=== PATIENT | female | born 1965 | race Caucasian/White ===

== ENCOUNTER → 2021-09-28 11:15 | Outpatient (BNVA) | payer OTHER, SELFPAY | PROVIDERS: PCP Internal Medicine; Visit Provider Internal Medicine Rheumatology | DX: M79.7 Fibromyalgia (principal); M19.072 Primary osteoarthritis, left ankle and foot; M19.071 Primary osteoarthritis, right ankle and foot | CPT/HCPCS: 99212 ==

== ENCOUNTER → 2022-03-01 10:32 | Outpatient (BNVA) | payer OTHER, SELFPAY | PROVIDERS: PCP Internal Medicine; Visit Provider Internal Medicine Rheumatology | DX: M19.079 Primary osteoarthritis, unspecified ankle and foot (principal); M79.7 Fibromyalgia | CPT/HCPCS: 99212 ==

== ENCOUNTER 2022-08-29 10:18 | Outpatient (AMB) | payer OTHER, SELFPAY ==
[2022-08-29 10:27] VITALS: BP 112/70; PULSE 78; TEMP 36.7; O2SAT 98; BMI 28.8
--- NOTE | 2022-08-29 10:27 | MHC.OFFVIS ---
Intake Vital Signs 08/29/22 10:27 Height 5 ft 2 in Weight 157 lb 10.088 oz BMI 28.8 BP 112/70 Blood Pressure Location Lt brachial Position Sitting Pulse 78 Pulse Source Pulse Oximeter Temp 98.1 F Temp Source Skin Pulse Oximetry (%) 98 Intake Visit Reasons: fm Intake Note: Pt seen today for FM follow up. C/o right knee pain Investigation Division Sergeant Required: No Accompanied by: Self / Same As Patient Allergies ENVIRONMENTAL Allergy (Intermediate, Uncoded 08/29/22 10:35) SNEEZING,RUNNY EYES AND NOSE Medication List - Last Reconciled 08/29/22 by Mauricio Juan MD albuterol sulfate 90 mcg/actuation (ProAir HFA) 2 puffs inhalation Q6H PRN azelastine 1 spray intranasal BID bupropion HCl (Wellbutrin XL) 300 mg PO QAM bupropion HCl 150 mg PO QAM dextroamphetamine-amphetamine 10 mg 1 tab PO DAILY dextroamphetamine-amphetamine 20 mg ER (Adderall XR) 1 cap PO QAM duloxetine 60 mg PO DAILY epinephrine (EpiPen) 0.3 mg IM Q4H PRN fexofenadine (Allergy Relief (fexofenadine)) 180 mg PO DAILY fluticasone propion-salmeterol 500-50 mcg/dose (Advair Diskus) 1 ea inhalation BID ketoconazole 2% 1 appl topical BID PRN ketotifen fumarate 0.025%(0.035%) (Wal-Zyr (ketotifen)) 1 drp ophthalmic (eye) BID naproxen 250 mg PO BID PRN pregabalin 225 mg PO BID triamcinolone acetonide (Nasacort Allergy) 2 sprays intranasal DAILY triamcinolone acetonide 0.1% 1 appl topical DAILY PRN HPI HPI Comments History of Present Illness Details The patient returns for evaluation of her fibromyalgia. She says joints feel about the same but she has noted some recurrent problems of pain in the left arm. This is mostly over the forearm in the biceps region. It seems to come on after she is holding her new grandson. She notes that it does not bother her while she is holding the child but just afterwards. There has been the development of some right medial thigh and knee pain over the past year. This tends to come and go. It seems to be just proximal to the joint. She does not notice any redness or swelling. More activities seem to make it more uncomfortable. She also still has pain in the neck, shoulders, forearms, hands, lower back and hips. She remains on bupropion, Adderall, duloxetine 60 mg daily, naproxen if needed, and pregabalin 225 mg b.i.d. she does not think the pregabalin in the daytime seems to make her sleepy at all. She used to do more walking walking her dog but the dog is no longer with her. [facility] Surgical History Hx of section Family History Mother Diabetes Hypertension Alzheimer disease Heart disease Father Heart disease Social History Household Members: Family Housing: Apartment Are you a primary care program director to a significant other at home: No Do you presently have visiting nurse or other home services: Yes (Road Consultant 1 hour a day) Alcohol intake: never Patient Tobacco Use Status: Never used Tobacco Substance Use Type: Marijuana service: No Current occupational status: disabled Cognitive needs: No Hearing needs: No Vision needs: Yes Review of Systems Const Details: Low energy. Negative for appetite change, weight change, fever, chills, malaise Eyes Details: Occasional headaches. Negative for vision change, dry eyes and dizziness Skin/Breast Details: Negative for itching, rash, hives, Raynaud's symptoms, sun sensitivity, and skin cancer Neuro Details: She gets fairly regularly hand tingling. This has been treated with carpal tunnel release in the past but she also gets the symptoms. She claims she has some white matter brain lesions followed by the neurologist. Negative for epilepsy, palsy, stroke, changes in speech and weakness Psych Details: anxiety, depression stable for now. Move more upbeat when she discusses her new grandchild. Hayedn/Lymph Details: Negative for excessive bruising or bleeding. Physical Exam Vital Signs: Last Vital Signs Temp 98.1 F 08/29/22 10:27 Pulse 78 08/29/22 10:27 BP 112/70 08/29/22 10:27 Pulse Ox 98 08/29/22 10:27 BMI result Body Mass Index 28.8 APPEARANCE: Patient in no acute distress EYES no redness, pupils equal and reactive to light, eyelids normal EXTREMITIES: No edema, no calf tenderness, normal peripheral pulses. NEURO: Oriented and alert x3. No focal weakness. Reflexes symmetric. SKIN: No inflammatory or neoplastic lesions. Normal color and turgor JOINT EXAM:?? Cervical Spine:? Mild pain with extremes of motion with some cervical muscle tenderness. Thoracic Spine:.? No scoliosis.? No tenderness on palpation. Lumbar Spine:.? Alignment normal.? Slight pain with flexion at 60 degrees.? No tenderness. Chest Wall:.? No tenderness, swelling, increased warmth or erythema. Hands: ?Normal pain-free range of motion with slight bony enlargement at the PIP and the DIP joints.? The PIP and the IP joints all have some slight tenderness but no soft tissue swelling, increased warmth or erythema. Wrists:? Normal pain-free range of motion with slight tenderness but no swelling, increased warmth or erythema. Elbows:. Normal pain-free range of motion without tenderness, swelling, increased warmth or erythema. Able to make a full fist and has a good auto suspension and steering mechanic strength. Shoulders:??Left:?mild pain at the extremes.? Mild anterior tenderness without swelling or abductor weakness.? Right:? Normal pain-free range of motion without tenderness, weakness, swelling, increased warmth or erythema. Hips:.? Left:? Full range of motion without pain.? Right:? Mild lumbar pain with extremes of internal or external rotation.? No groin pain with motion. Hip bursa:.? Mild trochanteric ? tenderness. Knees:? ?Left: Normal pain-free range of motion with the mild patellofemoral crepitus.? There is no tenderness, effusion, soft tissue swelling, increased warmth or erythema.? Right: Mild pain with extremes of normal flexion or extension. Most of this pain is felt just distal to the joint margin the on the medial aspect. That area is slightly tender. I do not detect any warmth, swelling, induration, or fluctuance in that region. There is no popliteal swelling or tenderness. Ankles:.?? Left:? There is no pain with range of motion.? There is slight medial and lateral tenderness but no swelling.? Right:? Normal pain-free range of motion without tenderness, swelling, increased warmth or erythema. Feet:.? Right:? Mild bony enlargement and hallux valgus deformity at the 1st MTP area.? There is mild tenderness across the 1st MTP joint but also in the instep.? There is no accompanying soft tissue swelling, redness or warmth.? Left: Mild bony enlargement hallux valgus deformity and moderate tenderness at the 1st MTP.? She there is [id number] tenderness in the instep but the area has no soft tissue swelling, increased warmth or erythema. Tender points:? Mild tenderness to digital palpation at the occiput, trapezius, second rib, lateral epicondyle, knees, greater trochanter and gluteal area bilaterally. Assessment & Plan Assessment & Plan (1) Knee pain, right: Code(s): M25.561 - Pain in right knee (2) Osteoarthritis of hands, bilateral: Code(s): M19.041 - Primary osteoarthritis, right hand; M19.042 - Primary osteoarthritis, left hand (3) Fibromyalgia: Comment: 2016: pos CCP(58), negative MIRTHA, RF, SS-A, SS-B Code(s): M79.7 - Fibromyalgia Plan She remains with widespread pains but no clear sign of active inflammatory arthritis. There is some findings of some osteoarthritis in the fingers but I do not think that accounts for much of her symptoms. There are many tender points so this again looks like fibromyalgia. I suggested some gentle stretching so she could hold the grandchild. Perhaps holding him in 1 position is not a good idea and she might want to support the elbow in that region with a soft cushion. The right leg pain is so tender over the soft tissues. We will check the x-ray of the knee to see if this any pathology evident. A follow-up in 6 months seems reasonable assuming we do not find anything on the x-ray of the knee. She will continue with the pregabalin as we have been prescribing above. Orders: Orders XR knee RT 3V 08/29/22 M25.561 - Pain in right knee Medications: Refilled pregabalin 225 mg PO BID 60 caps 2RF M79.7 - Fibromyalgia Coding Level of Care Code Est Pt Level 3 (91497) Diagnoses Knee pain, right M25.561 Osteoarthritis of hands, bilateral M19.041; M19.042 Fibromyalgia M79.7
== END 2022-08-29 11:04 | disposition home or self-care (01) ==
LOC: HO.RHE 10:18
PROVIDERS: PCP Internal Medicine; Visit Provider Internal Medicine Rheumatology
DX: M25.561 Pain in right knee (principal); M19.041 Primary osteoarthritis, right hand; M19.042 Primary osteoarthritis, left hand; M79.7 Fibromyalgia
CPT/HCPCS: 99213

== ENCOUNTER → 2022-08-29 10:18 | Outpatient (BNVA) | payer OTHER, SELFPAY | PROVIDERS: PCP Internal Medicine; Visit Provider Internal Medicine Rheumatology | DX: M79.7 Fibromyalgia (principal); M25.561 Pain in right knee; M19.042 Primary osteoarthritis, left hand; M19.041 Primary osteoarthritis, right hand | CPT/HCPCS: 99212 ==

== ENCOUNTER 2023-01-18 08:32 | Outpatient (AMB) | payer OTHER, SELFPAY ==
--- NOTE | 2023-01-18 08:39 | MHC.OFFVIS ---
Intake Vital Signs 01/18/23 08:44 Height 5 ft 2 in Weight 160 lb 4.417 oz BMI 29.3 BP 110/67 Blood Pressure Location Lt brachial Position Sitting Pulse 69 Pulse Source Pulse Oximeter Temp 97.4 F Temp Source Skin Pulse Oximetry (%) 97 Oxygen Delivery Method Room Air Intake Visit Reasons: FM Intake Note: Patient presents today to follow up on fibromyalgia. Last seen by Dr. Juan in August,. Employment Manager Required: No Accompanied by: Self / Same As Patient Allergies ENVIRONMENTAL Allergy (Intermediate, Uncoded 01/18/23 08:41) SNEEZING,RUNNY EYES AND NOSE Medication List - Last Reconciled 01/18/23 by Mauricio Juan MD albuterol sulfate 90 mcg/actuation (ProAir HFA) 2 puffs inhalation Q6H PRN azelastine 1 spray intranasal BID bupropion HCl (Wellbutrin XL) 300 mg PO QAM bupropion HCl 150 mg PO QAM dextroamphetamine-amphetamine 10 mg 1 tab PO DAILY dextroamphetamine-amphetamine 20 mg ER (Adderall XR) 1 cap PO QAM diclofenac sodium 1% topical duloxetine 60 mg PO DAILY epinephrine (EpiPen) 0.3 mg IM Q4H PRN fexofenadine (Allergy Relief (fexofenadine)) 180 mg PO DAILY fluticasone propion-salmeterol 500-50 mcg/dose (Advair Diskus) 1 ea inhalation BID ipratropium-albuterol 0.5 mg-3 mg(2.5 mg base)/3 mL 3 mL inhalation Q6H ketoconazole 2% 1 appl topical BID PRN ketotifen fumarate 0.025%(0.035%) (Wal-Zyr (ketotifen)) 1 drp ophthalmic (eye) BID lidocaine 5% 1 patch topical DAILY mometasone 50 mcg/actuation intranasal naproxen 250 mg PO BID PRN pregabalin 225 mg PO BID triamcinolone acetonide 0.1% 1 appl topical DAILY PRN HPI HPI Comments History of Present Illness Details The patient returns for evaluation of her fibromyalgia. She still has fairly widespread pains involving neck, shoulders, hands, lower back, hips and right knee. She sees a lining baster about her foot pain due to osteoarthritis. She was prescribed a compound in the past that was helpful but apparently it is not available. She is now on lidocaine patches and topical diclofenac gel. She remains on duloxetine 30 b.i.d., Lyrica 225 b.i.d., Adderall and bupropion. She notes some sleepiness in the mornings that she attributes to the Cymbalta. She thinks someone told her she had psoriatic arthritis. Occasionally she gets an itchy rash on the back of her neck. Her asthma and allergies have been stable recently. [facility] Surgical History Hx of section Family History Mother Diabetes Hypertension Alzheimer disease Heart disease Father Heart disease Social History (Updated 01/18/23 @ 08:58 by SUSY Niño) Household Members: Family Housing: Apartment Are you a primary rn progressive care to a significant other at home: No Do you presently have visiting nurse or other home services: Yes (Executive Coordinator 1 hour a day) Alcohol intake: never Patient Tobacco Use Status: Former Tobacco user Quit Date: 2021 Tobacco use type: Cigarette Substance Use Type: Marijuana service: No Current occupational status: disabled Cognitive needs: No Hearing needs: No Vision needs: Yes Review of Systems Const Details: Negative for appetite change, weight change, fever, chills, malaise and fatigue Eyes Details: Negative for vision change, dry eyes,headaches and dizziness Card Details: Negative chest pain, edema and syncope Resp Details: Negative for SOB, cough and wheezing GI Details: Negative indigestion/heartburn, nausea, abdominal pain, bowel changes, diarrhea, constipation and bloody stool. Skin/Breast Details: Occasional itchy rash in the back in the neck. Presently negative for itching, rash, hives, Raynaud's symptoms, sun sensitivity, and skin cancer Endo Details: Negative for polyuria and polydypsia Hayden/Lymph Details: Negative for excessive bruising or bleeding. Physical Exam Vital Signs: Last Vital Signs Temp 97.4 F 01/18/23 08:44 Pulse 69 01/18/23 08:44 BP 110/67 01/18/23 08:44 Pulse Ox 97 01/18/23 08:44 Oxygen Delivery Method Room Air 11/30/23 08:44 BMI result Body Mass Index 29.3 APPEARANCE: Patient in no acute distress EYES no redness, pupils equal and reactive to light, eyelids normal EXTREMITIES: No edema, no calf tenderness, normal peripheral pulses. SKIN: Today I do not see any inflammatory or neoplastic lesions. JOINT EXAM: Cervical Spine:? Mild pain with extremes of motion with some cervical muscle tenderness. Thoracic Spine:.? No scoliosis.? No tenderness on palpation. Lumbar Spine:.? Alignment normal.? Slight pain with flexion at 60 degrees.? No tenderness. Chest Wall:.? No tenderness, swelling, increased warmth or erythema. Hands: ?Right: Mild pain with range of motion at the 2nd PIP. There is mild bony enlargement at the PIP and DIP joints. There is more prominent bony enlargement with tenderness at the thumb IP and 2nd PIP joint. There is no flexor tendon triggering, soft tissue swelling, thenar atrophy or sensory loss. Left: Normal pain-free range of motion with mild bony enlargement at the PIP and DIP joints. There is more prominent bony enlargement at the thumb IP joint. There is mild tenderness and slight bony enlargement at the base of the thumb. There is no soft tissue swelling, flexor tendon triggering, thenar atrophy or sensory loss.a. Wrists:? Normal pain-free range of motion with slight tenderness but no swelling, increased warmth or erythema. Elbows:. Normal pain-free range of motion without tenderness, swelling, increased warmth or erythema. Able to make a full fist and has a good casting and locker room servicer strength. Shoulders:??Left:?mild pain at the extremes.? Mild anterior tenderness without swelling or abductor weakness.? Right:? Normal pain-free range of motion without tenderness, weakness, swelling, increased warmth or erythema. Hips:.? Left:? Full range of motion without pain.? Right:? Mild lumbar pain with extremes of internal or external rotation.? No groin pain with motion. Hip bursa:.? Mild trochanteric ? tenderness. Knees:? ?Left: Normal pain-free range of motion with the mild patellofemoral crepitus.? There is no tenderness, effusion, soft tissue swelling, increased warmth or erythema.? Right: Mild pain with extremes of normal flexion or extension. Most of this pain is felt just distal to the joint margin the on the medial aspect. That area is slightly tender. I do not detect any warmth, swelling, induration, or fluctuance in that region. There is no popliteal swelling or tenderness. Ankles:.?? Left:? There is no pain with range of motion.? There is slight medial and lateral tenderness but no swelling.? Right:? Normal pain-free range of motion without tenderness, swelling, increased warmth or erythema. Feet:.? Right:? Mild bony enlargement and hallux valgus deformity at the 1st MTP area.? There is mild [id number] tenderness across the 1st MTP joint but also slight tenderness in the instep.? There is no accompanying soft tissue swelling, redness or warmth.? Left: Mild bony enlargement hallux valgus deformity and moderate tenderness at the 1st MTP.? She there is [id number]-[id number] tenderness in the instep but the area has no soft tissue swelling, increased warmth or erythema. Tender points:? Mild tenderness to digital palpation at the occiput, trapezius, second rib, lateral epicondyle, knees, greater trochanter and gluteal area bilaterally. ??? Results Reviewed Results Reviewed: [facility] Result Report Patient: Alicia Mims Date of Service: 07/20/20 ? ? Patient Gender: Female Ordering Provider: Mauricio Juan : 1965 ? ? ? Final X-RAY EXAM OF FOOT, COMPLETE (3 VIEWS) Exam Date: 07/20/2020 8:55 AM Ordering Diagnosis: FibromyalgiaFoot pain, bilateral ? Bilateral feet, 3 views of each. History metatarsophalangeal pain. There are marked degenerative changes in the 1st metatarsophalangeal joints more prominent on the left. There is hallux valgus deformity more prominent on the left. No fractures, dislocations or destructive lesions. There are tiny calcaneal spurs on the left. There is mild anterior spurring in the mid feet bilaterally. ? CONCLUSIONS: Degenerative changes as detailed. Tiny calcaneal spurs on the left. ? Reading Radiologist: Electronically signed by: Aparna Landin MD on Assessment & Plan Assessment & Plan (1) Osteoarthritis of foot: Comment: bilateral at 1st MTP's Code(s): M19.079 - Primary osteoarthritis, unspecified ankle and foot (2) Osteoarthritis of hands, bilateral: Code(s): M19.041 - Primary osteoarthritis, right hand; M19.042 - Primary osteoarthritis, left hand (3) Fibromyalgia: Comment: 2016: pos CCP(58), negative MIRTHA, RF, SS-A, SS-B Code(s): M79.7 - Fibromyalgia Plan She has a bit more prominent bony changes in the hands consistent with some osteoarthritis. This seems to be more symptomatic at the thumb IP joints. She does have some diclofenac gel that she uses on her feet OA so I think she could use it also on her interphalangeal joints in the hands. Additionally the naproxen could be increased to q.i.d. if needed. Overall she still has many pains and tender spots consistent with some underlying fibromyalgia. For now she should stay with bupropion, Lyrica, and Cymbalta. I do not see any evidence that she has psoriatic arthritis. The bony changes in the hands seem characteristic for OA. We will check some x-rays of the hands to see if additional pathology is noted. Other than the advice to put the diclofenac gel on the symptomatic finger joints I do not have other additional recommendations for now. A follow-up in 6 months would be reasonable. Orders: Orders XR hand LT min 3V Today M19.041 - Primary osteoarthritis, right hand, M19.042 - Primary osteoarthritis, left hand XR hand RT min 3V Today M19.041 - Primary osteoarthritis, right hand, M19.042 - Primary osteoarthritis, left hand Coding Level of Care Code Est Pt Level 3 (04176) Diagnoses Osteoarthritis of foot M19.079 Osteoarthritis of hands, bilateral M19.041; M19.042 Fibromyalgia M79.7
[2023-01-18 08:44] VITALS: BP 110/67; PULSE 69; TEMP 36.3; O2SAT 97; BMI 29.3
== END 2023-01-18 09:15 | disposition home or self-care (01) ==
PROVIDERS: PCP Internal Medicine; Visit Provider Internal Medicine Rheumatology
DX: M19.079 Primary osteoarthritis, unspecified ankle and foot (principal); M19.041 Primary osteoarthritis, right hand; M19.042 Primary osteoarthritis, left hand; M79.7 Fibromyalgia
CPT/HCPCS: 99213

== ENCOUNTER → 2023-01-18 08:32 | Outpatient (BNVA) | payer OTHER, SELFPAY | PROVIDERS: PCP Internal Medicine; Visit Provider Internal Medicine Rheumatology | DX: M19.079 Primary osteoarthritis, unspecified ankle and foot (principal); M19.041 Primary osteoarthritis, right hand; M19.042 Primary osteoarthritis, left hand; M79.7 Fibromyalgia | CPT/HCPCS: 99212 ==

== ENCOUNTER 2023-05-30 12:21 | Outpatient (REF) | payer OTHER, SELFPAY ==
[2023-05-30 12:41] LABS: MANUAL DIFF FLAG NO
[2023-05-30 12:49] LABS: Basophils Percent Auto 0.5 % (0-2); Eosinophils Absolute Auto 0.1 X10*3/uL (0.0-0.4); Eosinophils Percent Auto 1.9 % (0-4); Hematocrit 33.9 % (37.0-47.0); Hemoglobin 11.6 g/dl (12.0-16.0); Imm Gran Abs Auto 0.02 X10*3/uL (0.00-0.03); Imm Gran Pct Auto 0.3 % (0.0-0.4); Lymphocytes Percent Auto 34.1 % (20-40); Mean Corpuscular HGB Conc 34.2 g/dl (31.0-35.0); Mean Corpuscular Hemoglobin 31.8 pg (27.0-33.0); Mean Corpuscular Volume 92.9 fL (80.0-98.0); Monocytes Absolute Auto 0.4 X10*3/uL (0.1-1.2); Monocytes Percent Auto 6.7 % (2-11); Neutrophils Absolute Auto 3.3 x10*3/uL (2.0-8.3); Neutrophils Percent Auto 56.5 % (45-73); Platelet Count 241 X10*3/uL (160-400); Red Blood Count 3.65 X10*6/uL (4.20-5.50); Red Cell Distribution Width 15.4 % (11.0-16.0); White Blood Count 5.8 X10*3/uL (4.8-10.8)
[2023-05-30 13:23] LABS: Alanine Aminotransferase 21 U/L (0-31); Albumin Level 4.1 g/dL (3.5-5.0); Alkaline Phosphatase 86 U/L (39-117); Anion Gap 11 (12-20); Aspartate Amino Transferase 18 U/L (5-31); Bilirubin Total 0.1 mg/dL (0.0-1.0); Blood Urea Nitrogen 13 mg/dL (9-16); C Reactive Protein 0.21 mg/dL (< or = 0.50); Calcium 9.2 mg/dL (8.4-10.2); Carbon Dioxide 26 mmol/L (22-29); Chloride 106 mmol/L (96-108); Estimated Glomerular Filt Rate > 60; Glucose Random 94 mg/dL (60-115); Potassium 4.1 mmol/L (3.3-5.1); Sodium 139 mmol/L (135-145); Total Protein 7.3 g/dL (6.5-8.0); Uric Acid 4.7 mg/dL (2.4-5.7)
[2023-05-30 13:26] LABS: Rheumatoid Factor < 13.0 IU/mL (<15.0)
[2023-05-30 13:31] LABS: Erythrocyte Sedimentation Rate 16 MM/HR (0-20)
[2023-05-31 04:55] LABS: HBS Num1 0.17 mIU/mL (0-7.99); HBc Num1 0.09 S/CO (0.00-0.79); HBsAGNum1 0.28 S/CO (0.00-0.99); Hepatitis A Antibody IgM 0.16 Index (0-0.79); Hepatitis B Core Antibody Nonreactive (Nonreactive); Hepatitis B Surface Antigen Negative (Negative); ~HepC Num1 0.08 S/CO (0.00-0.79); ~Hepatitis A Antibody IgM Nonreactive (Nonreactive); ~Hepatitis B Surface Antibody NONREACTIVE (Nonreactive); ~Hepatitis C Antibody Nonreactive (Nonreactive)
[2023-05-31 14:43] LABS: Cyclic Citrullinated Peptide 30 UNITS
[2023-05-31 21:48] LABS: Prot Elec - Albumin 4.2 g/dL (3.8-4.8); Prot Elec - Alpha1 0.2 g/dL (0.2-0.3); Prot Elec - Alpha2 0.8 g/dL (0.5-0.9); Prot Elec - Beta 1 0.4 g/dL (0.4-0.6); Prot Elec - Beta 2 0.4 g/dL (0.2-0.5)
[2023-06-01 11:34] LABS: IgA 120 mg/dL (47-310); IgG 1240 mg/dL (600-1640); IgM 64 mg/dL (50-300)
[2023-06-01 22:28] LABS: TS Negative Control Passed; TS Panel A 0; TS Panel B 1; TS Positive Control Passed; TSpotTB Negative (Negative)
== END 2023-05-30 12:22 | disposition home or self-care (01) ==
LOC: HO.LAB 12:21
PROVIDERS: PCP Internal Medicine; Visit Provider Nurse Practitioner Family
DX: Z11.1 Encounter for screening for respiratory tuberculosis (principal); M25.50 Pain in unspecified joint; R76.8 Other specified abnormal immunological findings in serum
CPT/HCPCS: 36415; 80053; 82550; 82784; 84165; 84550; 85025; 85652; 86140; 86200; 86334; 86431; 86481; 86704; 86706; 86709; 86803; 87340

== ENCOUNTER 2023-11-06 08:27 | Outpatient (AMB) | payer OTHER, SELFPAY ==
--- NOTE | 2023-11-06 08:32 | MHC.OFFVIS ---
Vital Signs 11/06/23 08:38 Height 5 ft 2 in Weight 160 lb 0.889 oz BMI 29.3 BP 112/62 Blood Pressure Location Lt brachial Position Sitting Pulse 67 Pulse Source Pulse Oximeter Pulse Oximetry (%) 96 Oxygen Delivery Method Room Air Intake Visit Reasons: oa/fm with inpatient services rn Intake Note: Patient presents for OA/FM. Constant pain on neck down to lower back, shoulders and arms. Allergies ENVIRONMENTAL Allergy (Intermediate, Uncoded 01/18/23 08:41) SNEEZING,RUNNY EYES AND NOSE Medication List - Last Reconciled 11/06/23 by Gurinder Marina MD albuterol sulfate 90 mcg/actuation (ProAir HFA) 2 puffs inhalation Q6H PRN azelastine 1 spray intranasal BID bupropion HCl XL (Wellbutrin XL) 300 mg PO QAM bupropion HCl XL 150 mg PO QAM dextroamphetamine-amphetamine 10 mg 1 tab PO DAILY dextroamphetamine-amphetamine 20 mg ER (Adderall XR) 1 cap PO QAM diclofenac sodium 1% topical duloxetine 60 mg PO DAILY epinephrine (EpiPen) 0.3 mg IM Q4H PRN fexofenadine (Allergy Relief (fexofenadine)) 180 mg PO DAILY fluticasone propion-salmeterol 500-50 mcg/dose (Advair Diskus) 1 ea inhalation BID ipratropium-albuterol 0.5 mg-3 mg(2.5 mg base)/3 mL 3 mL inhalation Q6H ketoconazole 2% 1 appl topical BID PRN ketotifen fumarate 0.025%(0.035%) (Wal-Zyr (ketotifen)) 1 drp ophthalmic (eye) BID lidocaine 5% 1 patch topical DAILY mometasone 50 mcg/actuation intranasal naproxen 250 mg PO BID PRN pregabalin 225 mg PO BID triamcinolone acetonide 0.1% 1 appl topical DAILY PRN HPI Comments Details: This is a 58-year-old female with fibromyalgia and osteoarthritis who presents for follow-up. She was last seen 08/[address] Juan. She remains on Lyrica 225 mg Twice daily. She states that she continues to have diffuse joint pains usually worse with activity including her neck, back, hands, shoulders, knees and feet. She takes Aleve as needed for pains every few days. [facility] Medical History (Updated 11/06/23 @ 09:22 by Gurinder Marina MD) Positive anti-CCP test Surgical History Hx of section Family History Mother Diabetes Hypertension Alzheimer disease Heart disease Father Heart disease Social History Household Members: Family Housing: Apartment Are you a primary child care specialist to a significant other at home: No Do you presently have visiting nurse or other home services: Yes (Retail Business Development Manager 1 hour a day) Alcohol intake: never Patient Tobacco Use Status: Former Tobacco user Tobacco use type: Cigarette Substance Use Type: Marijuana service: No Current occupational status: disabled Cognitive needs: No Hearing needs: No Vision needs: Yes Review of Systems Musc Reports deformity and Reports arthralgias Physical Exam Vital Signs: Last Vital Signs Pulse 67 11/06/23 08:38 BP 112/62 11/06/23 08:38 Pulse Ox 96 11/06/23 08:38 Oxygen Delivery Method Room Air 11/06/23 08:38 BMI result Body Mass Index 29.3 Const General: cooperative, healthy appearing and comfortable Nutritional Appearance: overweight Orientation/consciousness: patient oriented x3 Limitations: no limitations HEENT Head: Yes normocephalic and Yes atraumatic Mouth: moist mucous membranes Resp Effort & Inspection: normal respiratory effort and able to speak in complete sentences Skin General skin exam: no rashes or lesions noted Neuro General: patient oriented x3 Extrem Other: Significant osteoarthritic changes of both hands, multiple tender PIPs and DIPs bilaterally Swollen joints noted Normal nailfold capillaroscopy Normal range of motion of hands, wrists, elbows and shoulders without pain Positive empty can test on the right Negative Speed's test bilaterally Negative infraspinatus test bilaterally Left foot bunion Results Reviewed Results Reviewed: [facility] Result Report Patient: Alicia Mims Date of Service: 07/20/20 ? ? Patient Gender: Female Ordering Provider: Mauricio Juan : 1965 ? ? ? Final X-RAY EXAM OF FOOT, COMPLETE (3 VIEWS) Exam Date: 07/20/2020 8:55 AM Ordering Diagnosis: FibromyalgiaFoot pain, bilateral ? Bilateral feet, 3 views of each. History metatarsophalangeal pain. There are marked degenerative changes in the 1st metatarsophalangeal joints more prominent on the left. There is hallux valgus deformity more prominent on the left. No fractures, dislocations or destructive lesions. There are tiny calcaneal spurs on the left. There is mild anterior spurring in the mid feet bilaterally. ? CONCLUSIONS: Degenerative changes as detailed. Tiny calcaneal spurs on the left. ? Reading Radiologist: Electronically signed by: Aparna Landin MD on ORTHO X-RAY EXAM OF HAND, 3+ VIEWS Exam Date: 04/12/2023 10:28 AM Ordering Diagnosis: Bilateral hand pain ? Date of Visit: 04/12/2023 ? Reason for visit: Bilateral hand and thumb pain ? Views: AP, lateral and oblique bilateral hands ? Comparison: None ? Findings: No fracture, dislocation or lytic lesions. Diffuse osteoarthritis in the fingers. Osteoarthritis of the IP joints of bilateral thumbs with bone spurs evident at the dorsum of bilateral thumb IP joints. Mild to moderate CMC arthritis on the right thumb basal joint and moderate to severe on the left ? Impression: Moderate osteoarthritis bilateral thumb IP joints bilateral thumb CMC joints, no acute findings ? Reading Radiologist: Assessment & Plan Assessment & Plan (1) Fibromyalgia: Code(s): M79.7 - Fibromyalgia Category: Medical Plan: This is a 58-year-old female with fibromyalgia and generalized osteoarthritis who presents for follow-up. This is her 1st visit with me. She used to follow-up with Dr. Juan. Upon evaluation I do not see any signs suggestive of an autoimmune rheumatic disease. Patient has been on Lyrica 225 mg Twice daily and it seems to be at least partially effective. 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 It does not look like patient has ever been on any DMARDs. Upon evaluation however clinical picture consistent with bilateral hand osteoarthritis. Hand x-rays not consistent with inflammatory arthritis. I will keep evaluating patient for the development of inflammatory arthritis Plan I spent 30 minutes reviewing patient's chart, evaluating patient, counseling patient and documenting in the chart Coding Level of Care Code New Pt Level 3 (37696) Diagnoses Fibromyalgia M79.7 Primary osteoarthritis of both hands M19.041; M19.042 Osteoarthritis type: primary Positive anti-CCP test R76.8
[2023-11-06 08:38] VITALS: BP 112/62; PULSE 67; O2SAT 96; BMI 29.3
== END 2023-11-06 09:13 | disposition home or self-care (01) ==
PROVIDERS: PCP Internal Medicine; Visit Provider Student in an Organized Health Care Education/Training Program
DX: M79.7 Fibromyalgia (principal); M19.041 Primary osteoarthritis, right hand; M19.042 Primary osteoarthritis, left hand; R76.8 Other specified abnormal immunological findings in serum
CPT/HCPCS: 99203

== ENCOUNTER → 2023-11-06 08:27 | Outpatient (BNVA) | payer OTHER, SELFPAY | PROVIDERS: PCP Internal Medicine; Visit Provider Student in an Organized Health Care Education/Training Program | DX: M79.7 Fibromyalgia (principal); M19.041 Primary osteoarthritis, right hand; M19.042 Primary osteoarthritis, left hand; R76.8 Other specified abnormal immunological findings in serum | CPT/HCPCS: 99202 ==

== ENCOUNTER 2024-06-19 13:08 | Outpatient (REF) | payer OTHER, SELFPAY ==
--- OUTSIDE RECORDS SUMMARY | 2024-06-19 16:22 | XMS_ITS | Clinical Summary ---
Author Organization 175 [facility] Address [address] [place] [address] Phone Care Team Providers Care Pipeline Technician Name Role Phone Shaheen Fletcher MD Primary Care Provider [phone] Allergies Active Allergy Reactions Criticality Noted Date [...] propionate (FLONASE) 50 mcg/actuation nasal spray 1 [place] by Nasal route daily. 06/15/19 24 Active [...] HFA 90 mcg/actuation inhalerIndications :Moderate persistent asthma, uncomplicated,Natural Developer brett obstructive pulmonary disease, unspecified (CMS/HCC V24, [...] ic obstructive pulmonary disease, unspecified COPD type ([facility] V24, [facility] V28) Take 3 mL by nebulization [...] dander 03/13/2018 Chronic idiopathic granuloma tous disease ([facility] V24, [facility] V28) 03/13/2018 Overview (11/16/2023): Chest CT 2018: There is a cluster of calcifications in the central left lobe liver. This may represent calcified granulomas or calcified vascular anomaly Cannabis abuse 09/11/2017 Fibromyalgia 03/14/2016 Anxiety 10/29/2015 ADHD (attention deficit hyperactivity disorder) 09/11/2012 Depressive disorder 12/02/2010 Encounters Date Type Department Care Team Description 05/20/2024 8:15 AM EDT Office Visit Orthopedic [facility] [address] [facility] [address] [place] [address] Sergey Ribera DPM Hallux rigidus of right foot (Primary Dx); Post-operative state 05/16/2024 8:30 AM EDT Office Visit Adult Medicine [address] [phone] Shaheen Fletcher MD Localized skin mass, lump, or swelling (Primary Dx); High cholesterol; Other migraine without status migrainosus, not intractable; Moderate persistent asthma without complication; Seasonal allergies; Hallux rigidus of left foot 05/16/2024 Telephone Adult Medicine [address] [phone] Shaheen Fletcher MD Fitting for DME 2024 11:45 AM EDT Office Visit [facility] [address] [place] [phone] Chaya Flores, LUCHO Arthritis of carpometacarpal (CMC) joints of both thumbs (Primary Dx); Bilateral carpal tunnel syndrome 04/28/2024 Telephone General Surgery [facility] [address] [facility] [address] [place] [phone] Dc Limon, DO Advice Only 04/07/2024 4:00 PM EST Office Visit [facility] [address] [facility] [address] [place] [address] Seregy Ribera DPM Post-operative state (Primary Dx) from [...] History Surgery Date Site/Laterality Comments SECTION PROCEDURE: AK DELIVERY ONLY; COMMENT: x 3 BREAST BIOPSY PROCEDURE: BX BREAST; PERC NEEDLE CORE W/IMAG GUID; COMMENT: RT SIDE Medical History Medical History Date Comments Asthma DX:Asthma Seasonal allergies DX:Seasonal a llergies COPD (chronic obstructive pu lmonary disease) ([facility] V24, [facility] V28) Anxiety Depression Arthritis Carpal tunnel syndrome on both sides Family History Medical History Relation Name Comments Breast cancer Aunt 1 mat great aunt 30s Stomach cancer Aunt 2 m aunt Thyroid disease Brother 1 Hyperlipidemia Brother 2 Heart attack Father 52 Heart attack Father's side multiple uncle s and aunts Diabetes Mother htn; [place] (not fa robert); Alzheimers Diabetes Mother's side [...] for your loved ones. For example, child life specialist or elderly care for an older adult? [...] 07/10/2024 2:00 PM EDT Consult General Surgery [facility] [address] [facility] [address] [place] [phone] Perez Martell MD 175 [facility] [address] [place] [address] 08/01/2024 9:20 AM EDT Office Visit Pulmonolgy [facility] [address] [facility] [address] [place] [phone] Fabiola Sanches NP 175 [facility] [address] [place] [address] 08/01/2024 9:45 AM EDT Office Visit Orthopedic Surgery [facility] [address] [facility] [address] [place] [phone] Natalie Diaz MD 175 [facility] [address] [place] [address] 11/18/2024 8:30 AM EDT Office Visit Adult Medicine [facility] [address] [place] [address] Patricia Lawrence PA [address] [place] [address] Scheduled Procedures Name Priority Associated Diagnoses Date/Ti [...] this topic Medical Devices Implanted Type Area Automotive Drivability Technician Device Identifier Shelf Expiration Date Model / Serial / Lot Toe Flex Hinge W/Grommet Sz 2 [facility] Stem - one - [id number] Implanted:Qty: 1 on 03/21/2024 by Sergey Ribera DPM at [facility] Joints Left: First Toe LAVEGO [id number] 05/22/2031 [id number] / NONE / [id number] Procedures Procedure Name Priority Date/Time Associated Diagnosis Comments XR FOOT 3+ VIEWS LEFT Routine 05/20/2024 8:19 AM EDT Post-operative state AK ARTHROCENTESIS/ASPIR ATION/INJECTION SMALL JOINT/BURSA WO U/S GUIDANCE [...] IMG XR PROCEDURES Final R esult * AK ARTHROCENTESIS/ASPIRATION/INJECTION SMALL JOINT/BURSA WO U/S GUIDANCE (2024 [...] mg/dL LAB CHEMISTRY METHOD 04/28/2024 6:21 PM [facility] Triglycerides 174(H) 0 - 150 mg/dL LAB CHEMISTRY METHOD 04/28/2024 6:21 PM [facility] HDL 76 >=40 mg/dL LAB CHEMISTRY METHOD 04/28/2024 6:21 PM [facility] LDL Calculated 148(H) 0 - 100 mg/dL LAB CHEMISTRY METHOD 04/28/2024 6:21 PM [facility] VLDL Cholesterol Neno 34.8 mg/dL LAB CHEMISTRY METHOD 04/28/2024 6:21 PM [facility] Non HDL Chol. (LDL+VLDL) 183(H) <145 mg/dL LAB CHEMISTRY METHOD 04/28/2024 6:21 PM [facility] Chol/HDL Ratio 3.4 0.0 - 4.4 LAB CHEMISTRY METHOD 04/28/2024 6:21 PM [facility] Blood Venous blood specimen / Unknown Venipuncture / Unknown 04/28/2024 4:14 PM EDT 04/28/2024 4:14 PM EDT us Shaheen Fletcher MD LAB BLOOD ORDERABLES Final Resu lt [facility] [address] [place] [address], [place] [phone] * (ABNORMAL) CBC auto differential (04/28/2024 4:14 PM EDT) WBC 7.4 4.8 - 10.8 K/mcL LAB HEMETOLOGY METHOD 04/28/2024 6:04 PM EDT [facility] RBC 3.80 3.80 - 4.80 M/mcL LAB HEMETOLOGY METHOD 04/28/2024 6:04 PM EDT [facility] Hemoglobin 12.2 11.5 - 16.0 g/dL LAB HEMETOLOGY METHOD 04/28/2024 6:04 PM EDT [facility] Hematocrit 37.6 35.0 - 47.0 % LAB HEMETOLOGY METHOD 04/28/2024 6:04 PM EDT [facility] MCV 97.9 79.0 - 98.0 FL LAB HEMETOLOGY METHOD 04/28/2024 6:04 PM EDT [facility] MCH 31.8 27.0 - 32.0 pcg LAB HEMETOLOGY METHOD 04/28/2024 6:04 PM EDT [facility] MCHC 32.4 32.0 - 37.0 g/dL LAB HEMETOLOGY METHOD 04/28/2024 6:04 PM EDT [facility] RDW 14.3 11.0 - 15.0 % LAB HEMETOLOGY METHOD 04/28/2024 6:04 PM EDT [facility] Platelets 249 130 - 400 K/mcL LAB HEMETOLOGY METHOD 04/28/2024 6:04 PM EDT [facility] MPV 11.3(H) 7.0 - 11.0 FL LAB HEMETOLOGY METHOD 04/28/2024 6:04 PM [facility] NRBC 0.0 <1.0 % LAB HEMETOLOGY METHOD 04/28/2024 6:04 PM [facility] NRBC Absolute 0.00 <0.10 K/mcL LAB HEMETOLOGY METHOD 04/28/2024 6:04 PM [facility] Neutrophils Relative 44.2 % LAB HEMETOLOGY METHOD 04/28/2024 6:04 PM [facility] Lymphocytes Relative 43.5 % LAB HEMETOLOGY METHOD 04/28/2024 6:04 PM [facility] Monocytes Relative 8.9 % LAB HEMETOLOGY METHOD 04/28/2024 6:04 PM [facility] Eosinophils Relative 2.4 % LAB HEMETOLOGY METHOD 04/28/2024 6:04 PM [facility] Basophils Relative 0.5 % LAB HEMETOLOGY METHOD 04/28/2024 6:04 PM [facility] Immature Granulocytes Relative 0.5 % LAB HEMETOLOGY METHOD 04/28/2024 6:04 PM [facility] Neutrophils Absolute 3.27 1.50 - 7.00 K/mcL LAB HEMETOLOGY METHOD 04/28/2024 6:04 PM [facility] Lymphocytes Absolute 3.22 1.00 - 5.00 K/mcL LAB HEMETOLOGY METHOD 04/28/2024 6:04 PM [facility] Monocytes Absolute 0.66 0.20 - 1.00 K/mcL LAB HEMETOLOGY METHOD 04/28/2024 6:04 PM [facility] Eosinophils Absolute 0.18 0.00 - 0.50 K/mcL LAB HEMETOLOGY METHOD 04/28/2024 6:04 PM EDT [facility] Basophils Absolute 0.04 0.00 - 0.20 K/[facility] LAB HEMETOLOGY METHOD 04/28/2024 6:04 PM EDT [facility] Immature Granulocytes Absolute 0.04(H) 0.00 - 0.03 K/[facility] LAB HEMETOLOGY METHOD 04/28/2024 6:04 PM EDT [facility] Blood Venous blood specimen / Unknown Venipuncture / Unknown 04/28/2024 4:14 PM EDT 04/28/2024 4:14 PM EDT us Shaheen Fletcher MD LAB BLOOD ORDERABLES Final Resu lt Performing Organization Address [facility]/ZIP Co de Phone Number [facility] [address] [place] [address], [place] [phone] * Prothrombin time with INR (04/28/2024 4:14 PM EDT) [facility] Protime 10.9 10.6 - 13.9 sec LAB COAGULATION METHOD 04/28/2024 6:09 PM EDT [facility] INR 0.9 LAB COAGULATION METHOD 04/28/2024 6:09 PM EDT [facility] Blood Venous blood specimen / Unknown Venipuncture / Unknown 04/28/2024 4:14 PM EDT 04/28/2024 4:14 PM EDT us Shaheen Fletcher MD LAB BLOOD ORDERABLES Final Resu lt Performing Organization Address City/[facility]/ZIP Co de Phone Number [facility] [address] [place] [address], [place] [phone] * Cervical Cancer Screening: HPV (03/07/2022) [facility] Cervical Cancer Screening: HPV Abstracted ,negative us Alfred Quan MD HEALTH MAINTENANCE Final Result * Colonoscopy (11/08/2021) Colonoscopy No interpreta tion,abstr acted Anatomical Region Laterality Modality Other Historical Provider HEALTH [facility] Final Result * SCR MAMMO BI INCL [...] Most Recently Relevant to Health Maintenance Insurance [employer] Care Teams Pipeline Technician Relationship Specialty Start Date End Date Shaheen Fletcher MD [address] [place] [phone] PCP - General 09/28/08
[2024-06-19 17:47] LABS: MANUAL DIFF FLAG NO
[2024-06-19 17:58] LABS: Basophils Percent Auto 0.7 % (0-2); Eosinophils Absolute Auto 0.1 X10*3/uL (0.0-0.4); Eosinophils Percent Auto 2.2 % (0-4); Hematocrit 36.4 % (37.0-47.0); Hemoglobin 12.1 g/dl (12.0-16.0); Imm Gran Abs Auto 0.03 X10*3/uL (0.00-0.03); Imm Gran Pct Auto 0.5 % (0.0-0.4); Lymphocytes Absolute Auto 2.6 X10*3/uL (1.2-4.9); Lymphocytes Percent Auto 46.6 % (20-40); Mean Corpuscular HGB Conc 33.2 g/dl (31.0-35.0); Mean Corpuscular Hemoglobin 31.4 pg (27.0-33.0); Mean Corpuscular Volume 94.5 fL (80.0-98.0); Mean Platelet Volume 10.7 fL (9.4-12.3); Monocytes Absolute Auto 0.5 X10*3/uL (0.1-1.2); Monocytes Percent Auto 8.3 % (2-11); Neutrophils Absolute Auto 2.3 x10*3/uL (2.0-8.3); Neutrophils Percent Auto 41.7 % (45-73); Platelet Count 266 X10*3/uL (160-400); Red Blood Count 3.85 X10*6/uL (4.20-5.50); Red Cell Distribution Width 14.8 % (11.0-16.0); White Blood Count 5.5 X10*3/uL (4.8-10.8)
[2024-06-19 18:06] LABS: Alanine Aminotransferase 29 U/L (0-31); Aspartate Amino Transferase 27 U/L (5-31); C Reactive Protein < 0.10 mg/dL (< or = 0.50); Estimated Glomerular Filt Rate > 60
[2024-06-19 18:51] LABS: Erythrocyte Sedimentation Rate 21 MM/HR (0-20)
== END 2024-06-19 13:09 | disposition home or self-care (01) ==
LOC: HO.HKASLDS 13:08
PROVIDERS: PCP Internal Medicine; Visit Provider Internal Medicine Rheumatology
DX: M19.041 Primary osteoarthritis, right hand (principal); M19.042 Primary osteoarthritis, left hand; R76.8 Other specified abnormal immunological findings in serum; M79.7 Fibromyalgia; Z79.899 Other long term (current) drug therapy
CPT/HCPCS: 36415; 82565; 84450; 84460; 85025; 85652; 86140; 99212

== ENCOUNTER 2024-06-19 13:08 | Outpatient (AMB) | payer OTHER, SELFPAY ==
--- NOTE | 2024-06-19 13:14 | MHC.OFFVIS ---
Vital Signs 06/19/24 13:24 Height 5 ft 2 in Weight 156 lb 8.451 oz BMI 28.6 BP 120/70 Blood Pressure Location Rt brachial Position Sitting Pulse 84 Pulse Source Pulse Oximeter Pulse Oximetry (%) 97 Oxygen Delivery Method Room Air Intake Visit Reasons: OA Intake Note: Patient presents for OA follow up. Allergies ENVIRONMENTAL Allergy (Intermediate, Uncoded 01/18/23 08:41) SNEEZING,RUNNY EYES AND NOSE HPI HPI OA: Details: She has been experiencing pain in her hands for the last few months. Pain in bilateral CMCs and right 5th finger the most. She is not self-medicating. Unble to bend right 5th finger. Has difficulty with ADLs. She has numbness in her hands. She has seen hand surgery who has performed cortisone injections to bilateral CMCs with minimal benefit. She wears bilateral wrist brace at night. In the past she was prescribed naproxen without benefit. She has taken acetaminophen 650 mg q.8 hourly with narcotic prescribed after foot surgery with benefit. CTS bilateral 2014. She reports that recent EMG revealed CTS of bilateral hands. She has been referred to a hand surgeon. She had nerve conduction study at [facility] and saw Dr. Bond. She had surgery to correct right hallux valgus deformity by Dr. Ribera. She recently had a follow-up and was told that everything is healing well. She may have a surgery to correct left heel valgus valgus deformity due to uncontrolled 1st MTP pain. She is experiencing pain throughout her MTPs. Morning stiffness is 30 minutes. [facility] Medical History (Updated 06/19/24 @ 14:16 by Saul Rivas MD) Positive anti-CCP test Surgical History Hx of section Family History Mother Diabetes Hypertension Alzheimer disease Heart disease Father Heart disease Social History Household Members: Family Housing: Apartment Are you a primary adult daycare coordinator to a significant other at home: No Do you presently have visiting nurse or other home services: Yes (Graphic Coordinator 1 hour a day) Alcohol intake: never Patient Tobacco Use Status: Former Tobacco user Tobacco use type: Cigarette Substance Use Type: Marijuana service: No Current occupational status: disabled Cognitive needs: No Hearing needs: No Vision needs: Yes Review of Systems Const All systems reviewed & are unremarkable except as noted in HPI and below Physical Exam Vital Signs: Last Vital Signs Pulse 84 06/19/24 13:24 BP 120/70 06/19/24 13:24 Pulse Ox 97 06/19/24 13:24 Oxygen Delivery Method Room Air 06/19/24 13:24 BMI result Body Mass Index 28.6 Const Other: General: Comfortable CVS: RRR Respiratory: clear to auscultation bilaterally. Good respiratory effort Skin: No lesions seen MSK: Squaring of bilateral CMCs. She does not have tenderness of CMCs. Tender right 4th and 5th PIP. Synovitis right 5th PIP present. [place] nodes present. 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 Shoulder abduction bilateral 110 degrees with limited internal rotation. External rotation of bilateral shoulders is full. Normal range of motion of lower extremities. She has left MTP tenderness without synovitis. Assessment & Plan Assessment & Plan (1) Osteoarthritis of hands, bilateral: Comment: Uncontrolled pain. [place] osteoarthritis. She localizes most of her pain to bilateral CMCs and left 5th finger due to osteoarthritis flare. She has completed occupational therapy multiple times. Failed CMC cortisone injections. Failed naproxen. X-rays from March 2024 reviewed on patient's portal, which revealed degenerative changes. I am requesting repeat x-ray to evaluate for changes suggestive of underlying inflammatory arthritis contributing to her hand pain. Code(s): M19.041 - Primary osteoarthritis, right hand; M19.042 - Primary osteoarthritis, left hand Category: Medical Qualifiers: Osteoarthritis type: primary Qualified Code(s): M19.041 - Primary osteoarthritis, right hand; M19.042 - Primary osteoarthritis, left hand Plan: X-ray bilateral hands ordered Start acetaminophen 650 mg every 8 hour PRN Start meloxicam 15 mg daily Bilateral CMC custom splints prescribed Baseline labs ordered prior to prescribing NSAID with inflammatory markers Return to clinic in 3 months (2) Positive anti-CCP test: Comment: She has been experiencing bilateral MTP pain, concerning for early inflammatory arthritis. Recently she had surgery on left 1st MTP with benefit in reducing pain but reports she is unable to put pressure on the rest of the MTPs due to uncontrolled pain. 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 2016: pos CCP, negative MIRTHA, RF, SS-A, SS-B Code(s): R76.8 - Other specified abnormal immunological findings in serum Category: Medical Plan: I am requesting CD of x-rays of bilateral feet recently performed at Dr. Ribera's office (podiatry). Inflammatory markers ordered Return to clinic in 3 months Orders: Orders XR hand LT min 3V Today M19.041 - Primary osteoarthritis, right hand, M19.042 - Primary osteoarthritis, left hand, R76.8 - Other specified abnormal immunological findings in serum Erythrocyte Sedimentation Rate Today Z79.899 - Other local company intermodal truck driver (current) drug therapy C Reactive Protein Today Z79.899 - Other fdc (current) drug therapy Alanine Aminotransferase Today M19.041 - Primary osteoarthritis, right hand, M19.042 - Primary osteoarthritis, left hand, R76.8 - Other specified abnormal immunological findings in serum Creatinine Today M19.041 - Primary osteoarthritis, right hand, M19.042 - Primary osteoarthritis, left hand, R76.8 - Other specified abnormal immunological findings in serum XR hand RT min 3V Today M19.041 - Primary osteoarthritis, right hand, M19.042 - Primary osteoarthritis, left hand, R76.8 - Other specified abnormal immunological findings in serum Aspartate Amino Transferase Today M19.041 - Primary osteoarthritis, right hand, M19.042 - Primary osteoarthritis, left hand, R76.8 - Other specified abnormal immunological findings in serum Complete Blood Count Auto Diff Today M19.041 - Primary osteoarthritis, right hand, M19.042 - Primary osteoarthritis, left hand, R76.8 - Other specified abnormal immunological findings in serum Medications: New acetaminophen ER (Tylenol 8 Hour) 1,300 mg (2 x 650 mg) PO Q8H PRN 180 tabs 1RF pain 90 days meloxicam Take with food 15 mg PO DAILY 30 tabs 2RF arm brace (Wrist Brace) As directed Bilateral CMC custom wrist splint Dx: osteoarthritis bilateral CMCs 2 ea 0RF Discontinued naproxen Discontinued Reason: Doctor's Order 250 mg PO BID PRN 60 tabs 5RF for pain M19.079 - Primary osteoarthritis, unspecified ankle and foot Coding Level of Care Code Est Pt Level 5 (30419) Complex EM visit Add On G2211 Diagnoses Primary osteoarthritis of both hands M19.041; M19.042 Osteoarthritis type: primary Positive anti-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
[2024-06-19 13:24] VITALS: BP 120/70; PULSE 84; O2SAT 97; BMI 28.6
--- OUTSIDE RECORDS SUMMARY | 2024-06-19 15:33 | XMS_ITS | Clinical Summary ---
Author Organization 175 [facility] Address [address] [place] [address] Phone Care Team Providers Care [employer] Name Role Phone Shaheen Fletcher MD Primary Care Provider [phone] Allergies Active Allergy Reactions Criticality Noted Date Comments House Dust Mite Hives,Rash 05/16/2024 Medications amphetamine-dextro amphetamine XR (ADDERALL XR) 20 mg 24 hr capsule Take 20 mg by mouth daily. 09/12/19 20 Active amphetamine-dextro amphetamine (ADDERALL) 10 mg tablet 12/01/19 21 Active buPROPion XL (WELLBUTRIN XL) 150 mg 24 hr tablet TAKE 1 TABLET BY MOUTH EVERY DAY IN THE MORNING 01/13/20 22 Active buPROPion XL (WELLBUTRIN XL) 300 mg 24 hr tablet Take 1 Tab by mouth every morning. 08/01/19 20 Active diclofenac (VOLTAREN) 1 % topical gel Apply 4 g topically 2 times daily. 05/28/19 24 Active DULoxetine (CYMBALTA) [address] capsule Take 60 mg by mouth 2 times daily. 09/07/19 20 Active EPINEPHrine (EpiPen 2-Iban) 0.3 mg/0.3 mL injection Inject 1 Device as directed as needed (anaphylaxis). Use as directed 12/01/19 21 Active fluticasone-salmet topher (ADVAIR DISKUS) 250-50 mcg/dose diskus inhaler Inhale 1 Puff into the lungs 2 times daily. 07/12/19 24 Active fluticasone propionate (FLONASE) 50 mcg/actuation nasal spray 1 [place] by Nasal route daily. 06/15/19 24 Active meclizine (ANTIVERT) 25 mg tablet Take 1 Tablet by mouth every 8 hours as needed (dizziness/verti go). Medication may cause drowsiness, do not drive/operate machinery while taking 06/15/19 24 Active miconazole nitrate 2 % aerosol,spray Apply 1 Applicator topically daily. 07/05/19 23 Active naproxen (NAPROSYN) 250 mg tablet TAKE 1 TABLET BY MOUTH TWICE A DAY NEEDED FOR PAIN 01/25/20 22 Active tiotropium (Spiriva Respimat) 1.25 mcg/actuation inhalation spray Inhale 2 Puffs into the lungs daily. 07/12/19 24 Active fexofenadine (JOSEE) 180 mg tablet TAKE 1 TABLET BY MOUTH EVERY DAY 10/01/19 24 Active mometasone (NASONEX) 50 mcg/actuation nasal spray SPRAY 2 SPRAYS BY NASAL ROUTE DAILY 11/16/19 23 Active ondansetron ODT (ZOFRAN-ODT) 4 mg disintegrating tablet Take 1 tablet (4 mg total) by mouth. 11/06/19 24 Active oxyCODONE (ROXICODONE) 5 mg immediate release tabletIndications: Hallux rigidus of left foot Take 1 tablet (5 mg total) by mouth every 4 (four) hours if needed for severe pain. Max Daily Amount: 30 mg 35 tablet 03/21/19 25 Active Additional Information Patient not taking.Reported on 05/16/2024 Ventolin HFA 90 mcg/actuation inhalerIndications :Moderate persistent asthma, uncomplicated,Cig[employer] Making Supervisor brett obstructive pulmonary disease, unspecified (CMS/HCC V24, CMS/HCC V28) INHALE 2 PUFFS INTO THE LUNGS EVERY 6 HOURS NEEDED FOR WHEEZING AND SHORTNESS OF BREATH 18 each 3 04/18/19 25 Active azelastine (ASTELIN) 137 mcg (0.1 %) nasal sprayIndications:A llergic rhinitis due to animal (cat) (dog) hair and dander,Moderate persistent asthma, uncomplicated Administer 2 sprays into each nostril 2 (two) times a day. SPRAY 2 SPRAYS IN EACH NOSTRIL TWICE A DAY 30 mL 5 04/29/19 25 Active ipratropium-albute roL (DUONEB) 0.5-2.5 mg/3 mL nebulizer solutionIndication s:Moderate persistent asthma without complication,Chron ic obstructive pulmonary disease, unspecified COPD type ([facility] V24, [facility] V28) Take 3 mL by nebulization 4 (four) times a day. 300 mL 3 04/29/19 25 025 Active pregabalin (LYRICA) 225 mg capsule Take 1 capsule (225 mg total) by mouth 2 (two) times a day. Max Daily Amount: 450 mg 60 capsule 1 05/13/19 25 Active azelastine-flutica sone 137-50 mcg/spray spray,non-aerosol 2 sprays every day by nasal route. 07/21/19 15 Active Hospital, Clinic, or Other Facility Administered Medication Ordered Dose Route Frequency Start Date End Date Status dexAMETHasone (PF) (DECADRON) injection 5 mgIndications:Hallux rigidus of left foot,Hallux rigidus of right foot 5 mg IAtc Once 01/08/2024 Active triamcinolone acetonide (KENALOG-40) 40 mg/mL injection 40 mgIndications:Hallux rigidus of left foot,Hallux rigidus of right foot 40 mg IAtc Once 01/08/2024 Active Active Problems Problem Noted Date Diagnosed Date Hallux rigidus of right foot 05/20/2024 Arthritis of carpometacarpal (CMC) joints of bot h thumbs 12/25/2023 Hand paresthesia 12/25/2023 Hallux rigidus of left foot 12/24/2023 Asthma 11/16/2023 Seasonal allergies 11/16/2023 Hot flashes 03/07/2022 Overview (11/16/2023): Last Assessment & Plan: Reviewed behavioral modifications - encouraged avoidance of triggers and exercise. Patient to return if she would like to further discuss treatment options. Atopic dermatitis 09/09/2021 Obesity (BMI 30.0-34.9) 09/09/2021 Primary osteoarthritis of both hands 07/20/2020 Allergy to dog dander 03/13/2018 Chronic idiopathic granuloma tous disease ([facility] V24, [facility] V28) 03/13/2018 Overview (11/16/2023): Chest CT 2018: There is a cluster of calcifications in the central left lobe liver. This may represent calcified granulomas or calcified vascular anomaly Cannabis abuse 09/11/2017 Fibromyalgia 03/14/2016 Anxiety 10/29/2015 ADHD (attention deficit hyperactivity disorder) 09/11/2012 Depressive disorder 12/02/2010 Encounters Date Type Department Care Team Description 05/20/2024 8:15 AM EDT Office Visit Orthopedic [facility] [address] [facility] [address] [place] [address] Sergey Ribera DPM Hallux rigidus of right foot (Primary Dx); Post-operative state 05/16/2024 8:30 AM EDT Office Visit Adult Medicine [address] [phone] Shaheen Fletcher MD Localized skin mass, lump, or swelling (Primary Dx); High cholesterol; Other migraine without status migrainosus, not intractable; Moderate persistent asthma without complication; Seasonal allergies; Hallux rigidus of left foot 05/16/2024 Telephone Adult Medicine [address] [phone] Shaheen Fletcher MD Fitting for DME 2024 11:45 AM EDT Office Visit [facility] [address] [facility] [address] [place] [phone] Chaya Flores, LUCHO Arthritis of carpometacarpal (CMC) joints of both thumbs (Primary Dx); Bilateral carpal tunnel syndrome 04/28/2024 Telephone General Surgery [facility] [address] [facility] [address] [place] [phone] Dc Limon, DO Advice Only 04/07/2024 4:00 PM EST Office Visit [facility] [address] [facility] [address] [place] [address] Sergey Ribera DPM Post-operative state (Primary Dx) from Last 3 Months Immunizations Name Administration Dates Next Due H1N1 Inj Preservative Free 03/29/2009 Influenza Quadravalent, MDCK , 0.5ml, preservative free (Flucelvax) 6mo and older 02/23/2022,03/22/2021,12/09/2018 Influenza Quadravalent, MDCK , 0.5ml, with preservative (Flucelvax) 6mo and older 10/26/2017,11/07/2016 Influenza trivalent, 0.5mL, preservative free (Fluarix; FluLaval; Fluzone) ages 6mo and older (Afluria) 3 years and older 11/06/2023,03/27/2012 Influenza trivalent, with pr eservative (Fluzone; Afluria) 6mo and older 04/03/2013,11/22/2010,11/17/2009 Influenza, Unspecified 12/10/2013 Moderna SARS-CoV-2 COVID-19, mRNA, LNP-S, preservative free 02/11/2021,07/08/2020 PPD Test 12/22/2011,11/22/2010 Pneumococcal polysaccharide 23 valent (Pneumovax 23) 2yo and older 03/22/2021 Td Tetanus diptheria (Tdvax) 7yo and older 02/23 Tdap Tetanus diptheria acell ular pertussis (Boostrix; Adacel) 7yo and older 11/22/2010 Surgical History Surgery Date Site/Laterality Comments SECTION PROCEDURE: [place] DELIVERY ONLY; COMMENT: x 3 BREAST BIOPSY PROCEDURE: BX BREAST; PERC NEEDLE CORE W/IMAG GUID; COMMENT: RT SIDE Medical History Medical History Date Comments Asthma DX:Asthma Seasonal allergies DX:Seasonal a llergies COPD (chronic obstructive pu lmonary disease) ([facility] V24, [facility] V28) Anxiety Depression Arthritis Carpal tunnel syndrome on both sides Family History Medical History Relation Name Comments Breast cancer Aunt 1 mat great aunt 30s Stomach cancer Aunt 2 m aunt Thyroid disease Brother 1 Hyperlipidemia Brother 2 Heart attack Father 52 Heart attack Father's side multiple uncle s and aunts Diabetes Mother htn; [place] (not fa robert); Alzheimers Diabetes Mother's side Thyroid disease Sister 1 Hyperlipidemia Sister 2 Relation Name Status Comments Aunt 1 mat great aunt 30s Aunt 2 m aunt Brother 1 Brother 2 Father Father's side Mother Alive Mother's side Sister 1 Sister 2 Social History Tobacco Use Types Packs/Day Years Used Date Smoking Tobacco: Former Cigarettes 0.5 40 0 02/19/1979 - 02/19/2019 Smokeless Tobacco: Never Tobacco Cessation:Counseling Given: Not Answered Alcohol Use Standard Drinks/Week Comments No 0 (1 standard drink = 0.6 oz pur e alcohol) Housing Instability Answer Date Recorde d Are you worried that in the next 2 months you may not have stable housing? Yes 05/15/2024 Food Access & Nutrition Answer Date Rec orded Do you have access to a vari ety of food including fruits and vegetables? Unable to respond 05/15/2024 Health Literacy Answer Date Recorded How often do you need to hav e someone help you when you read instructions, pamphlets, or other written material from your doctor or pharmacy? Rarely 05/15/2024 Caregiver: How often do you need to have someone help you when you read instructions, pamphlets, or other written material from your doctor or pharmacy? Not on file 05/15/2024 Financial Risk Answer Date Recorded How hard is it for you to pa y for the very basics like food, housing, medical care, and air conditioning / heating? Very hard 05/15/2024 Transportation Answer Date Recorded Has the lack of transportati on kept you from meetings, work, or from getting things needed for daily living? No Has the lack of transportati on kept you from medical appointments or from getting medications? No 05/15/2024 Social Isolation Answer Date Recorded How often do you feel lonely or isolated from th ose around you? Always 05/15/2024 Food Risk Answer Date Recorded Within the past 12 months we worried whether our food would run out before we got money to buy more. Often true 05/15/2024 Within the past 12 months th e food we bought just didn't last and we didn't have money to get more. Often true 05/15/2024 Dependent Care Answer Date Recorded Do you need help finding or paying for care for your loved ones. For example, child care attendant school or elderly care for an older adult? No 05/15/2024 Education Answer Date Recorded Do you think completing more education or training, like finishing a GED, going to college, or learning a trade, would be helpful for you? No 05/15/2024 Employment and Income Answer Date Recor ded During the last four weeks, have you been actively looking for work? No 05/15/2024 Living Situation Answer Date Recorded What is your living situation? 0 05/15/2024 Interpersonal Safety Answer Date Record ed Physical Abuse 03/21/2024 Verbal Abuse 03/21/2024 Comments No Sex and Gender Information Value Date Recorded Sex Assigned at Female 03/17/2024 8:24 AM EST Legal Sex Female 10:21 AM EST Gender Identity Female 03/17/2024 8:24 AM EST Sexual Orientation Straight 03/17/2024 8: 24 AM EST Obstetrics History Last Filed Vital Signs Vital Sign Reading Time Taken Comments Blood Pressure 114/77 05/16/2024 8:17 AM EDT Pulse 72 05/16/2024 8:17 AM EDT Temperature 36.6 ??C (97.8 ??F) 05/16/2024 8:17 AM ED T Respiratory Rate 14 05/16/2024 8:17 AM EDT Oxygen Saturation 98% 05/16/2024 8:17 AM EDT Inhaled Oxygen Concentration - - Weight 72.6 kg (160 lb) 05/16/2024 8:17 AM EDT Height 157.5 cm (5' 2 ) 05/16/2024 8:17 AM EDT Body Mass Index 29.26 05/16/2024 8:17 AM EDT Plan of Treatment Upcoming Encounters Date Type Department Care Team (Late st Contact Info) Description 07/10/2024 2:00 PM EDT Consult General Surgery [facility] 175 [facility] [address] [place] [phone] Perez Martell MD 175 [facility] [address] [place] [address] 08/01/2024 9:20 AM EDT Office Visit Pulmonolgy [facility] [address] [facility] [address] [place] [phone] Fabiola Sanches NP 175 [facility] [address] [place] [address] 08/01/2024 9:45 AM EDT Office Visit Orthopedic Surgery [facility] [address] [facility] [address] [place] [phone] Natalie Diaz MD 175 [facility] [address] [place] [address] 11/18/2024 8:30 AM EDT Office Visit Adult Medicine [facility] [address] [place] [phone] Patricia Lawrence PA [address] [place] [address] Scheduled Procedures Name Priority Associated Diagnoses Date/Ti me IMPLANT TO DIGIT OR LESSER METATARSAL Hallux rigidus of right foot Health Maintenance Due Date Last Done Comments Hepatitis A Vaccines (1 of 2 - Risk 2-dose series) 1985 Hepatitis B Vaccines (1 of 3 - 19+ 3-dose series) 1985 Zoster Vaccines (1 of 2) 1985 HIV Screening 01/28/2022 Lung Cancer Screening (Low Dose CT) 01/28/2022 Pneumococcal Vaccine: 50+ Years (2 of 2 - PCV) 03/22/2022 03/22/2021 Pneumococcal Vaccine: Pediatrics (0 to 5 Years) and At-Risk Patients (6 to 64 Years) (2 of 2 - PCV) 03/22/2022 03/22/2021 Breast Cancer Screening 05/08/2022 05/08/2020 COVID-19 Vaccine (2023- season) 2023 02/11/2021, 07/08/2020, 06/11/2020 Depression Screening 05/15/2025 05/15/2024 Social Influencers of Health Screening 05/15/2025 05/15/2024 Colorectal Cancer Screening: Colonoscopy 11/08/2026 11/08/2021 Cervical Cancer Screening: HPV 03/07/2027 03/07/2022 Cholesterol Screening (Lipid Panel) 04/28/2029 04/28/2024, 11/06/2023, 11/06/2023 DTaP,Tdap,and Td Vaccines (3 - Td or Tdap) 02/24/2032 02/23/2022, 11/22/2010 Hepatitis C Screening Completed 12/01/2015 Influenza Vaccine Completed 11/06/2023, , 03/22/2021, Additional history exists HIB Vaccines Aged Out No longer eligi ble based on patient's age to complete this topic HPV Vaccines Aged Out No longer eligi ble based on patient's age to complete this topic IPV Vaccines Aged Out No longer eligi ble based on patient's age to complete this topic MMR Vaccines Aged Out No longer eligi ble based on patient's age to complete this topic Meningococcal ACWY Vaccine Aged Out N o longer eligible based on patient's age to complete this topic Meningococcal B Vaccine Aged Out No l onger eligible based on patient's age to complete this topic RSV Immunization Patients Under 20 months Aged Out No longer eligible based on patient's age to complete this topic Varicella Vaccines Aged Out No longer eligible based on patient's age to complete this topic Medical Devices Implanted Type Area Rack Maker Device Identifier Shelf Expiration Date Model / Serial / Lot Toe Flex Hinge W/Grommet Sz 2 [facility] Stem - one - [id number] Implanted:Qty: 1 on 03/21/2024 by Sergey Ribera DPM at [facility] Joints Left: First Toe [employer] [id number] 05/22/2031 [id number] / NONE / [id number] Procedures Procedure Name Priority Date/Time Associated Diagnosis Comments XR FOOT 3+ VIEWS LEFT Routine 05/20/2024 8:19 AM EDT Post-operative state [place] ARTHROCENTESIS/ASPIR ATION/INJECTION SMALL JOINT/BURSA WO U/S GUIDANCE Routine 2024 11:45 AM EDT Arthritis of carpometacarpal (CMC) joints of both thumbs CBC WITH AUTO DIFFERENTIAL Routine 04/28/2024 4:14 PM EDT Preop examination CBC AND DIFFERENTIAL Routine 04/28/2024 4:14 PM EDT Preop examination PROTHROMBIN TIME WITH INR Routine 04/28/2024 4:14 PM EDT Preop examination LIPID PANEL WITH REFLEX TO DIRECT LDL Routine 04/28/2024 4:14 PM EDT Hypercholesterolemia XR FOOT 3+ VIEWS LEFT Routine 04/07/2024 3:51 PM EST Post-operative state HPV Routine 03/07/2022 COLONOSCOPY Routine 11/08/2021 SCR MAMMO BI INCL CAD Routine 05/08/2020 11:54 AM EDT Encounter for screening mammogram for malignant neoplasm of breast HEPATITIS C SCREENING Routine 12/01/2015 from Last 3 Months or Most Recently Relevant to Health Maintenance Results * XR Foot 3+ Views Left (05/20/2024 8:19 AM EDT) Only the most recent of2 resultswithin the time period is included. Anatomical Region Laterality Modality Lower Extremities, Foot Left Computed Radiography Narrative 06/13/2024 7:36 AM EDT Left foot 3 views No fracture. No radiopaque foreign joint spaces normal Arthritis mild moderate severe Stable post op changes hardware intact reduction deformity maintained us Sergey Ribera DPM IMG XR PROCEDURES Final R esult * [place] ARTHROCENTESIS/ASPIRATION/INJECTION SMALL JOINT/BURSA WO U/S GUIDANCE (2024 11:45 AM EDT) Narrative Chaya Flores PA - 2024 11:45 AM EDT LUCHO Alberts ? 2024 11:29 AM Hand / UE Inj/Asp: bilateral thumb CMC for osteoarthritis Indications: pain Details: 25 G needle, dorsal approach Medications (Right): 0.5 mL lidocaine 1 %; 40 mg triamcinolone acetonide 40 mg/mL Medications (Left): 0.5 mL lidocaine 1 %; 40 mg triamcinolone acetonide 40 mg/mL Informed Consent: ??Laterality: ??Right ??Relevant images/test results available and reviewed: yes ?Health status cleared: ??Yes ??Procedure/treatment, purpose, treatment alternatives, risks/potential complications and benefits explained: yes ?Risk/complications/benefits details: ??Risks of infection, thinning of the skin, skin discoloration discussed. ??Discussed the possibility of increased pain, mild redness and swelling at injection site. ??Discussed uncommon side effect of facial flushing after cortisone injection. ?? Patient may use ice, Tylenol or ibuprofen if they can take it. ??Benefits pain management ??Patient questions answered: yes ?Patient agrees, verbalizes understanding, and wants to proceed: yes ?Consent given by: ??Patient ??Informed consent discussion completed by Physician/SINAN with patient: ?? Verbal ??Pre-procedure timeout performed: yes ?? us Chaya YEPEZ IN CLINIC/BEDSIDE ORDERABLES Final Result * (ABNORMAL) Lipid panel with reflex to direct LDL (04/28/2024 4:14 PM EDT) Cholesterol 259(H) 0 - 200 mg/dL LAB CHEMISTRY METHOD 04/28/2024 6:[address] [facility] Triglycerides 174(H) 0 - 150 mg/dL LAB CHEMISTRY METHOD 04/28/2024 6:[address] [facility] HDL 76 >=40 mg/dL LAB CHEMISTRY METHOD 04/28/2024 6:[address] [facility] LDL Calculated 148(H) 0 - 100 mg/dL LAB CHEMISTRY METHOD 04/28/2024 6:[address] [facility] VLDL Cholesterol [place] 34.8 mg/dL LAB CHEMISTRY METHOD 04/28/2024 6:[address] [facility] Non HDL Chol. (LDL+VLDL) 183(H) <145 mg/dL LAB CHEMISTRY METHOD 04/28/2024 6:[address] [facility] Chol/HDL Ratio 3.4 0.0 - 4.4 LAB CHEMISTRY METHOD 04/28/2024 6:[address] [facility] Blood Venous blood specimen / Unknown Venipuncture / Unknown 04/28/2024 4:14 PM EDT 04/28/2024 4:14 PM EDT us Shaheen Fletcher MD LAB BLOOD ORDERABLES Final Resu lt [facility] [address] [place] [address], [place] [phone] * (ABNORMAL) CBC auto differential (04/28/2024 4:14 PM EDT) WBC 7.4 4.8 - 10.8 K/mcL LAB HEMETOLOGY METHOD 04/28/2024 6:04 PM EDT [facility] RBC 3.80 3.80 - 4.80 M/mcL LAB HEMETOLOGY METHOD 04/28/2024 6:04 PM EDT [facility] Hemoglobin 12.2 11.5 - 16.0 g/dL LAB HEMETOLOGY METHOD 04/28/2024 6:04 PM EDT [facility] Hematocrit 37.6 35.0 - 47.0 % LAB HEMETOLOGY METHOD 04/28/2024 6:04 PM EDT [facility] MCV 97.9 79.0 - 98.0 FL LAB HEMETOLOGY METHOD 04/28/2024 6:04 PM EDT [facility] MCH 31.8 27.0 - 32.0 pcg LAB HEMETOLOGY METHOD 04/28/2024 6:04 PM EDT [facility] MCHC 32.4 32.0 - 37.0 g/dL LAB HEMETOLOGY METHOD 04/28/2024 6:04 PM EDT [facility] RDW 14.3 11.0 - 15.0 % LAB HEMETOLOGY METHOD 04/28/2024 6:04 PM EDT [facility] Platelets 249 130 - 400 K/mcL LAB HEMETOLOGY METHOD 04/28/2024 6:04 PM EDT [facility] MPV 11.3(H) 7.0 - 11.0 FL LAB HEMETOLOGY METHOD 04/28/2024 6:[address] [facility] NRBC 0.0 <1.0 % LAB HEMETOLOGY METHOD 04/28/2024 6:[address] [facility] NRBC Absolute 0.00 <0.10 K/mcL LAB HEMETOLOGY METHOD 04/28/2024 6:[address] [facility] Neutrophils Relative 44.2 % LAB HEMETOLOGY METHOD 04/28/2024 6:[address] [facility] Lymphocytes Relative 43.5 % LAB HEMETOLOGY METHOD 04/28/2024 6:[address] [facility] Monocytes Relative 8.9 % LAB HEMETOLOGY METHOD 04/28/2024 6:[address] [facility] Eosinophils Relative 2.4 % LAB HEMETOLOGY METHOD 04/28/2024 6:[address] [facility] Basophils Relative 0.5 % LAB HEMETOLOGY METHOD 04/28/2024 6:[address] [facility] Immature Granulocytes Relative 0.5 % LAB HEMETOLOGY METHOD 04/28/2024 6:[address] [facility] Neutrophils Absolute 3.27 1.50 - 7.00 K/mcL LAB HEMETOLOGY METHOD 04/28/2024 6:[address] [facility] Lymphocytes Absolute 3.22 1.00 - 5.00 K/mcL LAB HEMETOLOGY METHOD 04/28/2024 6:[address] [facility] Monocytes Absolute 0.66 0.20 - 1.00 K/mcL LAB HEMETOLOGY METHOD 04/28/2024 6:[address] [facility] Eosinophils Absolute 0.18 0.00 - 0.50 K/mcL LAB HEMETOLOGY METHOD 04/28/2024 6:04 PM EDT [facility] Basophils Absolute 0.04 0.00 - 0.20 K/[facility] LAB HEMETOLOGY METHOD 04/28/2024 6:04 PM EDT [facility] Immature Granulocytes Absolute 0.04(H) 0.00 - 0.03 K/[facility] LAB HEMETOLOGY METHOD 04/28/2024 6:04 PM EDT [facility] Blood Venous blood specimen / Unknown Venipuncture / Unknown 04/28/2024 4:14 PM EDT 04/28/2024 4:14 PM EDT us Shaheen Fletcher MD LAB BLOOD ORDERABLES Final Resu lt Performing Organization Address [facility]/ZIP Co de Phone Number [facility] [address] [place] [address], [place] [phone] * Prothrombin time with INR (04/28/2024 4:14 PM EDT) [facility] Protime 10.9 10.6 - 13.9 sec LAB COAGULATION METHOD 04/28/2024 6:09 PM EDT [facility] INR 0.9 LAB COAGULATION METHOD 04/28/2024 6:09 PM EDT [facility] Blood Venous blood specimen / Unknown Venipuncture / Unknown 04/28/2024 4:14 PM EDT 04/28/2024 4:14 PM EDT us Shaheen Fletcher MD LAB BLOOD ORDERABLES Final Resu lt Performing Organization Address City/[facility]/ZIP Co de Phone Number [facility] [address] [place] [address], [place] [phone] * Cervical Cancer Screening: HPV (03/07/2022) [facility] Cervical Cancer Screening: HPV Abstracted ,negative us Alfred Quan MD HEALTH MAINTENANCE Final Result * Colonoscopy (11/08/2021) Colonoscopy No interpreta tion,abstr acted Anatomical Region Laterality Modality Other Historical Provider [facility] Final Result * SCR MAMMO BI INCL CAD (05/08/2020 11:54 AM EDT) Anatomical Region Laterality Modality Radiographic Judith ging 02/25/2020 4:29 PM EST Narrative 05/10/2020 2:52 PM EDT This is a summary report. The complete report is available in the patient's medical record. If you cannot access the medical record, please contact the sending organization for a detailed fax or copy. Exam: Screening mammogram Findings: Digital bilateral full-field screening mammography is performed and interpreted with the aid of computer-aided detection. ??Comparison is made with 07/30/2015, 07/08/2014, and 07/06/2014. Breast parenchyma is composed of scattered fibroglandular densities. ??No new suspicious mass, architectural distortion, or suspicious calcifications. Impression: No mammographic evidence of malignancy. BI-RADS 1 - negative Procedure Note Radha Trent MD - 02/07/2022 This is a summary report. The complete report is available in thepatient's medical record. If you cannot access the medical record, pleasecontact the sending organization for a detailed fax or copy. Exam: Screening mammogram Findings: Digital bilateral full-field screening mammography is performedand interpreted with the aid of computer-aided detection. Comparison ismade with 07/30/2015, 07/08/2014, and 07/06/2014. Breast parenchyma is composed of scattered fibroglandular densities. Nonew suspicious mass, architectural distortion, or suspiciouscalcifications. Impression: No mammographic evidence of malignancy. BI-RADS 1 - negative Jaci YEPEZ IMG XR PROCEDURES Final Resul t * Hepatitis C Screening (12/01/2015) Hepatitis C Screening Abstracted Historical Provider HEALTH MAINTENANCE Final Result from Last 3 Months or Most Recently Relevant to Health Maintenance Insurance [facility] Care Teams [employer] Relationship Specialty Start Date End Date Shaheen Fletcher MD [address] [place] [id number] PCP - General 09/28/08
--- OUTSIDE RECORDS SUMMARY | 2024-06-19 15:33 | XMS_ITS | Data Portability ---
Author Organization [place] - [facility], Allergy Address [address] [place] [phone] Care Team Providers Care Benefits Coordinator Name Role Phone WALDO MUÑOZ Referring Provider [phone] Assessment Encounter Date Assessment Date Assessment LastModified by Organization Details LastModified Time 05/16/2024 05/16/2024 59yo female with asthma and COPD has significant allergies. We discussed lifestyle modifications, medical therapy versus immunotherapy. The patient is an excellent candidate for immunotherapy with either SCIT vs SLIT. This is at least a 3-5 year commitment and symptoms are not expected to improve quickly. Partial treatment will not result in success of therapy. They will need to followup every 6 months to determine their compliance and success. They are interested in proceeding with immunotherapy and will contact our office to schedule. I have prescribed an epi pen and instructed them to bring it with them the first day of their therapy to be certain that they are comfortable with its use. While they are in therapy they may continue to use antihistamine allergy medications as well as topical nasal sprays to help manage their symptoms. dell Not available 05/16/2024 13:01:22 06/09/2024 06/09/2024 Visit With: Antonino Munguia RN Use of Antihistamines: No If yes: Vial Test Yes Change in medications: No If yes ? ? ? Increase in asthma symptoms No If yes, inhaler use: Reaction to last injections: If yes: ? ? ? Allergy Symptoms: Other: ? ? ? Missed: Dose Aware of Vial Test Notes:? ? ? [email or web address] Not available 06/09/2024 09:41:29 06/19/2024 06/19/2024 Visit With: Alma Brunner Use of Antihistamines: No If yes: Vial Test Change in medications: No If yes ? ? ? Increase in asthma symptoms If yes, inhaler use: Reaction to last injections: No If yes: ? ? ? Allergy Symptoms: Other: ? ? ? Missed: Dose Aware of Vial Test Notes:? ? ? [email or web address] Not available 06/19/2024 10:02:34 Plan of Treatment Reminders Order Date Submit Date Provider Last Modified By Organization Details Last Modified Time Details Appointments Allergy Shot 2024 09:20A M [facility] Not available Not available Not available Establish ed- Allergy f-up 6mon 2024 08:30A M GORGE NIELSON MD Not available Not available Not available Lab None recorded. Referral None recorded. Procedures allergen immunothe rapy; multiple injection s (PROC) 2024 025 [email or web address] Not available 05/28/2024 11:37:09 Surgeries None recorded. Imaging None recorded. Medication Orders EpiPen 2-Iban 0.3 mg/0.3 mL injection , auto-inje ctor 2024 025 [facility]/Ph[facility]acy #[id number], [address] [place] [address], [place], [address], 05/16/2024 11:04:13 Patient TargetsNo targets recorded. Patient Instructions Encounter Date Encounter Id Patient Instructions Last Modified By Organization Details Last Modified Time 2024 [id number] Nursing Documentation for Allergy Testing: Ordering Provider {{Dr. Andrew Houston*}} Weight:lbs:? ? ?160kg: ? ? ? PFT {{Yes* no}} With Bronchodilator {{Yes no}} Dr. smart needed to proceed with allergy testing? {{Yes* No}} {{Dr. Andrew Daily* Dr. Minna Houston}} ok'd testing {{Yes* No Pulmonar y Clearance PCP Clearance RAST}}Hi story of Asthma:{{Yes* No}} Asthma Meds:spiriva, albuterol, advair ? ? ?Last used:? ? ?daily as prescribed but albuterol 2-3 times daily Asthma exacerbated by: ? ? ?COPD sees pulmonary on regular basis Chance that : {{Yes No* Not Sure N/A}} Fear of needles: {{Yes* No}} Regular medications reviewed in Computer: {{Yes* No}} Medication allergies: {{Reviewed NKDA*}} Antihistamine use: {{Yes* No}} Medications used:allergra ? ? ? Food Allergies: ? ? ? black pepper Any foods make your mouth feeling itchy: {{Yes No*}} If yes: ? ? ? History of severe reaction where had to go to ER? {{Yes No*}} If yes details: ? ? ? Type of heat in home: {{Baseboard* [employer] other }} Pets: {{Yes No*}} If yes: ? ? ? Smoker: {{Yes Current Never Form er*}} If former smoker-how much ? ? ? 3/ day for how long 10 years ? ? ? When quit 3 years ago ? ? ? years ago Smoking now-how much ? ? ? /day for how long ? ? ? Occupation/Social History: ? ? ? Symptoms having: {{Congestion* Post Nasal Drip Headache Runn y Nose Cough Other}} If other: ? ? ? Frequency {{Seasonally Year Round*}} Spirometry Contraindications: Heart attack in the last 3 months: {{Yes No*}} Major surgery in last 3 months: {{Yes No*}} Detached retina(serious eye issues) in last 2 months: {{Yes No*}} Hospitilization in last month: {{Yes No*}} Proceed with PFT {{Yes* No}} Dr. approval needed: {{Yes No*}} Nursing Notes: Pt tolerated test well {{Yes* No}} Benadryl cream to test sites {{Yes* No}} Patient became syncopal-placed in supine position {{Yes No*}} Large reactions to MQT, reschedule IDT for a different date {{Yes* No}} Other: ? ? ? Written by: {{DYLAN Busch, A* Alam Brunner}} rachele Not available 2024 11:46:52 05/13/2024 [id number] Nursing Documentation for Allergy Testing (Split Test): Vital Signs: Blood Pressure:120/72 ? ? ? Pulse: 70 ? ? ? Oxygen Saturation: ? ? ?98 % Weight: lbs:? ? ?160 kg: ? ? ? History of asthma: {{Yes* No}} Asthma Meds: ? ? ?.spiriva, albuterol, advair last used: daily as prescribed ? ? ? Chance that : {{Yes No* N/A}} Antihistamine use: {{Yes No*}} Med used: ? ? ? Nursing notes: Patient tolerated procedure well {{Yes* No}} Benadryl cream to test sites {{Yes No*}} Patient became syncopal-placed in supine position {{Yes No*}} Testing Performed by: {{DYLAN Busch, A* Alma Brunner}} Requesting Provider {{Dr. Andrew Houston*}} rachele Not available 05/13/2024 10:01:17 Reason for Referral None Reported. Results Created Date Observation Date Name Description Value Unit Range Abnormal Flag Note LastModifiedBy Organization Detail LastModifiedTime 05/01/19 25 fernie metry testi ng* No observ ation record ed. [email or web address] Not Available 15:45:48 Result Notes None recorded. Problems Name Problem SNOMED Code Status Onset Date Resolution Date Notes Provider Name and Address Organization Details Recorded Time Sensorineural hearing loss of bilateral ears 055625127 Active 2024 Dorothy arguelles [place] - [facility] 5 14:09:50 Allergic rhinitis 03184321 Active 2024 GEOVANNY SANDRA PA-C [address] [address], [place], [address], [facility] - [facility] [place] 5 14:41:42 Perennial allergic rhinitis 051309411 Active 2024 ANTONINO MUNGUIA RN [address] [address], [place], [address], [facility] - [facility] 09:24:44 Problem Notes None recorded. Procedures Surgical History Date Name Laterality Status Provider Name and Address Organization Details Recorded Time 06/20/19 Allergy Immunotherapy Injections completed CHIKIS LANGE 100 [facility],[address], [address], [facility] - [facility] 06/19/2024 09:46:13 06/10/19 Allergy Immunotherapy Injections completed ANTONINO MUNGUIA RN 100 [facility],[address], [address], [facility] - [facility] 06/09/2024 09:40:48 05/14/19 Allergy Testing-Full completed KATERINA CLAY [facility] 100 [facility],[address], [address], [facility] - [facility] 05/13/2024 10:00:25 05/01/19 Allergy Testing Modified- Quantitative Testing (MQT) Only completed KATERINA CLAY [address], [address], [facility] 2024 11:44:19 04/02/19 Comp Audio with Tymps - 00439 & 16873 completed Dorothy Ayala [place] - [facility] 04/02/2024 14:09:42 Imaging Results Imaging Date Name Status LastModified by Organiz ation Details LastModified Time 2024 spirometry testing* completed [facility] Information not available 2024 15:45:48 Procedure Notes None recorded. Medical Equipment None Reported. Allergies Allergen ID Allergen Name Allergen Category Reaction Reaction Severity Criticality Documentation Date Start Date Code Code System Note Provider Name and Address Organization Details Recorded Time 705095 house dust mite environme nt Not available Not available Not available 2024 [id number] UNK KATERINA BARAHONA, [facility] 100 [facility] [address], [place], [address], [facility] - [facility] 09:07:28 Medications Name Sig Start Date Stop Date Status Note LastModified by Organization Details LastModified Time ipratropium 0.5 mg-albutero l 3 mg (2.5 mg base)/3 mL nebulizatio n soln INHALE 3 ML BY NEBULIZAT ION 4 TIMES A DAY active Not Available Not Available No t Available prednisone 20 mg tablet TAKE 2 TABLETS BY MOUTH EVERY DAY 04/30 completed Not Available Not Available Not Available dextroamphe tamine-amph etamine 10 mg tablet TAKE 1 TABLET BY MOUTH ONCE A DAY TAKE AT 2 PM DAILY. active Not Available Not Available No t Available topiramate 25 mg tablet TAKE 1 TABLET BY MOUTH EVERY DAY FOR 30 DAYS active Not Available Not Available No t Available fexofenadin e 180 mg tablet TAKE 1 TABLET BY MOUTH EVERY DAY active Not Available Not Available No t Available Adderall XR 20 mg capsule,ext ended release TAKE 1 CAPSULE BY MOUTH EVERY DAY IN THE MORNING active Not Available Not Available No t Available acetaminoph en ER 650 mg tablet,exte nded release PLEASE SEE ATTACHED FOR DETAILED DIRECTION S active Not Available Not Available No t Available fexofenadin e 30 mg tablet active Not Available Not Available Not Available meclizine 25 mg tablet PLEASE SEE ATTACHED FOR DETAILED DIRECTION S active Not Available Not Available No t Available lidocaine 5 % topical patch PLEASE SEE ATTACHED FOR DETAILED DIRECTION S active Not Available Not Available No t Available Advair Diskus 250 mcg-50 mcg/dose powder for inhalation INHALE 1 PUFF BY MOUTH TWICE A DAY active Not Available Not Available No t Available azelastine 137 mcg (0.1 %) nasal spray SPRAY 2 SPRAYS IN EACH NOSTRIL TWICE A DAY. active Not Available Not Available No t Available epinephrine 0.3 mg/0.3 mL injection, auto-inject or USE 1 AUTOINJEC TOR NEEDED FOR ANAPHYLAX IS active Not Available Not Available No t Available ondansetron 4 mg disintegrat ing tablet TAKE 1 TABLET BY MOUTH EVERY 8 HOURS NEEDED FOR NAUSEA FOR UP TO 7 DAYS. active Not Available Not Available No t Available amoxicillin 875 mg-potassiu m clavulanate 125 mg tablet TAKE 1 TABLET BY MOUTH TWICE A DAY FOR 10 DAYS active Not Available Not Available No t Available Ventolin HFA 90 mcg/actuati on aerosol inhaler INHALE 2 PUFFS INTO THE LUNGS EVERY 6 HOURS NEEDED FOR WHEEZING AND SHORTNESS OF BREATH active Not Available Not Available No t Available oxycodone 5 mg tablet TAKE 1 TABLET BY MOUTH EVERY 4 HOURS IF NEEDED FOR SEVERE PAIN. NO MORE THAN 30 MG DAILY. 04/30 completed Not Available Not Available Not Available albuterol sulfate 200 mcg capsule with inhalation device active Not Available Not Available Not Available bupropion HCl XL 300 mg 24 hr tablet, extended release TAKE 1 TABLET BY MOUTH EVERY DAY IN THE MORNING active Not Available Not Available No t Available bupropion HCl XL 150 mg 24 hr tablet, extended release TAKE 1 TABLET BY MOUTH EVERY DAY IN THE MORNING active Not Available Not Available No t Available duloxetine 60 mg capsule,del ayed release TAKE 1 CAPSULE BY MOUTH TWICE A DAY active Not Available Not Available No t Available pregabalin 225 mg capsule TAKE 1 CAPSULE BY MOUTH 2 (TWO) TIMES A DAY. MAX DAILY AMOUNT: 450 MG active Not Available Not Available No t Available Adderall (10mg) 2015 active Not Available Not Available Not Avai lable Adderall (20mg) 1966 active Not Available Not Available Not Avai lable Advair Diskus active Not Available Not Available Not Available diclofenac 1 % topical gel APPLY 4 GRAMS TOPICALLY 2 TIMES DAILY. active Not Available Not Available No t Available ipratropium 0.5 mg-albutero l 2.5 mg/2.5 mL solution for nebulizatio n active Not Available Not Available Not Available azelastine 137 mcg-flutica sone 50 mcg/spray nasal spray 2 sprays every day by nasal route. 2014 active Not Available Not Available Not Avai lable Spiriva Respimat 1.25 mcg/actuati on solution for inhalation INHALE 2 PUFFS BY MOUTH INTO THE LUNGS DAILY active Not Available Not Available No t Available Vitals Date Recorded Body height Body mass index (BMI) Body weight Oxygen saturation Oxygen saturation in Arterial blood by Pulse oximetry Heart rate Systolic blood pressure Diastolic blood pressure Provider Name and Address Organization Details Last Updated DateTime 5 157.48 cm 29.3 kg/m2 11573.7 8 g 98 % 98 % 67 /min 121 mm[Hg] 68 mm[Hg] KATERINA BROOKLYN, [facility] [address], [address] [place], [place] - [facility] 5 09:07:14 Date Recorded Body height Heart rate Body mass index (BMI) Body weight Oxygen saturation Oxygen saturation in Arterial blood by Pulse oximetry Systolic blood pressure Diastolic blood pressure Provider Name and Address Organization Details Last Updated DateTime 157.48 cm 70 /min 29.3 kg/m2 53460.7 8 g 98 % 98 % 120 mm[Hg] 72 mm[Hg] KATERINA CLAY, [facility] 100 [facility], [address], [place], [address], [place] - [facility] 09:28:27 Date Recorded Body height Body mass index (BMI) Body weight Provider Name and Address Organization Details Last Updated DateTime 05/16/2024 157.48 cm 29.3 kg/m2 80985.78 g Michelle Caitie [place] - [facility] 05/16/2024 10:50:54 Date Recorded Body height Heart rate Systolic blood pressure Diastolic blood pressure Provider Name and Address Organization Details Last Updated DateTime 06/09/2024 157.48 cm 71 /min 115 mm[Hg] 77 mm[Hg] ANTONINO MUNGUIA RN 100 [facility],[address] [address], [place], [address] , [place] - [facility] 06/09/2024 09:26:18 Social History Question Answer Notes LastModified by Organizat ion Details LastModified Time Tobacco Smoking Status Former Smoker KATERINA BARAHONA, [facility] 100 [facility],[address] [address], [place], [address], [facility] - [facility] 2024 09:11:27 When Did You Quit Smoking? 6-10yearssin celastcigare tte Information not available 2024 How Much Tobacco Do You Smoke? 1 PPW Information not available 2024 How Many Years Have You Smoked Tobacco? 10 Information not available 2024 Sex: Unknown Functional Status None recorded. Mental Status None recorded. Family History Nothing Reported. Medical History Condition Response Rhinitis N Food Allergy N Hearing Loss Y Tonsil Infections N Eczema Y Nasal polyps N COPD Y Nasal or Sinus Problems Y High Cholesterol Y Liver Disease N Other Skin Condition N Gynecological HistoryNo gynecological history recorded. Obstetrics History GPAL:G 0 P 0 0 0 0 Past Encounters Encounter ID Performer Location Encounter Start Date Encounter Closed Date Diagnosis/Indication Diagnosis SNOMED-CT Code Diagnosis ICD10 Code Diagnosis Note [id number] GEOVANNY SANDRA PA-C [facility] [address] [place] [address] 04/02/2024 13:27:20 04/02/2024 14:37:49 Sensorineural hearing loss of bilateral ears 516935708 H90.3 Audiologic al evaluation results: Right ear: {{Normal N ormal through 2 kHz Mild M oderate Mo derately-s evere Stacy re Profoun d Normal through 4 kHz#}} {{hearing hearing. s loping to a mild* slop ing to a moderate s loping to moderately severe slo ping to severe slo ping to profound f lat high frequency low frequency mid frequency cookie bite castillo curve}} {{with sen sorineural hearing loss with* cond uctive hearing loss with mixed hearing loss with}} {{excellen t* good fa ir poor no measurable }} word recognitio n. Left ear: {{Normal N ormal through 2 kHz Mild M oderate Mo derately-s evere Stacy re Profoun d [facility] lly normal through 4 kHz#}} {{hearing hearing. s loping to a mild* slop ing to a moderate s loping to moderately severe slo ping to severe slo ping to profound f lat high frequency low frequency mid frequency cookie bite castillo curve}} {{with sen sorineural hearing loss with* cond uctive hearing loss with mixed hearing loss with}} {{excellen t* good fa ir poor no measurable }} word recognitio n. Tympanomet ry: Right Ear:{{Type A* Type As Type Ad Type C Type C, shallow & rounded Ty pe B Type B with large volume Cou ld not maintain a hermetic seal}} Left Ear:{{Type A* Type As Type Ad Type C Type C, shallow & rounded Ty pe B Type B with large volume Cou ld not maintain a hermetic seal}} Allergic rhinitis 646580 04 J30.89 [id number] KATERINA CLAY, RMA Allergy 100 [facility], [address] [facility] [place] [address] 2024 08:52:24 2024 11:25:58 Allergic rhinitis 09285038 J30.89 [id number] KATERINA BARAHONAPaul, A Allergy 100 [facility] [address] [place] [address] 05/13/2024 09:16:22 05/13/2024 10:02:12 Allergic rhinitis 46506816 J30.9 [id number] BRYANNA KERR PA-C [facility] 100 [facility] [place] [address] 05/16/2024 10:37:14 05/16/2024 11:04:10 Allergic rhinitis 64882236 J30.9 [id number] ANTONINO MUNGUIA RN Allergy [address] [place] [address],[facility] 100 [place] [address] 06/09/2024 09:24:19 06/09/2024 09:42:21 Perennial allergic rhinitis 673832933 J30.89 [id number] ALMA BRUNNER, [facility] Allergy [address] [place] [address],[facility] 100 [facility] [place] [address] 06/19/2024 09:20:29 06/19/2024 10:02:55 Perennial allergic rhinitis 101457210 J30.89 Health Concerns Section Related Observation LastModified by Organization Detai ls LastModified Time None Recorded Concern Status LastModified by Organization Details LastModified Time None Recorded Advance Directives Directive None Recorded Payers Encounter Date Sequence Insurance Name Policy Number Policy Michael Covered Member ID Michael Member ID Guarantor Name 2024 1 [facility] [employer] (MEDICAID HMO) MEHREEN Cannonqueline Mims [id number] Alicia Mims 05/13/2024 1 [facility] NET PL[employer] (MEDICAID HMO) [place] Alicia Mims [id number] Alicia Mims 05/16/2024 1 [facility] [employer] (MEDICAID HMO) [place] Alicia Mims [id number] Alicia Mims 06/09/2024 1 [facility] [employer] (MEDICAID HMO) [place] Alicia Mims [id number] Alicia Mims 06/19/2024 1 [facility] [employer] (MEDICAID HMO) MEHREEN Cannonqueline Mims [id number] Alicia Mims Notes Date Note Type Note Provider Name and Address Organization Details Recorded Time 05/16/2024 text/html 59yo female with asthma and COPD presents for allergy test results. Patient with moderate allergic rhinitis. She is interested in SCIT. Takes Azelastine, Flonase, and Zyrtec daily with minimal improvement in chronic nasal drainage. Denies history of chronic sinusitis. Followed by pulmonology. KANCHAN YATES MD [address] [place] [address], [place], [address], [facility] - [facility] 05/16/2024 16:54:57 OBGyn Episode No OBEpisode recorded.
--- OUTSIDE RECORDS SUMMARY | 2024-06-19 15:33 | XMS_ITS | Continuity of Care Document ---
Author Organization [place] - [facility], Allergy Address [address] [place] [phone] Care Team Providers Care Bi Data Architect Name Role Phone WALDO MUÑOZ Referring Provider Assessment Encounter Date Assessment Date Assessment LastModified by Organization Details LastModified Time 06/19/2024 06/19/2024 Visit With: Alma High Use of Antihistamine s: No If yes: Vial Test Change in medications: No If yes ? ? ? Increase in asthma symptoms If yes, inhaler use: Reaction to last injections: No If yes: ? ? ? Allergy Symptoms: Other: ? ? ? Missed: Dose Aware of Vial Test Notes:? ? ? [email or web address] Not available 06/19/2024 10:02:34 Plan of Treatment Reminders Order Date Submit Date Provider Last Modified By Organization Details Last Modified Time Details Appointments Allergy Shot 2024 09:20A M [facility] Not available Not available Not available [facility] hed- Allergy f-up 6mon 2024 08:30A M GORGE NIELSON MD Not available Not available Not available Lab None recorded . Referral None recorded . Procedures None recorded . Surgeries None recorded . Imaging None recorded . Medication Orders None recorded . Patient TargetsNo targets recorded. Patient InstructionsNo instructions recorded. Reason for Referral None Reported. Problems Name Problem SNOMED Code Status Onset Date Resolution Date Notes Provider Name and Address Organization Details Recorded Time Sensorineural hearing loss of bilateral ears 245373213 Active 2024 Dorothy arguelles [place] - [facility] 14:09:50 Allergic rhinitis 30787237 Active 2024 GEOVANNY SANDRA PA-C [address] [place], [place], [phone], [facility] - [facility] 14:41:42 Perennial allergic rhinitis 581174258 Active 2024 ANTONINO MUNGUIA RN [address] [facility] [place], [place], [phone], [facility] - [facility] 09:24:44 Problem Notes None recorded. Procedures Surgical History Date Name Laterality Status Provider Name and Address Organization Details Recorded Time 06/20/19 Allergy Immunotherapy Injections completed ALMA HIGH [facility] [address] [facility] [place],K[address] [place] [address], [phone], [facility] 06/19/2024 09:46:13 06/10/19 Allergy Immunotherapy Injections completed ANTONINO MUNGUIA RN 100 [facility],[address] [address], [place], [phone], [facility] - [facility] 06/09/2024 09:40:48 05/14/19 Allergy Testing-Full completed KATERINA BROOKLYN, [facility] [address] [facility] [place],KADE [facility], [place], [address], [facility] 05/13/2024 10:00:25 05/01/19 Allergy Testing Modified- Quantitative Testing (MQT) Only completed KATERINA CLAY, [facility] [address] [facility] [place],KADE [facility], [place], [address], [facility] 2024 11:44:19 04/02/19 25 Comp Audio with Tymps - 60051 & 76947 completed Dorothy Ayala [facility] 04/02/2024 14:09:42 Imaging Results None recorded. Procedure Notes None recorded. Medical Equipment None Reported. Allergies Allergen ID Allergen Name Allergen Category Reaction Reaction Severity Criticality Documentation Date Start Date Code Code System Note Provider Name and Address Organization Details Recorded Time [id number] house dust mite environme nt Not available Not available Not available 2024 35313 UNK KATERINA BROOKLYN, RMA [address] [facility] [place], [place], [address], [facility] - [facility] 09:07:28 Medications Name Sig Start Date [...] Available Not Available No t Available Vitals None Recorded Social History Question Answer Notes LastModified by Organizat ion Details LastModified Time Tobacco Smoking Status Former Smoker KATERINA BARAHONA, [facility] 100 [facility] [address], [place], [address], [place] - [facility] 2024 09:11:27 When Did You Quit Smoking? 6-10yearssin [facility] [place] Information not available 2024 How Much Tobacco Do You Smoke? 1 PPW Information not available 2024 How Many Years Have You Smoked Tobacco? 10 Information not available 2024 Sex: Unknown Functional Status None recorded. Mental Status None recorded. Family History Nothing Reported. Medical History Condition Response Tonsil Infections N COPD Y Nasal or Sinus Problems Y Hearing Loss Y High Cholesterol Y Liver Disease N Other Skin Condition N Rhinitis N Food Allergy N Eczema Y Nasal polyps N Gynecological HistoryNo gynecological history recorded. Obstetrics History GPAL:G 0 P 0 0 0 0 Past Encounters Encounter ID Performer Location Encounter Start Date Encounter Closed Date Diagnosis/Indication Diagnosis SNOMED-CT Code Diagnosis ICD10 Code Diagnosis Note [id number] ANTONINO MUNGUIA RN Allergy [address] [place] [phone] 06/09/2024 09:24:19 06/09/2024 09:42:21 Perennial allergic rhinitis 120632023 J30.89 [id number] SUSY LANGE Allergy [address] [place] [phone] 06/19/2024 09:20:29 06/19/2024 10:02:55 Perennial allergic rhinitis 757244895 J30.89 Health Concerns Section Related Observation LastModified by Organization Detai ls LastModified Time None Recorded Concern Status LastModified by Organization Details LastModified Time None Recorded Payers Encounter Date Sequence Insurance Name Policy Number Policy Michael Covered Member ID Michael Member ID Guarantor Name 06/19/2024 1 [facility] [place] [facility] NET [facility]AN (MEDICAID HMO) MEHREEN iMms [id number] Alicia Mims OBGyn Episode No OBEpisode recorded.
== END 2024-06-19 14:36 | disposition home or self-care (01) ==
LOC: HO.RHES 13:09
PROVIDERS: PCP Internal Medicine; Visit Provider Internal Medicine Rheumatology
DX: M19.041 Primary osteoarthritis, right hand (principal); M19.042 Primary osteoarthritis, left hand; R76.8 Other specified abnormal immunological findings in serum
CPT/HCPCS: 99215; G2211

== ENCOUNTER 2024-10-28 10:49 | Outpatient (REF) | payer OTHER, SELFPAY ==
[2024-10-28 18:49] LABS: Alanine Aminotransferase 65 U/L (0-31); Aspartate Amino Transferase 25 U/L (5-31); Estimated Glomerular Filt Rate 52
== END 2024-10-28 10:50 | disposition home or self-care (01) ==
LOC: HO.HKASLDS 10:49
PROVIDERS: PCP Internal Medicine; Visit Provider Internal Medicine Rheumatology
DX: M19.041 Primary osteoarthritis, right hand (principal); M19.042 Primary osteoarthritis, left hand; R76.8 Other specified abnormal immunological findings in serum; Z79.1 Long term (current) use of non-steroidal anti-inflammatories (NSAID)
CPT/HCPCS: 36415; 82565; 84450; 84460; 99212

== ENCOUNTER 2024-10-28 10:49 | Outpatient (AMB) | payer OTHER, SELFPAY ==
--- NOTE | 2024-10-28 11:01 | MHC.OFFVIS ---
Vital Signs 10/28/24 11:03 Height 5 ft 2 in Weight 154 lb 12.232 oz BMI 28.3 BP 100/70 Blood Pressure Location Rt brachial Position Sitting Pulse 70 Pulse Source Pulse Oximeter Pulse Oximetry (%) 97 Oxygen Delivery Method Room Air Intake Visit Reasons: OA Intake Note: Patient presents for OA follow up. Accompanied by: Self / Same As Patient Allergies ENVIRONMENTAL Allergy (Intermediate, Uncoded 01/18/23 08:41) SNEEZING,RUNNY EYES AND NOSE Medication List - Last Reconciled 10/28/24 by Saul Rivas MD acetaminophen ER (Tylenol 8 Hour) 1,300 mg (2 x 650 mg) PO Q8H PRN 90 days albuterol sulfate 90 mcg/actuation (ProAir HFA) 2 puffs inhalation Q6H PRN arm brace (Wrist Brace) As directed Bilateral CMC custom wrist splint Dx: osteoarthritis bilateral CMCs azelastine 1 spray intranasal BID bupropion HCl XL (Wellbutrin XL) 300 mg PO QAM bupropion HCl XL 150 mg PO QAM dextroamphetamine-amphetamine 10 mg 1 tab PO DAILY dextroamphetamine-amphetamine 20 mg ER (Adderall XR) 1 cap PO QAM diclofenac sodium 1% topical epinephrine (EpiPen) 0.3 mg IM Q4H PRN fexofenadine (Allergy Relief (fexofenadine)) 180 mg PO DAILY fluticasone propion-salmeterol 500-50 mcg/dose (Advair Diskus) 1 ea inhalation BID ipratropium-albuterol 0.5 mg-3 mg(2.5 mg base)/3 mL 3 mL inhalation Q6H ketoconazole 2% 1 appl topical BID PRN meloxicam 15 mg PO DAILY pregabalin 225 mg PO BID topiramate 50 mg PO BID 90 days HPI HPI OA: Details: She was hospitalized and was diagnosed with MS. She has no feeling of her lower back and left leg. She uses a walker to ambulate. She checked herself out of rehab because of lack of care requiring an ER visit. She has a visiting nurse that sees her daily. She will have a physical therapist that will be coming to her home. She will be following up with neurologist at [facility]. Since starting Tylenol and meloxicam, she feels that her pain has reduced compared to just using ibuprofen. She has been using stress ball and doing exercises with her hands. Splinting has helped. 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 Surgical History Hx of section Family History Mother Diabetes Hypertension Alzheimer disease Heart disease Father Heart disease Social History Household Members: Family Housing: Apartment Are you a primary skin care therapist to a significant other at home: No Do you presently have visiting nurse or other home services: Yes (Secretary Of [employer] 1 hour a day) Alcohol intake: never Patient Tobacco Use Status: Former Tobacco user Tobacco use type: Cigarette Substance Use Type: Marijuana service: No Current occupational status: disabled Cognitive needs: No Hearing needs: No Vision needs: Yes Physical Exam Vital Signs: Last Vital Signs Pulse 70 10/28/24 11:03 BP 100/70 10/28/24 11:03 Pulse Ox 97 10/28/24 11:03 Oxygen Delivery Method Room Air 10/28/24 11:03 BMI result Body Mass Index 28.3 Const Other: General: Comfortable Skin: No lesions seen MSK: Squaring of bilateral CMCs. She does not have tenderness of CMCs. Tender right 2nd and 5th PIP. Synovitis right 5th PIP present. Heberden nodes present. 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 Shoulder abduction bilateral 160 degrees with limited internal rotation. External rotation of bilateral shoulders is full. Assessment & Plan Assessment & Plan (1) Osteoarthritis of hands, bilateral: Comment: Kenyatta osteoarthritis. Improved pain with splinting, and Tylenol combination with meloxicam. 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 She has completed occupational therapy multiple times. Failed CMC cortisone injections. Failed naproxen. X-rays from March 2024 reviewed on patient's portal, which revealed degenerative changes. I am requesting repeat x-ray to evaluate for changes suggestive of underlying inflammatory arthritis contributing to her hand pain. Code(s): M19.041 - Primary osteoarthritis, right hand; M19.042 - Primary osteoarthritis, left hand Category: Medical Qualifiers: Osteoarthritis type: primary Qualified Code(s): M19.041 - Primary osteoarthritis, right hand; M19.042 - Primary osteoarthritis, left hand Plan: X-ray bilateral hands ordered last visit. Reminded patient to have x-rays done. Continue acetaminophen 650 mg every 8 hour PRN Continue meloxicam 15 mg daily Continue to wear Bilateral CMC custom splints labs ordered prior to prescribing NSAID with inflammatory markers OT requisition given to patient to have it set up with home services that she is currently receiving after hospitalization for possible MS diagnosis Return to clinic in 6 months (2) Positive anti-CCP test: Comment: No evidence of clinical RA. 2016: pos CCP, negative MIRTHA, RF, SS-A, SS-B Code(s): R76.8 - Other specified abnormal immunological findings in serum Category: Medical Plan: Monitor clinically Orders: Orders Alanine Aminotransferase Today Z79.1 - detention (current) use of non-steroidal anti-inflammatories (NSAID) Aspartate Amino Transferase Today Z79.1 - superintendent container terminal (current) use of non-steroidal anti-inflammatories (NSAID) Creatinine Today Z79.1 - detention (current) use of non-steroidal anti-inflammatories (NSAID) OT Evaluation and Treatment Today M19.041 - Primary osteoarthritis, right hand, M19.042 - Primary osteoarthritis, left hand Medications: Changed From meloxicam Take with food 15 mg PO DAILY 30 tabs 5RF To meloxicam Take with food 15 mg PO DAILY 90 tabs 1RF 90 days Refilled meloxicam Take with food 15 mg PO DAILY 30 tabs 5RF acetaminophen ER (Tylenol 8 Hour) 1,300 mg (2 x 650 mg) PO Q8H PRN 180 tabs 4RF pain 90 days Coding Level of Care Code Est Pt Level 3 (87235) Complex EM visit Add On G2211 Diagnoses Primary osteoarthritis of both hands M19.041; M19.042 Osteoarthritis type: primary Positive anti-CCP test R76.8
[2024-10-28 11:03] VITALS: BP 100/70; PULSE 70; O2SAT 97; BMI 28.3
--- OUTSIDE RECORDS SUMMARY | 2024-10-28 13:04 | XMS_ITS ---
Author Name [facility] Organization Unknown Care Team Organization Name Specialty Phone Email Start Date End Da te [facility] TRAY FISHER Primary Care 12/27/2021 4
--- OUTSIDE RECORDS SUMMARY | 2024-10-28 13:04 | XMS_ITS | Clinical Summary ---
Author Organization 175 [facility] Address [address] [place] [address] Phone Care Team Providers Care Corporate General Manager Name Role Phone Shaheen Fletcher MD Primary Care Provider [phone] Allergies Active Allergy Reactions Criticality Noted Date Comments Dog Dander Asthma,Burning Eyes, Cough,Dry Eye,Dry Mouth,Fatigue,Headache,Hives,Inflamma tion,Itching,Other,Rash,Respiratory Issues,Skin Problems,Sneezing,Sore Throat,Stuffy Nose,Swelling,Vision Problem 09/30/2024 House Dust Mite Hives,Rash 05/16/2024 Medications amphetamine-dext roamphetamine (ADDERALL) 10 mg tablet Take 1 tablet (10 mg total) by mouth 1 (one) time each day after lunch. TAKE AT 1400 DAILY 021 Active buPROPion XL (WELLBUTRIN XL) 150 mg 24 hr tablet Take 1 tablet (150 mg total) by mouth 1 (one) time each day. 022 Active buPROPion XL (WELLBUTRIN XL) 300 mg 24 hr tablet Take 1 tablet (300 mg total) by mouth 1 (one) time each day. Active DULoxetine (CYMBALTA) [address] capsule Take 1 capsule (60 mg total) by mouth 2 (two) times a day. 07/19/2 020 Active meclizine (ANTIVERT) 25 mg tablet Take 1 Tablet by mouth every 8 hours as needed (dizziness/vert igo). Medication may cause drowsiness, do not drive/operate machinery while taking 024 Active ipratropium-albu teroL (DUONEB) 0.5-2.5 mg/3 mL nebulizer solutionIndicati ons:Moderate persistent asthma without complication,Chr onic obstructive pulmonary disease, unspecified COPD type ([facility] V24, [facility] V28) Take 3 mL by nebulization 4 (four) times a day. 300 mL 3 025 Active azelastine (ASTELIN) 137 mcg (0.1 %) nasal sprayIndications :Allergic rhinitis due to animal (cat) (dog) hair and dander,Moderate persistent asthma, uncomplicated SPRAY 2 SPRAYS IN EACH NOSTRIL TWICE A DAY. 30 mL 5 025 Active Additional Information Patient taking differently:2 spray Each Nostril 2 times daily,(No instructions reported), Reported on 09/30/2024 Ventolin HFA 90 mcg/actuation inhalerIndicatio ns:Moderate persistent asthma, uncomplicated,Ch ronic obstructive pulmonary disease, unspecified ([facility] V24, [facility] V28) INHALE 2 PUFFS INTO THE LUNGS EVERY 6 HOURS NEEDED FOR WHEEZING AND SHORTNESS OF BREATH 18 each 3 Active Additional Information Patient taking differently: 2 puff inhalation Every 6 hours PRN, wheezing, shortness of breath, Reported on 09/30/2024 tiotropium (Spiriva Respimat) 1.25 mcg/actuation inhalation sprayIndications :Moderate persistent asthma, uncomplicated INHALE 2 PUFFS BY MOUTH INTO THE LUNGS DAILY 4 g 2 025 2024 Active Additional Information Patient taking differently: 2 puff inhalation Daily, Reported on 09/30/2024 pregabalin (LYRICA) 225 mg capsule TAKE 1 CAPSULE BY MOUTH 2 TIMES A DAY. MAX DAILY AMOUNT: 450 MG 60 capsule 5 025 Active Additional Information Patient taking differently: 225 mg oral 2 times daily, Reported on 09/30/2024 acetaminophen (TYLENOL 8 HOUR) 650 mg 8 hr tablet Take 2 tablets (1,300 mg total) by mouth every 8 (eight) hours if needed. for pain Active topiramate (TOPAMAX) 50 mg tablet Take 1 tablet (50 mg total) by mouth 2 (two) times a day. Active atorvastatin (LIPITOR) 40 mg tablet Take 1 tablet (40 mg total) by mouth 1 (one) time each day. 30 each 025 2024 Active aspirin 81 mg EC tablet Take 1 tablet (81 mg total) by mouth 1 (one) time each day. 30 each 025 2024 Active Advair Diskus 250-50 mcg/dose diskus inhalerIndicatio ns:Moderate persistent asthma, uncomplicated INHALE 1 DOSE BY MOUTH TWICE DAILY. RINSE MOUTH AFTER USE 60 each 5 Active fexofenadine (JOSEE) 180 mg tabletIndication s:Moderate persistent asthma, uncomplicated,Ch ronic obstructive pulmonary disease, unspecified (CMS/HCC V24, CMS/HCC V28) TAKE 1 TABLET BY MOUTH EVERY DAY 90 tablet 4 Active amphetamine-dext roamphetamine XR (ADDERALL XR) 20 mg 24 hr capsule Take 1 capsule (20 mg total) by mouth 1 (one) time each day in the morning. 020 2024 Discontinued(S top Taking at Discharge) diclofenac (VOLTAREN) 1 % topical gel Apply 4 g topically 2 times daily. 024 2024 Discontinued(T herapy completed) EPINEPHrine (EpiPen 2-Iban) 0.3 mg/0.3 mL injection Inject 1 Device as directed as needed (anaphylaxis). Use as directed 021 2024 Discontinued(T herapy completed) fluticasone-salm eterol (ADVAIR DISKUS) 250-50 mcg/dose diskus inhaler Inhale 1 Puff into the lungs 2 times daily. 024 2024 Discontinued fexofenadine (JOSEE) 180 mg tablet Take 1 tablet (180 mg total) by mouth 1 (one) time each day. 024 2024 Discontinued mometasone (NASONEX) 50 mcg/actuation nasal spray SPRAY 2 SPRAYS BY NASAL ROUTE DAILY 023 2024 Discontinued(T herapy completed) meloxicam (MOBIC) 15 mg tablet Take 1 tablet (15 mg total) by mouth 1 (one) time each day with breakfast. 025 2024 Discontinued(S top Taking at Discharge) topiramate (TOPAMAX) 25 mg tablet Take 2 tablets (50 mg total) by mouth 2 (two) times a day. 2024 Discontinued(A lternate therapy) ibuprofen (ADVIL,MOTRIN) 800 mg tablet Take 1 tablet (800 mg total) by mouth 3 (three) times a day. 90 each 025 2024 Discontinued(T herapy completed) oxyCODONE (ROXICODONE) 5 mg immediate release tabletIndication s:Hallux rigidus of right foot Take 1 tablet (5 mg total) by mouth every 4 (four) hours if needed for severe pain. Max Daily Amount: 30 mg 35 tablet 025 2024 Discontinued(T herapy completed) Hospital, Clinic, or Other Facility Administered Medication Ordered Dose Route Frequency Start Date End Date Status dexAMETHasone (PF) (DECADRON) injection 5 mgIndications:Hallux rigidus of left foot,Hallux rigidus of right foot 5 mg IAtc Once 01/08/2024 09/30/2024 Discontinue d triamcinolone acetonide (KENALOG-40) 40 mg/mL injection 40 mgIndications:Hallux rigidus of left foot,Hallux rigidus of right foot 40 mg IAtc Once 01/08/2024 09/30/2024 Discontinue d Active Problems Problem Noted Date Diagnosed Date COPD (chronic obstructive pu lmonary disease) ([facility] V24, [facility] V28) 10/08/2024 Right sided weakness 10/01/2024 Weakness 09/30/2024 Bilateral carpal tunnel syndrome 08/01/2024 Hallux rigidus of right foot 05/20/2024 Arthritis [...] Atopic dermatitis 09/09/2021 Obesity (BMI 30.0-34.9) 09/09/2021 Arthritis of both hands 07/20/2020 Allergy to dog dander 03/13/2018 Chronic idiopathic granuloma tous disease ([facility]/HCC V24, [facility]/HCC V28) 03/13/2018 Overview (11/16/2023): Chest CT 2018: There is a cluster of calcifications in the central left lobe liver. This may represent calcified granulomas or calcified vascular anomaly Cannabis abuse 09/11/2017 Fibromyalgia 03/14/2016 Anxiety 10/29/2015 ADHD (attention deficit hyperactivity disorder) 09/11/2012 Depressive disorder 12/02/2010 Central pontine myelinosis ([facility] V24, [facility] V28) Encounters Date Type Department Care Team Description 10/22/2024 Telephone Adult Medicine [address] [phone] Shaheen Fletcher MD 10/10/2024 Telephone Adult Medicine [address] [phone] Felicita EugeneHAMMOND, [place] 10/08/2024 10:48 AM EDT - 10/08/2024 3:49 PM EDT Emergency [facility] Emergency [address] [place] [phone] Mild intermittent asthma, unspecified whether complicated (Primary Dx); Urinary retention; Weakness; Central pontine myelinosis ([facility] V24, [facility] V28); Arthritis of both hands; Depressive disorder; Anxiety Discharge Disposition: Home or Self Care 10/08/2024 Telephone Adult Medicine [address] [phone] Shaheen Fletcher MD 09/30/2024 1:27 AM EDT - 10/03/2024 6:36 PM EDT Hospital Encounter [facility] Intermediate Care Unit [address] [place] [address] Audie Redd MD Lyle, David C, MD Bukalo, Nermina, MD Rasul, Yar M, MD Right sided weakness (Primary Dx); Ambulatory dysfunction; Urinary retention Discharge Disposition: [facility] 09/17/[address] [phone] Shaheen Fletcher MD 09/15/2024 11:00 AM EDT Evaluation [facility] Occupational Therapy [address] [place] [phone] Melissa Richardson, SULEMA Arthritis of carpometacarpal (CMC) joints of both thumbs; Bilateral carpal tunnel syndrome; Arthritis of both hands 09/15/2024 Plan of Care Documentation [facility] Occupational [address] [phone] 09/11/2024 10:30 AM EDT Office Visit Orthopedic Surgery [address] [phone] Sergey Ribera DPShanell Post-operative state (Primary Dx) 08/29/2024 7:31 AM EDT Anesthesia Event [facility] OR [address] [place] [phone] Indio Rene MD Johnson, Lorraine, CRNA 08/29/2024 7:30 AM EDT - 08/29/2024 9:00 AM EDT Surgery [facility] OR [address] [place] [phone] Sergey Ribera, DPM IMPLANT TO DIGIT OR LESSER METATARSAL [02482 (CPT )] 08/29/2024 6:08 AM EDT - 08/29/2024 10:01 AM EDT Hospital Encounter [facility] OR [address] [place] [phone] Sergey Ribera, DPM Hallux rigidus of right foot Discharge Disposition: Home or Self Care 08/25/2024 8:00 AM EDT Consult Orthopedic Surgery [address] [place] [phone] Sergey Ribera DPM Hallux rigidus of right foot (Primary Dx) 08/18/2024 10:00 AM EDT Consult Adult Medicine [address] [phone] Shaheen Fletcher MD Preop examination (Primary Dx); Attention deficit hyperactivity disorder (ADHD), unspecified ADHD type; Moderate persistent asthma without complication; Fibromyalgia; Depressive disorder; Hallux rigidus of right foot 08/13/2024 Telephone Orthopedic [facility] [address] [facility] [address] [place] [phone] Sergey Ribera DPM 08/01/2024 9:45 AM EDT Office Visit Orthopedic [facility] 175 [facility] [address] [place] [phone] Natalie Diaz MD Arthritis of carpometacarpal (CMC) joints of both thumbs (Primary Dx); Bilateral carpal tunnel syndrome; Arthritis of both hands 08/01/2024 9:20 AM EDT Office Visit Pulmonolgy [facility] 175 [facility] [address] [place] [phone] Fabiola Sanches NP Encounter for screening for malignant neoplasm of lung in former smoker who quit in past 15 years with 20 pack year history or greater (Primary Dx); Chronic obstructive pulmonary disease, unspecified COPD type ([facility] V24, [facility] V28); Moderate persistent asthma without complication; Allergy to dog dander; Environmental and seasonal allergies from Last 3 Months Immunizations Name Administration [...] History Surgery Date Site/Laterality Comments SECTION PROCEDURE: [facility]; COMMENT: x 3 BREAST BIOPSY PROCEDURE: BX BREAST; PERC NEEDLE CORE W/IMAG GUID; COMMENT: RT SIDE CARPAL TUNNEL RELEASE Bilateral FOOT SURGERY Bilateral Medical History Medical History Date Comments Asthma DX:Asthma Seasonal allergies DX:Seasonal a llergies COPD (chronic obstructive pu lmonary disease) ([facility] V24, [facility] V28) Anxiety Depression Arthritis Carpal tunnel syndrome on both sides Central pontine myelinosis ([facility] V24, [facility] V28) Family History Medical History Relation Name Comments Breast cancer Aunt 1 mat great aunt 30s 45; mate rnal Stomach cancer Aunt 2 m aunt Thyroid disease Brother 1 Hyperlipidemia Brother 2 Heart attack Father 52 Heart attack Father's side multiple uncle s and aunts Diabetes Mother htn; NH (not fa robert); Alzheimers Hypertension Mother Diabetes Mother's side Thyroid disease Sister 1 [...] Tobacco: Never Tobacco Cessation:Counseling Given: Not Answered Comments:Cannabis only Alcohol Use Standard Drinks/Week Comments Not Currently 0 (1 standard drink = 0.6 oz pur e alcohol) Housing Instability Answer Date Recorde d Are you worried that in the next 2 months you may not have stable housing? Yes 09/30/2024 Food Access & Nutrition Answer Date Rec orded Do you have access to a vari ety of food including fruits and vegetables? No 09/30/2024 Access to Healthcare Answer Date Record ed Within the last 3 months, ho w many times did you visit the emergency department for your medical care? 0 09/30/2024 Health Literacy Answer Date Recorded How often do you need to hav e someone help you when you read instructions, pamphlets, or other written material from your doctor or pharmacy? Rarely 09/30/2024 Caregiver: How often do you need to have someone help you when you read instructions, pamphlets, or other written material from your doctor or pharmacy? Not on file 09/30/2024 Financial Risk Answer Date Recorded How hard is it for you to pa y for the very basics like food, housing, medical care, and air conditioning / heating? Somewhat hard 09/30/2024 Transportation Answer Date Recorded Has the lack of transportati on kept you from meetings, work, or from getting things needed for daily living? No Has the lack of transportati on kept you from medical appointments or from getting medications? No 09/30/2024 Social Isolation Answer Date Recorded How often do you feel lonely or isolated from those around you? Sometimes 09/30/2024 Food Risk Answer Date Recorded Within the past 12 months we worried whether our food would run out before we got money to buy more. Often true 09/30/2024 Within the past 12 months th e food we bought just didn't last and we didn't have money to get more. Often true 09/30/2024 Dependent Care Answer Date Recorded Do you need help finding or paying for care for your loved ones. For example, child monitor or elderly care for an older adult? No 09/30/2024 Education Answer Date Recorded Do you think completing more education or training, like finishing a GED, going to college, or learning a trade, would be helpful for you? No 09/30/2024 Employment and Income Answer Date Recor ded During the last four weeks, have you been actively looking for work? No 09/30/2024 Living Situation Answer Date Recorded What is your living situation? 0 09/30/2024 Interpersonal Safety Answer Date Record ed Physical Abuse 09/30/2024 Verbal Abuse 09/30/2024 Comments No Sex and Gender Information Value Date Recorded Sex Assigned at Female 03/17/2024 8:24 AM EST Legal Sex Female 10:21 AM EST Gender Identity Female 03/17/2024 8:24 AM EST Sexual Orientation Straight 03/17/2024 8: 24 AM EST Obstetrics History Last Filed Vital Signs Vital Sign Reading Time Taken Comments Blood Pressure 123/104 10/08/2024 3:43 PM EDT Pulse 78 10/08/2024 3:43 PM EDT Temperature 36.9 C (98.4 F) 10/08/2024 2:10 PM EDT Respiratory Rate 18 10/08/2024 3:43 PM EDT Oxygen Saturation 98% 10/08/2024 3:43 PM EDT Inhaled Oxygen Concentration - - Weight 72.6 kg (160 lb) 10/08/2024 11:18 AM EDT Height 157.5 cm (5' 2 ) 10/08/2024 11:18 AM EDT Body Mass Index 29.26 10/08/2024 11:18 AM EDT Plan of Treatment Upcoming Encounters Date Type Department Care Team (Late st Contact Info) Description 10/30/2024 9:45 AM EDT Office Visit Orthopedic Surgery [facility] [address] [phone] Sergey Ribera, DPM [address] [phone] 11/04/2024 1:30 PM EDT Office Visit Adult Medicine [address] [phone] Shaheen Fletcher MD [address] [place] [phone] 02/02/2025 9:45 AM EST Office Visit Pulmonolgy [facility] 175 [facility] 200 [place] [phone] Fabiola Sanches, YARITZA [address] [place] [phone] Health Maintenance Due Date Last Done Comments Hepatitis A Vaccines (1 of 2 - Risk 2-dose series) 1985 Hepatitis B Vaccines (1 of 3 - 19+ 3-dose series) 1985 Zoster Vaccines (1 of 2) 1985 HIV Screening 01/28/2022 Lung Cancer Screening (Low Dose CT) 01/28/2022 Pneumococcal Vaccine: 50+ Years (2 of 2 - PCV) 03/22/2022 03/22/2021 Breast Cancer Screening 05/08/2022 05/08/2020 COVID-19 Vaccine ( - season) 2024 02/11/2021, 07/08/2020, 06/11/2020 Influenza Vaccine (#1) 2024 , 02/23/2022, 03/22/2021, Additional history exists Social Influencers of Health Screening 09/30/2025 09/30/2024 Colorectal Cancer Screening: Colonoscopy 11/08/2026 11/08/2021 Cervical Cancer Screening: HPV 03/07/2027 03/07/2022 Cholesterol Screening (Lipid Panel) 10/01/2029 10/01/2024, 04/28/2024, 11/06/2023, Additional history exists DTaP,Tdap,and Td Vaccines (3 - Td or Tdap) 02/24/2032 02/23/2022, 11/22/2010 Hepatitis C Screening Completed 12/01/2015 Depression Screening Completed 05/15/2024 HIB Vaccines Aged Out No longer eligi [...] on patient's age to complete this topic Goals Goal Patient Goal Type Associated Problems Recent Progress Patient-Stated? Author <enter goal here> General Yes Melissa Richardson OT Note: OT PATIENT GOAL HAVE LESS PAIN WITH DAILY TASKS OT STGS 4 TO 6 VISITS General No Melissa Richardson OT Note: # 1 INCORPORATE POSTURAL AWARENESS AND STRETCHING INTO DAILY REGIME TO REPORT LESS NUMBNESS AT THUMBS # 2 IMPROVE RIGHT WRIST EXTENSION FROM 30 TO 50 DEGREES WITH FAIR PLUS STRENGTH TO WEIGHTBEAR # 3 IMPROVE LEFT WRIST EXTENSION FROM 40 TO 50 DEGREES WITH FAIR PLUS STRENGTH TO WEIGHTBEAR # 4 IMPROVE BOTH SUPINATION FROM 50 TO 60 DEGREES TO RECEIVE ITEMS INTO PALM # 5 IMPROVE RIGHT DIGIT FLEXION TO LESS THAN 2 CM FROM THE DPC # 6 IMPROVE RIGHT CUSTOMS COMPLIANCE DIRECTOR FROM 23 TO AT LEAST 30 POUNDS Medical Devices Implanted Type Area Receptionist Clerk Device Identifier Shelf Expiration Date Model / Serial / Lot Toe Flex Hinge W/Grommet Sz 2 [employer] - Snone - [id number] Implanted:Qty: 1 on 03/21/2024 by Sergey Ribera DPM at [facility] Joints Left: First Toe [employer] [id number] 05/22/2031 [id number] / NONE / [id number] Toe Flex Hinge W/Grommet Sz 2 [employer] - Sn/A - [id number] Implanted:Qty: 1 on 08/29/2024 by Sergey Ribera DPM at [facility] Joints Right: First Toe [employer] 03/27/2032 [id number] / N/A / [id number] Procedures Procedure Name Priority Date/Time Associated Diagnosis Comments LAVENDER - EDTA Routine 10/03/2024 6:32 AM EDT EXTRA TUBES Routine 10/03/2024 6:32 AM EDT BASIC METABOLIC PANEL Routine 10/03/2024 6:32 AM EDT VISUAL EVOKED POTENTIAL TEST Routine 10/02/2024 3:03 PM EDT BASIC METABOLIC PANEL Routine 10/02/2024 6:05 AM EDT LAVENDER - EDTA Routine 10/02/2024 6:01 AM EDT EXTRA TUBES Routine 10/02/2024 6:01 AM EDT MR THORACIC SPINE WO AND W CONTRAST Routine 10/01/2024 5:37 PM EDT ECG 12-LEAD STAT 10/01/2024 8:11 AM EDT CBC WITH AUTO DIFFERENTIAL Routine 10/01/2024 5:57 AM EDT VITAMIN B12 AND FOLATE Routine 5:57 AM EDT COMPREHENSIVE METABOLIC PANEL Routine 10/01/2024 5:57 AM EDT CBC AND DIFFERENTIAL Routine 10/01/2024 5:57 AM EDT LIPID PANEL WITH REFLEX TO DIRECT LDL Routine 10/01/2024 5:57 AM EDT HEMOGLOBIN A1C Routine 10/01/2024 5:57 AM EDT ECG ANNOTATED 10/01/2024 MR BRAIN WO AND W CONTRAST STAT 09/30/2024 6:37 PM EDT MR CERVICAL SPINE WO AND W CONTRAST STAT 09/30/2024 5:35 PM EDT XR PELVIS 1-2 VIEWS STAT 09/30/2024 7 :[address] ANGIO HEAD/NECK WO AND/OR W CONTRAST STAT 09/30/2024 6:35 AM EDT URINALYSIS WITH REFLEX MICROSCOPIC STAT 09/30/2024 6:04 AM EDT DRUG ABUSE SCREEN 8A PANEL, URINE STAT 09/30/2024 6:04 AM EDT URINALYSIS WITH REFLEX MICROSCOPIC STAT 09/30/2024 6:04 AM EDT XR CHEST 1 VIEW STAT 09/30/2024 2:[address] HEAD WO CONTRAST STAT 09/30/2024 2 :40 AM EDT ECG 12-LEAD STAT 09/30/2024 2:15 AM EDT BORRELIA BURGDORFERI ANTIBODY Add-On 09/30/2024 2:05 AM EDT THYROXINE FREE STAT Add-on 09/30/2024 2:05 AM EDT TRIIODOTHYRONINE FREE Add-On 09/30/2024 2:05 AM EDT ACETAMINOPHEN LEVEL STAT Add-on 09/30/2024 2 :05 AM EDT SALICYLATE LEVEL STAT Add-on 09/30/2024 2:05 AM EDT ETHANOL STAT Add-on 09/30/2024 2:05 AM EDT THYROID STIMULATING HORMONE STAT 09/30/2024 2:05 AM EDT CBC WITH AUTO DIFFERENTIAL STAT 09/30/2024 2:05 AM EDT ACTIVATED PARTIAL THROMBOPLASTIN TIME STAT 09/30/2024 2:05 AM EDT PROTHROMBIN TIME WITH INR STAT 09/30/2024 2:05 AM EDT CREATINE KINASE STAT 09/30/2024 2:05 AM EDT COMPREHENSIVE METABOLIC PANEL STAT 09/30/2024 2:05 AM EDT MAGNESIUM STAT 09/30/2024 2:05 AM EDT TROPONIN I HIGH SENSITIVITY STAT 09/30/2024 2:05 AM EDT CBC AND DIFFERENTIAL STAT 09/30/2024 2:05 AM EDT XR FOOT 3+ VIEWS RIGHT Routine 5 10:38 AM EDT Post-operative state XR FOOT 3+ VIEWS RIGHT Routine 5 9:21 AM EDT TISSUE EXAM Routine 08/29/2024 7:57 AM EDT Hallux rigidus of right foot [facility] HALLUX RIGIDUS CHARY W CHEILECTOMY DEBR & CAPSULAR RLS 1ST MPJ W IMPLANT 08/29/2024 7:31 AM EDT Hallux rigidus of right foot Case Notes MINI C-ARM, CALIXTO 1ST MPJ JOSE M ECG 12-LEAD Routine 08/18/2024 10:32 AM EDT Preop examination HPV Routine 03/07/2022 COLONOSCOPY Routine 11/08/2021 SCR MAMMO BI INCL CAD Routine 05/08/2020 11:54 AM EDT Encounter for screening mammogram for malignant neoplasm of breast HEPATITIS C SCREENING Routine 12/01/2015 from Last 3 Months or Most Recently Relevant to Health Maintenance Results * Lavender tube (10/03/2024 6:32 AM EDT) Only the most recent of2 resultswithin the time period is included. Extra Tube Hold for add-ons. 10/03/2024 8:[address] [facility] Comment:Auto resulted. Blood Venous blood specimen / Unknown Venipuncture / Unknown 10/03/2024 6:32 AM EDT 10/03/2024 6:50 AM EDT us Chinedu Torres MD LAB BLOOD ORDERABLES Final Resul t [facility] [address] [place] [address], [place] [phone] * Basic metabolic panel (10/03/2024 6:32 AM EDT) Only the most recent of2 resultswithin the time period is included. Sodium 142 133 - 145 mmol/L LAB CHEMISTRY METHOD 10/03/2024 8:00 AM [facility] Potassium 3.6 3.5 - 5.5 mmol/L LAB CHEMISTRY METHOD 10/03/2024 8:00 AM [facility] Chloride 110 96 - 110 mmol/L LAB CHEMISTRY METHOD 10/03/2024 8:00 AM [facility] CO2 25 21 - 32 mmol/L LAB CHEMISTRY METHOD 10/03/2024 8:00 AM [facility] Anion Gap 7 3 - 11 LAB CHEMISTRY METHOD 10/03/2024 8:00 AM [facility] Glucose 98 70 - 100 mg/dL LAB CHEMISTRY METHOD 10/03/2024 8:00 AM [facility] BUN 13 5 - 25 mg/dL LAB CHEMISTRY METHOD 10/03/2024 8:00 AM [facility] Creatinine 0.75 0.50 - 1.10 mg/dL LAB CHEMISTRY METHOD 10/03/2024 8:00 AM [facility] eGFR 92 >=60 mL/min/1. 73m2 LAB CHEMISTRY METHOD 10/03/2024 8:00 AM [facility] Comment:Calculation based on the Chronic Kidney Disease Epidemiology Collaboration (CKD-EPI) equation refit without adjustment for race. BUN/Creatinine Ratio 17.3 LAB CHEMISTRY METHOD 10/03/2024 8:00 AM EDT [facility] Calcium 8.5 8.5 - 10.5 mg/dL LAB CHEMISTRY METHOD 10/03/2024 8:00 AM EDT [facility] Blood Venous blood specimen / Unknown Venipuncture / Unknown 10/03/2024 6:32 AM EDT 10/03/2024 6:49 AM EDT us Chinedu Torres MD LAB BLOOD ORDERABLES Final Resul t [facility] [address] [place] [address], * Visual evoked potential test (10/02/2024 3:03 PM EDT) Narrative Yoselin Bateman MD - 10/02/2024 4:37 PM EDT Table formatting from the original result was not included. Images from the original result were not included. [facility] [address] [place] [address] Visual Evoked Potential Report Date of service: 10/02/24 Patient Name: Alicia Hamm Date of : 1965 Age: 59 y.o. Gender: female Procedure Order: Visual evoked potential test Ordering Provider: Chinedu Torres MD Reason for Exam: Order Questions Answers Reason for Exam: multiple sclerosis Release to patient Immediate [1] Diagnosis listed on Order: None Type of Study: Visual Evoked Potential Technical Description: Scalp electrodes placed using [employer] System. Visual acuity measured at the time of testing, and performed with or without corrective lenses. Black and white checkerboard pattern utilized for testing stimuli with minimum distance of 70 cm with patient maintaining visual fixation during testing. Description: Bilateral visual evoked potentials were obtained after pattern reversal stimulation. The P 100 waveforms are well-defined and reproducible and of normal latencies and amplitudes with no significant [id number] difference Impression: Normal bilateral visual evoked potentials us Chinedu Torres MD NEUROLOGY ORDERABLES Final Resul t * MR Thoracic Spine wo and w Contrast (10/01/2024 5:37 PM EDT) Anatomical Region Laterality Modality T-spine, Spine Magnetic Resonan ce 10/01/2024 6:44 PM EDT Impressions 10/01/2024 6:44 PM EDT Impression: 1. Exam is somewhat limited by motion artifact. 2. Otherwise, no significant abnormality appreciated. Specifically, no definable signal abnormality identified within the thoracic cord, although motion artifact limits evaluation at multiple levels. This document has been electronically signed by: Yefri Limon MD on 10/01/2024 18:44:14 Narrative 10/01/2024 6:44 PM EDT INDICATION: Demyelinating disease Exam: Pre and post-contrast MRI of the thoracic spine. Comparison: None Findings: Thoracic vertebral body heights and alignment are maintained. Intervertebral discs reveal slight diffuse disc desiccation. Visualized signal intensity within the thoracic cord appears maintained, however there is somewhat limited evaluation due to areas of motion artifact. Axial images reveal no significant compromise of the thecal sac or spinal canal. Gadolinium enhanced imaging reveals no abnormal epidural or paraspinal enhancement. No gross enhancing intradural lesions are appreciated. Procedure Note Yefri Limon MD - 10/01/2024 INDICATION: Demyelinating disease Exam: Pre and post-contrast MRI of the thoracic spine. Comparison: None Findings: Thoracic vertebral body heights and alignment are maintained. Intervertebral discs reveal slight diffuse disc desiccation. Visualized signal intensity within the thoracic cord appears maintained, however there is somewhat limited evaluation due to areas of motion artifact. Axial images reveal no significant compromise of the thecal sac orspinal canal. Gadolinium enhanced imaging reveals no abnormal epidural or paraspinal enhancement. No gross enhancing intradural lesions are appreciated. IMPRESSION: Impression: 1. Exam is somewhat limited by motion artifact. 2. Otherwise, no significant abnormality appreciated. Specifically, no definable signal abnormality identified within the thoracic cord,although motion artifact limits evaluation at multiple levels. This document has been electronically signed by: Yefri Limon MD on 10/01/2024 18:44:14 us Chinedu Torres MD IMG MRI PROCEDURES Final Result * ECG 12 lead (10/01/2024 8:11 AM EDT) Only the most recent of3 resultswithin the time period is included. Ventricular Rate ECG 65 BPM GEMUSE Atrial Rate 65 BPM GEMUSE P-R Interval 104 ms GEMUSE QRS Duration 110 ms GEMUSE Q-T Interval 484 ms GEMUSE QTc 503 ms GEMUSE P Wave [place] 62 degrees GEMUSE R [place] 38 degrees GEMUSE T [place] 56 degrees GEMUSE ECG Interpretation Sinus rhythm with sinus arrhythmia with short VA Otherwise normal ECG When compared with ECG of 30-SEP-2024 02:15, No significant change was found Confirmed by MELANIA HANEY ([id number]) on 10/02/2024 7:23:01 PM GEMUSE 10/01/2024 8:11 AM EDT 10/02/2024 7:23 PM EDT Chinedu Torres MD ECG ORDERABLES Final Result Performing Organization Address City/[facility]/ZIP Co de Phone Number GEMUSE * (ABNORMAL) Vitamin B12 and folate (10/01/2024 5:57 AM EDT) Vitamin B-12 225(L) 250 - 900 pcg/mL LAB CHEMISTRY METHOD 10/01/2024 7:53 AM EDT [facility] Folate >20.0(H) 2.8 - 17.0 ng/ml LAB CHEMISTRY METHOD 10/01/2024 7:53 AM EDT [facility] Blood Venous blood specimen / Unknown Venipuncture / Unknown 10/01/2024 5:57 AM EDT 10/01/2024 6:12 AM EDT Josefa YEPEZ LAB BLOOD ORDERABLES Final Resu lt [facility] [address] [place] [address], [place] [phone] * (ABNORMAL) Lipid panel with reflex to direct LDL (10/01/2024 5:57 AM EDT) Cholesterol 253(H) 0 - 200 mg/dL LAB CHEMISTRY METHOD 10/01/2024 7:45 AM EDT [facility] Triglycerides 135 0 - 150 mg/dL [facility] HDL 72 >=40 mg/dL LAB CHEMISTRY METHOD 10/01/2024 7:45 AM EDT [facility] LDL Calculated 154(H) 0 - 100 mg/dL LAB CHE[facility]STRY METHOD [facility] Comment:Estimated LDL Calcul ated using equation: Total cholesterol - HDL cholesterol - (Triglycerides/5) VLDL Cholesterol [place] 27 mg/dL LAB CHEMISTRY METHOD 10/01/2024 7:45 AM [facility] Non HDL Chol. (LDL+VLDL) 181(H) <145 mg/dL LAB CHEMISTRY METHOD [facility]2024 [facility] Chol/HDL Ratio 3.5 0.0 - 4.4 LAB CHEMISTRY METHOD 10/01/2024 7:45 AM [facility] Blood Venous blood specimen / Unknown Venipuncture / Unknown 10/01/2024 5:57 AM EDT 10/01/2024 6:12 AM EDT us Josefa YEPEZ LAB BLOOD ORDERABLES Final Resu lt [facility] [address] [place] [address], * (ABNORMAL) CBC auto differential (10/01/2024 5:57 AM EDT) Only the most recent of2 resultswithin the time period is included. WBC 4.6(L) 4.8 - 10.8 K/mcL LAB HEMETOLOGY METHOD 10/01/2024 6:27 AM [facility] RBC 3.80 3.80 - 4.80 M/mcL LAB HEMETOLOGY METHOD 10/01/2024 6:27 AM [facility] Hemoglobin 11.9 11.5 - 16.0 g/dL LAB HEMETOLOGY METHOD 10/01/2024 6:27 AM [facility] Hematocrit 36.0 35.0 - 47.0 % LAB HEMETOLOGY METHOD 10/01/2024 6:27 AM [facility] MCV 94.2 79.0 - 98.0 FL LAB HEMETOLOGY METHOD 10/01/2024 6:27 AM [facility] MCH 31.2 27.0 - 32.0 pcg LAB HEMETOLOGY METHOD 10/01/2024 6:27 AM [facility] MCHC 33.1 32.0 - 37.0 g/dL LAB HEMETOLOGY METHOD 10/01/2024 6:27 AM [facility] RDW 14.6 11.0 - 15.0 % LAB HEMETOLOGY METHOD 10/01/2024 6:27 AM [facility] Platelets 229 130 - 400 K/mcL LAB HEMETOLOGY METHOD 10/01/2024 6:27 AM [facility] MPV 10.4 7.0 - 11.0 FL LAB HEMETOLOGY METHOD 10/01/2024 6:27 AM [facility] NRBC 0.0 <1.0 % LAB HEMETOLOGY METHOD 10/01/2024 6:27 AM [facility] NRBC Absolute 0.00 <0.10 K/mcL LAB HEMETOLOGY METHOD 10/01/2024 6:27 AM [facility] Neutrophils Relative 55.4 % LAB HEMETOLOGY METHOD 10/01/2024 6:27 AM [facility] Lymphocytes Relative 33.2 % LAB HEMETOLOGY METHOD 10/01/2024 6:27 AM [facility] Monocytes Relative 7.3 % LAB HEMETOLOGY METHOD 10/01/2024 6:27 AM [facility] Eosinophils Relative 3.3 % LAB HEMETOLOGY METHOD 10/01/2024 6:27 AM [facility] Basophils Relative 0.4 % LAB HEMETOLOGY METHOD 10/01/2024 6:27 AM [facility] Immature Granulocytes Relative 0.4 % LAB HEMETOLOGY METHOD 10/01/2024 6:27 AM [facility] Neutrophils Absolute 2.52 1.50 - 7.00 K/mcL LAB HEMETOLOGY METHOD 10/01/2024 6:27 AM [facility] Lymphocytes Absolute 1.51 1.00 - 5.00 K/mcL LAB HEMETOLOGY METHOD 10/01/2024 6:27 AM [facility] Monocytes Absolute 0.33 0.20 - 1.00 K/mcL LAB HEMETOLOGY METHOD 10/01/2024 6:27 AM [facility] Eosinophils Absolute 0.15 0.00 - 0.50 K/mcL LAB HEMETOLOGY METHOD 10/01/2024 6:27 AM [facility] Basophils Absolute 0.02 0.00 - 0.20 K/mcL LAB HEMETOLOGY METHOD 10/01/2024 6:27 AM [facility] Immature Granulocytes Absolute 0.02 0.00 - 0.03 K/mcL LAB HEMETOLOGY METHOD 10/01/2024 6:27 AM [facility] Blood Venous blood specimen / Unknown Venipuncture / Unknown 10/01/2024 5:57 AM EDT 10/01/2024 6:12 AM EDT us Josefa YEPEZ LAB BLOOD ORDERABLES Final Resu lt Performing Organization Address City/[facility]/ZIP Co de Phone Number [facility] [address] [place] [address], [place] [phone] * Hemoglobin A1c (10/01/2024 5:57 AM EDT) Pathologist [facility] Hemoglobin A1C 6.1 <6.5 % LAB CHEMISTRY METHOD 10/01/2024 12:10 PM EDT [facility] Mean Bld Glu Estim. 128 mg/dL LAB CHEMISTRY METHOD 10/01/2024 12:10 PM EDT [facility] Blood Venous blood specimen / Unknown Venipuncture / Unknown 10/01/2024 5:57 AM EDT 10/01/2024 6:12 AM EDT Josefa YEPEZ LAB BLOOD ORDERABLES Final Resu lt Performing Organization Address [facility]/ZIP Co de Phone Number [facility] [address] [place] [address], [place] [phone] * (ABNORMAL) Comprehensive metabolic panel (10/01/2024 5:57 AM EDT) Only the most recent of2 resultswithin the time period is included. [facility] Sodium 141 133 - 145 mmol/L LAB CHEMISTRY METHOD 10/01/2024 7:47 AM EDT [facility] Potassium 3.6 3.5 - 5.5 mmol/L LAB CHEMISTRY METHOD 10/01/2024 7:47 AM EDT [facility] Chloride 113(H) 96 - 110 mmol/L LAB CHEMISTRY METHOD 10/01/2024 7:47 AM EDT [facility] CO2 25 21 - 32 mmol/L LAB CHEMISTRY METHOD 10/01/2024 7:47 AM EDT [facility] Anion Gap 3 3 - 11 LAB CHEMISTRY METHOD 10/01/2024 7:47 AM EDT [facility] Glucose 113(H) 70 - 100 mg/dL LAB CHEMISTRY METHOD 10/01/2024 7:47 AM [facility] BUN 7 5 - 25 mg/dL LAB CHEMISTRY METHOD 10/01/2024 7:47 AM [facility] Creatinine 0.74 0.50 - 1.10 mg/dL LAB CHEMISTRY METHOD 10/01/2024 7:47 AM [facility] eGFR 94 >=60 mL/min/1. 73m2 LAB CHEMISTRY METHOD 10/01/2024 7:47 AM [facility] Comment:Calculation based on the Chronic Kidney Disease Epidemiology Collaboration (CKD-EPI) equation refit without adjustment for race. BUN/Creatinine Ratio 9.5 LAB CHEMISTRY METHOD 10/01/2024 7:47 AM [facility] Calcium 8.8 8.5 - 10.5 mg/dL LAB CHEMISTRY METHOD 10/01/2024 7:47 AM [facility] AST (SGOT) 25 10 - 42 unit/L LAB CHEMISTRY METHOD 10/01/2024 7:47 AM [facility] ALT (SGPT) 28 10 - 60 unit/L LAB CHEMISTRY METHOD 10/01/2024 7:47 AM [facility] Alkaline Phosphatase 69 42 - 121 unit/L LAB CHEMISTRY METHOD 10/01/2024 7:47 AM [facility] Total Protein 6.4 6.0 - 8.0 g/dL LAB CHEMISTRY METHOD 10/01/2024 7:47 AM [facility] Albumin 3.4 3.2 - 5.0 g/dL LAB CHEMISTRY METHOD 10/01/2024 7:47 AM [facility] Total Bilirubin 0.4 0.0 - 1.4 mg/dL LAB CHEMISTRY METHOD 10/01/2024 7:47 AM [facility] Comment:Results verified by repeat testing Blood Venous blood specimen / Unknown Venipuncture / Unknown 10/01/2024 5:57 AM EDT 10/01/2024 6:12 AM EDT us Josefa YEPEZ LAB BLOOD ORDERABLES Final Resu lt [facility] [address] [place] [address], * ECG-Annotated (10/01/2024) us Provider Onbase MD ECG ORDERABLES Final Result * MR Brain wo and w Contrast (09/30/2024 6:37 PM EDT) Anatomical Region Laterality Modality Head and Neck Magnetic Resonan ce 09/30/2024 7:10 PM EDT Impressions 09/30/2024 7:10 PM EDT Impression: 1. No acute intracranial abnormalities. 2. Multifocal areas of white matter T2 hyperintensity, differential considerations described above. If demyelinating disease/MS is clinically suspected, consider follow-up MRI in 3-6 months, to determine interval change. This document has been electronically signed by: Yefri Limon MD on 09/30/2024 19:10:15 Narrative 09/30/2024 7:10 PM EDT INDICATION: right sided weakness, urinary retention Exam: MRI of the brain, including gadolinium-enhanced imaging. Comparison: None. Findings: There is no cerebral edema or mass effect. White matter reveals multifocal areas of T2 hyperintensity predominantly involving the frontal lobes bilaterally common nonspecific although differential considerations could include demyelinating disease/MS, postinfectious demyelination, Lyme disease, sequela of vasculitis or migraines, or premature microangiopathic disease. Diffusion weighted imaging reveals no restricted diffusion or evidence of acute ischemia. Susceptibility weighted imaging reveals no susceptibility artifact or evidence of intracranial hemorrhage. Ventricular size and configuration are within normal limits. Cerebral cisterns are preserved. Gadolinium enhanced imaging reveals no enhancing lesions. Paranasal sinuses and mastoid air cells reveal no focal signal abnormality. Procedure Note Yefri Limon MD - 09/30/2024 INDICATION: right sided weakness, urinary retention Exam: MRI of the brain, including gadolinium-enhanced imaging. Comparison: None. Findings: There is no cerebral edema or mass effect. White matterreveals multifocal areas of T2 hyperintensity predominantly involving thefrontal lobes bilaterally common nonspecific although differentialconsiderations could include demyelinating disease/MS, postinfectious demyelination,Lyme disease, sequela of vasculitis or migraines, or prematuremicroangiopathic disease. Diffusion weighted imaging reveals no restricted diffusion or evidence of acute ischemia. Susceptibility weighted imaging reveals no susceptibility artifact or evidence of intracranial hemorrhage. Ventricular size and configuration are within normal limits. Cerebral cisterns are preserved. Gadolinium enhanced imaging reveals no enhancing lesions. Paranasal sinuses and mastoid air cells reveal no focal signalabnormality. IMPRESSION: Impression: 1. No acute intracranial abnormalities. 2. Multifocal areas of white matter T2 hyperintensity, differential considerations described above. If demyelinating disease/MS isclinically suspected, consider follow-up MRI in 3-6 months, to determine interval change. This document has been electronically signed by: Yefri Limon MD on 09/30/2024 19:10:15 Josefa YEPEZ IM MRI PROCEDURES Final Result * MR Cervical Spine wo and w Contrast (09/30/2024 5:35 PM EDT) Anatomical Region Laterality Modality C-spine, Spine Magnetic Resonan ce 09/30/2024 7:08 PM EDT Impressions 09/30/2024 7:08 PM EDT Impression: 1. Equivocal small foci of T2 hyperintensity within the cervical cord centered at C4 level. Differential considerations include demyelinating disease, nonspecific myelitis, or less likely cord edema among others. No enhancing lesions appreciated. This document has been electronically signed by: Yefri Limon MD on 09/30/2024 19:08:06 Narrative 09/30/2024 7:08 PM EDT INDICATION: right sided weakness, urinary retention Exam: MRI of the cervical spine, including gadolinium enhanced imaging. Comparison: None. Findings: Exam is degraded by motion artifact, especially for the STIR imaging sequence. Cervical vertebral body heights, alignment, and signal intensities appear maintained. Intervertebral disc heights appear maintained. Signal intensity within the cervical cord appears to reveal small 2-3 mm foci of T2 hyperintensity extending from C3-4 to C4-5 level (15; 7-12, and 16; 7-12). Remaining signal intensities within the cervical cord appears maintained. Axial images reveal the following: C2-3: No focal disc herniation, spinal or foraminal compromise. C3-4: No focal disc herniation. There is right uncovertebral joint hypertrophy resulting in at least moderate right foraminal stenoses. No significant spinal or left foraminal stenoses. C4-5: No focal disc herniation. Mild left worse than right uncovertebral joint hypertrophy results in likely moderate left foraminal stenoses. No significant spinal or right foraminal stenoses. C5-6: No focal disc herniation or significant spinal or foraminal stenoses. C6-7: No focal disc herniation or significant spinal or foraminal stenoses. Gadolinium enhanced imaging reveals no abnormal epidural or paraspinal enhancement. No enhancing intradural lesions appreciated. Procedure Note Yefri Limon MD - 09/30/2024 INDICATION: right sided weakness, urinary retention Exam: MRI of the cervical spine, including gadolinium enhanced imaging. Comparison: None. Findings: Exam is degraded by motion artifact, especially for the STIR imaging sequence. Cervical vertebral body heights, alignment, and signal intensities appear maintained. Intervertebral disc heights appear maintained. Signal intensity within the cervical cord appears to reveal small 2-3 mm foci of T2 hyperintensity extending from C3-4 to C4-5 level (15; 7-12,and 16; 7-12). Remaining signal intensities within the cervical cord appears maintained. Axial images reveal the following: C2-3: No focal disc herniation, spinal or foraminal compromise. C3-4: No focal disc herniation. There is right uncovertebral joint hypertrophy resulting in at least moderate right foraminal stenoses. No significant spinal or left foraminal stenoses. C4-5: No focal disc herniation. Mild left worse than rightuncovertebral joint hypertrophy results in likely moderate left foraminal stenoses. No significant spinal or right foraminal stenoses. C5-6: No focal disc herniation or significant spinal or foraminalstenoses. C6-7: No focal disc herniation or significant spinal or foraminal stenoses. Gadolinium enhanced imaging reveals no abnormal epidural or paraspinal enhancement. No enhancing intradural lesions appreciated. IMPRESSION: Impression: 1. Equivocal small foci of T2 hyperintensity within the cervical cord centered at C4 level. Differential considerations include demyelinating disease, nonspecific myelitis, or less likely cord edema among others.No enhancing lesions appreciated. This document has been electronically signed by: Yefri Limon MD on 09/30/2024 19:08:06 Josefa YEPEZ IMG MRI PROCEDURES Final Result * XR Pelvis 1-2 Views (09/30/2024 7:38 AM EDT) Anatomical Region Laterality Modality Body, Pelvis Radiographic Judith ging 09/30/2024 8:12 AM EDT Impressions 09/30/2024 8:13 AM EDT FINDINGS/IMPRESSION: No acute fracture or dislocation. Mild degenerative changes at the hips. No focal soft tissue swelling. Contrast noted in the ureters and bladder. -------- FINAL REPORT -------- Dictated By: RONN WORTHINGTON Dictated Date: 09/30/2024 08:12 ET Assigned Physician: RONN WORTHINGTON Reviewed and Electronically Signed By: RONN WORTHINGTON Signed Date: 09/30/2024 08:13 ET Workstation ID: [id number] Transcribed By: Self Edit Transcribed Date: 09/30/2024 08:12 ET Narrative 09/30/2024 8:13 AM EDT XR PELVIS 1-2 VIEWS INDICATION: Pain, fall TECHNIQUE: XR PELVIS 1-2 VIEWS COMPARISON: No priors available. Procedure Note Ronn Worthington MD - 09/30/2024 XR PELVIS 1-2 VIEWS INDICATION: Pain, fall TECHNIQUE: XR PELVIS 1-2 VIEWS COMPARISON: No priors available. IMPRESSION: FINDINGS/IMPRESSION: No acute fracture or dislocation. Mild degenerativechanges at the hips. No focal soft tissue swelling. Contrast noted inthe ureters and bladder. -------- FINAL REPORT -------- Dictated By: RONN WORTHINGTON Dictated Date: 09/30/2024 08:12 ET Assigned Physician: RONN WORTHINGTON Reviewed and Electronically Signed By: RONN WORTHINGTON Signed Date: 09/30/2024 08:13 ET Workstation ID: [id number] Transcribed By: Self Edit Transcribed Date: 09/30/2024 08:12 ET us Jose Hayes MD IMG XR PROCEDURES Final Result * CT Angio Head/Neck wo and/or w Contrast (09/30/2024 6:35 AM EDT) Anatomical Region Laterality Modality Head and Neck Computed Tomogra phy 09/30/2024 7:18 AM EDT Impressions 09/30/2024 7:18 AM EDT 1. No acute intracranial abnormality. Minimal chronic change. 2. Patent head and neck CTA. This document has been electronically signed by: Ander Hopkins MD on 09/30/2024 07:18:03 Narrative 09/30/2024 7:18 AM EDT INDICATION: weakness worse on right, ambulatory dysfunction CT Head without contrast. CT angiography head and neck with contrast. 3D Postprocessing. Comparison: CT - CT HEAD WO CONTRAST - 09/30/2024 02:34 AM EDT Findings: HEAD CT: No intra-axial mass, midline shift, hydrocephalus, or acute hemorrhage. No significant atrophy. Minimal patchy low-density in the periventricular and subcortical white matter. There is no sinus or mastoid fluid. The orbits are within normal limits. No skull fracture. HEAD AND NECK CTA: Aortic arch and cervical great vessels are patent. The right vertebral artery is dominant. Intracranial arteries are patent. No aneurysm, dissection, or occlusion. No abnormal intracranial enhancement. The visualized thyroid gland is unremarkable. No cervical mass or fluid collection. Lung apices clear. No acute fracture. Minimal degenerative changes within the cervical spine. Procedure Note Ander Hopkins MD - 09/30/2024 INDICATION: weakness worse on right, ambulatory dysfunction CT Head without contrast. CT angiography head and neck with contrast. 3D Postprocessing. Comparison: CT - CT HEAD WO CONTRAST - 09/30/2024 02:34 AM EDT Findings: HEAD CT: No intra-axial mass, midline shift, hydrocephalus, or acute hemorrhage. No significant atrophy. Minimal patchy low-density in the periventricular and subcortical white matter. There is no sinus or mastoid fluid. The orbits are within normal limits. No skull fracture. HEAD AND NECK CTA: Aortic arch and cervical great vessels are patent. The right vertebral artery is dominant. Intracranial arteries are patent. No aneurysm, dissection, or occlusion. No abnormal intracranial enhancement. The visualized thyroid gland is unremarkable. No cervical mass or fluid collection. Lung apices clear. No acute fracture. Minimal degenerative changes within the cervicalspine. IMPRESSION: 1. No acute intracranial abnormality. Minimal chronic change. 2. Patent head and neck CTA. This document has been electronically signed by: Ander Hopkins MD on 09/30/2024 07:18:03 Audie Redd MD IM CT PROCEDURES Final Resu lt * Urinalysis with reflex microscopic (09/30/2024 6:04 AM EDT) Specific [place] Urine 1.008 1.003 - 1.030 LAB URINALYSIS - AUTOMATED METHOD 09/30/2024 6:50 AM [facility] pH, Urine 7.0 5.0 - 8.0 pH LAB URINALYSIS - AUTOMATED METHOD 09/30/2024 6:50 AM [facility] Leukocytes, Urine Negative Negative LAB URINALYSIS - AUTOMATED METHOD 09/30/2024 6:50 AM [facility] Nitrite, Urine Negative Negative LAB URINALYSIS - AUTOMATED METHOD 09/30/2024 6:50 AM [facility] Protein, Urine Negative <=Trace mg/dL LAB URINALYSIS - AUTOMATED METHOD 09/30/2024 6:50 AM [facility] Glucose, Urine Negative Negative mg/dL LAB URINALYSIS - AUTOMATED METHOD 09/30/2024 6:50 AM [facility] Ketones, Urine Negative Negative mg/dL LAB URINALYSIS - AUTOMATED METHOD 09/30/2024 6:50 AM [facility] Urobilinogen, Urine 0.2 0.2 - 1.0 mg/dL LAB URINALYSIS - AUTOMATED METHOD 09/30/2024 6:50 AM [facility] Bilirubin, Urine Negative Negative LAB URINALYSIS - AUTOMATED METHOD 09/30/2024 6:50 AM EDT [facility] Blood, Urine Negative Negative LAB URINALYSIS - AUTOMATED METHOD 09/30/2024 6:50 AM [facility] Urine Urine specimen obtained by clean catch procedure / Unknown Non-blood Collection / Unknown 09/30/2024 6:04 AM EDT 09/30/2024 6:43 AM EDT us Audie Redd MD LAB URINE ORDERABLES Final R esult [facility] [address] [place] [address], * (ABNORMAL) Drug abuse screen 8a panel, urine (09/30/2024 6:04 AM EDT) Amphetamine Screen, Ur Positive(A ) Negative LAB CHEMISTRY METHOD 5 7:06 AM [facility] Comment:Certain OTC medicati ons containing ephedrine, phenylephrine, pseudoephedrine and phenylpropanolamine can cause false positive results. Barbiturate Screen, Ur Negative Negative LAB CHEMISTRY METHOD 5 7:06 AM [facility] Benzodiazepine Screen, Ur Negative Negative LAB CHEMISTRY METHOD 5 7:06 AM [facility] Cocaine Screen, Ur Negative Negative LAB CHEMISTRY METHOD 5 7:06 AM [facility] Opiate Screen, Ur Negative Negative LAB CHEMISTRY METHOD 5 7:06 AM [facility] Cannabinoid (THC) Screen, Ur Positive(A ) Negative LAB CHEMISTRY METHOD 5 7:06 AM [facility] Comment:Specimens from patie nts taking pantoprazole sodium (Protonix) have been shown to produce false positive results. Oxycodone Screen, Ur Negative Negative LAB CHEMISTRY METHOD 5 7:06 AM [facility] Fentanyl, Ur Negative Negative LAB CHEMISTRY METHOD 7:06 AM EDT [facility] Urine Urine specimen obtained by clean catch procedure / Unknown Non-blood Collection / Unknown 09/30/2024 6:04 AM EDT 09/30/2024 6:43 AM EDT Narrative [facility] - 09/30/2024 7:06 AM EDT Assay cutoffs: Amphetamines 1000 ng/mL Barbiturates 200 ng/mL Benzodiazepines 200 ng/mL Cocaine 300 ng/mL Fentanyl 1 ng/mL Opiates 300 ng/mL Oxycodone 100 ng/mL THC 50 ng/mL Semi-quantitative assay for screening purposes only. Unconfirmed screening result should not be used for non-medical purposes. *ALTERNATE METHOD CONFIRMATION DONE UPON REQUEST ONLY* us Audie Redd MD LAB URINE ORDERABLES Final R esult [facility] [address] [place] [address], [place] [phone] * XR Chest 1 View (09/30/2024 2:53 AM EDT) Anatomical Region Laterality Modality Body Radiographic Judith ging 09/30/2024 9:03 AM EDT Impressions 09/30/2024 9:03 AM EDT FINDINGS/IMPRESSION: Lungs are clear. No pleural effusion or pneumothorax. Cardiac silhouette and bones are normal. -------- FINAL REPORT -------- Dictated By: RONN WORTHINGTON Dictated Date: 09/30/2024 09:03 ET Assigned Physician: RONN WORTHINGTON Reviewed and Electronically Signed By: RONN WORTHINGTON Signed Date: 09/30/2024 09:03 ET Workstation ID: [id number] Transcribed By: Self Edit Transcribed Date: 09/30/2024 09:03 ET Narrative 09/30/2024 9:03 AM EDT XR CHEST 1 VIEW INDICATION: Chest pain TECHNIQUE: XR CHEST 1 VIEW COMPARISON: 10/18/2020 Procedure Note Ronn Worthington MD - 09/30/2024 XR CHEST 1 VIEW INDICATION: Chest pain TECHNIQUE: XR CHEST 1 VIEW COMPARISON: 10/18/2020 IMPRESSION: FINDINGS/IMPRESSION: Lungs are clear. No pleural effusion orpneumothorax. Cardiac silhouette and bones are normal. -------- FINAL REPORT -------- Dictated By: RONN WORTHINGTON Dictated Date: 09/30/2024 09:03 ET Assigned Physician: RONN WORTHINGTON Reviewed and Electronically Signed By: RONN WORTHINGTON Signed Date: 09/30/2024 09:03 ET Workstation ID: [id number] Transcribed By: Self Edit Transcribed Date: 09/30/2024 09:03 ET us Audie Redd MD IMG XR PROCEDURES Final Resu lt * CT Head wo Contrast (09/30/2024 2:40 AM EDT) Anatomical Region Laterality Modality Head and Neck Computed Tomogra phy 09/30/2024 3:34 AM EDT Impressions 09/30/2024 3:34 AM EDT 1. No acute intracranial abnormality. 2. Few small hypodensities in the frontal lobe white matter which are nonspecific, but most commonly secondary to chronic small-vessel ischemic disease. This document has been electronically signed by: Virgilio Raygoza MD on 09/30/2024 03:34:37 Narrative 09/30/2024 3:34 AM EDT INDICATION: generalized pain and weakness CT head without contrast Comparison: None provided Findings: There is no acute intracranial hemorrhage. Ventricles are of normal size and shape. No mass effect or midline shift is present. The boyer-white matter differentiation appears normal. There are a few small hypodensities in the frontal lobe white matter. The visualized portions of the orbits, paranasal sinuses, and mastoids are unremarkable. No fractures are identified. Procedure Note Virgilio Raygoza MD - 09/30/2024 INDICATION: generalized pain and weakness CT head without contrast Comparison: None provided Findings: There is no acute intracranial hemorrhage. Ventricles are of normal size and shape. No mass effect or midline shift is present. The boyer-white matter differentiation appears normal. There are a few smallhypodensities in the frontal lobe white matter. The visualized portions of the orbits, paranasal sinuses, and mastoidsare unremarkable. No fractures are identified. IMPRESSION: 1. No acute intracranial abnormality. 2. Few small hypodensities in the frontal lobe white matter which are nonspecific, but most commonly secondary to chronic small-vesselischemic disease. This document has been electronically signed by: Virgilio Raygoza MD on 09/30/2024 03:34:37 Audie Redd MD IMG CT PROCEDURES Final Resu lt * Troponin I High Sensitivity (09/30/2024 2:05 AM EDT) [facility] High Sensitivity Troponin I 3 <=54 ng/L LAB CHEMISTRY METHOD 09/30/2024 2:42 AM EDT [facility] Blood Venous blood specimen / Unknown Venipuncture / Unknown 09/30/2024 2:05 AM EDT 09/30/2024 2:19 AM EDT Narrative [facility] - 09/30/2024 2:42 AM EDT High levels of biotin in samples may falsely decrease hsTroponin values. Use caution when interpreting hsTroponin results in patients taking biotin who exhibit renal impairment (eGFR <60) or in patients taking more than 20 mg/day of biotin. Audie Redd MD LAB BLOOD ORDERABLES Final R esult [facility] [address] [place] [address], * Borrelia burgdorferi antibody (09/30/2024 2:05 AM EDT) [facility] Lyme Ab Negative Negative LAB CHEMISTRY METHOD 10/01/2024 9:14 AM EDT [facility] Comment: No laboratory evidence of infection with B. burgdorferi (Lyme disease). Negative results may occur in patients recently infected (<=14 days) with B. burgdorferi. If recent infection is suspected, repeat testing on a new sample collected in 7- 14 days is recommended. Blood Venous blood specimen / Unknown Venipuncture / Unknown 09/30/2024 2:05 AM EDT 09/30/2024 2:19 AM EDT Josefa YEPEZ LAB BLOOD ORDERABLES Final Resu lt Performing Organization Address [facility]/ZIP Co de Phone Number [facility] [address] [place] [address], [place] [phone] * APTT (09/30/2024 2:05 AM EDT) aPTT 25.2 24.1 - 39.3 sec LAB COAGULATION METHOD 09/30/2024 2:31 AM EDT [facility] Blood Venous blood specimen / Unknown Venipuncture / Unknown 09/30/2024 2:05 AM EDT 09/30/2024 2:20 AM EDT Audie Redd MD LAB BLOOD ORDERABLES Final R esult Performing Organization Address [facility] de Phone Number [facility] [address] [place] [address], [place] [phone] * (ABNORMAL) Protime-INR (09/30/2024 2:05 AM EDT) Protime 10.3(L) 10.6 - 13.9 sec LAB COAGULATION METHOD 09/30/2024 2:31 AM EDT [facility] INR 0.8 LAB COAGULATION METHOD 09/30/2024 2:31 AM EDT [facility] Blood Venous blood specimen / Unknown Venipuncture / Unknown 09/30/2024 2:05 AM EDT 09/30/2024 2:20 AM EDT Audie Redd MD LAB BLOOD ORDERABLES Final R esult Performing Organization Address [facility]/ZIP Co de Phone Number [facility] [address] [place] [address], [place] [phone] * Triiodothyronine free (09/30/2024 2:05 AM EDT) T3, Free 296 230 - 420 pcg/dL LAB CHEMISTRY METHOD 09/30/2024 4:48 AM EDT [facility] Blood Venous blood specimen / Unknown Venipuncture / Unknown 09/30/2024 2:05 AM EDT 09/30/2024 2:19 AM EDT Audie Redd MD LAB BLOOD ORDERABLES Final R esult Performing Organization Address [facility] Co de Phone Number [facility] [address] [place] [address], [place] [phone] * (ABNORMAL) Thyroid Stimulating Hormone (TSH) (09/30/2024 2:05 AM EDT) TSH 13.47(H) 0.40 - 4.00 mcIU/mL LAB CHEMISTRY METHOD 09/30/2024 4:11 AM EDT [facility] Blood Venous blood specimen / Unknown Venipuncture / Unknown 09/30/2024 2:05 AM EDT 09/30/2024 2:19 AM EDT Audie Redd MD LAB BLOOD ORDERABLES Final R esult Performing Organization Address City/[facility] Co de Phone Number [facility] [address] [place] [address], [place] [phone] * T4, free (09/30/2024 2:05 AM EDT) Free T4 0.84 0.70 - 1.80 ng/dL LAB CHEMISTRY METHOD 09/30/2024 4:48 AM EDT [facility] Blood Venous blood specimen / Unknown Venipuncture / Unknown 09/30/2024 2:05 AM EDT 09/30/2024 2:19 AM EDT us Audie Redd MD LAB BLOOD ORDERABLES Final R esult Performing Organization Address [facility]/ZIP Co de Phone Number [facility] [address] [place] [address], [place] [phone] * Magnesium (09/30/2024 2:05 AM EDT) Magnesium 2.1 1.9 - 2.6 mg/dL LAB CHEMISTRY METHOD 09/30/2024 2:42 AM EDT [facility] Blood Venous blood specimen / Unknown Venipuncture / Unknown 09/30/2024 2:05 AM EDT 09/30/2024 2:19 AM EDT us Audie Redd MD LAB BLOOD ORDERABLES Final R esult Performing Organization Address [facility] de Phone Number [facility] [address] [place] [address], [place] [phone] * Creatine kinase (09/30/2024 2:05 AM EDT) Total CK 214 22 - 269 unit/L LAB CHEMISTRY METHOD 09/30/2024 2:42 AM EDT [facility] Blood Venous blood specimen / Unknown Venipuncture / Unknown 09/30/2024 2:05 AM EDT 09/30/2024 2:19 AM EDT us Audie Redd MD LAB BLOOD ORDERABLES Final R esult Performing Organization Address City/[facility]/ZIP Co de Phone Number [facility] [address] [place] [address], [place] [phone] * Ethanol (09/30/2024 2:05 AM EDT) Ethanol Level <3 0 - 10 mg/dL LAB CHEMISTRY METHOD 09/30/2024 4:14 AM EDT [facility] Blood Venous blood specimen / Unknown Venipuncture / Unknown 09/30/2024 2:05 AM EDT 09/30/2024 2:19 AM EDT Audie Redd MD LAB BLOOD ORDERABLES Final R esult Performing Organization Address [facility] Co de Phone Number [facility] [address] [place] [address], [place] [phone] * (ABNORMAL) Acetaminophen level (09/30/2024 2:05 AM EDT) Acetaminophen Level <2.0(L) 10.0 - 30.0 mcg/mL LAB CHEMISTRY METHOD 09/30/2024 4:27 AM EDT [facility] Blood Venous blood specimen / Unknown Venipuncture / Unknown 09/30/2024 2:05 AM EDT 09/30/2024 2:19 AM EDT us Audie Redd MD LAB BLOOD ORDERABLES Final R esult Performing Organization Address [facility] Co de Phone Number [facility] [address] [place] [address], [place] [phone] * Salicylate Level (09/30/2024 2:05 AM EDT) Salicylate Level 4.8 2.0 - 29.0 mg/dL LAB CHEMISTRY METHOD 09/30/2024 3:17 AM EDT [facility] Blood Venous blood specimen / Unknown Venipuncture / Unknown 09/30/2024 2:05 AM EDT 09/30/2024 2:19 AM EDT us Audie Redd MD LAB BLOOD ORDERABLES Final R esult [facility] [address] [place] [address], * XR Foot 3+ Views Right (09/11/2024 10:38 AM EDT) Only the most recent of2 resultswithin the time period is included. Anatomical Region Laterality Modality Lower Extremities, Foot Right Computed Radiography Narrative 09/11/2024 12:49 PM EDT Right foot 3 views Stable post op changes hardware intact reduction deformity maintained Sergey Ribera DPM IMG XR PROCEDURES Final R esult * Tissue exam (08/29/2024 7:57 AM EDT) Final Diagnosis Bone, Foot, Right, first ray: -DEGENERATIVE OSTEOARTHROPATHY, CONSISTENT WITH HALLUX RIGIDUS / EXOSTOSIS 09/02/2024 9:29 AM EDT [facility] Gross Description A. Foot, Right, first ray: Labeled foot R, right fir . Received in formalin are two irregular pink-yellow articular bone fragments, measuring 1.8 x 1.3 x 0.5 cm and 2.9 x 2.4 x 1 cm. The cartilage covered articular surfaces display pitting and eburnation. There is minimal attached soft tissue. A security representative section of each is submitted in one cassette following decalcification, two pieces. Tag band 09/02/2024 9:29 AM EDT [facility] Disclaimer Unless otherwise specified, all tissue is 10% NB formalin fixed and paraffin embedded. 09/02/2024 9:29 AM EDT [facility] Bone Structure of right foot / Unknown 08/29/2024 7:57 AM EDT 08/29/2024 10:13 AM EDT Sergey Ribera DPM LAB PATHOLOGY ORDERABLES Final Result [facility] [address] [place] [address], * Cervical Cancer Screening: HPV (03/07/2022) Cervical Cancer Screening: HPV Abstracted ,negative us Historical Provider MD HEALTH MAINTENANCE Final Result * Colonoscopy (11/08/2021) Colonoscopy No interpreta tion,abstr acted Anatomical Region Laterality Modality Other us Historical Provider MD HEALTH MAINTENANCE Final Result * SCR MAMMO BI INCL [...] with the aid of computer-aided detection. Comparison is made with 07/30/2015, 07/08/2014, and 07/06/2014. Breast parenchyma is composed of scattered fibroglandular densities. No new suspicious mass, architectural distortion, or suspicious [...] evidence of malignancy. BI-RADS 1 - negative us Jaci T Thad PA IMG XR PROCEDURES Final Resul t * Hepatitis C Screening (12/01/2015) Hepatitis C Screening Abstracted us Historical Provider HEALTH MAINTENANCE Final Result from Last 3 Months or Most Recently Relevant to Health Maintenance Insurance [facility] [employer] Advance Directives Documents on File Type Date Recorded Patient Cardiology Technologist Expl anation Advance Directives and Living Will 10/03/2024 2:45 PM Thania Hamm Health Care Proxy * Full Code - Default (Latest Code Status on File) Date Activated Date Inactivated Comments 09/30/2024 1:54 PM 10/03/2024 8:46 PM This is orde r is used when code status has not been discussed with the patient, or code status is otherwise unknown/unconfirmed To update the patient's code status, place a code status order. Do not modify or discontinue any currently active code status orders. Healthcare Agents on File Name Relationship Healthcare Agent Relationshi p Communication Thania Rosales Daughter Health Care Agent Chris Hamm Relative First Alternat e Health Care Agent Care Teams Corporate General Manager Relationship Specialty Start Date End Date Shaheen Fletcher MD [address] [place] [phone] PCP - General 09/28/08
--- OUTSIDE RECORDS SUMMARY | 2024-10-28 13:05 | XMS_ITS | Encounter Summary ---
Author Organization [facility] Address [address] [place] [address] Care Team Providers Care Factory Assembler Name Role Phone Shaheen Fletcher MD Primary Care Provider [phone] Reason for Visit * Reason Onset Date Comments faxed order 10/22/2024 [facility] are services order Encounter Details Date Type Department Care Team (Late st Contact Info) Description 10/22/2024 Telephone Adult Medicine [address] [phone] Shaheen Fletcher MD [address] [place] [address] Social History Tobacco Use Types Packs/Day Years Used Date Smoking Tobacco: Former Cigarettes 0.5 40 0 02/19/1979 - 02/19/2019 Smokeless Tobacco: Never Comments:Cannabis only Alcohol Use Standard Drinks/Week Comments [...] Record ed Within the last 3 months, bert jackson many times did you visit the emergency [...] your loved ones. For example, child care sitter or elderly care for an older adult? [...] Orientation Straight 03/17/2024 8: 24 AM EST documented as of this encounter Functional Status * Are you deaf or do you have serious difficulty hearing? Answer Date of Assessment Author No 10/08/2024 11:35 AM EDT Marjorie Goodson RN * Are you blind or do you have serious difficulty seeing, even when wearing glasses? Answer Date of Assessment Author No 10/08/2024 11:35 AM EDT Marjorie Goodson RN * Do you have serious difficulty walking or climbing stairs? Answer Date of Assessment Author Yes 10/08/2024 11:35 AM EDT Marjorie Goodson RN * Do you have serious difficulty dressing or bathing? Answer Date of Assessment Author No 10/08/2024 11:35 AM EDT Marjorie Goodson RN * Because of a physical, mental, or emotional condition, do you have serious difficulty doing errandsalone such as visiting the doctor? Answer Date of Assessment Author No 10/08/2024 11:35 AM EDT Marjorie Goodson RN documented as of this encounter Mental Status * Because of a physical, mental, or emotional condition, do you have serious difficulty concentrating, remembering, or making decisions? (5 years old or older) Answer Entry Date Author No 10/08/2024 11:35 AM EDT Marjorie Goodson RN documented in this encounter Progress Notes * Kim Rendon - 10/22/2024 11:48 AM EDT [facility] services order received please sign and fax to [phone] documented in this encounter Plan of Treatment Upcoming Encounters Date Type Department Care Team (Late st Contact Info) Description 10/30/2024 9:45 AM EDT Office Visit Orthopedic Surgery - [place] [address] [phone] Sergey Ribera, KIRK [address] [phone] 11/04/2024 1:30 PM EDT Office Visit Adult [address] [phone] Shaheen Fletcher MD [address] [place], [place] 02/02/2025 9:45 AM EST [facility] [address] [facility] [address] [place] [address] Fabiola Sanches, YARITAZ [address] [place] [phone] documented as of this encounter Goals Goal Patient Goal Type Associated Problems [...] FROM THE [facility] # 6 IMPROVE RIGHT BASE LOADER FROM 23 TO AT LEAST 30 POUNDS documented as of this encounter Visit Diagnoses Not on filedocumented in this encounter Additional Health Concerns Assessment Noted Time PHQ-9 Depression Total Score: 6 05/16/19 25 11:57 AM EDT documented as of this encounter Care Teams Factory Assembler Relationship Specialty Start Date End Date Shaheen Fletcher MD [address] [place], [place] PCP - General 09/28/08 documented as of this encounter
== END 2024-10-28 11:00 | disposition home or self-care (01) ==
LOC: HO.RHES 10:50
PROVIDERS: PCP Internal Medicine; Visit Provider Internal Medicine Rheumatology
DX: M19.041 Primary osteoarthritis, right hand (principal); M19.042 Primary osteoarthritis, left hand; R76.8 Other specified abnormal immunological findings in serum
CPT/HCPCS: 99213

== ENCOUNTER 2024-11-11 13:22 | Outpatient (AMB) | payer OTHER, SELFPAY ==
--- NOTE | 2024-11-11 13:23 | A.OFFVIS_ITS ---
Intake Visit Reasons: 3 Month Follow up Allergies ENVIRONMENTAL Allergy (Intermediate, Uncoded 11/11/24 13:36) SNEEZING,RUNNY EYES AND NOSE Medication List - Last Reconciled 11/11/24 by Shonda Hermosillo CNP acetaminophen ER (Tylenol 8 Hour) 1,300 mg (2 x 650 mg) PO Q8H PRN 90 days albuterol sulfate 90 mcg/actuation (ProAir HFA) 2 puffs inhalation Q6H PRN arm brace (Wrist Brace) As directed Bilateral CMC custom wrist splint Dx: osteoarthritis bilateral CMCs atorvastatin (Lipitor) 40 mg PO QPM azelastine 1 spray intranasal BID bupropion HCl XL (Wellbutrin XL) 300 mg PO QAM bupropion HCl XL 150 mg PO QAM dextroamphetamine-amphetamine 10 mg 1 tab PO DAILY dextroamphetamine-amphetamine 20 mg ER (Adderall XR) 1 cap PO QAM diclofenac sodium 1% topical duloxetine 60 mg PO BID epinephrine (EpiPen) 0.3 mg IM Q4H PRN fexofenadine (Allergy Relief (fexofenadine)) 180 mg PO DAILY fluticasone propion-salmeterol 500-50 mcg/dose (Advair Diskus) 1 ea inhalation BID ipratropium-albuterol 0.5 mg-3 mg(2.5 mg base)/3 mL 3 mL inhalation Q6H ketoconazole 2% 1 appl topical BID PRN meloxicam 15 mg PO DAILY 90 days pregabalin 225 mg PO BID tiotropium bromide 1.25 mcg/actuation (Spiriva Respimat) 2 puffs inhalation DAILY topiramate 50 mg PO BID 90 days HPI Comments Details: 59-year-old woman with fibromyalgia, migraine, h/o significant stress, h/o alcohol abuse, MRI brain showing central pontine myelinosis and a few white matter hypertintensities, asthma, anxiety and depression. She returned to office in 05/2024 for headaches and spacing out and forgetting while driving. Her EEG was unremarkable. Migraines were still happening, but better with topiramate 50mg twice a day. She was admitted to [facility] in 09/2024. She was at home when she got a weird sensation, like a cold and numb sensation, across her chest, and started to gradually feel weak all over, spreading from chest down to feet over hours. She needed help getting up from bed, but could not stand at all and slid to floor. She was unsure if she had headache at this time. She apparently had some MRIs and teleneurology was consulted, and she was told she may have MS. She was also found to have urinary retention and recommended follow up with urology. No records available for review at this time. She reports continuing weakness to legs, along with intermittent numbness and tingling to lower back and legs. She was having some occasional spasms in legs. 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 Surgical History Hx of section Family History Mother Diabetes Hypertension Alzheimer disease Heart disease Father Heart disease Social History Household Members: Family Housing: Apartment Are you a primary summer child caregiver to a significant other at home: No Do you presently have visiting nurse or other home services: Yes (Heater Operator Helper 1 hour a day) Alcohol intake: never Patient Tobacco Use Status: Former Tobacco user Tobacco use type: Cigarette Substance Use Type: Marijuana service: No Current occupational status: disabled Cognitive needs: No Hearing needs: No Vision needs: Yes Review of Systems Const Denies chills, Denies daytime sleepiness, Reports difficulty sleeping, Denies fatigue, Denies fever(s), Denies frequent falls, Reports headache(s), Denies increased appetite, Denies poor appetite, Denies snoring, Reports weakness, Denies weight gain and Denies weight loss Eyes Denies loss of vision ENT Denies vertigo, Denies dizziness and Reports headache(s) Card Denies chest pain at rest, Denies chest pain with activity, Denies syncope, Denies leg edema and Denies palpitations Resp Denies snoring GI Denies constipation, Denies heartburn, Denies diarrhea and Denies nausea Denies urinary frequency, Denies urinary incontinence and Denies urinary urgency Musc Denies abnormal gait, Reports numbness and Reports tingling Skin/Breast Denies dry skin and Denies rash Neuro Denies abnormal gait, Denies vertigo, Denies dizziness, Denies syncope, Denies frequent falls, Reports headache(s), Denies lack of coordination, Denies loss of vision, Denies memory loss, Reports numbness, Denies restless legs, Denies seizure-like activity, Reports tingling, Denies paresthesias, Denies tremor(s) and Reports weakness Psych Reports anxiety, Reports depression, Denies auditory hallucinations, Denies memory loss, Denies visual hallucinations and Denies suicidal ideation Endo Denies fatigue and Denies palpitations Physical Exam Const Other: General Appearance:? normal, in no acute distress. Skin:? no rashes, no significant birthmarks. Heart:? S1, S2 normal, no murmurs. Lungs:? clear anteriorly and posteriorly. Extremities:? no edema. Psych:? alert, oriented, cognitive function intact, cooperative with exam. Neuro Other: Mental Status:?Normal attention, orientation, memory and affect.? Cranial Nerves:?Pupils are equal, round and reactive to light. External occular muscles are intact. Visual bonner are full. Face is symmetrical. Facial sensations are normal. Tongue is midline. Palate elevates symmetrically. Shoulder shrugging is normal. Hearing to bedside conversation is normal. Motor Exam: DTRs 2+, submaximal effort on strength testing. Sensory Exam:?....? Coordination:?No ataxia,?no titubation.? Gait Exam: Slow and cautious, antalgic Cerebellar Signs:?[id number] is okay. Extrapyramidal System:?No tremor, rigidity with normal facial expressions.? Pronator Drift:?Not present.? Involuntary Movements:?No tremors seen.? Speech:?Pressured speech. Results Reviewed Results Reviewed: EEG at office 06/04/2024: unremarkable NCV/EMG UE 12/26/17 Mild bilateral median neuropathy across the Carpal tunnel. There is remarkable improvement compared to the study in 2016. NCV/EMG UE 04/27/15 MILD TO MODERATE BILATERAL CARPAL TUNNEL SYNDROME IN THE UPPER EXTREMTIIES. CSF analysis at [facility] in Apr 2015: WBCs 2, RBCs 0, glu 66, pro 23, IgG ind: normal, OCBs absent. MRI brain WO at in Mar and Apr: Central pontine large hyperintensity, multiple bilateral FP WM lesions, not trivial, not particularly associated with ventricles. MRI brain WO at in Nov 2016: no sig difference from 2016 Assessment & Plan Assessment & Plan (1) Migraine: Code(s): G43.909 - Migraine, unspecified, not intractable, without status migrainosus Category: Medical Qualifiers: Intractability: not intractable Migraine type: unspecified Status migrainosus presence: without status migrainosus Qualified Code(s): G43.909 - Migraine, unspecified, not intractable, without status migrainosus Plan: Continue topiramate 50mg 1 tablet twice a day. There were no records available at this time for review. She was advised to bring CD of MRI to next appointment. Coding Level of Care Code Est Pt Level 4 (67282) Diagnoses Migraine without status migrainosus, not intractable, unspecified migraine type G43.909 Intractability: not intractable Migraine type: unspecified Status migrainosus presence: without status migrainosus
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
--- OUTSIDE RECORDS SUMMARY | 2024-11-11 16:24 | XMS_ITS | Clinical Summary ---
Author Organization [facility] Address [address] [place] [address] Phone Care Team Providers Care Medical Van Driver Name Role Phone Shaheen Fletcher MD Primary Care Provider [phone] Allergies Active Allergy Reactions Criticality Noted Date [...] onic obstructive pulmonary disease, unspecified COPD type (CMS/[facility] V24, CMS/[facility] V28) Take 3 mL by nebulization [...] asthma, uncomplicated,Ch ronic obstructive pulmonary disease, unspecified (CMS/[facility] V24, CMS/[facility] V28) INHALE 2 PUFFS INTO THE LUNGS EVERY 6 HOURS NEEDED FOR WHEEZING AND SHORTNESS OF BREATH 18 each 3 025 Active tiotropium (Spiriva Respimat) 1.25 mcg/actuation inhalation sprayIndications :Moderate persistent asthma, uncomplicated INHALE 2 PUFFS BY MOUTH INTO THE LUNGS DAILY 4 g 2 025 Active Additional Information Patient taking differently: 2 puff inhalation Daily, Reported on 09/30/2024 pregabalin (LYRICA) 225 mg capsule TAKE 1 CAPSULE BY MOUTH 2 TIMES A DAY. MAX DAILY AMOUNT: 450 MG 60 capsule 5 025 Active Additional Information Patient taking differently: 225 mg oral 2 times daily, Reported on 11/04/2024 topiramate (TOPAMAX) 50 mg tablet Take 1 tablet (50 mg total) by mouth 2 (two) times a day. Active atorvastatin (LIPITOR) 40 mg tablet Take 1 tablet (40 mg total) by mouth 1 (one) time each day. 30 each 025 Active Advair Diskus 250-50 mcg/dose diskus inhalerIndicatio ns:Moderate persistent asthma, uncomplicated INHALE 1 DOSE BY MOUTH TWICE DAILY. RINSE MOUTH AFTER USE 60 each 5 025 Active fexofenadine (JOSEE) 180 mg tabletIndication s:Moderate persistent asthma, uncomplicated,Ch ronic obstructive pulmonary disease, unspecified ([facility] V24, [facility] V28) TAKE 1 TABLET BY MOUTH EVERY DAY 90 tablet 4 025 Active amphetamine-dext roamphetamine (AdderalL) 20 mg tablet Take 1 tablet (20 mg total) by mouth 1 (one) time each day. 20 mg plus 10 mg tablet daily=30 mg total daily Max Daily Amount: 20 mg 967 Active fexofenadine (JOSEE) 180 mg tablet Take 1 tablet (180 mg total) by mouth 1 (one) time each day. 024 2024 Discontinued acetaminophen (TYLENOL 8 HOUR) 650 mg 8 hr tablet Take 2 tablets (1,300 mg total) by mouth every 8 (eight) hours if needed. for pain 2024 Discontinued aspirin 81 mg EC tablet Take 1 tablet (81 mg total) by mouth 1 (one) time each day. 30 each 025 2024 Active Problems Problem Noted Date Diagnosed Date COPD (chronic obstructive pu lmonary disease) ([facility] V24, [facility] V28) 10/08/2024 Right sided weakness 10/01/2024 Weakness [...] Allergy to dog dander 03/13/2018 Chronic idiopathic granulomatous disease 019 Overview (11/16/2023): Chest CT 2018: There is a cluster of calcifications in the central left lobe liver. This may represent calcified granulomas or calcified vascular anomaly Cannabis abuse 09/11/2017 Fibromyalgia 03/14/2016 Anxiety 10/29/2015 ADHD (attention deficit hyperactivity disorder) 09/11/2012 Depressive disorder 12/02/2010 Central pontine myelinosis (CMS/[facility] V24, [facility] V28) Encounters Date Type Department Care Team Description 11/04/2024 1:30 PM EDT Office Visit Adult Medicine [address] [phone] Shaheen Fletcher MD Weakness (Primary Dx); Urinary retention 11/04/2024 Telephone Adult Medicine [address] [phone] Shaheen Fletcher MD 10/31/2024 Telephone Adult Medicine [address] [phone] Shaheen Fletcher MD 10/30/2024 9:45 AM EDT Office Visit Orthopedic Surgery [facility] [address] [place] [phone] Sergey Ribera, DPM Post-operative state (Primary Dx) 10/22/2024 Telephone Adult Medicine [address] [phone] Shaheen Fletcher MD 10/10/2024 Telephone Adult Medicine [address] [phone] Felicita Eugene MA 10/08/2024 10:48 AM EDT - 10/08/2024 3:49 PM EDT Emergency [facility] Emergency [address] [place] [phone] Mild intermittent asthma, unspecified whether complicated (Primary Dx); Urinary retention; Weakness; Central pontine myelinosis (CMS/HCC V24, CMS/HCC V28); Arthritis of both hands; Depressive disorder; Anxiety Discharge Disposition: Home or Self Care 10/08/2024 Telephone Adult Medicine [address] [phone] Shaheen Fletcher MD 09/30/2024 1:27 AM EDT - 10/03/2024 6:36 PM EDT Hospital Encounter [facility] Intermediate [facility] Unit [address] [place] [phone] Audie Redd MD Lyle, David C, MD Bukalo, Nermina, MD Rasul, Yar M, MD Right sided weakness (Primary Dx); Ambulatory dysfunction; Urinary retention Discharge Disposition: Nursing Home Facility 09/17/2024 Telephone Adult [address] [phone] Shaheen Fletcher MD 09/15/2024 11:00 AM EDT Evaluation [facility] Occupational Therapy [address] [place] [phone] Melissa Richardson OT Arthritis of carpometacarpal (CMC) joints of both thumbs; Bilateral carpal tunnel syndrome; Arthritis of both hands 09/15/2024 Plan of Care Documentation [facility] Occupational Therapy [address] [place] [phone] 09/11/2024 10:30 AM EDT Office Visit Orthopedic Surgery [facility] [address] [phone] Sergey Ribera DPShanell Post-operative state (Primary Dx) 08/29/2024 7:31 AM EDT Anesthesia Event [address] [phone] Indio Rene MD Johnson, Lorraine, CRNA 08/29/2024 7:30 AM EDT - 08/29/2024 9:[address] [facility] OR [address] [place] [phone] Sergey Ribera DPM IMPLANT TO DIGIT OR LESSER METATARSAL [19494 (CPT )] 08/29/2024 6:08 AM EDT - 08/29/2024 10:01 AM EDT Hospital [facility] Main OR [address] [place] [phone] Sergey Ribera DPM Hallux rigidus of right foot Discharge Disposition: Home or Self Care 08/25/2024 8:00 AM EDT Consult Orthopedic Surgery [facility] [address] [phone] Sergey Ribera DPM Hallux rigidus of right foot (Primary Dx) 08/18/2024 10:00 AM EDT Consult Adult Medicine [address] [phone] Shaheen Fletcher MD Preop examination (Primary Dx); Attention deficit hyperactivity disorder (ADHD), unspecified ADHD type; Moderate persistent asthma without complication; Fibromyalgia; Depressive disorder; Hallux rigidus of right foot 08/13/2024 Telephone Orthopedic Surgery [facility] [address] [phone] Sergey Ribera DPM from Last 3 Months Immunizations Name Administration [...] History Surgery Date Site/Laterality Comments SECTION PROCEDURE: OR DELIVERY ONLY; COMMENT: x 3 BREAST BIOPSY PROCEDURE: BX BREAST; PERC NEEDLE CORE W/IMAG GUID; COMMENT: RT SIDE CARPAL TUNNEL RELEASE Bilateral FOOT SURGERY Bilateral Medical History Medical History Date Comments Asthma DX:Asthma Seasonal allergies DX:Seasonal a llergies COPD (chronic obstructive pu lmonary disease) ([facility] V24, [facility] V28) Anxiety Depression Arthritis Carpal tunnel syndrome on both sides Central pontine myelinosis ([facility] V24, [facility] V28) Family History Medical History Relation Name Comments Breast cancer Aunt 1 mat great aunt 30s 45; mate rnal Stomach cancer Aunt 2 m aunt Thyroid disease Brother 1 Hyperlipidemia Brother 2 Heart attack Father 52 Heart attack Father's side multiple uncle s and aunts Diabetes Mother htn; [place] (not fa robert); Alzheimers Hypertension Mother Diabetes [...] for your loved ones. For example, child support officer or elderly care for an older adult? [...] Sign Reading Time Taken Comments Blood Pressure 110/68 11/04/2024 1:18 PM EDT Pulse 60 11/04/2024 1:18 PM EDT Temperature 36.5 C (97.7 F) 11/04/2024 1:18 PM EDT Respiratory Rate 14 11/04/2024 1:18 PM EDT Oxygen Saturation 97% 11/04/2024 1:18 PM EDT Inhaled Oxygen Concentration - - Weight 73.5 kg (162 lb) 11/04/2024 1:18 PM EDT Height 157.5 cm (5' 2 ) 11/04/2024 1:18 PM EDT Body Mass Index 29.63 11/04/2024 1:18 PM EDT Plan of Treatment Upcoming Encounters Date Type Department Care Team (Late st Contact Info) Description 01/29/2025 8:30 AM EST Office Visit Orthopedic Surgery [place] [phone] [facility] 250 [place] [phone] Sergey Ribera, DPM 175 [facility] [address] [place] [phone] 02/02/2025 9:45 AM EST Office Visit Pulmonology - [place] 175 [facility] 200 [place] [phone] Fabiola Sanches, YARITZA [address] [place] [phone] 05/27/2025 9:45 AM EDT Office Visit Adult Medicine [address] [phone] Shaheen Fletcher MD [address] [place] [phone] Health Maintenance Due Date Last Done Comments Hepatitis A Vaccines (1 of 2 - Risk 2-dose series) 1985 Hepatitis B Vaccines (1 of 3 - 19+ 3-dose series) 1985 Zoster Vaccines (1 of 2) 1985 HIV Screening 01/28/2022 Lung Cancer Screening (Low Dose CT) 01/28/2022 Breast Cancer Screening 05/08/2022 05/08/2020 Pneumococcal Vaccine: 50+ Years (3 of 3 - PCV) 10/23/2023 10/22/2022, 03/22/2021 COVID-19 Vaccine (4 - 2024- season) 2024 02/11/2021, 07/08/2020, 06/11/2020 Influenza Vaccine (#1) 2024 , 02/23/2022, 03/22/2021, Additional history exists Social Influencers of Health Screening 09/30/2025 09/30/2024 Colorectal Cancer Screening: Colonoscopy 11/08/2026 11/08/2021 Cervical Cancer Screening: HPV 03/07/2027 03/07/2022 Cholesterol Screening (Lipid Panel) 10/01/2029 10/01/2024, 04/28/2024, 11/06/2023, Additional history exists DTaP,Tdap,and Td Vaccines (3 - Td or Tdap) 02/24/2032 02/23/2022, 11/22/2010 RSV Immunization Adult Patients (1 - 1-dose 75+ series) 2041 Hepatitis C Screening Completed 12/01/2015 Depression Screening [...] Author <enter goal here> General Yes Melissa Richardson, OT Note: OT PATIENT GOAL HAVE LESS PAIN WITH DAILY TASKS OT STGS 4 TO 6 VISITS General No Melissa Richardson, OT Note: # 1 INCORPORATE POSTURAL AWARENESS [...] FROM THE DPC # 6 IMPROVE RIGHT INSPECTOR SHEET METAL PARTS FROM 23 TO AT LEAST 30 POUNDS Medical Devices Implanted Type Area Crib Tender Device Identifier Shelf Expiration Date Model / Serial / Lot Toe Flex Hinge W/Grommet Sz 2 [employer] - Snone - [id number] Implanted:Qty: 1 on 03/21/2024 by Sergey Ribera DPM at [facility] Joints Left: [employer] [id number] 05/22/2031 [id number] / NONE / [id number] Toe Flex Hinge W/Grommet Sz 2 [employer] Reg Stem - Sn/A - [id number] Implanted:Qty: 1 on 08/29/2024 by Sergey Ribera DPM at [facility] Joints Right: [employer] 03/27/2032 [id number] / N/A / [id number] Procedures Procedure Name Priority Date/Time Associated Diagnosis Comments XR FOOT 3+ VIEWS RIGHT Routine 10:19 AM EDT Post-operative state LAVENDER - EDTA Routine 10/03/2024 6:32 AM [...] AM EDT Hallux rigidus of right foot OR HALLUX RIGIDUS CHARY W CHEILECTOMY DEBR & [...] Maintenance Results * XR Foot 3+ Views Right (10/30/2024 10:19 AM EDT) Only the most recent of3 resultswithin the time period is included. Anatomical Region Laterality Modality Lower Extremities, Foot Right Computed Radiography Narrative 10/30/2024 12:29 PM EDT Right foot 3 views No fracture. No radiopaque foreign Stable post op changes hardware intact reduction deformity maintained us Sergey Ribera DPM IMG XR PROCEDURES Final R esult * Lavender tube (10/03/2024 6:32 AM EDT) Only the most recent of2 resultswithin the time period is included. [facility] Extra Tube Hold for add-ons. 10/03/2024 8:01 AM EDT [facility] Comment:Auto resulted. Blood Venous blood specimen / Unknown Venipuncture / Unknown 10/03/2024 6:32 AM EDT 10/03/2024 6:50 AM EDT us Chinedu Torres MD LAB BLOOD ORDERABLES Final Resul t [facility] [address] [place] [address], [place] [phone] * Basic metabolic panel (10/03/2024 6:32 AM EDT) Only the most recent of2 resultswithin the time period is included. [facility] Sodium 142 133 - 145 mmol/L LAB CHEMISTRY METHOD 10/03/2024 8:00 AM [facility] Potassium 3.6 3.5 - 5.5 mmol/L LAB CHEMISTRY METHOD 10/03/2024 8:00 AM [facility] Chloride 110 96 - 110 mmol/L LAB CHEMISTRY METHOD 10/03/2024 8:00 AM [facility] CO2 25 21 - 32 mmol/L LAB CHEMISTRY METHOD 10/03/2024 8:00 AM [facility] Anion Gap 7 3 - 11 LAB CHEMISTRY METHOD 10/03/2024 8:00 AM [facility] Glucose 98 70 - 100 mg/dL LAB CHEMISTRY METHOD 10/03/2024 8:00 AM [facility] BUN 13 5 - 25 mg/dL LAB CHEMISTRY METHOD 10/03/2024 8:00 AM [facility] Creatinine 0.75 0.50 - 1.10 mg/dL LAB CHEMISTRY METHOD 10/03/2024 8:00 AM EDT [facility] eGFR 92 >=60 mL/min/1. 73m2 LAB CHEMISTRY METHOD 10/03/2024 8:00 AM EDT [facility] Comment:Calculation based on the Chronic Kidney Disease Epidemiology Collaboration (CKD-EPI) equation refit without adjustment for race. BUN/Creatinine Ratio 17.3 LAB CHEMISTRY METHOD 10/03/2024 8:00 AM EDT [facility] Calcium 8.5 8.5 - 10.5 mg/dL LAB CHEMISTRY METHOD 10/03/2024 8:00 AM EDT [facility] Blood Venous blood specimen / Unknown Venipuncture / Unknown 10/03/2024 6:32 AM EDT 10/03/2024 6:49 AM EDT us Chinedu Torres MD LAB BLOOD ORDERABLES Final Resul t [facility] [address] [place] [address], * Visual evoked potential test (10/02/2024 3:03 PM EDT) Narrative Yoselin Bateman MD - 10/02/2024 4:37 PM EDT Table formatting from the original result was not included. Images from the original result were not included. [facility] [address] [place] [address] Visual Evoked Potential Report Date of service: [...] Potential Technical Description: Scalp electrodes placed using Paez Square System. Visual acuity measured at the time [...] normal latencies and amplitudes with no significant [id number] difference Impression: Normal bilateral visual evoked potentials Chinedu Torres MD NEUROLOGY ORDERABLES Final Resul [...] intradural lesions are appreciated. Procedure Note Yefri Limno MD - 10/01/2024 INDICATION: Demyelinating disease Exam: [...] by: Yefri Limon MD on 10/01/2024 18:44:14 Chinedu Torres MD IMG MRI PROCEDURES Final Result * ECG 12 lead (10/01/2024 8:11 AM EDT) Only the most recent of3 resultswithin the time period is included. Ventricular Rate ECG 65 BPM GEMUSE Atrial Rate 65 BPM GEMUSE P-R Interval 104 ms GEMUSE QRS Duration 110 ms GEMUSE Q-T Interval 484 ms GEMUSE QTc 503 ms GEMUSE P Wave [place] 62 degrees GEMUSE R [place] 38 degrees GEMUSE T [place] 56 degrees GEMUSE ECG Interpretation Sinus rhythm with sinus arrhythmia with short OR Otherwise normal ECG When compared with ECG of 30-SEP-2024 02:15, No significant change was found Confirmed by MELANIA HANEY ([id number]) on 10/02/2024 7:23:01 PM GEMUSE 10/01/2024 8:11 AM EDT 10/02/2024 7:23 PM EDT us Chinedu Torres MD ECG ORDERABLES Final Result GEMUSE * (ABNORMAL) Vitamin B12 and folate (10/01/2024 5:57 AM EDT) Vitamin B-12 225(L) 250 - 900 pcg/mL LAB CHEMISTRY METHOD 10/01/2024 7:53 AM EDT [facility] Folate >20.0(H) 2.8 - 17.0 ng/ml LAB CHEMISTRY METHOD 10/01/2024 7:53 AM EDT [facility] Blood Venous blood specimen / Unknown Venipuncture / Unknown 10/01/2024 5:57 AM EDT 10/01/2024 6:12 AM EDT Josefa YEPEZ LAB BLOOD ORDERABLES Final Resu lt Performing Organization Address [facility]/ZIP Co de Phone Number [facility] [address] [place] [address], [place] [phone] * (ABNORMAL) Lipid panel with reflex to direct LDL (10/01/2024 5:57 AM EDT) [facility] Signature Cholesterol 253(H) 0 - 200 mg/dL LAB CHEMISTRY METHOD 10/01/2024 7:45 AM EDT [facility] Triglycerides 135 0 - 150 mg/dL LAB CHEMISTRY METHOD 10/01/2024 7:45 AM EDT [facility] HDL 72 >=40 mg/dL LAB CHEMISTRY METHOD 10/01/2024 7:45 AM EDT [facility] LDL Calculated 154(H) 0 - 100 mg/dL LAB CHEMISTRY METHOD 10/01/2024 7:45 AM EDT [facility] Comment:Estimated LDL Calcul ated using equation: Total cholesterol - HDL cholesterol - (Triglycerides/5) VLDL Cholesterol Neno 27 mg/dL LAB CHEMISTRY METHOD 10/01/2024 7:45 AM EDT [facility] Non HDL Chol. (LDL+VLDL) 181(H) <145 mg/dL LAB CHEMISTRY METHOD 10/01/2024 7:45 AM EDT [facility] Chol/HDL Ratio 3.5 0.0 - 4.4 LAB CHEMISTRY METHOD 10/01/2024 7:45 AM EDT [facility] Blood Venous blood specimen / Unknown Venipuncture / Unknown 10/01/2024 5:57 AM EDT 10/01/2024 6:12 AM EDT us Josefa YEPEZ LAB BLOOD ORDERABLES Final Resu lt [facility] [address] [place] [address], * (ABNORMAL) CBC auto differential (10/01/2024 5:57 AM EDT) Only the most recent of2 resultswithin the time period is included. WBC 4.6(L) 4.8 - 10.8 K/mcL LAB HEMETOLOGY METHOD 10/01/2024 6:27 AM EDT [facility] RBC 3.80 3.80 - 4.80 M/mcL LAB HEMETOLOGY METHOD 10/01/2024 6:27 AM EDT [facility] Hemoglobin 11.9 11.5 - 16.0 g/dL LAB HEMETOLOGY METHOD 10/01/2024 6:27 AM EDT [facility] Hematocrit 36.0 35.0 - 47.0 % LAB HEMETOLOGY METHOD 10/01/2024 6:27 AM EDT [facility] MCV 94.2 79.0 - 98.0 FL LAB HEMETOLOGY METHOD 10/01/2024 6:27 AM EDT [facility] MCH 31.2 27.0 - 32.0 pcg LAB HEMETOLOGY METHOD 10/01/2024 6:27 AM EDT [facility] MCHC 33.1 32.0 - 37.0 g/dL LAB HEMETOLOGY METHOD 10/01/2024 6:27 AM EDT [facility] RDW 14.6 11.0 - 15.0 % LAB HEMETOLOGY METHOD 10/01/2024 6:27 AM EDT [facility] Platelets 229 130 - 400 K/mcL LAB HEMETOLOGY METHOD 10/01/2024 6:27 AM EDT [facility] MPV 10.4 7.0 - 11.0 FL LAB HEMETOLOGY METHOD 10/01/2024 6:27 AM EDT [facility] NRBC 0.0 <1.0 % LAB HEMETOLOGY METHOD 10/01/2024 6:27 AM [facility] NRBC Absolute 0.00 <0.10 K/mcL LAB HEMETOLOGY METHOD 10/01/2024 6:27 AM [facility] Neutrophils Relative 55.4 % LAB HEMETOLOGY METHOD 10/01/2024 6:27 AM [facility] Lymphocytes Relative 33.2 % LAB HEMETOLOGY METHOD 10/01/2024 6:27 AM [facility] Monocytes Relative 7.3 % LAB HEMETOLOGY METHOD 10/01/2024 6:27 AM [facility] Eosinophils Relative 3.3 % LAB HEMETOLOGY METHOD 10/01/2024 6:27 AM [facility] Basophils Relative 0.4 % LAB HEMETOLOGY METHOD 10/01/2024 6:27 AM [facility] Immature Granulocytes Relative 0.4 % LAB HEMETOLOGY METHOD 10/01/2024 6:27 AM [facility] Neutrophils Absolute 2.52 1.50 - 7.00 K/mcL LAB HEMETOLOGY METHOD 10/01/2024 6:27 AM [facility] Lymphocytes Absolute 1.51 1.00 - 5.00 K/mcL LAB HEMETOLOGY METHOD 10/01/2024 6:27 AM [facility] Monocytes Absolute 0.33 0.20 - 1.00 K/mcL LAB HEMETOLOGY METHOD 10/01/2024 6:27 AM [facility] Eosinophils Absolute 0.15 0.00 - 0.50 K/mcL LAB HEMETOLOGY METHOD 10/01/2024 6:27 AM [facility] Basophils Absolute 0.02 0.00 - 0.20 K/mcL LAB HEMETOLOGY METHOD 10/01/2024 6:27 AM EDT [facility] Immature Granulocytes Absolute 0.02 0.00 - 0.03 K/mcL LAB HEMETOLOGY METHOD 10/01/2024 6:27 AM EDT [facility] Blood Venous blood specimen / Unknown Venipuncture / Unknown 10/01/2024 5:57 AM EDT 10/01/2024 6:12 AM EDT Josefa YEPEZ LAB BLOOD ORDERABLES Final Resu lt Performing Organization Address City/[facility]/ZIP Co de Phone Number [facility] [address] [place] [address], [place] [phone] * Hemoglobin A1c (10/01/2024 5:57 AM EDT) Hemoglobin A1C 6.1 <6.5 % LAB CHEMISTRY METHOD 10/01/2024 12:10 PM EDT [facility] Mean Bld Glu Estim. 128 mg/dL LAB CHEMISTRY METHOD 10/01/2024 12:10 PM EDT [facility] Blood Venous blood specimen / Unknown Venipuncture / Unknown 10/01/2024 5:57 AM EDT 10/01/2024 6:12 AM EDT Josefa YEPEZ LAB BLOOD ORDERABLES Final Resu lt Performing Organization Address City/[facility]/ZIP Co de Phone Number [facility] [address] [place] [address], [place] [phone] * (ABNORMAL) Comprehensive metabolic panel (10/01/2024 5:57 AM EDT) Only the most recent of2 resultswithin the time period is included. Sodium 141 133 - 145 mmol/L LAB CHEMISTRY METHOD 10/01/2024 7:47 AM EDT [facility] Potassium 3.6 3.5 - 5.5 mmol/L LAB CHEMISTRY METHOD 10/01/2024 7:47 AM [facility] Chloride 113(H) 96 - 110 mmol/L LAB CHEMISTRY METHOD 10/01/2024 7:47 AM [facility] CO2 25 21 - 32 mmol/L LAB CHEMISTRY METHOD 10/01/2024 7:47 AM [facility] Anion Gap 3 3 - 11 LAB CHEMISTRY METHOD 10/01/2024 7:47 AM [facility] Glucose 113(H) 70 - 100 mg/dL LAB CHEMISTRY METHOD 10/01/2024 7:47 AM [facility] BUN 7 5 - 25 mg/dL LAB CHEMISTRY METHOD 10/01/2024 7:47 AM [facility] Creatinine 0.74 0.50 - 1.10 mg/dL LAB CHEMISTRY METHOD 10/01/2024 7:47 AM [facility] eGFR 94 >=60 mL/min/1. 73m2 LAB CHEMISTRY METHOD 10/01/2024 7:47 AM [facility] Comment:Calculation based on the Chronic Kidney Disease Epidemiology Collaboration (CKD-EPI) equation refit without adjustment for race. BUN/Creatinine Ratio 9.5 LAB CHEMISTRY METHOD 10/01/2024 7:47 AM [facility] Calcium 8.8 8.5 - 10.5 mg/dL LAB CHEMISTRY METHOD 10/01/2024 7:47 AM [facility] AST (SGOT) 25 10 - 42 unit/L LAB CHEMISTRY METHOD 10/01/2024 7:47 AM [facility] ALT (SGPT) 28 10 - 60 unit/L LAB CHEMISTRY METHOD 10/01/2024 7:47 AM [facility] Alkaline Phosphatase 69 42 - 121 unit/L LAB CHEMISTRY METHOD 10/01/2024 7:47 AM [facility] Total Protein 6.4 6.0 - 8.0 g/dL LAB CHEMISTRY METHOD 10/01/2024 7:47 AM EDT [facility] Albumin 3.4 3.2 - 5.0 g/dL LAB CHEMISTRY METHOD 10/01/2024 7:47 AM EDT [facility] Total Bilirubin 0.4 0.0 - 1.4 mg/dL LAB CHEMISTRY METHOD 10/01/2024 7:47 AM EDT [facility] Comment:Results verified by repeat testing Blood Venous blood specimen / Unknown Venipuncture / Unknown 10/01/2024 5:57 AM EDT 10/01/2024 6:12 AM EDT Josefa YEPEZ LAB BLOOD ORDERABLES Final Resu lt [facility] [address] [place] [address], [place] [phone] * ECG-Annotated (10/01/2024) Provider Onbase ECG ORDERABLES Final Result * MR Brain [...] Limon MD on 09/30/2024 19:10:15 Josefa YEPEZ Fan MRI PROCEDURES Final Result * MR Cervical [...] Signed Date: 09/30/2024 08:13 ET Workstation ID: [id number] Transcribed By: Self Edit Transcribed Date: 09/30/2024 [...] Signed Date: 09/30/2024 08:13 ET Workstation ID: [id number] Transcribed By: Self Edit Transcribed Date: 09/30/2024 08:12 ET Jose Hayes MD IMG XR PROCEDURES Final [...] reflex microscopic (09/30/2024 6:04 AM EDT) Specific [place] Urine 1.008 1.003 - 1.030 LAB URINALYSIS - AUTOMATED METHOD 09/30/2024 6:50 AM [facility] pH, Urine 7.0 5.0 - 8.0 pH LAB URINALYSIS - AUTOMATED METHOD 09/30/2024 6:50 AM [facility] Leukocytes, Urine Negative Negative LAB URINALYSIS - AUTOMATED METHOD 09/30/2024 6:50 AM [facility] Nitrite, Urine Negative Negative LAB URINALYSIS - AUTOMATED METHOD 09/30/2024 6:50 AM [facility] Protein, Urine Negative <=Trace mg/dL LAB URINALYSIS - AUTOMATED METHOD 09/30/2024 6:50 AM [facility] Glucose, Urine Negative Negative mg/dL LAB URINALYSIS - AUTOMATED METHOD 09/30/2024 6:50 AM EDT [facility] Ketones, Urine Negative Negative mg/dL LAB URINALYSIS - AUTOMATED METHOD 09/30/2024 6:50 AM EDT [facility] Urobilinogen, Urine 0.2 0.2 - 1.0 mg/dL LAB URINALYSIS - AUTOMATED METHOD 09/30/2024 6:50 AM [facility] Bilirubin, Urine Negative Negative LAB URINALYSIS - AUTOMATED METHOD 09/30/2024 6:50 AM EDT [facility] Blood, Urine Negative Negative LAB URINALYSIS - AUTOMATED METHOD 09/30/2024 6:50 AM [facility] Urine Urine specimen obtained by clean catch procedure / Unknown Non-blood Collection / Unknown 09/30/2024 6:04 AM EDT 09/30/2024 6:43 AM EDT us Audie Redd MD LAB URINE ORDERABLES Final R esult [facility] [address] [place] [address], * (ABNORMAL) Drug abuse screen 8a panel, urine (09/30/2024 6:04 AM EDT) Amphetamine Screen, Ur Positive(A ) Negative LAB CHEMISTRY METHOD 5 7:06 AM EDT [facility] Comment:Certain OTC medicati ons containing ephedrine, phenylephrine, pseudoephedrine and phenylpropanolamine can cause false positive results. Barbiturate Screen, Ur Negative Negative LAB CHEMISTRY METHOD 5 7:06 AM EDT [facility] Benzodiazepine Screen, Ur Negative Negative LAB CHEMISTRY METHOD 5 7:06 AM [facility] Cocaine Screen, Ur Negative Negative LAB CHEMISTRY METHOD 5 7:06 AM [facility] Opiate Screen, Ur Negative Negative LAB CHEMISTRY METHOD 5 7:06 AM EDT [facility] Cannabinoid (THC) Screen, Ur Positive(A ) Negative LAB CHEMISTRY METHOD 5 7:06 AM EDT [facility] Comment:Specimens from patie nts taking pantoprazole sodium (Protonix) have been shown to produce false positive results. Oxycodone Screen, Ur Negative Negative LAB CHEMISTRY METHOD 5 7:06 AM EDT [facility] Fentanyl, Ur Negative Negative LAB CHEMISTRY METHOD 5 7:06 AM EDT [facility] Urine Urine specimen obtained by clean catch procedure / Unknown Non-blood Collection / Unknown 09/30/2024 6:04 AM EDT 09/30/2024 6:43 AM EDT Narrative [facility] - 09/30/2024 7:06 AM EDT [...] MD LAB URINE ORDERABLES Final R esult [facility] [address] [place] [address], * XR Chest 1 View (09/30/2024 2:53 [...] Signed Date: 09/30/2024 09:03 ET Workstation ID: [id number] Transcribed By: Self Edit Transcribed Date: 09/30/2024 [...] Signed Date: 09/30/2024 09:03 ET Workstation ID: [id number] Transcribed By: Self Edit Transcribed Date: 09/30/2024 09:03 ET Audie Redd MD IMG XR PROCEDURES Final [...] I High Sensitivity (09/30/2024 2:05 AM EDT) High Sensitivity Troponin I 3 <=54 ng/L LAB CHEMISTRY METHOD 09/30/2024 2:42 AM EDT [facility] Blood Venous blood specimen / Unknown Venipuncture / Unknown 09/30/2024 2:05 AM EDT 09/30/2024 2:19 AM EDT Narrative [facility] - 09/30/2024 2:42 AM EDT High levels of biotin in samples may falsely decrease hsTroponin values. Use caution when interpreting hsTroponin results in patients taking biotin who exhibit renal impairment (eGFR <60) or in patients taking more than 20 mg/day of biotin. Audie Redd MD LAB BLOOD ORDERABLES Final R esult [facility] [address] [place] [address], * Borrelia burgdorferi antibody (09/30/2024 2:05 AM EDT) [facility] Lyme Ab Negative Negative LAB CHEMISTRY METHOD 10/01/2024 9:14 AM EDT [facility] Comment: No laboratory evidence of [...] ORDERABLES Final Resu lt Performing Organization Address City/[facility]/ZIP Co de Phone Number [facility] [address] [place] [address], * APTT (09/30/2024 2:05 AM EDT) [facility] aPTT 25.2 24.1 - 39.3 sec LAB COAGULATION METHOD 09/30/2024 2:31 AM EDT [facility] Blood Venous blood specimen / Unknown Venipuncture / Unknown 09/30/2024 2:05 AM EDT 09/30/2024 2:20 AM EDT Audie Redd MD LAB BLOOD ORDERABLES Final R esult [facility] [address] [place] [address], * (ABNORMAL) Protime-INR (09/30/2024 2:05 AM EDT) [facility] Protime 10.3(L) 10.6 - 13.9 sec LAB COAGULATION METHOD 09/30/2024 2:31 AM EDT [facility] INR 0.8 LAB COAGULATION METHOD 09/30/2024 2:31 AM EDT [facility] Blood Venous blood specimen / Unknown Venipuncture / Unknown 09/30/2024 2:05 AM EDT 09/30/2024 2:20 AM EDT Audie Redd MD LAB BLOOD ORDERABLES Final R esult Performing Organization Address [facility]/ZIP Co de Phone Number [facility] [address] [place] [address], [place] [phone] * Triiodothyronine free (09/30/2024 2:05 AM EDT) T3, Free 296 230 - 420 pcg/dL LAB CHEMISTRY METHOD 09/30/2024 4:48 AM EDT [facility] Blood Venous blood specimen / Unknown Venipuncture / Unknown 09/30/2024 2:05 AM EDT 09/30/2024 2:19 AM EDT Audie Redd MD LAB BLOOD ORDERABLES Final R esult Performing Organization Address [facility] Co de Phone Number [facility] [address] [place] [address], [place] [phone] * (ABNORMAL) Thyroid Stimulating Hormone (TSH) (09/30/2024 2:05 AM EDT) TSH 13.47(H) 0.40 - 4.00 mcIU/mL LAB CHEMISTRY METHOD 09/30/2024 4:11 AM EDT [facility] Blood Venous blood specimen / Unknown Venipuncture / Unknown 09/30/2024 2:05 AM EDT 09/30/2024 2:19 AM EDT Audie Redd MD LAB BLOOD ORDERABLES Final R esult [facility] [address] [place] [address], * T4, free (09/30/2024 2:05 AM EDT) [facility] Free T4 0.84 0.70 - 1.80 ng/dL LAB CHEMISTRY METHOD 09/30/2024 4:48 AM EDT [facility] Blood Venous blood specimen / Unknown Venipuncture / Unknown 09/30/2024 2:05 AM EDT 09/30/2024 2:19 AM EDT Audie Redd MD LAB BLOOD ORDERABLES Final R esult Performing Organization Address City/[facility]/ZIP Co de Phone Number [facility] [address] [place] [address], * Magnesium (09/30/2024 2:05 AM EDT) [facility] Magnesium 2.1 1.9 - 2.6 mg/dL LAB CHEMISTRY METHOD 09/30/2024 2:42 AM EDT [facility] Blood Venous blood specimen / Unknown Venipuncture / Unknown 09/30/2024 2:05 AM EDT 09/30/2024 2:19 AM EDT Audie Redd MD LAB BLOOD ORDERABLES Final R esult [facility] [address] [place] [address], [place] [phone] * Creatine kinase (09/30/2024 2:05 AM EDT) [facility] Total CK 214 22 - 269 unit/L LAB CHEMISTRY METHOD 09/30/2024 2:42 AM EDT [facility] Blood Venous blood specimen / Unknown Venipuncture / Unknown 09/30/2024 2:05 AM EDT 09/30/2024 2:19 AM EDT us Audie Redd MD LAB BLOOD ORDERABLES Final R esult Performing Organization Address City/[facility]/ZIP Co de Phone Number [facility] [address] [place] [address], [place] [phone] * Ethanol (09/30/2024 2:05 AM EDT) Ethanol Level <3 0 - 10 mg/dL LAB CHEMISTRY METHOD 09/30/2024 4:14 AM EDT [facility] Blood Venous blood specimen / Unknown Venipuncture / Unknown 09/30/2024 2:05 AM EDT 09/30/2024 2:19 AM EDT Audie Redd MD LAB BLOOD ORDERABLES Final R esult Performing Organization Address City/[facility] Co de Phone Number [facility] [address] [place] [address], [place] [phone] * (ABNORMAL) Acetaminophen level (09/30/2024 2:05 AM EDT) Acetaminophen Level <2.0(L) 10.0 - 30.0 mcg/mL LAB CHEMISTRY METHOD 09/30/2024 4:27 AM EDT [facility] Blood Venous blood specimen / Unknown Venipuncture / Unknown 09/30/2024 2:05 AM EDT 09/30/2024 2:19 AM EDT us Audie Redd MD LAB BLOOD ORDERABLES Final R esult Performing Organization Address City/[facility]/ZIP Co de Phone Number [facility] [address] [place] [address], [place] [phone] * Salicylate Level (09/30/2024 2:05 AM EDT) Salicylate Level 4.8 2.0 - 29.0 mg/dL LAB CHEMISTRY METHOD 09/30/2024 3:17 AM EDT [facility] Blood Venous blood specimen / Unknown Venipuncture / Unknown 09/30/2024 2:05 AM EDT 09/30/2024 2:19 AM EDT Audie Redd MD LAB BLOOD ORDERABLES Final R esult [facility] [address] [place] [address], [place] [phone] * Tissue exam (08/29/2024 7:57 AM EDT) Final Diagnosis Bone, Foot, Right, first ray: -DEGENERATIVE OSTEOARTHROPATHY, CONSISTENT WITH HALLUX RIGIDUS / EXOSTOSIS 09/02/2024 9:29 AM EDT [facility] Gross Description A. Foot, Right, first ray: Labeled foot R, right fir . Received in formalin are two irregular pink-yellow articular bone fragments, measuring 1.8 x 1.3 x 0.5 cm and 2.9 x 2.4 x 1 cm. The cartilage covered articular surfaces display pitting and eburnation. There is minimal attached soft tissue. A manufacturing sales representative section of each is submitted in one cassette following decalcification, two pieces. Tag band 09/02/2024 9:29 AM EDT [facility] Disclaimer Unless otherwise specified, all tissue is 10% NB formalin fixed and paraffin embedded. 09/02/2024 9:29 AM T [facility] Bone Structure of right foot / Unknown 08/29/2024 7:57 AM EDT 08/29/2024 10:13 AM EDT Sergey Ribera DPM LAB PATHOLOGY ORDERABLES Final Result [facility] [place] ([facility]) [facility] [address] [place] [address], * Cervical Cancer Screening: HPV (03/07/2022) Cervical Cancer Screening: HPV Abstracted ,negative us Historical Provider MD HEALTH MAINTENANCE Final Result * Colonoscopy (11/08/2021) Colonoscopy No interpreta tion,abstr acted Anatomical Region Laterality Modality Other Historical Provider MD HEALTH MAINTENANCE Final Result [...] 1 - negative us Jaci T Thad YEPEZ IMG XR PROCEDURES Final Resul t * Hepatitis C Screening (12/01/2015) Hepatitis C Screening Abstracted us Historical Provider HEALTH MAINTENANCE Final Result from Last 3 Months or Most Recently Relevant to Health Maintenance Insurance [facility] Advance Directives Documents on File Type Date Recorded Patient Collection Advisor Expl anation Advance Directives and Living Will [...] Thania Rosales Daughter Health Care Agent Chris aHmm Relative First Alternat e Health Care Agent Care Teams Medical Van Driver Relationship Specialty Start Date End Date Shaheen Fletcher MD [address] [place] [phone] PCP - General 09/28/08
--- OUTSIDE RECORDS SUMMARY | 2024-11-11 16:24 | XMS_ITS | Encounter Summary ---
Author Organization [facility] Address [address] [place] [address] Care Team Providers Care Test Tech Name Role Phone Shaheen Fletcher MD Primary Care Provider [phone] Reason for Visit * Reason Onset Date Comments faxed order 10/31/2024 [facility] are order Encounter Details Date Type Department Care Team (Late st Contact Info) Description 10/31/2024 Telephone Adult Medicine [address] [phone] Shaheen Fletcher MD [address] [place] [address] Social History Tobacco Use Types Packs/Day Years [...] ed Within the last 3 months, ho renetta many times did you visit the emergency [...] your loved ones. For example, child life assistant or elderly care for an older adult? [...] encounter Progress Notes * Kim Rendon - 10/31/2024 10:09 AM EDT [facility] order received please sign and fax to [phone] documented in this encounter Plan of Treatment Upcoming Encounters Date Type Department Care Team (Late st Contact Info) Description 01/29/2025 8:30 AM EST Office Visit Orthopedic Surgery - [facility] [address] [phone] Sergey Ribera DPM 175 [facility] [address] [place] [phone] 02/02/2025 9:45 AM EST Office Visit Pulmonology - [facility] 175 [facility] [address] [place] [phone] Fabiola Sanches, CLAIM PROFESSIONAL [address] [place] [phone] 05/27/2025 9:45 AM EDT Office Visit Adult [facility] [address] [place] [address] Shaheen Fletcher MD [address] [place] [address] documented as of this encounter Goals Goal [...] FROM THE [facility] # 6 IMPROVE RIGHT GUN NUMBERER FROM 23 TO AT LEAST 30 POUNDS documented as of this encounter Visit Diagnoses Not on filedocumented in this encounter Additional Health Concerns Assessment Noted Time PHQ-9 Depression Total Score: 6 05/16/19 25 11:57 AM EDT documented as of this encounter Care Teams Test Tech Relationship Specialty Start Date End Date Shaheen Fletcher MD [address] [place] [address] PCP - General 09/28/08 documented as of this encounter
== END 2024-11-11 14:01 | disposition home or self-care (01) ==
LOC: HO.HSM 13:22
PROVIDERS: PCP Internal Medicine; Visit Provider Registered Nurse
DX: G43.909 Migraine, unspecified, not intractable, without status migrainosus (principal)
CPT/HCPCS: 99214

== ENCOUNTER → 2024-11-11 13:22 | Outpatient (BNVA) | payer OTHER, SELFPAY | PROVIDERS: PCP Internal Medicine; Visit Provider Registered Nurse | DX: G43.909 Migraine, unspecified, not intractable, without status migrainosus (principal); Z79.899 Other long term (current) drug therapy | CPT/HCPCS: 99212 ==

== ENCOUNTER 2024-11-20 07:57 | Outpatient (REF) | payer OTHER, SELFPAY ==
--- OUTSIDE RECORDS SUMMARY | 2024-11-20 10:01 | XMS_ITS | Encounter Summary ---
Author Organization [facility] Address [address] [place] [address] Care Team Providers Care Child Support Case Officer Name Role Phone Shaheen Fletcher MD Primary Care Provider [phone] Reason for Visit * Reason Onset Date Comments refill request 08/25/2013 Encounter Details Date Type Department Care Team Description 08/25/2013 Refill Adult Medicine [address] [phone] Shaheen Fletcher MD [address] [place] [address] [phone] refill request Social History Tobacco Use Types Packs/Day Years Used Date Smoking Tobacco: Former Cigarettes 0.5 20 Smokeless Tobacco: Never Alcohol Use Standard Drinks/Week Comments No 0 (1 standard drink = 0.6 oz pur e alcohol) Sex Assigned at Date Recorded Female 07/05/2023 10:14 AM EDT Job Start Date Occupation Industry Not on file Not on file Not on file documented as of this encounter Miscellaneous Notes * Telephone Encounter - Chari Cotto L.P.N. - 08/25/2013 3:39 PM EDT Message left for pt to call back. The clonazepam has another refill left on it and the Adderall isn't due until when she sees Dr. Fletcher. im at [phone] today * Telephone Encounter - Eliza Fleming - 08/25/2013 3:30 PM EDT Patient would like script to be: E-PRESCRIBED/FAXED TO PHARMACY WHEN WAS THE PATIENT'S LAST APPOINTMENT IN ADULT MEDICINE?06/26/13 WHEN WAS THE LAST TIME THE PATIENT SAW THEIR PCP? 04/20/11 Does patient have an upcoming appointment? Yes 08/28/13 (THE MEDICATION REQUESTED IS ON THE MED LIST ABOVE) All of the medications requested were on the CURRENT MEDS list Did you check the Pharmacy information above?: YES Patient wants: 30 -day supply Is this a mail order prescription request ? NO Patients current insurance carrier is: Payor: [employer] FFS / Plan: FFS HMO $0 [employer] [id number] / Product Type: MEDICAID RISK documented in this encounter Plan of Treatment Not on file documented as of this encounter Visit Diagnoses Diagnosis ADHD (attention deficit hyperactivity disorder)- Primary Attention deficit disorder with hyperactivity documented in this encounter Additional Health Concerns Infection Onset Date Last Indicated Resolved Time COVID-19 01/05/2022 01/05/2022 documented as of this encounter Care Teams Child Support Case Officer Relationship Specialty Start Date End Date Shaheen Fletcher MD [address] [place] [address] PCP - General 09/28/08 documented as of this encounter
--- OUTSIDE RECORDS SUMMARY | 2024-11-20 10:01 | XMS_ITS | Encounter Summary ---
Author Organization [facility] Address [address] [place] [address] Care Team Providers Care Harvest Contractor Name Role Phone Shaheen Fletcher MD Primary Care Provider [phone] Reason for Visit * Reason Onset Date Comments refill request 05/27/2021 Encounter Details Date Type Department Care Team Description 05/27/2021 Refill Pulmonology - [place] [address] [address] Fabiola Sanches APRN 175 [facility] 200 [place] [phone] refill request Social History Tobacco Use Types Packs/Day Years Used Date Smoking Tobacco: Former Cigarettes 20 Smokeless Tobacco: Current Comments:approx 3 cigarettes a week Alcohol Use Standard Drinks/Week Comments No 0 (1 standard drink = 0.6 oz pur e alcohol) Sex Assigned at Date Recorded Female 07/05/2023 10:14 AM EDT Job Start Date Occupation Industry Not on file Not on file Not on file documented as of this encounter Plan of Treatment Not on file documented as of this encounter Visit Diagnoses Diagnosis Moderate persistent asthma without complication Unspecified asthma Stage 2 moderate COPD by GOLD classification (HCC) documented in this encounter Additional Health Concerns Infection Onset Date Last Indicated Resolved Time COVID-19 01/05/2022 01/05/2022 documented as of this encounter Care Teams Harvest Contractor Relationship Specialty Start Date End Date Shaheen Fletcher MD [address] [place] [address] [phone] PCP - General 09/28/08 documented as of this encounter
--- OUTSIDE RECORDS SUMMARY | 2024-11-20 10:01 | XMS_ITS | Encounter Summary ---
Author Organization [facility] Address [address] [place] [address] Care Team Providers Care Senior Group Manager Name Role Phone Shaheen Fletcher MD Primary Care Provider [phone] Encounter Details Date Type Department Care Team Description 11/01/2015 [facility] Medical Records [address] [place] [address] Abstract, Provider Social History Tobacco Use Types Packs/Day Years Used Date Smoking Tobacco: Light Smoker Cigarettes 20 Smokeless Tobacco: Never Comments:2-3 cigs per week Alcohol Use Standard Drinks/Week Comments No [...] filedocumented in this encounter Additional Health Concerns Infection Onset Date Last Indicated Resolved Time COVID-19 01/05/2022 01/05/2022 documented as of this encounter Care Teams Senior Group Manager Relationship Specialty Start Date End Date Shaheen Fletcher MD [address] [place] [address] PCP - General 09/28/08 documented as of this encounter
--- OUTSIDE RECORDS SUMMARY | 2024-11-20 10:01 | XMS_ITS | Encounter Summary ---
Author Organization [facility] Address [address] [place] [address] Care Team Providers Care Toe Sewer Name Role Phone Shaheen Fletcher MD Primary Care Provider [phone] Reason for Visit * Reason Onset Date Comments Provider Call Back 12/29/2019 Encounter Details Date Type Department Care Team Description 12/29/2019 Telephone Internal Medicine - [place] 175 [facility], [address] [place], [place] [phone] Karson Maya MD 175 [facility] [place] [address] [place] [address] Provider Call Back Social History Tobacco Use Types Packs/Day Years Used Date Smoking Tobacco: Light Smoker Cigarettes 20 Smokeless Tobacco: Current Comments:approx 3 cigarettes a week Alcohol Use Standard Drinks/Week Comments No 0 (1 standard drink = 0.6 oz pur e alcohol) Sex Assigned at Date Recorded Female 07/05/2023 10:14 AM EDT Job Start Date Occupation Industry Not on file Not on file Not on file COVID-19 Exposure Response Date Recorded In the last month, have you been in contact with someone who was confirmed or suspected to have Coronavirus / COVID-19? No / Unsure 01/01/2020 7:51 AM EST documented as of this encounter Miscellaneous Notes * Telephone Encounter - Marshall Johnson - 12/29/2019 7:57 AM EST Patient has PFT on 01/01/20 and does not have covid test orders at this time. Patient needs orders put in and called today to be informed as to where to go to get this done. documented in this encounter Plan of Treatment Not on file documented as of this encounter Visit Diagnoses Not on filedocumented in this encounter Additional Health Concerns Infection Onset Date Last Indicated Resolved Time COVID-19 01/05/2022 01/05/2022 documented as of this encounter Care Teams Toe Sewer Relationship Specialty Start Date End Date Shaheen Fletcher MD [address] [place] [address] PCP - General 09/28/08 documented as of this encounter
--- OUTSIDE RECORDS SUMMARY | 2024-11-20 10:01 | XMS_ITS | Encounter Summary ---
Author Organization [facility] Address [address] [place] [address] Care Team Providers Care Drum Puller Name Role Phone Shaheen Fletcher MD Primary Care Provider [phone] Encounter Details Date Type Department Care Team Description 04/15/2015 Release of Information Medical Records [address] [place] [address] Abstract, Provider Social History Tobacco Use Types [...] documented as of this encounter Care Teams Drum Puller Relationship Specialty Start Date End Date Shaheen Fletcher MD [address] [place] [address] PCP - General 09/28/08 documented as of this encounter
--- OUTSIDE RECORDS SUMMARY | 2024-11-20 10:01 | XMS_ITS | Encounter Summary ---
[facility] Address [address] [place] [address] Care Team Providers Care Policy Services Representative Name Role Phone Shaheen Fletcher MD Primary Care Provider [phone] Encounter Details Date Type Department Care Team Description 06/07/2015 Cal[facility] Roll Operator Report Medical Records [address] [place] [address] Abstract, Provider Social History Tobacco Use Types [...] documented as of this encounter Care Teams Policy Services Representative Relationship Specialty Start Date End Date Shaheen Fletcher MD [address] [place] [address] PCP - General 09/28/08 documented as of this encounter
--- OUTSIDE RECORDS SUMMARY | 2024-11-20 10:01 | XMS_ITS | Encounter Summary ---
Author Organization [facility] Address [address] [place] [address] Care Team Providers Care Administrative Liaison Name Role Phone Shaheen Fletcher MD Primary Care Provider [phone] Reason for Visit * Reason Comments E-prescribe Rx Request Encounter Details Date Type Department Care Team Description 12/26/2021 Refill Adult Medicine [facility] [address] [place] [address] [phone] Libby Ambrosio PA-C [address] [place] [address] [phone] E-prescribe Rx Request Social History Tobacco Use Types Packs/Day Years [...] encounter Miscellaneous Notes * Telephone Encounter - Nathalie Tariq M.A. - 12/27/2021 11:02 AM EST Please advise, thank you. Is pt to remain on this rx long-term? Lab Results Component Value Date NA 134 03/23/2021 K 4.3 03/23/2021 CO2 25 03/23/2021 CL 103 03/23/2021 BUN 8 03/23/2021 CREAT 0.93 03/23/2021 GLU 85 03/23/2021 CA 9.1 03/23/2021 GFR > 60 03/23/2021 DARRYN w/Libby Ambrosio 09/09/2021 DARRYN w/PCP 03/22/2021 Next OV w/Libby Ambrosio 02/23/2022 * Telephone Encounter - Jaci Duglas - 12/27/2021 8:44 AM EST Patient would like script to be: E-PRESCRIBED/FAXED TO PHARMACY WHEN WAS THE PATIENT'S LAST APPOINTMENT IN ADULT MEDICINE? 09/09/21 WHEN WAS THE LAST TIME THE PATIENT SAW THEIR PCP? 03/22/21 Does patient have an upcoming appointment? Yes 02/23/22 (THE MEDICATION REQUESTED IS ON THE MED LIST ABOVE) All of the medications requested were on the CURRENT MEDS list Did you check the Pharmacy information above?: YES Patient wants: 90 -day supply Is this a mail order prescription request ? NO If the refill is from a FAXED refill request what is the RX # listed on the fax? N/A Patients current insurance carrier is: Payor: [facility] FFS / Plan: [facility] / Product Type: MEDICAID RISK documented in this encounter Plan of Treatment Not on file documented as of this encounter Visit Diagnoses Not on filedocumented in this encounter Additional Health Concerns Infection Onset Date Last Indicated Resolved Time COVID-19 01/05/2022 01/05/2022 documented as of this encounter Care Teams Administrative Liaison Relationship Specialty Start Date End Date Shaheen Fletcher MD [address] [place] [address] PCP - General 09/28/08 documented as of this encounter
--- OUTSIDE RECORDS SUMMARY | 2024-11-20 10:01 | XMS_ITS | Encounter Summary ---
Author Organization [facility] Address [address] [place] [address] Care Team Providers Care Children Counselor Name Role Phone Shaheen Fletcher MD Primary Care Provider [phone] Encounter Details Date Type Department Care Team Description 08/01/2019 [facility] Medical Records [address] [place] [id number] Abstract, Provider Social History Tobacco Use Types [...] documented as of this encounter Care Teams Children Counselor Relationship Specialty Start Date End Date Shaheen Fletcher MD [address] [place] [address] PCP - General 09/28/08 documented as of this encounter
--- OUTSIDE RECORDS SUMMARY | 2024-11-20 10:01 | XMS_ITS | Encounter Summary ---
Author Organization [facility] Address [address] [place] [address] Care Team Providers Care Medical Technologist Chief Name Role Phone Shaheen Fletcher MD Primary Care Provider [phone] Encounter Details Date Type Department Care Team Description 11/26/2018 Release of Information Medical Records [address] [place] [address] Abstract, Provider Social History Tobacco Use Types [...] documented as of this encounter Care Teams Medical Technologist Chief Relationship Specialty Start Date End Date Shaheen Fletcher MD [address] [place] [address] PCP - General 09/28/08 documented as of this encounter
--- OUTSIDE RECORDS SUMMARY | 2024-11-20 10:01 | XMS_ITS | Encounter Summary ---
Author Organization [facility] Address [address] [place] [address] Care Team Providers Care Preschool Assistant Teacher Name Role Phone Shaheen Fletcher MD Primary Care Provider [phone] Reason for Visit * Reason Onset Date Comments Casino Floorperson Feedback 06/10/2015 Neurology Encounter Details Date Type Department Care Team Description 06/10/2015 Telephone Adult Medicine [address] [phone] Jaci Garcia PA Casino Floorperson Feedback (Neurology) Social History Tobacco Use Types Packs/Day Years [...] encounter Miscellaneous Notes * Telephone Encounter - Keke Rossi - 06/10/2015 11:04 AM EDT FYI to Jaci Phoenix, You referred patient to see neurology within a one week priority, but the soonest I could schedule the patient for is 08/02/2015. If you feel patient needs to be seen sooner [facility]Dr. Freeman's office at [phone]. This is a second opinion from [facility] (Dr. Bond) and unfortunately, with patients insurance her choices of providers is limited. Another office in the area that takes her insurance is booking even farther out. If appointment is acceptable please document and close encounter. A letter has been mailed to the patient with appointment information. If the appointment information changes please contact the patient with new appointment information. Thank you, Keke Referral Associate Genetics Professor [facility] Department documented in this encounter Plan of Treatment Not on file documented as of this encounter Visit Diagnoses Not on filedocumented in this encounter Additional Health Concerns Infection Onset Date Last Indicated Resolved Time COVID-19 01/05/2022 01/05/2022 documented as of this encounter Care Teams Preschool Assistant Teacher Relationship Specialty Start Date End Date Shaheen Fletcher MD [address] [place] [address] PCP - General 09/28/08 documented as of this encounter
--- OUTSIDE RECORDS SUMMARY | 2024-11-20 10:01 | XMS_ITS | Encounter Summary ---
Author Organization [facility] Address [address] [place] [address] Care Team Providers Care Usability Specialist Name Role Phone Shaheen Fletcher MD Primary Care Provider [phone] Encounter Details Date Type Department Care Team Description 10/26/2020 Orders Only Pulmonology - [place] 175 [facility] [address] [place] [address] Fabiola Sanches APRN 175 [facility] [address] [place] [phone] Stage 2 moderate COPD by GOLD classification ([facility]) (Primary Dx); Moderate persistent asthma without complication Social History Tobacco Use Types Packs/Day Years [...] have Coronavirus / COVID-19? No / Unsure 09/27/2020 1:13 PM EDT documented as of this encounter Plan of Treatment Not on file documented as of this encounter Procedures Procedure Name Priority Date/Time Associated Diagnosis Comments NEBULIZER Routine 10/26/2020 7:04 PM EDT Moderate persistent asthma without complication Stage 2 moderate COPD by GOLD classification (HCC) documented in this encounter Visit Diagnoses Diagnosis Stage 2 moderate COPD by GOLD classification (HCC)- Primary Moderate persistent asthma without complication Unspecified asthma documented in this encounter Additional Health Concerns Infection Onset Date Last Indicated Resolved Time COVID-19 01/05/2022 01/05/2022 documented as of this encounter Care Teams Usability Specialist Relationship Specialty Start Date End Date Shaheen Fletcher MD [address] [place] [address] PCP - General 09/28/08 documented as of this encounter
--- OUTSIDE RECORDS SUMMARY | 2024-11-20 10:01 | XMS_ITS | Encounter Summary ---
Author Organization [facility] Address [address] [place] [address] Care Team Providers Care Grain Drier Name Role Phone Shaheen Fletcher MD Primary Care Provider Reason for Visit * Reason Onset Date Comments refill request 09/20/2020 Encounter Details Date Type Department Care Team Description 09/20/2020 Refill Pulmonology - [place] 175 [facility] [address] [place] [address] Karson Maya MD 175 [facility] [place] [address] [place] [address] refill request Social History Tobacco Use Types [...] have Coronavirus / COVID-19? No / Unsure 09/23/2020 10:40 AM EDT documented as of this encounter Miscellaneous Notes * Telephone Encounter - Shonda Bertrand - 09/20/2020 9:30 AM EDT Patient would like script to be: E-PRESCRIBED/FAXED TO PHARMACY WHEN WAS THE PATIENT'S LAST APPOINTMENT WITH THE PRESCRIBING PROVIDER? 06/01/20 Does patient have an upcoming appointment? Yes 12/06/20 (THE MEDICATION REQUESTED IS ON THE MED LIST ABOVE) All of the medications requested were on the CURRENT MEDS list Did you check the Pharmacy information above?: YES Patient wants: 30 -day supply Is this a mail order prescription request ? NO Patients current insurance carrier is: Payor: [employer] FFS / Plan: [employer] / Product Type: MEDICAID RISK documented in this encounter Plan of Treatment Not on file documented as of this encounter Visit Diagnoses Diagnosis Moderate persistent asthma without complication Unspecified asthma documented in this encounter Additional Health Concerns Infection Onset Date Last Indicated Resolved Time COVID-19 01/05/2022 01/05/2022 documented as of this encounter Care Teams Grain Drier Relationship Specialty Start Date End Date Shaheen Fletcher MD [address] [place] [address] PCP - General 09/28/08 documented as of this encounter
--- OUTSIDE RECORDS SUMMARY | 2024-11-20 10:01 | XMS_ITS | Encounter Summary ---
Author Organization [facility] Address [address] [place] [address] Care Team Providers Care Bridge Rigger Name Role Phone Shaheen Fletcher MD Primary Care Provider [phone] Reason for Visit * Reason Onset Date Comments refill request 11/18/2020 Encounter Details Date Type Department Care Team Description 11/18/2020 Refill Pulmonology - [place] 175 [facility] [address] [address] Fabiola Sanches, ALICIA 175 [facility] [place] [address] [address] refill request Social History Tobacco Use [...] have Coronavirus / COVID-19? No / Unsure 11/11/2020 12:55 PM EDT documented as of this encounter Miscellaneous Notes * Telephone Encounter - Shonda Bertrand - 11/18/2020 9:11 AM EDT Patient would like script to [...] NO Patients current insurance carrier is: Payor: [employer] FFS / Plan: [employer] ALLIANCE / Product Type: MEDICAID RISK documented in this encounter Plan of Treatment Not on file documented as of this encounter Visit Diagnoses Diagnosis Moderate persistent asthma without complication Unspecified asthma Stage 2 moderate COPD by GOLD classification (HCC) documented in this encounter Additional Health Concerns Infection Onset Date Last Indicated Resolved Time COVID-19 01/05/2022 01/05/2022 documented as of this encounter Care Teams Bridge Rigger Relationship Specialty Start Date End Date Shaheen Fletcher MD [address] [place] [address] PCP - General 09/28/08 documented as of this encounter
--- OUTSIDE RECORDS SUMMARY | 2024-11-20 10:01 | XMS_ITS | Encounter Summary ---
Author Organization [facility] Address [address] [place] [address] Care Team Providers Care Soda Room Operator Name Role Phone Shaheen Fletcher MD Primary Care Provider [phone] Encounter Details Date Type Department Care Team Description 04/01/2021 SCAN [facility] Medical [facility] [address] [phone] Sergey Ribera DPM [address] [address] Social History Tobacco Use Types Packs/Day Years [...] have Coronavirus / COVID-19? No / Unsure 03/22/2021 9:02 AM EST documented as of this encounter Plan of Treatment Not on file documented as of this encounter Visit Diagnoses Not on filedocumented in this encounter Additional Health Concerns Infection Onset Date Last Indicated Resolved Time COVID-19 01/05/2022 01/05/2022 documented as of this encounter Care Teams Soda Room Operator Relationship Specialty Start Date End Date Shaheen Fletcher MD [address] [place] [phone] PCP - General 09/28/08 documented as of this encounter
--- OUTSIDE RECORDS SUMMARY | 2024-11-20 10:01 | XMS_ITS | Encounter Summary ---
Author Organization [facility] Address [address] [place] [address] Care Team Providers Care Environmental Health Inspector Name Role Phone Shaheen Fletcher MD Primary Care Provider [phone] Reason for Visit * Reason Onset Date Comments Medication 10/25/2021 Encounter Details Date Type Department Care Team Description 10/25/2021 Refill Gastroenterology - [address] [place] [address] Vasile Humphrey MD [address] [place] [address] Medication Social History Tobacco Use Types Packs/Day Years [...] documented as of this encounter Care Teams Environmental Health Inspector Relationship Specialty Start Date End Date Shaheen Fletcher MD [address] [place] [address] PCP - General 09/28/08 documented as of this encounter
--- OUTSIDE RECORDS SUMMARY | 2024-11-20 10:01 | XMS_ITS | Encounter Summary ---
Author Organization [facility] Address [address] [place] [address] Care Team Providers Care Railroad Surveyor Name Role Phone Shaheen Fletcher MD Primary Care Provider [phone] Encounter Details Date Type Department Care Team Description 04/08/2019 [facility] Medical Records [address] [place] [address] Abstract, Provider Social History Tobacco Use Types [...] documented as of this encounter Care Teams Railroad Surveyor Relationship Specialty Start Date End Date Shaheen Fletcher MD [address] [place] [address] PCP - General 09/28/08 documented as of this encounter
--- OUTSIDE RECORDS SUMMARY | 2024-11-20 10:01 | XMS_ITS | Encounter Summary ---
Author Organization [facility] Address [address] [place] [address] Care Team Providers Care Vehicle Fare Collector Name Role Phone Shaheen Fletcher MD Primary Care Provider Encounter Details Date Type Department Care Team Description 06/14/2015 Release of Information Medical Records [address] [place] [address] Abstract, Provider Social History Tobacco Use Types [...] documented as of this encounter Care Teams Vehicle Fare Collector Relationship Specialty Start Date End Date Shaheen Fletcher MD [address] [place] [address] PCP - General 09/28/08 documented as of this encounter
--- OUTSIDE RECORDS SUMMARY | 2024-11-20 10:01 | XMS_ITS | Encounter Summary ---
Author Organization [facility] Address [address] [place] [address] Care Team Providers Care Leadite Heater Name Role Phone Shaheen Fletcher MD Primary Care Provider [phone] Encounter Details Date Type Department Care Team Description 12/11/2017 [facility] Medical Records [address] [place] [address] Abstract, Provider Social History Tobacco Use Types Packs/Day Years Used Date Smoking Tobacco: Light Smoker Cigarettes 20 Smokeless Tobacco: Current Comments:approx 5 cigarettes a week Alcohol Use Standard Drinks/Week [...] documented as of this encounter Care Teams Leadite Heater Relationship Specialty Start Date End Date Shaheen Fletcher MD [address] [place], [place] [phone] PCP - General 09/28/08 documented as of this encounter
--- OUTSIDE RECORDS SUMMARY | 2024-11-20 10:01 | XMS_ITS | Encounter Summary ---
Author Organization [facility] Address [address] [place] [address] Care Team Providers Care Rag Inspector Name Role Phone Shaheen Fletcher MD Primary Care Provider [phone] Reason for Visit * Reason Onset Date Comments refill request 06/03/2019 Encounter Details Date Type Department Care Team Description 06/03/2019 Refill Pulmonology - [place] 175 [facility] [address] [place] [address] Karson Maya MD 175 [facility] [address] [address] [place] [address] refill request Social History Tobacco [...] encounter Miscellaneous Notes * Telephone Encounter - Lita Andrew - 06/03/2019 9:53 AM EDT Patient would like script to be: E-PRESCRIBED/FAXED TO PHARMACY WHEN WAS THE PATIENT'S LAST APPOINTMENT IN ADULT MEDICINE? 05/06/19 WHEN WAS THE LAST TIME THE PATIENT SAW THEIR PCP? Same as above Does patient have an upcoming appointment? Yes 11/07/19 (THE MEDICATION REQUESTED IS ON THE MED [...] N/A Patients current insurance carrier is: Payor: [employer] FFS / Plan: [employer] ALLIANCE / Product Type: MEDICAID RISK documented in this encounter Plan of Treatment Not on file documented as of this encounter Visit Diagnoses Diagnosis Moderate persistent asthma without complication Unspecified asthma Seasonal allergic rhinitis Allergic rhinitis, cause unspecified Fibromyalgia Mylagia and myositis, unspecified Anxiety Anxiety state, unspecified Nicotine dependence, uncomplicated, unspecified nicotine product type Encounter for smoking cessation counseling Counseling on substance use and abuse documented in this encounter Additional Health Concerns Infection Onset Date Last Indicated Resolved Time COVID-19 01/05/2022 01/05/2022 documented as of this encounter Care Teams Rag Inspector Relationship Specialty Start Date End Date Shaheen Fletcher MD [address] [place] [address] PCP - General 09/28/08 documented as of this encounter
--- OUTSIDE RECORDS SUMMARY | 2024-11-20 10:01 | XMS_ITS | Encounter Summary ---
Author Organization [facility] Address [address] [place] [address] Care Team Providers Care Amusement Ride Inspector Name Role Phone Shaheen Fletcher MD Primary Care Provider [phone] Encounter Details Date Type Department Care Team Description 05/06/2019 Orders Only Pulmonology - [place] 175 [facility] [phone] Karson Maya MD 175 [facility] [address] [phone] Moderate persistent asthma without complication; Seasonal allergic rhinitis, unspecified trigger; Fibromyalgia; Anxiety; Nicotine dependence, uncomplicated, unspecified nicotine product type; Chronic idiopathic granulomatous disease (HCC) Social History Tobacco Use Types Packs/Day Years [...] Procedure Name Priority Date/Time Associated Diagnosis Comments CHG RADIOLOGIC EXAM CHEST 2 VIEWS Routine 05/06/2019 Moderate persistent asthma without complication Seasonal allergic rhinitis, unspecified trigger Fibromyalgia Anxiety Nicotine dependence, uncomplicated, unspecified nicotine product type Chronic idiopathic granulomatous disease (HCC) documented in this encounter Results * RADIOLOGIC EXAM CHEST 2 VIEWS (05/06/2019) Karson Maya MD RADIOLOGY documented in this encounter Visit Diagnoses Diagnosis Moderate persistent asthma without complication Unspecified asthma Seasonal allergic rhinitis, unspecified trigger Fibromyalgia Mylagia and myositis, unspecified Anxiety Anxiety state, unspecified Nicotine dependence, uncomplicated, unspecified nicotine product type Chronic idiopathic granulomatous disease (HCC) documented in this encounter Additional Health Concerns Infection Onset Date Last Indicated Resolved Time COVID-19 01/05/2022 01/05/2022 documented as of this encounter Care Teams Amusement Ride Inspector Relationship Specialty Start Date End Date Shaheen Fletcher MD [address] [place] [address] PCP - General 09/28/08 documented as of this encounter
--- OUTSIDE RECORDS SUMMARY | 2024-11-20 10:01 | XMS_ITS | Encounter Summary ---
Author Organization [facility] Address [address] [place] [address] Care Team Providers Care Enterprise Systems Manager Name Role Phone Shaheen Fletcher MD Primary Care Provider [phone] Reason for Visit * Reason Onset Date Comments numbness 03/31/2015 Encounter Details Date Type Department Care Team Description 03/31/2015 Telephone Adult Medicine [facility] [address] [place] [phone] Shaheen Fletcher MD [address] [place] [phone] numbness Social History Tobacco Use Types Packs/Day Years [...] Miscellaneous Notes * Telephone Encounter - Chari Bob R.N. - 03/31/2015 11:56 AM EST call from patient she is c/o shoulder and neck pain she was seen by Barbara Nath on 03/12 a referral to Neuro has been * Telephone Encounter - Nargis Hazel M.A. - 03/31/2015 11:53 AM EST Symptoms patient is presenting: The patient is stating her right arm is numb all the way up throughher neck and she is in a lot of pain If pain or injury related was it due to an accident at work or from a motor vehicle accident? NO If yes, gather 3rd democrat insurance information Date of accident/Injury: How long has patient had these symptoms?: A week PCP: Shaheen Fletcher Payor[facility] [employer] [facility] FFS / Plan: FFS HMO $0 [employer] [id number] / Product Type: MEDICAID RISK documented in this encounter Plan of Treatment Not on file documented as of this encounter Visit Diagnoses Not on filedocumented in this encounter Additional Health Concerns Infection Onset Date Last Indicated Resolved Time COVID-19 01/05/2022 01/05/2022 documented as of this encounter Care Teams Enterprise Systems Manager Relationship Specialty Start Date End Date Shaheen Fletcher MD [address] [place] [address] PCP - General 09/28/08 documented as of this encounter
--- OUTSIDE RECORDS SUMMARY | 2024-11-20 10:01 | XMS_ITS | Encounter Summary ---
Author Organization [facility] Address [address] [place] [address] Care Team Providers Care Vending Technician Name Role Phone Shaheen Fletcher MD Primary Care Provider [phone] Reason for Visit * Reason Onset Date Comments ear problems 06/09/2014 Encounter Details Date Type Department Care Team Description 06/09/2014 Telephone Adult Medicine [facility] [address] [place] [phone] Shaheen Fletcher MD [address] [place] [phone] ear problems Social History Tobacco Use Types Packs/Day Years Used Date Smoking Tobacco: Light Smoker Cigarettes 0.5 20 Smokeless Tobacco: Never Alcohol Use Standard Drinks/Week Comments No 0 (1 standard drink = 0.6 oz pur e alcohol) Sex Assigned at Date Recorded Female 07/05/2023 10:14 AM EDT Job Start Date Occupation Industry Not on file Not on file Not on file documented as of this encounter Miscellaneous Notes * Telephone Encounter - Chari Bob R.N. - 06/10/2014 10:03 AM EDT call placed to patient [facility] - Telephone Triage Documentation CHIEF COMPLAINT: Sinus infection She states her ears are better Her complaint is non-stop cough with yellow sputum when she starts cough there are times she is unable to catch her breath she is c/o headache she is congested with a cough no fever constant nasal drainage she was seen on 06/01/14 for R ear infection the insurance would not fill one of her allergy meds due to cost appt scheduled for today ears ok congested in nose and cough headacje phlegm yellow fever PCP: Shaheen Fletcher LMP/EDC: Current Outpatient Prescriptions Medication Sig Dispense Refill ??? buPROPion (WELLBUTRIN SR) 100 MG 12 hr tablet Take 1 Tab by mouth daily. 30 Tab 2 ??? ALBUTEROL SULFATE (PROAIR HFA) 108 (90 BASE) MCG/ACT Aero Soln Inhale 2 Puffs into the lungs every 4 hours as needed for Cough or Wheezing. 3 Inhaler 1 ??? fluticasone (FLOVENT HFA) 110 MCG/ACT inhaler Inhale 2 Puffs into the lungs 2 times daily. 3 g 1 ??? loratadine (CLARITIN) 10 MG tablet Take 1 Tab by mouth daily. 90 Tab 3 ??? amoxicillin (AMOXIL) 875 MG tablet Take 1 Tab by mouth 2 times daily. 20 Tab 0 ??? mometasone (NASONEX) 50 MCG/ACT nasal spray 2 Sprays by Nasal route daily. 3 Bottle 1 ??? nystatin-triamcinolone (MYCOLOG II) cream Apply to affected area twice daily for ten days 30 g 0 ??? fluticasone 50 MCG/ACT nasal spray USE 2 SPRAYS NASALLY DAILY 1 Bottle 3 ??? amphetamine-dextroamphetamine (ADDERALL, 15MG,) 15 MG tablet Take 1 Tab by mouth 2 times daily.60 Tab 0 ??? citalopram (CELEXA) 40 MG tablet Take 1 Tab by mouth daily. 90 Tab 0 ??? Ipratropium-Albuterol 0.5-2.5 (3) MG/3ML SOLN Inhale 3 mL into the lungs 4 times daily. 60 Vial0 No current facility-administered medications for this visit. Allergies: Review of patient's allergies indicates no known allergies. Patient Active Problem List Diagnosis Code ??? Asthma 493.90 ??? Seasonal Allergies 477.9 ??? Depressive disorder, not elsewhere classified 311 ??? ADHD (attention deficit hyperactivity disorder) 314.01 DISPOSITION:Appointment given REFERENCE:[facility] Telephone Triage Protocols for Nurses by Dorothy Palacio CALLER UNDERSTANDS & AGREES WITH ADVICE:YES * Telephone Encounter - Domenica Koehler - 06/10/2014 9:57 AM EDT [phone] Call returned * Telephone Encounter - Chari Bob R.N. - 06/09/2014 5:14 PM EDT call #1 placed to patient she was seen 8 days ago for ear infection, given meds,feels worse Patient called. Left message on answering machine to call back [facility] at [phone] * Telephone Encounter - Ginette Pendleton - 06/09/2014 3:54 PM EDT Symptoms patient is presenting: ear infection - she was seen 06/01/14 with Aparna Flannery, given amoxicillin (AMOXIL) 875 MG tablet. But states that she feels worse How long has patient had these symptoms?: 8 days PCP: Shaheen Fletcher Payor: [employer] FFS / Plan: FFS HMO $0 [employer] [id number] / Product Type: MEDICAID RISK documented in this encounter Plan of Treatment Not on file documented as of this encounter Visit Diagnoses Not on filedocumented in this encounter Additional Health Concerns Infection Onset Date Last Indicated Resolved Time COVID-19 01/05/2022 01/05/2022 documented as of this encounter Care Teams Vending Technician Relationship Specialty Start Date End Date Shaheen Fletcher MD [address] [place] [address] PCP - General 09/28/08 documented as of this encounter
--- OUTSIDE RECORDS SUMMARY | 2024-11-20 10:01 | XMS_ITS | Encounter Summary ---
Author Organization [facility] Address [address] [place] [address] Care Team Providers Care Pump Press Operator Name Role Phone Shaheen Fletcher MD Primary Care Provider [phone] Reason for Visit * Reason Comments E-prescribe Rx Request Encounter Details Date Type Department Care Team Description 04/19/2017 Refill Adult Medicine [address] [id number] Jaci Garcia PA E-prescribe Rx Request Social History Tobacco Use Types Packs/Day Years Used Date Smoking Tobacco: Some Days Cigarettes 20 Smokeless Tobacco: Current Comments:1 pack lasts 3-4 da ys Alcohol Use Standard Drinks/Week Comments No 0 (1 standard drink = 0.6 oz pur e alcohol) Sex Assigned at Date Recorded Female 07/05/2023 10:14 AM EDT Job Start Date Occupation Industry Not on file Not on file Not on file documented as of this encounter Miscellaneous Notes * Telephone Encounter - Abeba Del Toro C.M.A. - 04/20/2017 11:37 AM EST * Telephone Encounter - Arin Brown C.M.A. - 04/19/2017 2:14 PM EST No results found for: URINEOXYCOD, URBENZO, URAMPHETAMIN, URMARIJUANA, UROPIATES, URBARBITUATE, URCOCAINE, URINEETOH, METHADONE, HYDROCODONE * Telephone Encounter - Esthela Kelly - 04/19/2017 11:51 AM EST Patient scheduled for 06-07-17 Maikol Lizett * Telephone Encounter - Sana Munoz - 04/19/2017 10:26 AM EST Patient would like script to be: E-PRESCRIBED/FAXED TO PHARMACY WHEN WAS THE PATIENT'S LAST APPOINTMENT IN ADULT MEDICINE? 03/19/17 WHEN WAS THE LAST TIME THE PATIENT SAW THEIR PCP? 11/07/16 Does patient have an upcoming appointment? No called pt needs 4 month followup DARRYN 03/19/17 (THE MEDICATION REQUESTED IS ON THE MED LIST ABOVE) All of the medications requested were on the CURRENT MEDS list Did you check the Pharmacy information above?: YES Patient wants: 90 -day supply Is this a mail order prescription request ? NO Patients current insurance carrier is: Payor: [employer] FFS / Plan: [facility] / Product Type: MEDICAID RISK documented in this encounter Plan of Treatment Not on file documented as of this encounter Visit Diagnoses Not on filedocumented in this encounter Additional Health Concerns Infection Onset Date Last Indicated Resolved Time COVID-19 01/05/2022 01/05/2022 documented as of this encounter Care Teams Pump Press Operator Relationship Specialty Start Date End Date Shaheen Fletcher MD [address] [place] [address] PCP - General 09/28/08 documented as of this encounter
--- OUTSIDE RECORDS SUMMARY | 2024-11-20 10:01 | XMS_ITS | Encounter Summary ---
Author Organization [facility] Address [address] [place] [address] Care Team Providers Care Recorder Of Deeds Name Role Phone Shaheen Fletcher MD Primary Care Provider [phone] Reason for Visit * Reason Onset Date Comments medication problems 02/28/2017 Encounter Details Date Type Department Care Team Description 02/28/2017 Telephone Adult Medicine [facility] [address] [place] [address] [phone] Shaheen Fletcher MD [address] [place] [address] [phone] medication problems Social History Tobacco Use Types Packs/Day [...] encounter Miscellaneous Notes * Telephone Encounter - Maulik Hernandez C.M.A. - 02/28/2017 11:44 AM EST see refill request from yesterday * Telephone Encounter - Rita Tobar - 02/28/2017 11:25 AM EST Patient is calling again checking on status and would like to speak with Dr. Fletcher. * Telephone Encounter - Monchoadam Alex - 02/28/2017 8:45 AM EST What is the name of the medication patient is having a problem with?: What is the problem?: patient would like to speak to the nurse about the medications that are suppose to be filled in January Is the patient calling about the problem? YES If the patient is not the caller who is? Is this a NEW medication?: NO How long has the patient been taking this medication? Who prescribed this medication for the patient? Shaheen Fletcher Who is patients PCP?: Shaheen Fletcher Payor: [employer] FFS / Plan: FFS HMO $0 Personeta [id number] / Product Type: MEDICAID RISK documented in this encounter Plan of Treatment Not on file documented as of this encounter Visit Diagnoses Not on filedocumented in this encounter Additional Health Concerns Infection Onset Date Last Indicated Resolved Time COVID-19 01/05/2022 01/05/2022 documented as of this encounter Care Teams Recorder Of Deeds Relationship Specialty Start Date End Date Shaheen Fletcher MD [address] [place] [address] PCP - General 09/28/08 documented as of this encounter
--- OUTSIDE RECORDS SUMMARY | 2024-11-20 10:01 | XMS_ITS | Encounter Summary ---
Author Organization [facility] Address [address] [place] [address] Care Team Providers Care Harness Cleaner Name Role Phone Shaheen Fletcher MD Primary Care Provider [phone] Encounter Details Date Type Department Care Team Description 11/21/2017 Release of Information Medical Records [address] [place] [id number] Abstract, Provider Social History Tobacco Use Types [...] documented as of this encounter Care Teams Harness Cleaner Relationship Specialty Start Date End Date Shaheen Fletcher MD [address] [place] [address] PCP - General 09/28/08 documented as of this encounter
--- OUTSIDE RECORDS SUMMARY | 2024-11-20 10:01 | XMS_ITS | Encounter Summary ---
Author Organization [facility] Address [address] [place] [address] Care Team Providers Care Toddler Lead Teacher Name Role Phone Shaheen Fletcher MD Primary Care Provider [phone] Reason for Visit * Reason Onset Date Comments Faxed Refill 11/07/2019 Encounter Details Date Type Department Care Team Description 11/07/2019 Refill Pulmonology - [place] [address] [facility] [address] [place] [address] Karson Maya MD [address] [facility] [address] [place] [address] Faxed Refill Social History Tobacco Use Types Packs/Day Years [...] encounter Miscellaneous Notes * Telephone Encounter - Genny Carpenter - 11/10/2019 11:59 AM EDT Singh- 11/07/19 Next- none * Telephone Encounter - Susan Godoy - 11/07/2019 4:44 PM EDT SINGH- 11.07.2019 Nov- 6 months f/u documented in this encounter Plan of Treatment [...] documented as of this encounter Care Teams Toddler Lead Teacher Relationship Specialty Start Date End Date Shaheen Fletcher MD [address] [place] [address] PCP - General 09/28/08 documented as of this encounter
--- OUTSIDE RECORDS SUMMARY | 2024-11-20 10:01 | XMS_ITS | Encounter Summary ---
Author Organization [facility] Address [address] [place] [address] Care Team Providers Care Sample Coordinator Name Role Phone Shaheen Fletcher MD Primary Care Provider [phone] Reason for Visit * Reason Comments Encounter Details Date Type Department Care Team Description 03/12/2015 Telephone Adult Medicine [address] [id number] Jose Nath PA-C Social History Tobacco Use Types Packs/Day Years [...] documented as of this encounter Care Teams Sample Coordinator Relationship Specialty Start Date End Date Shaheen Fletcher MD [address] [place] [address] PCP - General 09/28/08 documented as of this encounter
--- OUTSIDE RECORDS SUMMARY | 2024-11-20 10:02 | XMS_ITS | Encounter Summary ---
Author Organization [facility] Address [address] [place] [address] Care Team Providers Care Marketing Communications Assistant Name Role Phone Shaheen Fletcher MD Primary Care Provider [phone] Reason for Visit * Reason Comments E-prescribe Rx Request Encounter Details Date Type Department Care Team Description 11/13/2022 Refill Pulmonology - [place] 175 [facility] [address] [place] [address] Fabiola Sanches, CORK CUTTER 175 [facility] 200 [place] [phone] E-prescribe Rx Request Social History Tobacco Use Types Packs/Day Years Used Date Smoking Tobacco: Former Cigarettes 0.5 40 1 2019 Smokeless Tobacco: Never Comments:1.5 years ago smoke cigarettes Alcohol Use Standard Drinks/Week Comments No 0 (1 standard drink = 0.6 oz pur e alcohol) Sex Assigned at Date Recorded Female 07/05/2023 10:14 AM EDT Job Start Date Occupation Industry Not on file Not on file Not on file documented as of this encounter Miscellaneous Notes * Telephone Encounter - Chaya Paredes - 11/15/2022 1:01 PM EDT Received fax from [facility] pharmacy Response requested: Alternative requested. Reason for Request: alt requested. Pharmacy comments: alt. Requested: need 90days per insurance. NOV 12-28-22 DARRYN 10-06-22 * Telephone Encounter - Aissatou Islas - 11/13/2022 10:30 AM EDT DARRYN 10/06/22 NOV 12/28/22 documented in this encounter Plan of Treatment Not on file documented as of this encounter Visit Diagnoses Diagnosis Moderate persistent asthma without complication Unspecified asthma Allergy to dog dander Allergic rhinitis due to animal (cat) (dog) hair and dander documented in this encounter Additional Health Concerns Infection Onset Date Last Indicated Resolved Time COVID-19 01/05/2022 01/05/2022 documented as of this encounter Care Teams Marketing Communications Assistant Relationship Specialty Start Date End Date Shaheen Fletcher MD [address] [place] [address] PCP - General 09/28/08 documented as of this encounter
--- OUTSIDE RECORDS SUMMARY | 2024-11-20 10:02 | XMS_ITS | Encounter Summary ---
Author Organization [facility] Address [address] [place] [address] Care Team Providers Care Inside Sales Assistant Name Role Phone Shaheen Fletcher MD Primary Care Provider [phone] Reason for Visit * Reason Onset Date Comments refill request 09/01/2019 Encounter Details Date Type Department Care Team Description 09/01/2019 Refill Internal Medicine - [place] [address] [facility] [address] [place], [place] [phone] Karson Maya MD [address] [facility] [address] [place] [phone] refill request Social History Tobacco Use Types [...] Miscellaneous Notes * Telephone Encounter - Chaya Ricci - 09/01/2019 11:37 AM EDT Patient would like script to be: E-PRESCRIBED/FAXED TO PHARMACY WHEN WAS THE PATIENT'S LAST APPOINTMENT WITH THE PRESCRIBING PROVIDER? 05.06.2019 Does patient have an upcoming appointment? Yes 11.07.2019 (THE MEDICATION REQUESTED IS ON THE MED LIST ABOVE) All of the medications requested were on the CURRENT MEDS list Did you check the Pharmacy information above?: YES Patient wants: 30 -day supply Is this a mail order prescription request ? NO Patients current insurance carrier is: Payor: [employer] FFS / Plan: [employer] / Product Type: MEDICAID RISK documented in this encounter Plan of Treatment Not on file documented as of this encounter Visit Diagnoses Not on filedocumented in this encounter Additional Health Concerns Infection Onset Date Last Indicated Resolved Time COVID-19 01/05/2022 01/05/2022 documented as of this encounter Care Teams Inside Sales Assistant Relationship Specialty Start Date End Date Shaheen Fletcher MD [address] [place] [address] PCP - General 09/28/08 documented as of this encounter
--- OUTSIDE RECORDS SUMMARY | 2024-11-20 10:02 | XMS_ITS | Encounter Summary ---
Author Organization [facility] Address [address] [place] [address] Care Team Providers Care Perl Software Engineer Name Role Phone Shaheen Fletcher MD Primary Care Provider [phone] Reason for Visit * Reason Comments E-prescribe Rx Request Encounter Details Date Type Department Care Team Description 02/12/2023 Refill Pulmonology - [place] [address] [facility] [address] [place] [address] Fabiola Sanches APRN 175 [facility] 200 [place] [phone] E-prescribe Rx Request Social History Tobacco Use Types Packs/Day Years Used Date Smoking Tobacco: Former Cigarettes 0.5 40 1 - 2019 Smokeless Tobacco: Never Comments:1.5 years ago smoke cigarettes Alcohol Use Standard Drinks/Week Comments No 0 (1 standard drink = 0.6 oz pur e alcohol) Sex Assigned at Date Recorded Female 07/05/2023 10:14 AM EDT Job Start Date Occupation Industry Not on file Not on file Not on file documented as of this encounter Miscellaneous Notes * Telephone Encounter - Doyle Cerda - 02/14/2023 1:37 PM EST NOV 03/06/23 DARRYN 10/06/22 Refill request for ALBUTEROL SULFATE (Ventolin HFA) 108 (90 Base) MCG/ACT Aero Soln documented in this encounter Plan of Treatment Not on file documented as of this encounter Visit Diagnoses Diagnosis Moderate persistent asthma without complication Unspecified asthma Stage 2 moderate COPD by GOLD classification (HCC) documented in this encounter Additional Health Concerns Infection Onset Date Last Indicated Resolved Time COVID-19 01/05/2022 01/05/2022 documented as of this encounter Care Teams Perl Software Engineer Relationship Specialty Start Date End Date Shaheen Fletcher MD [address] [place] [address] PCP - General 09/28/08 documented as of this encounter
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
--- OUTSIDE RECORDS SUMMARY | 2024-11-20 10:02 | XMS_ITS | Encounter Summary ---
Author Organization [facility] Address [address] [place] [address] Care Team Providers Care Technical Inspector Name Role Phone Shaheen Fletcher MD Primary Care Provider [phone] Reason for Visit * Reason Comments E-prescribe Rx Request Encounter Details Date Type Department Care Team Description 03/21/2023 Refill Pulmonology - [place] 175 [facility] [address] [place] [address] Fabiola Sanches, ALICIA 175 [facility] 200 [place] [phone] E-prescribe Rx Request Social History Tobacco Use [...] encounter Miscellaneous Notes * Telephone Encounter - Aissatou Islas - 03/21/2023 9:15 AM EST DARRYN 10/06/22 celestino Cooney to schedule documented in this encounter Plan of Treatment Not on file documented as of this encounter Visit Diagnoses Diagnosis Moderate persistent asthma without complication Unspecified asthma Stage 2 moderate COPD by GOLD classification (HCC) documented in this encounter Additional Health Concerns Infection Onset Date Last Indicated Resolved Time COVID-19 01/05/2022 01/05/2022 documented as of this encounter Care Teams Technical Inspector Relationship Specialty Start Date End Date Shaheen Fletcher MD [address] [place] [address] PCP - General 09/28/08 documented as of this encounter
--- OUTSIDE RECORDS SUMMARY | 2024-11-20 10:02 | XMS_ITS | Encounter Summary ---
Author Organization [facility] Address [address] [place] [address] Care Team Providers Care Battery Installer Name Role Phone Shaheen Fletcher MD Primary Care Provider [phone] Reason for Visit * Reason Onset Date Comments Faxed Refill 09/25/2019 Encounter Details Date Type Department Care Team Description 09/25/2019 Refill Pulmonology - [place] 175 [facility] [address] [place] [address] Karson Maya MD [address] [facility] [address] [place] [address] Faxed Refill Social History Tobacco [...] * Telephone Encounter - Genny Carpenter - 09/25/2019 3:39 PM EDT Singh- 05/06/19 Next- 11/07/19 * Telephone Encounter - Moira Alamo - 09/25/2019 1:51 PM EDT Patient would like script to be: E-PRESCRIBED/FAXED TO PHARMACY WHEN WAS THE PATIENT'S LAST APPOINTMENT WITH THE PRESCRIBING PROVIDER? 05/06/2019 Does patient have an upcoming appointment? Yes 11/07/2019 (THE MEDICATION REQUESTED IS ON THE MED LIST ABOVE) All of the medications requested were on the CURRENT MEDS list Did you check the Pharmacy information above?: YES Patient wants: 30 -day supply Is this a mail order prescription request ? NO Patients current insurance carrier is: Payor: [employer] FFS / Plan: [employer] / Product Type: MEDICAID RISK documented in this encounter Plan of Treatment Not on file documented as of this encounter Visit Diagnoses Not on filedocumented in this encounter Additional Health Concerns Infection Onset Date Last Indicated Resolved Time COVID-19 01/05/2022 01/05/2022 documented as of this encounter Care Teams Battery Installer Relationship Specialty Start Date End Date Shaheen Fletcher MD [address] [place] [address] PCP - General 09/28/08 documented as of this encounter
--- OUTSIDE RECORDS SUMMARY | 2024-11-20 10:02 | XMS_ITS | Encounter Summary ---
Author Organization [facility] Address [address] [place] [address] Care Team Providers Care Sales Product Specialist Name Role Phone Shaheen Fletcher MD Primary Care Provider [phone] Reason for Visit * Reason Comments E-prescribe Rx Request Encounter Details Date Type Department Care Team Description 11/06/2022 Refill Pulmonology - [place] 175 [facility] [address] [place] [address] Fabiola Sanches, ALICIA 175 [facility] 200 [place] [phone] E-prescribe Rx Request Social History Tobacco Use [...] * Telephone Encounter - Aissatou Islas - 11/06/2022 2:20 PM EDT DARRYN 10/06/22 NOV 12/28/22 documented in [...] documented as of this encounter Care Teams Sales Product Specialist Relationship Specialty Start Date End Date Shaheen Fletcher MD [address] [place] [address] PCP - General 09/28/08 documented as of this encounter
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
--- OUTSIDE RECORDS SUMMARY | 2024-11-20 10:02 | XMS_ITS | Encounter Summary ---
Author Organization [facility] Address [address] [place] [address] Care Team Providers Care Bonbon Cream Warmer Name Role Phone Shaheen Fletcher MD Primary Care Provider [phone] Encounter Details Date Type Department Care Team Description 06/04/2018 Release of Information Medical Records [address] [place] [id number] Abstract, Provider Social History Tobacco Use Types [...] documented as of this encounter Care Teams Bonbon Cream Warmer Relationship Specialty Start Date End Date Shaheen Fletcher MD [address] [place] [address] PCP - General 09/28/08 documented as of this encounter
--- OUTSIDE RECORDS SUMMARY | 2024-11-20 10:02 | XMS_ITS | Encounter Summary ---
Author Organization [facility] Address [address] [place] [address] Care Team Providers Care Field Counsel Name Role Phone Shaheen Fletcher MD Primary Care Provider [phone] Reason for Visit * Reason Onset Date Comments Medication 06/29/2021 Encounter Details Date Type Department Care Team Description 06/29/2021 Refill Gastroenterology - [address] [place] [address] Vasile Humphrey MD [address] [place] [address] Medication Social History Tobacco Use Types [...] documented as of this encounter Care Teams Field Counsel Relationship Specialty Start Date End Date Shaheen Fletcher MD [address] [place] [address] PCP - General 09/28/08 documented as of this encounter
--- OUTSIDE RECORDS SUMMARY | 2024-11-20 10:02 | XMS_ITS | Encounter Summary ---
Author Organization [facility] Address [address] [place] [address] Care Team Providers Care Plumbing Instructor Name Role Phone Shaheen Fletcher MD Primary Care Provider [phone] Reason for Visit * Reason Onset Date Comments Faxed Refill 01/28/2020 Encounter Details Date Type Department Care Team Description 01/28/2020 Refill Pulmonology - [place] [address] [facility] [address] [place] [address] Karson Maya MD [address] [facility] [address] [place] [address] Faxed Refill Social History Tobacco [...] or suspected to have Coronavirus / COVID-19? Unable to assess 01/08/2020 8:00 AM EST documented as of this encounter Miscellaneous Notes * Telephone Encounter - Susan Godoy - 01/28/2020 4:50 PM EST DARRYN- 01.08.2020 NOV- left patient message to schedule f/u appt due 04/2020 documented in this encounter Plan of Treatment Not on file documented as of this encounter Visit Diagnoses Not on filedocumented in this encounter Additional Health Concerns Infection Onset Date Last Indicated Resolved Time COVID-19 01/05/2022 01/05/2022 documented as of this encounter Care Teams Plumbing Instructor Relationship Specialty Start Date End Date Shaheen Fletcher MD [address] [place] [address] PCP - General 09/28/08 documented as of this encounter
--- OUTSIDE RECORDS SUMMARY | 2024-11-20 10:02 | XMS_ITS | Encounter Summary ---
Author Organization [facility] Address [address] [place] [address] Care Team Providers Care Metal Alloy Scientist Name Role Phone Shaheen Fletcher MD Primary Care Provider [phone] Reason for Visit * Reason Onset Date Comments REFERRAL 02/29/2016 dermatology Encounter Details Date Type Department Care Team Description 02/29/2016 Telephone Adult Medicine [facility] [address] [place] [address] [phone] Shaheen Fletcher MD [address] [place] [address] [phone] REFERRAL (dermatology) Social History Tobacco Use Types Packs/Day Years [...] encounter Miscellaneous Notes * Telephone Encounter - Shaheen Fletcher MD - 02/29/2016 11:58 AM EST noted * Telephone Encounter - Yesica Solorio - 02/29/2016 11:54 AM EST All resources have been exhausted, patient taking off dermatology referral list documented in this encounter Plan of Treatment Not on file documented as of this encounter Visit Diagnoses Not on filedocumented in this encounter Additional Health Concerns Infection Onset Date Last Indicated Resolved Time COVID-19 01/05/2022 01/05/2022 documented as of this encounter Care Teams Metal Alloy Scientist Relationship Specialty Start Date End Date Shaheen Fletcher MD [address] [place] [address] PCP - General 09/28/08 documented as of this encounter
--- OUTSIDE RECORDS SUMMARY | 2024-11-20 10:02 | XMS_ITS | Encounter Summary ---
Author Organization [facility] Address [address] [place] [address] Care Team Providers Care Woodwind Instruments Inspector Name Role Phone Shaheen Fletcher MD Primary Care Provider [phone] Encounter Details Date Type Department Care Team Description 10/10/2022 Pt. Non Urgent Medical Question Pulmonology - [place] [address] [facility] [address] [place] [address] Fabiola Sanches, ALICIA 175 [facility] [address] [place] [phone] Social History Tobacco Use Types Packs/Day Years Used Date Smoking Tobacco: Former Cigarettes 20 Smokeless Tobacco: Never Comments:1.5 years ago smoke cigarettes Alcohol Use Standard Drinks/Week Comments No 0 (1 standard drink = 0.6 oz pur e alcohol) Sex Assigned at Date Recorded Female 07/05/2023 10:14 AM EDT Job Start Date Occupation Industry Not on file Not on file Not on file COVID-19 Exposure Response Date Recorded In the last 10 days, have yo u been in contact with someone who was confirmed or suspected to have Coronavirus/COVID-19? No / Unsure 10/05/2022 10:09 AM EDT documented as of this encounter Miscellaneous Notes * Telephone Encounter - Charmaine Tripp C.M.A. - 10/10/2022 3:46 PM EDTFrom: Alicia Mims To: Hunter Sanches Sent: 10/10/2022 11:34 AM EDT Subject: Preauthorization If it would be possible to contact the [facility] because They are are asking for a pre-authorization for some for two of the inhalers. If possible, contact your pharmacy please thank you. documented in this encounter Plan of Treatment Not on file documented as of this encounter Visit Diagnoses Not on filedocumented in this encounter Additional Health Concerns Infection Onset Date Last Indicated Resolved Time COVID-19 01/05/2022 01/05/2022 documented as of this encounter Care Teams Woodwind Instruments Inspector Relationship Specialty Start Date End Date Shaheen Fletcher MD [address] [place] [address] PCP - General 09/28/08 documented as of this encounter
--- OUTSIDE RECORDS SUMMARY | 2024-11-20 10:02 | XMS_ITS | Encounter Summary ---
Author Organization [facility] Address [address] [place] [address] Care Team Providers Care Highway Patrol Officer Name Role Phone Shaheen Fletcher MD Primary Care Provider [phone] Encounter Details Date Type Department Care Team Description 11/06/2023 Air Tool Operator Report Medical Records [address] [place] [address] Gurinder Marina MD Social History Tobacco Use Types Packs/Day Years [...] documented as of this encounter Care Teams Highway Patrol Officer Relationship Specialty Start Date End Date Shaheen Fletcher MD [address] [place], [place] [phone] PCP - General 09/28/08 documented as of this encounter
--- OUTSIDE RECORDS SUMMARY | 2024-11-20 10:02 | XMS_ITS | Encounter Summary ---
Author Organization [facility] Address [address] [place] [address] Care Team Providers Care Visual Coordinator Name Role Phone Shaheen Fletcher MD Primary Care Provider [phone] Encounter Details Date Type Department Care Team Description 07/13/2020 Telephone Pulmonology - [place] [address] [facility] [address] [place] [address] Karson Maya MD [address] [facility] [address] [place] [phone] Social History Tobacco Use Types Packs/Day Years [...] encounter Miscellaneous Notes * Telephone Encounter - Brittney Mejia - 07/13/2020 9:45 AM EDT Singh 07/01/20 Nov 11/04/20 documented in this encounter Plan of Treatment Not on file documented as of this encounter Visit Diagnoses Diagnosis Moderate persistent asthma without complication Unspecified asthma Seasonal allergic rhinitis Allergic rhinitis, cause unspecified documented in this encounter Additional Health Concerns Infection Onset Date Last Indicated Resolved Time COVID-19 01/05/2022 01/05/2022 documented as of this encounter Care Teams Visual Coordinator Relationship Specialty Start Date End Date Shaheen Fletcher MD [address] [place] [address] PCP - General 09/28/08 documented as of this encounter
--- OUTSIDE RECORDS SUMMARY | 2024-11-20 10:02 | XMS_ITS | Encounter Summary ---
[facility] Address [address] [place] [address] Care Team Providers Care Wafer Production Worker Name Role Phone Shaheen Fletcher MD Primary Care Provider [phone] Encounter Details Date Type Department Care Team Description 12/14/2016 Destaticizer Feeder Report Medical Records [address] [place] [address] Juan Bond MD Social History Tobacco Use Types Packs/Day [...] documented as of this encounter Care Teams Wafer Production Worker Relationship Specialty Start Date End Date Shaheen Fletcher MD [address] [place], [place] [phone] PCP - General 09/28/08 documented as of this encounter
--- OUTSIDE RECORDS SUMMARY | 2024-11-20 10:02 | XMS_ITS | Encounter Summary ---
Author Organization [facility] Address [address] [place] [address] Care Team Providers Care Elevator Constructor Hydraulic Name Role Phone Shaheen Fletcher MD Primary Care Provider [phone] Reason for Visit * Reason Comments E-prescribe Rx Request Encounter Details Date Type Department Care Team Description 08/17/2021 Refill Pulmonology - [place] [address] [facility] [address] [place] [address] Joshua Mckinney MD [address] [place] [address] E-prescribe Rx Request Social History Tobacco Use [...] * Telephone Encounter - Aissatou Islas - 08/17/2021 4:08 PM EDT Patient would like script to be: E-PRESCRIBED/FAXED TO PHARMACY WHEN WAS THE PATIENT'S LAST APPOINTMENT IN ADULT MEDICINE? 03/08/21 WHEN WAS THE LAST TIME THE PATIENT SAW THEIR PCP? Same as above Does patient have an upcoming appointment? Yes 10/06/21 (THE MEDICATION REQUESTED IS ON THE MED [...] N/A Patients current insurance carrier is: Payor: [employer] FFS / Plan: [email or web address] / Product Type: MEDICAID RISK documented in this encounter Plan of Treatment Not on file documented as of this encounter Visit Diagnoses Diagnosis Moderate persistent asthma without complication Unspecified asthma Stage 2 moderate COPD by GOLD classification (HCC) documented in this encounter Additional Health Concerns Infection Onset Date Last Indicated Resolved Time COVID-19 01/05/2022 01/05/2022 documented as of this encounter Care Teams Elevator Constructor Hydraulic Relationship Specialty Start Date End Date Shaheen Fletcher MD [address] [place] [address] PCP - General 09/28/08 documented as of this encounter
--- OUTSIDE RECORDS SUMMARY | 2024-11-20 10:02 | XMS_ITS | Encounter Summary ---
Author Organization [facility] Address [address] [place] [address] Care Team Providers Care Functional Director Name Role Phone Shaheen Fletcher MD Primary Care Provider [phone] Encounter Details Date Type Department Care Team Description 07/13/2020 Refill Allergy [place] [address] [place] [phone] Chelsea Oswald MD Social History Tobacco Use Types Packs/Day [...] Miscellaneous Notes * Telephone Encounter - Sana Bailey - 07/13/2020 9:38 AM EDT DARRYN NOV documented in this encounter Plan of Treatment Not on file documented as of this encounter Visit Diagnoses Not on filedocumented in this encounter Additional Health Concerns Infection Onset Date Last Indicated Resolved Time COVID-19 01/05/2022 01/05/2022 documented as of this encounter Care Teams Functional Director Relationship Specialty Start Date End Date Shaheen Fletcher MD [address] [place] [address] [phone] PCP - General 09/28/08 documented as of this encounter
--- OUTSIDE RECORDS SUMMARY | 2024-11-20 10:02 | XMS_ITS | Encounter Summary ---
Author Organization [facility] Address [address] [place] [address] Care Team Providers Care Supervisor Personnel Clerks Name Role Phone Shaheen Fletcher MD Primary Care Provider [phone] Encounter Details Date Type Department Care Team Description 03/05/2018 Walk In Clinic Visit Medical Records [address] [place] [address] Abstract, Provider Social History Tobacco Use Types [...] documented as of this encounter Care Teams Supervisor Personnel Clerks Relationship Specialty Start Date End Date Shaheen Fletcher MD [address] [place] [address] PCP - General 09/28/08 documented as of this encounter
--- OUTSIDE RECORDS SUMMARY | 2024-11-20 10:02 | XMS_ITS | Encounter Summary ---
Author Organization [facility] Address [address] [place] [address] Care Team Providers Care Restorative Care Technician Name Role Phone Shaheen Fletcher MD Primary Care Provider [phone] Reason for Visit * Reason Onset Date Comments refill request 09/02/2020 Encounter Details Date Type Department Care Team Description 09/02/2020 Refill Pulmonology - [place] [address] [facility] [address] [place] [address] Karson Maya MD [address] [facility] [address] [place] [address] refill request Social History Tobacco [...] * Telephone Encounter - Shonda Bertrand - 09/02/2020 9:21 AM EDT Patient would like script to be: E-PRESCRIBED/FAXED TO PHARMACY WHEN WAS THE PATIENT'S LAST APPOINTMENT WITH THE PRESCRIBING PROVIDER? 06/01/20 Does patient have an upcoming appointment? No. On wait list due back 12/01/20 (THE MEDICATION REQUESTED IS ON THE MED LIST ABOVE) All of the medications requested were on the CURRENT MEDS list Did you check the Pharmacy information above?: YES Patient wants: 30 -day supply Is this a mail order prescription request ? NO Patients current insurance carrier is: Payor: [email or web address] FFS / Plan: [employer] / Product Type: MEDICAID RISK documented in this encounter Plan of Treatment Not on file documented as of this encounter Visit Diagnoses Diagnosis Moderate persistent asthma without complication Unspecified asthma documented in this encounter Additional Health Concerns Infection Onset Date Last Indicated Resolved Time COVID-19 01/05/2022 01/05/2022 documented as of this encounter Care Teams Restorative Care Technician Relationship Specialty Start Date End Date Shaheen Fletcher MD [address] [place] [address] PCP - General 09/28/08 documented as of this encounter
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
--- OUTSIDE RECORDS SUMMARY | 2024-11-20 10:02 | XMS_ITS | Encounter Summary ---
Author Organization [facility] Address [address] [place] [address] Care Team Providers Care Bouffant Curtain Machine Tender Name Role Phone Shaheen Fletcher MD Primary Care Provider Reason for Visit * Reason Comments E-prescribe Rx Request Encounter Details Date Type Department Care Team Description 06/27/2023 Refill Pulmonology - [place] 175 [facility] [address] [place] [address] Fabiola Sanches, ALICIA 175 [facility] 200 [place] [phone] E-prescribe Rx Request Social History Tobacco Use [...] encounter Miscellaneous Notes * Telephone Encounter - Ed Berkowitz - 06/27/2023 11:36 AM EDT Singh: 05/10/2023 Nov: 07/12/2023 documented in this encounter Plan of Treatment Not on file documented as of this encounter Visit Diagnoses Diagnosis Moderate persistent asthma without complication Unspecified asthma Stage 2 moderate COPD by GOLD classification (HCC) documented in this encounter Additional Health Concerns Infection Onset Date Last Indicated Resolved Time COVID-19 01/05/2022 01/05/2022 documented as of this encounter Care Teams Bouffant Curtain Machine Tender Relationship Specialty Start Date End Date Shaheen Fletcher MD [address] [place] [address] PCP - General 09/28/08 documented as of this encounter
--- OUTSIDE RECORDS SUMMARY | 2024-11-20 10:02 | XMS_ITS | Encounter Summary ---
Author Organization [facility] Address [address] [place] [address] Care Team Providers Care Lath Tier Name Role Phone Shaheen Fletcher MD Primary Care Provider [phone] Encounter Details Date Type Department Care Team Description 08/07/2018 [facility] Medical Records [address] [place] [address] Abstract, Provider Social History Tobacco Use Types [...] documented as of this encounter Care Teams Lath Tier Relationship Specialty Start Date End Date Shaheen Fletcher MD [address] [place] [address] PCP - General 09/28/08 documented as of this encounter
--- OUTSIDE RECORDS SUMMARY | 2024-11-20 10:02 | XMS_ITS | Encounter Summary ---
Author Organization [facility] Address [address] [place] [address] Care Team Providers Care Sewer Pipe Sorter Name Role Phone Shaheen Fletcher MD Primary Care Provider [phone] Reason for Visit * Reason Comments E-prescribe Rx Request Encounter Details Date Type Department Care Team Description 01/13/2023 Refill Pulmonology - [place] 175 [facility] [address] [place] [address] Fabiola Sanhces, ALICIA 175 [facility] 200 [place] [phone] E-prescribe Rx Request Social History Tobacco Use [...] * Telephone Encounter - Chaya Paredes - 01/15/2023 10:52 AM EST NOV 03/06/23 DARRYN 10/06/22 documented in this encounter Plan of Treatment Not on file documented as of this encounter Visit Diagnoses Diagnosis Moderate persistent asthma without complication Unspecified asthma Stage 2 moderate COPD by GOLD classification (HCC) documented in this encounter Additional Health Concerns Infection Onset Date Last Indicated Resolved Time COVID-19 01/05/2022 01/05/2022 documented as of this encounter Care Teams Sewer Pipe Sorter Relationship Specialty Start Date End Date Shaheen Fletcher MD [address] [place] [address] PCP - General 09/28/08 documented as of this encounter
--- OUTSIDE RECORDS SUMMARY | 2024-11-20 10:02 | XMS_ITS | Encounter Summary ---
Author Organization [facility] Address [address] [place] [address] Care Team Providers Care Harpoon Engagement Planning Operator Name Role Phone Shaheen Fletcher MD Primary Care Provider [phone] Reason for Visit * Reason Comments E-prescribe Rx Request Encounter Details Date Type Department Care Team Description 11/26/2023 Refill Pulmonology - [place] 175 [facility] [address] [place] [phone] Fabiola Sanches, ALICIA 175 [facility] [address] [place] [phone] E-prescribe Rx Request Social History Tobacco Use [...] * Telephone Encounter - Ed Berkowitz - 11/26/2023 8:36 AM EDT Singh: 10/02/2023 Nov: 02/01/2024 documented in this encounter Plan of Treatment Not on file documented as of this encounter Visit Diagnoses Diagnosis Moderate persistent asthma without complication Unspecified asthma Stage 2 moderate COPD by GOLD classification (HCC) documented in this encounter Additional Health Concerns Infection Onset Date Last Indicated Resolved Time COVID-19 01/05/2022 01/05/2022 documented as of this encounter Care Teams Harpoon Engagement Planning Operator Relationship Specialty Start Date End Date Shaheen Fletcher MD [address] [place] [address] PCP - General 09/28/08 documented as of this encounter
--- OUTSIDE RECORDS SUMMARY | 2024-11-20 10:02 | XMS_ITS | Encounter Summary ---
[facility] Address [address] [place] [address] Care Team Providers Care Robotics Technician Name Role Phone Shaheen Fletcher MD Primary Care Provider [phone] Encounter Details Date Type Department Care Team Description 01/18/2023 Personal Banker Report Medical Records [address] [place] [address] Mauricio Juan MD Social History Tobacco Use Types Packs/Day [...] documented as of this encounter Care Teams Robotics Technician Relationship Specialty Start Date End Date Shaheen Fletcher MD [address] [place], [place] [phone] PCP - General 09/28/08 documented as of this encounter
--- OUTSIDE RECORDS SUMMARY | 2024-11-20 10:02 | XMS_ITS | Encounter Summary ---
Author [facility] Address [address] [place] [address] Care Team Providers Care Night Auditor Name Role Phone Shaheen Fletcher MD Primary Care Provider [phone] Reason for Visit * Reason Comments E-prescribe Rx Request Encounter Details Date Type Department Care Team Description 09/06/2022 Refill Pulmonology - [place] 175 [facility] [address] [place] [phone] Fabiola Sanches APRN 175 [facility] 200 [place] [phone] E-prescribe Rx Request Social History Tobacco Use [...] as of this encounter Visit Diagnoses Diagnosis Stage 2 moderate COPD by GOLD classification (HCC) Moderate persistent asthma without complication Unspecified asthma documented in this encounter Additional Health Concerns Infection Onset Date Last Indicated Resolved Time COVID-19 01/05/2022 01/05/2022 documented as of this encounter Care Teams Night Auditor Relationship Specialty Start Date End Date Shaheen Fletcher MD [address] [place] [address] [id number] PCP - General 09/28/08 documented as of this encounter
[2024-11-20 10:21] LABS: Thyroid Stimulating Hormone 10.98 uIU/mL (0.32-4.0)
== END 2024-11-20 07:58 | disposition home or self-care (01) ==
LOC: HO.LAB 07:57
PROVIDERS: PCP Internal Medicine; Visit Provider Psychiatry & Neurology Neurology
DX: G43.009 Migraine without aura, not intractable, without status migrainosus (principal); G37.9 Demyelinating disease of central nervous system, unspecified; G35.D Multiple sclerosis, unspecified; E03.9 Hypothyroidism, unspecified; Z79.899 Other long term (current) drug therapy
CPT/HCPCS: 36415; 84443; 99212

== ENCOUNTER 2024-11-20 07:57 | Outpatient (AMB) | payer OTHER, SELFPAY ==
--- OUTSIDE RECORDS SUMMARY | 2024-11-20 08:00 | XMS_ITS | Clinical Summary ---
Author Organization 175 [facility] Address [address] [place] [address] Phone Care Team Providers Care Care Team Coordinator Scheduler Name Role Phone Shaheen Fletcher MD Primary Care Provider [phone] Allergies Active Allergy Reactions Criticality Noted Date [...] onic obstructive pulmonary disease, unspecified COPD type ([facility] V24, CMS/[facility] V28) Take 3 mL by nebulization 4 [...] asthma, uncomplicated,Ch ronic obstructive pulmonary disease, unspecified ([facility] V24, CMS/[facility] V28) INHALE 2 PUFFS INTO THE LUNGS [...] 1 (one) time each day. 30 each 08/14/2 025 Active Advair Diskus 250-50 mcg/dose diskus inhalerIndicatio ns:Moderate persistent asthma, uncomplicated INHALE 1 DOSE BY MOUTH TWICE DAILY. RINSE MOUTH AFTER USE 60 each 5 025 Active fexofenadine (JOSEE) 180 mg tabletIndication s:Moderate persistent asthma, uncomplicated,Ch ronic obstructive pulmonary disease, unspecified ([facility] V24, [facility] V28) TAKE 1 TABLET BY MOUTH EVERY DAY 90 tablet 4 025 Active amphetamine-dext roamphetamine (AdderalL) 20 mg tablet Take 1 tablet (20 mg total) by mouth 1 (one) time each day. 20 mg plus 10 mg tablet daily=30 mg total daily Max Daily Amount: 20 mg 967 Active acetaminophen (TYLENOL 8 HOUR) 650 mg 8 hr tablet Take 2 tablets (1,300 mg total) by mouth every 8 (eight) hours if needed. for pain 2024 Discontinued aspirin 81 mg EC tablet Take 1 tablet (81 mg total) by mouth 1 (one) time each day. 30 each 025 2024 Active Problems Problem Noted Date Diagnosed Date COPD (chronic obstructive pu lmonary disease) ([facility] V24, [facility] V28) 10/08/2024 Right sided weakness 10/01/2024 Weakness [...] 09/11/2012 Depressive disorder 12/02/2010 Central pontine myelinosis (CMS/HCC V24, CMS/HCC V28) Encounters Date Type Department Care Team Description 11/04/2024 1:30 PM EDT Office Visit Adult Medicine [address] [phone] Shaheen Fletcher MD Weakness (Primary Dx); Urinary retention 11/04/2024 Telephone Adult Medicine [address] [phone] Shaheen Fletcher MD 10/31/2024 Telephone Adult [address] [phone] Shaheen Fletcher MD 10/30/2024 9:45 AM EDT Office Visit Orthopedic Surgery - [place] [address] [phone] Sergey Ribera DPShanell Post-operative state (Primary Dx) 10/22/2024 Telephone Adult Medicine [address] [phone] Shaheen Fletcher MD 10/10/2024 Telephone Adult Medicine [address] [phone] Felicita Eugene MA 10/08/2024 10:48 AM EDT - 10/08/2024 3:49 PM EDT Emergency [facility] Emergency [address] [place] [phone] Mild intermittent asthma, unspecified whether complicated (Primary Dx); Urinary retention; Weakness; Central pontine myelinosis (CMS/HCC V24, CMS/HCC V28); Arthritis of both hands; Depressive disorder; Anxiety Discharge Disposition: Home or Self Care 10/08/2024 Telephone Adult Medicine [address] [phone] Shaheen Fletcher MD 09/30/2024 1:27 AM EDT - 10/03/2024 6:36 PM EDT Hospital Encounter [facility] Intermediate Care Unit [address] [place] [phone] Audie Redd MD Lyle, MD Samson Leyva Nermina, MD Rasul, Yar M, MD Right sided weakness (Primary Dx); Ambulatory dysfunction; Urinary retention Discharge Disposition: Penitentiary Facility 09/17/2024 Telephone Adult Medicine [address] [phone] Shaheen Fletcher MD 09/15/2024 11:00 AM EDT Evaluation [facility] Occupational Therapy [address] [place] [phone] Melissa Richardson OT Arthritis of carpometacarpal (CMC) joints of both thumbs; Bilateral carpal tunnel syndrome; Arthritis of both hands 09/15/2024 Plan of Care Documentation [facility] Occupational [address] [phone] 09/11/2024 10:30 AM EDT Office Visit Orthopedic Surgery [facility] [address] [phone] Sergey Ribera DPM Post-operative state (Primary Dx) 08/29/2024 7:31 AM EDT Anesthesia Event [facility] Main OR [address] [place] [phone] Indio Rene MD Johnson, Lorraine, CRNA 08/29/2024 7:30 AM EDT - 08/29/2024 9:00 AM EDT Surgery [facility] Main OR [address] [place] [phone] Sergey Ribera DPShanell IMPLANT TO DIGIT OR LESSER METATARSAL [29124 (CPT )] 08/29/2024 6:08 AM EDT - 08/29/2024 10:01 AM EDT Hospital Encounter [facility] Main OR [address] [place] [address] Sergey Ribera, DPM Hallux rigidus of right foot Discharge Disposition: Home or Self Care 08/25/2024 8:00 AM EDT Consult Orthopedic Surgery - [place] 250 175 [facility] [address] [place] [address] Sergey Ribera, DPM Hallux rigidus of right foot (Primary Dx) from Last 3 Months Immunizations Immunization Administration Dates Next Due H1N1 Inj Preservative [...] History Surgery Date Site/Laterality Comments SECTION PROCEDURE: CA DELIVERY ONLY; COMMENT: x 3 BREAST BIOPSY PROCEDURE: BX BREAST; PERC NEEDLE CORE W/IMAG GUID; COMMENT: RT SIDE CARPAL TUNNEL RELEASE Bilateral FOOT SURGERY Bilateral Medical History Medical History Date Comments Asthma DX:Asthma Seasonal allergies DX:Seasonal a llergies COPD (chronic obstructive pu lmonary disease) ([facility] V24, [facility] V28) Anxiety Depression Arthritis Carpal tunnel syndrome on both sides Central pontine myelinosis ([facility] V24, [facility] V28) Family History Medical History Relation Name Comments Breast cancer Aunt 1 mat great aunt 30s 45; mate rnal Stomach cancer Aunt 2 m aunt Thyroid disease Brother 1 Hyperlipidemia Brother 2 Heart attack Father 52 Heart attack Father's side multiple uncle s and aunts Diabetes Mother htn; [place] (not fa robert); Alzheimers Hypertension Mother Diabetes [...] care for your loved ones. For example, childhood teacher or elderly care for an older adult? [...] Date Recorded What is your living situation? Unrecognized valu e 09/30/2024 Interpersonal Safety Answer Date Record ed Physical Abuse Unrecognized value 09/30/2024 Verbal Abuse Unrecognized value 09/30/2024 Comments No Sex and Gender Information [...] AM EST Office Visit Orthopedic Surgery - [place] 250 175 [facility] [address] [place] [phone] Sergey Ribera, DPM 175 [facility] [address] [place] [phone] 02/02/2025 9:45 AM EST Office Visit Pulmonology - [place] 175 [facility] [address] [place] [phone] Fabiola Sanches, CARD FIXER [address] [place] [phone] 05/27/2025 9:45 AM EDT Office Visit Adult Medicine [facility] [address] [place] [address] Shaheen Fletcher MD [address] [place] [address] Health Maintenance Due Date Last Done Comments [...] 10/23/2023 10/22/2022, 03/22/2021 COVID-19 Vaccine (4 - season) 2024 02/11/2021, 07/08/2020, 06/11/2020 Influenza [...] FROM THE [facility] # 6 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 FROM 23 TO AT LEAST 30 POUNDS Medical Devices Implanted Type Area Treasury Analyst Device Identifier Shelf Expiration Date Model / Serial / Lot Toe Flex Hinge W/Grommet Sz 2 Marily Reg Stem - Snone - [id number] Implanted:Qty: 1 on 03/21/2024 by Sergey Ribera DPM at [facility] Left: First Toe [employer] [id number] 05/22/2031 [id number] / NONE / [id number] Toe Flex Hinge W/Grommet Sz 2 Marily Reg Stem - Sn/A - [id number] Implanted:Qty: 1 on 08/29/2024 by Sergey Ribera DPM at [facility] Right: First Toe [employer] 03/27/2032 [id number] / N/A / [id number] Procedures Procedure Name Priority Date/Time Associated Diagnosis [...] AM EDT Hallux rigidus of right foot CA HALLUX RIGIDUS CHARY W CHEILECTOMY DEBR & CAPSULAR RLS 1ST MPJ W IMPLANT 08/29/2024 7:31 AM EDT Hallux rigidus of right foot Case Notes MINI C-ARM, MARCH 1ST MPJ JOSE M HM HPV Routine 03/07/2022 COLONOSCOPY Routine 11/08/2021 SCR [...] Hold for add-ons. 10/03/2024 8:01 AM EDT [facility] Comment:Auto resulted. Blood Venous blood specimen / Unknown Venipuncture / Unknown 10/03/2024 6:32 AM EDT 10/03/2024 6:50 AM EDT us Chinedu Torres MD LAB BLOOD ORDERABLES Final Resul t [facility] [address] [place] [address], [place] [phone] * Basic metabolic panel (10/03/2024 6:32 AM EDT) Only the most recent of2 resultswithin the time period is included. Sodium 142 133 - 145 mmol/L LAB CHEMISTRY METHOD 10/03/2024 8:00 AM [facility] Potassium 3.6 3.5 - 5.5 mmol/L LAB CHEMISTRY METHOD 10/03/2024 8:00 AM [facility] Chloride 110 96 - 110 mmol/L LAB CHEMISTRY METHOD 10/03/2024 8:00 AM [facility] CO2 25 21 - 32 mmol/L LAB CHEMISTRY METHOD 10/03/2024 8:00 AM [facility] Anion Gap 7 3 - 11 LAB CHEMISTRY METHOD 10/03/2024 8:00 AM [facility] Glucose 98 70 - 100 mg/dL LAB CHEMISTRY METHOD 10/03/2024 8:00 AM [facility] BUN 13 5 - 25 mg/dL LAB CHEMISTRY METHOD 10/03/2024 8:00 AM [facility] Creatinine 0.75 0.50 - 1.10 mg/dL LAB CHEMISTRY METHOD 10/03/2024 8:00 AM [facility] eGFR 92 >=60 mL/min/1. 73m2 LAB CHEMISTRY METHOD 10/03/2024 8:00 AM [facility] Comment:Calculation based on the Chronic Kidney Disease Epidemiology Collaboration (CKD-EPI) equation refit without adjustment for race. BUN/Creatinine Ratio 17.3 LAB CHEMISTRY METHOD 10/03/2024 8:00 AM [facility] Calcium 8.5 8.5 - 10.5 mg/dL LAB CHEMISTRY METHOD 10/03/2024 8:00 AM [facility] Blood Venous blood specimen / Unknown Venipuncture / Unknown 10/03/2024 6:32 AM EDT 10/03/2024 6:49 AM EDT us Chinedu Torres MD LAB BLOOD ORDERABLES Final Resul t [facility] ([email or web address] [address] [place] [address], [place] [phone] * Visual evoked potential test (10/02/2024 3:03 PM EDT) Narrative Yoselin Bateman MD - 10/02/2024 4:37 PM EDT Table formatting from the original result was not included. Images from the original result were not included. [facility] [address] [place] [address] Visual Evoked Potential Report Date of service: [...] Potential Technical Description: Scalp electrodes placed using [employer] System. Visual acuity measured at the time [...] normal latencies and amplitudes with no significant uqyw-ds-qwcy difference Impression: Normal bilateral visual evoked potentials [...] 8:11 AM EDT) Only the most recent of2 resultswithin the time period is included. Ventricular Rate ECG 65 BPM GEMUSE Atrial Rate 65 BPM GEMUSE P-R Interval 104 ms GEMUSE QRS Duration 110 ms GEMUSE Q-T Interval 484 ms GEMUSE QTc 503 ms GEMUSE P Wave [place] 62 degrees GEMUSE R [place] 38 degrees GEMUSE T [place] 56 degrees GEMUSE ECG Interpretation Sinus rhythm with sinus arrhythmia with short CA Otherwise normal ECG When compared with ECG of 30-SEP-2024 02:15, No significant change was found Confirmed by MELANIA HANEY ([id number]) on 10/02/2024 7:23:01 PM GEMUSE 10/01/2024 8:11 AM EDT 10/02/2024 7:23 PM EDT us Chinedu Torres MD ECG ORDERABLES Final Result Performing Organization Address City/[facility]/ZIP Co de Phone Number GEMUSE * (ABNORMAL) Vitamin B12 and folate (10/01/2024 5:57 AM EDT) Pathologist [facility] Vitamin B-12 225(L) 250 - 900 pcg/mL LAB CHEMISTRY METHOD 10/01/2024 7:53 AM EDT [facility] Folate >20.0(H) 2.8 - 17.0 ng/ml LAB CHEMISTRY METHOD 10/01/2024 7:53 AM EDT [facility] Blood Venous blood specimen / Unknown Venipuncture / Unknown 10/01/2024 5:57 AM EDT 10/01/2024 6:12 AM EDT Josefa YEPEZ LAB BLOOD ORDERABLES Final Resu lt Performing Organization Address City/[facility]/ZIP Co de Phone Number [facility] [address] [place] [address], [place] [phone] * (ABNORMAL) Lipid panel with reflex to direct LDL (10/01/2024 5:57 AM EDT) Cholesterol 253(H) 0 - 200 mg/dL LAB CHEMISTRY METHOD 10/01/2024 7:45 AM EDT [facility] Triglycerides 135 0 - 150 mg/dL LAB CHEMISTRY METHOD 10/01/2024 7:45 AM EDT [facility] HDL 72 >=40 mg/dL LAB CHEMISTRY METHOD 10/01/2024 7:45 AM EDT [facility] LDL Calculated 154(H) 0 - 100 mg/dL LAB CHEMISTRY METHOD 10/01/2024 7:45 AM EDT [facility] Comment:Estimated LDL Calcul ated using equation: Total cholesterol - HDL cholesterol - (Triglycerides/5) VLDL Cholesterol Neno 27 mg/dL LAB CHEMISTRY METHOD 10/01/2024 7:45 AM EDT [facility] Non HDL Chol. (LDL+VLDL) 181(H) <145 mg/dL LAB CHEMISTRY METHOD 10/01/2024 7:45 AM EDT [facility] Chol/HDL Ratio 3.5 0.0 - 4.4 LAB CHEMISTRY METHOD 10/01/2024 7:45 AM EDT [facility] Blood Venous blood specimen / Unknown Venipuncture / Unknown 10/01/2024 5:57 AM EDT 10/01/2024 6:12 AM EDT us Josefa YEPEZ LAB BLOOD ORDERABLES Final Resu lt [facility] [address] [place] [address], * (ABNORMAL) CBC auto differential (10/01/2024 5:57 AM EDT) Only the most recent of2 resultswithin the time period is included. WBC 4.6(L) 4.8 - 10.8 K/mcL LAB HEMETOLOGY METHOD 10/01/2024 6:27 AM EDT [facility] RBC 3.80 3.80 - 4.80 M/mcL LAB HEMETOLOGY METHOD 10/01/2024 6:27 AM EDT [facility] Hemoglobin 11.9 11.5 - 16.0 g/dL LAB HEMETOLOGY METHOD 10/01/2024 6:27 AM [facility] Hematocrit 36.0 35.0 - 47.0 % LAB HEMETOLOGY METHOD 10/01/2024 6:27 AM [facility] MCV 94.2 79.0 - 98.0 FL LAB HEMETOLOGY METHOD 10/01/2024 6:27 AM [facility] MCH 31.2 27.0 - 32.0 pcg LAB HEMETOLOGY METHOD 10/01/2024 6:27 AM [facility] MCHC 33.1 32.0 - 37.0 g/dL LAB HEMETOLOGY METHOD 10/01/2024 6:27 AM [facility] RDW 14.6 11.0 - 15.0 % LAB HEMETOLOGY METHOD 10/01/2024 6:27 AM [facility] Platelets 229 130 - 400 K/mcL LAB HEMETOLOGY METHOD 10/01/2024 6:27 AM [facility] MPV 10.4 7.0 - 11.0 FL LAB HEMETOLOGY METHOD 10/01/2024 6:27 AM [facility] NRBC 0.0 <1.0 % LAB HEMETOLOGY METHOD 10/01/2024 6:27 AM [facility] NRBC Absolute 0.00 <0.10 K/mcL LAB HEMETOLOGY METHOD 10/01/2024 6:27 AM [facility] Neutrophils Relative 55.4 % LAB HEMETOLOGY METHOD 10/01/2024 6:27 AM [facility] Lymphocytes Relative 33.2 % LAB HEMETOLOGY METHOD 10/01/2024 6:27 AM [facility] Monocytes Relative 7.3 % LAB HEMETOLOGY METHOD 10/01/2024 6:27 AM [facility] Eosinophils Relative 3.3 % LAB HEMETOLOGY METHOD 10/01/2024 6:27 AM EDT [facility] Basophils Relative 0.4 % LAB HEMETOLOGY METHOD 10/01/2024 6:27 AM EDT [facility] Immature Granulocytes Relative 0.4 % LAB HEMETOLOGY METHOD 10/01/2024 6:27 AM EDT [facility] Neutrophils Absolute 2.52 1.50 - 7.00 K/mcL LAB HEMETOLOGY METHOD 10/01/2024 6:27 AM EDT [facility] Lymphocytes Absolute 1.51 1.00 - 5.00 K/mcL LAB HEMETOLOGY METHOD 10/01/2024 6:27 AM EDT [facility] Monocytes Absolute 0.33 0.20 - 1.00 K/mcL LAB HEMETOLOGY METHOD 10/01/2024 6:27 AM EDT [facility] Eosinophils Absolute 0.15 0.00 - 0.50 K/mcL LAB HEMETOLOGY METHOD 10/01/2024 6:27 AM EDT [facility] Basophils Absolute 0.02 0.00 - 0.20 K/mcL LAB HEMETOLOGY METHOD 10/01/2024 6:27 AM EDT [facility] Immature Granulocytes Absolute 0.02 0.00 - 0.03 K/mcL LAB HEMETOLOGY METHOD 10/01/2024 6:27 AM EDT [facility] Blood Venous blood specimen / Unknown Venipuncture / Unknown 10/01/2024 5:57 AM EDT 10/01/2024 6:12 AM EDT us Josefa YEPEZ LAB BLOOD ORDERABLES Final Resu lt [facility] [address] [place] [address], * Hemoglobin A1c (10/01/2024 5:57 AM EDT) [facility] Hemoglobin A1C 6.1 <6.5 % LAB CHEMISTRY METHOD 10/01/2024 12:10 PM EDT [facility] Mean Bld Glu Estim. 128 mg/dL LAB CHEMISTRY METHOD 10/01/2024 12:10 PM [facility] Blood Venous blood specimen / Unknown Venipuncture / Unknown 10/01/2024 5:57 AM EDT 10/01/2024 6:12 AM EDT us Josefa YEPEZ LAB BLOOD ORDERABLES Final Resu lt [facility] [address] [place] [address], [place] [phone] * (ABNORMAL) Comprehensive metabolic panel (10/01/2024 5:57 AM EDT) Only the most recent of2 resultswithin the time period is included. [facility] Sodium 141 133 - 145 mmol/L LAB CHEMISTRY METHOD 10/01/2024 7:47 AM [facility] Potassium 3.6 3.5 - 5.5 mmol/L LAB CHEMISTRY METHOD 10/01/2024 7:47 AM [facility] Chloride 113(H) 96 - 110 mmol/L LAB CHEMISTRY METHOD 10/01/2024 7:47 AM [facility] CO2 25 21 - 32 mmol/L LAB CHEMISTRY METHOD 10/01/2024 7:47 AM [facility] Anion Gap 3 3 - 11 LAB CHEMISTRY METHOD 10/01/2024 7:47 AM [facility] Glucose 113(H) 70 - 100 mg/dL LAB CHEMISTRY METHOD 10/01/2024 7:47 AM [facility] BUN 7 5 - 25 mg/dL LAB CHEMISTRY METHOD 10/01/2024 7:47 AM [facility] Creatinine 0.74 0.50 - 1.10 mg/dL LAB CHEMISTRY METHOD 10/01/2024 7:47 AM [facility] eGFR 94 >=60 mL/min/1. 73m2 LAB CHEMISTRY METHOD 10/01/2024 7:47 AM [facility] Comment:Calculation based on the Chronic Kidney Disease Epidemiology Collaboration (CKD-EPI) equation refit without adjustment for race. BUN/Creatinine Ratio 9.5 LAB CHEMISTRY METHOD 10/01/2024 7:47 AM [facility] Calcium 8.8 8.5 - 10.5 mg/dL LAB CHEMISTRY METHOD 10/01/2024 7:47 AM [facility] AST (SGOT) 25 10 - 42 unit/L LAB CHEMISTRY METHOD 10/01/2024 7:47 AM [facility] ALT (SGPT) 28 10 - 60 unit/L LAB CHEMISTRY METHOD 10/01/2024 7:47 AM [facility] Alkaline Phosphatase 69 42 - 121 unit/L LAB CHEMISTRY METHOD 10/01/2024 7:47 AM [facility] Total Protein 6.4 6.0 - 8.0 g/dL LAB CHEMISTRY METHOD 10/01/2024 7:47 AM [facility] Albumin 3.4 3.2 - 5.0 g/dL LAB CHEMISTRY METHOD 10/01/2024 7:47 AM [facility] Total Bilirubin 0.4 0.0 - 1.4 mg/dL LAB CHEMISTRY METHOD 10/01/2024 7:47 AM [facility] Comment:Results verified by repeat testing Blood Venous blood specimen / Unknown Venipuncture / Unknown 10/01/2024 5:57 AM EDT 10/01/2024 6:12 AM EDT us Josefa YEPEZ LAB BLOOD ORDERABLES Final Resu lt [facility] [[email or web address] [address] [place] [address], * ECG-Annotated (10/01/2024) us Provider Onbase MD [...] Limon MD on 09/30/2024 19:10:[address] [facility] MRI PROCEDURES Final Result * MR Cervical [...] Limon MD on 09/30/2024 19:08:[address] [facility] MRI PROCEDURES Final Result * XR Pelvis [...] Signed Date: 09/30/2024 08:13 ET Workstation ID: [id number] Transcribed By: Self Edit Transcribed Date: 09/30/2024 [...] Signed Date: 09/30/2024 08:13 ET Workstation ID: [id number] Transcribed By: Self Edit Transcribed Date: 09/30/2024 [...] reflex microscopic (09/30/2024 6:04 AM EDT) Specific [place] Urine 1.008 1.003 - 1.030 LAB URINALYSIS - AUTOMATED METHOD 09/30/2024 6:50 AM [facility] pH, Urine 7.0 5.0 - 8.0 pH LAB URINALYSIS - AUTOMATED METHOD 09/30/2024 6:50 AM [facility] Leukocytes, Urine Negative Negative LAB URINALYSIS - AUTOMATED METHOD 09/30/2024 6:50 AM [facility] Nitrite, Urine Negative Negative LAB URINALYSIS - AUTOMATED METHOD 09/30/2024 6:50 AM [facility] Protein, Urine Negative <=Trace mg/dL LAB URINALYSIS - AUTOMATED METHOD 09/30/2024 6:50 AM [facility] Glucose, Urine Negative Negative mg/dL LAB URINALYSIS - AUTOMATED METHOD 09/30/2024 6:50 AM [facility] Ketones, Urine Negative Negative mg/dL LAB URINALYSIS - AUTOMATED METHOD 09/30/2024 6:50 AM [facility] Urobilinogen, Urine 0.2 0.2 - 1.0 mg/dL LAB URINALYSIS - AUTOMATED METHOD 09/30/2024 6:50 AM [facility] Bilirubin, Urine Negative Negative LAB URINALYSIS - AUTOMATED METHOD 09/30/2024 6:50 AM [facility] Blood, Urine Negative Negative LAB URINALYSIS - AUTOMATED METHOD 09/30/2024 6:50 AM [facility] Urine Urine specimen obtained by clean catch procedure / Unknown Non-blood Collection / Unknown 09/30/2024 6:04 AM EDT 09/30/2024 6:43 AM EDT Audie Redd MD LAB URINE ORDERABLES Final R esult [facility] [address] [place] [address], * (ABNORMAL) Drug abuse screen 8a panel, urine (09/30/2024 6:04 AM EDT) [facility] Amphetamine Screen, Ur Positive(A ) Negative LAB CHEMISTRY METHOD 5 7:06 AM EDT [facility] Comment:Certain OTC medicati ons containing ephedrine, phenylephrine, pseudoephedrine and phenylpropanolamine can cause false positive results. Barbiturate Screen, Ur Negative Negative LAB CHEMISTRY METHOD 5 7:06 AM [facility] Benzodiazepine Screen, Ur Negative Negative LAB CHEMISTRY METHOD 5 7:06 AM [facility] Cocaine Screen, Ur Negative Negative LAB CHEMISTRY METHOD 5 7:06 AM [facility] Opiate Screen, Ur Negative Negative LAB CHEMISTRY METHOD 5 7:06 AM [facility] Cannabinoid (THC) Screen, Ur Positive(A ) Negative LAB CHEMISTRY METHOD 5 7:06 AM [facility] Comment:Specimens from patie nts taking pantoprazole sodium (Protonix) have been shown to produce false positive results. Oxycodone Screen, Ur Negative Negative LAB CHEMISTRY METHOD 5 7:06 AM T [facility] Fentanyl, Ur Negative Negative LAB CHEMISTRY METHOD 5 7:06 AM [facility] Urine Urine specimen obtained by clean catch procedure / Unknown Non-blood Collection / Unknown 09/30/2024 6:04 AM EDT 09/30/2024 6:43 AM EDT Narrative [facility] ([facility] [[email or web address] - 09/30/2024 7:06 AM EDT [...] MD LAB URINE ORDERABLES Final R esult [facility] ([facility] [[email or web address] [address] [place] [address], [place] [phone] * XR Chest 1 View (09/30/2024 2:53 [...] Signed Date: 09/30/2024 09:03 ET Workstation ID: [id number] Transcribed By: Self Edit Transcribed Date: 09/30/2024 [...] Signed Date: 09/30/2024 09:03 ET Workstation ID: [id number] Transcribed By: Self Edit Transcribed Date: 09/30/2024 [...] I High Sensitivity (09/30/2024 2:05 AM EDT) [facility] High Sensitivity Troponin I 3 <=54 ng/L LAB CHEMISTRY METHOD 09/30/2024 2:42 AM EDT [facility] Blood Venous blood specimen / Unknown Venipuncture / Unknown 09/30/2024 2:05 AM EDT 09/30/2024 2:19 AM EDT Narrative [facility] [facility] - 09/30/2024 2:42 AM EDT High levels of biotin in samples may falsely decrease hsTroponin values. Use caution when interpreting hsTroponin results in patients taking biotin who exhibit renal impairment (eGFR <60) or in patients taking more than 20 mg/day of biotin. Audie Redd MD LAB BLOOD ORDERABLES Final R esult [facility] [address] [place] [address], * Borrelia burgdorferi antibody (09/30/2024 2:05 AM EDT) [facility] Lyme Ab Negative Negative LAB CHEMISTRY METHOD 10/01/2024 9:14 AM EDT [facility] Comment: No laboratory evidence of infection [...] ORDERABLES Final Resu lt Performing Organization Address City/[facility]/ZIP Co de Phone Number [facility] [address] [place] [address], [place] [phone] * APTT (09/30/2024 2:05 AM EDT) [facility] aPTT 25.2 24.1 - 39.3 sec LAB COAGULATION METHOD 09/30/2024 2:31 AM EDT [facility] Blood Venous blood specimen / Unknown Venipuncture / Unknown 09/30/2024 2:05 AM EDT 09/30/2024 2:20 AM EDT Audie Redd MD LAB BLOOD ORDERABLES Final R esult Performing Organization Address [facility]/ZIP Co de Phone Number [facility] [address] [place] [address], [place] [phone] * (ABNORMAL) Protime-INR (09/30/2024 2:05 AM EDT) [facility] Protime 10.3(L) 10.6 - 13.9 sec LAB COAGULATION METHOD 09/30/2024 2:31 AM EDT [facility] INR 0.8 LAB COAGULATION METHOD 09/30/2024 2:31 AM EDT [facility] Blood Venous blood specimen / Unknown Venipuncture / Unknown 09/30/2024 2:05 AM EDT 09/30/2024 2:20 AM EDT Audie Redd MD LAB BLOOD ORDERABLES Final R esult Performing Organization Address City/[facility]/ZIP Co de Phone Number [facility] [address] [place] [address], [place] [phone] * Triiodothyronine free (09/30/2024 2:05 AM EDT) T3, Free 296 230 - 420 pcg/dL LAB CHEMISTRY METHOD 09/30/2024 4:48 AM EDT [facility] Blood Venous blood specimen / Unknown Venipuncture / Unknown 09/30/2024 2:05 AM EDT 09/30/2024 2:19 AM EDT Audie Redd MD LAB BLOOD ORDERABLES Final R esult Performing Organization Address [facility] Co de Phone Number [facility] [address] [place] [address], [place] [phone] * (ABNORMAL) Thyroid Stimulating Hormone (TSH) (09/30/2024 2:05 AM EDT) TSH 13.47(H) 0.40 - 4.00 mcIU/mL LAB CHEMISTRY METHOD 09/30/2024 4:11 AM EDT [facility] Blood Venous blood specimen / Unknown Venipuncture / Unknown 09/30/2024 2:05 AM EDT 09/30/2024 2:19 AM EDT Audie Redd MD LAB BLOOD ORDERABLES Final R esult Performing Organization Address [facility] Co de Phone Number [facility] [address] [place] [address], [place] [phone] * T4, free (09/30/2024 2:05 AM EDT) Free T4 0.84 0.70 - 1.80 ng/dL LAB CHEMISTRY METHOD 09/30/2024 4:48 AM EDT [facility] Blood Venous blood specimen / Unknown Venipuncture / Unknown 09/30/2024 2:05 AM EDT 09/30/2024 2:19 AM EDT us Audie Redd MD LAB BLOOD ORDERABLES Final R esult Performing Organization Address City/[facility] Co de Phone Number [facility] [address] [place] [address], * Magnesium (09/30/2024 2:05 AM EDT) Pathologist [facility] Magnesium 2.1 1.9 - 2.6 mg/dL LAB CHEMISTRY METHOD 09/30/2024 2:42 AM EDT [facility] Blood Venous blood specimen / Unknown Venipuncture / Unknown 09/30/2024 2:05 AM EDT 09/30/2024 2:19 AM EDT Audie Redd MD LAB BLOOD ORDERABLES Final R esult Performing Organization Address [facility] Co de Phone Number [facility] [address] [place] [address], * Creatine kinase (09/30/2024 2:05 AM EDT) [facility] Total CK 214 22 - 269 unit/L LAB CHEMISTRY METHOD 09/30/2024 2:42 AM EDT [facility] Blood Venous blood specimen / Unknown Venipuncture / Unknown 09/30/2024 2:05 AM EDT 09/30/2024 2:19 AM EDT Audie Redd MD LAB BLOOD ORDERABLES Final R esult Performing Organization Address City/[facility]/ZIP Co de Phone Number [facility] [address] [place] [address], [place] [phone] * Ethanol (09/30/2024 2:05 AM EDT) Pathologist [facility] Ethanol Level <3 0 - 10 mg/dL LAB CHEMISTRY METHOD 09/30/2024 4:14 AM EDT [facility] Blood Venous blood specimen / Unknown Venipuncture / Unknown 09/30/2024 2:05 AM EDT 09/30/2024 2:19 AM EDT Audie Redd MD LAB BLOOD ORDERABLES Final R esult Performing Organization Address City/[facility]/ZIP Co de Phone Number [facility] [address] [place] [address], [place] [phone] * (ABNORMAL) Acetaminophen level (09/30/2024 2:05 AM EDT) Acetaminophen Level <2.0(L) 10.0 - 30.0 mcg/mL LAB CHEMISTRY METHOD 09/30/2024 4:27 AM EDT [facility] Blood Venous blood specimen / Unknown Venipuncture / Unknown 09/30/2024 2:05 AM EDT 09/30/2024 2:19 AM EDT Audie Redd MD LAB BLOOD ORDERABLES Final R esult Performing Organization Address [facility] Co de Phone Number [facility] [address] [place] [address], [place] [phone] * Salicylate Level (09/30/2024 2:05 AM EDT) Salicylate Level 4.8 2.0 - 29.0 mg/dL LAB CHEMISTRY METHOD 09/30/2024 3:17 AM EDT [facility] Blood Venous blood specimen / Unknown Venipuncture / Unknown 09/30/2024 2:05 AM EDT 09/30/2024 2:19 AM EDT Audie Redd MD LAB BLOOD ORDERABLES Final R esult Performing Organization Address City/[facility]/ZIP Co de Phone Number [facility] [address] [place] [address], [place] [phone] * Tissue exam (08/29/2024 7:57 AM EDT) Final Diagnosis Bone, Foot, Right, first ray: -DEGENERATIVE OSTEOARTHROPATHY, CONSISTENT WITH HALLUX RIGIDUS / EXOSTOSIS 09/02/2024 9:29 AM EDT [facility] Gross Description A. Foot, Right, first ray: Labeled foot R, right fir . Received in formalin are two irregular pink-yellow articular bone fragments, measuring 1.8 x 1.3 x 0.5 cm and 2.9 x 2.4 x 1 cm. The cartilage covered articular surfaces display pitting and eburnation. There is minimal attached soft tissue. A licensing representative section of each is submitted in one cassette following decalcification, two pieces. Tag band 09/02/2024 9:29 AM EDT [facility] Disclaimer Unless otherwise specified, all tissue is 10% NB formalin fixed and paraffin embedded. 09/02/2024 9:29 AM T [facility] Bone Structure of right foot / Unknown 08/29/2024 7:57 AM EDT 08/29/2024 10:13 AM EDT Sergey Ribera DPM LAB PATHOLOGY ORDERABLES Final Result [facility] [address] [place] [address], * Cervical Cancer Screening: HPV (03/07/2022) Pathologist [facility] Cervical Cancer Screening: HPV Abstracted ,negative Historical Provider HEALTH MAINTENANCE Final Result * Colonoscopy (11/08/2021) [facility] Colonoscopy No interpreta tion,abstr acted Anatomical Region Laterality Modality Other Historical Provider HEALTH MAINTENANCE Final Result * SCR MAMMO [...] Most Recently Relevant to Health Maintenance Insurance [facility] Advance Directives Documents on File Type Date Recorded 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 p Communication Thaniachele Rosales Daughter Health Care Agent Chris Hamm Relative First Alternat e Health Care Agent Care Teams Care Team Coordinator Scheduler Relationship Specialty Start Date End Date Shaheen Fletcher MD [address] [place] [phone] PCP - General 09/28/08
--- OUTSIDE RECORDS SUMMARY | 2024-11-20 08:00 | XMS_ITS | Data Portability ---
Author Organization [place] - [facility], Allergy Address [address] [place] [phone] Care Team Providers Care Credit Risk Analytics Manager Name Role Phone WALDO MUÑOZ Referring Provider [phone] Assessment Encounter Date Assessment Date Assessment LastModified by Organization Details LastModified Time 08/15/2024 08/15/2024 Visit With: SUSY Olvera Use of Antihistamine s: No If yes: Vial Test Change in medications: No If yes Increase in asthma symptoms If yes, inhaler use: Reaction to last injections: No If yes: Allergy Symptoms: Other: Missed: Dose Aware of Vial Test Aware: Notes: [email or web address] Not available 08/15/2024 10:24:19 08/20/2024 08/20/2024 Visit With: SUSY Olvera Use of Antihistamine s: Yes If yes: Vial Test Change in medications: No If yes Increase in asthma symptoms If yes, inhaler use: Reaction to last injections: No If yes: Allergy Symptoms: Other: Missed: Dose Aware of Vial Test Aware: Notes: [email or web address] Not available 08/20/2024 14:09:05 08/27/2024 08/27/2024 Visit With: Antonino Munguia RN Use of Antihistamine s: Yes If yes: Vial Test Change in medications: No If yes Increase in asthma symptoms No If yes, inhaler use: Reaction to last injections: No If yes: Allergy Symptoms: Other: Missed: Dose Aware of Vial Test Yes Aware: Notes: [email or web address] Not available 08/27/2024 10:01:25 09/12/2024 09/12/2024 Visit With: Katerina ClaySUSY Use of Antihistamine s: No If yes: Vial Test Yes Change in medications: No If yes Increase in asthma symptoms If yes, inhaler use: Reaction to last injections: No If yes: Allergy Symptoms: Other: Missed: Dose Aware of Vial Test Aware: Notes: Not available 09/12/2024 12:00:08 09/19/2024 09/19/2024 Visit With: Antonino Munguia RN Use of Antihistamine s: Yes If yes: Vial Test Change in medications: No If yes Increase in asthma symptoms No If yes, inhaler use: Reaction to last injections: No If yes: Allergy Symptoms: None Other: Missed: Dose Aware of Vial Test Aware: Notes: [email or web address] Not available 09/19/2024 09:47:10 Plan of Treatment Reminders Order Date Submit Date Provider Last Modified By Organization Details Last Modified Time Details Appointments None record ed. Lab None record ed. Referral None record ed. Procedures None record ed. Surgeries None record ed. Imaging None record ed. Medication Orders None record ed. Patient TargetsNo targets recorded. Patient InstructionsNo instructions recorded. Reason for Referral None Reported. Problems Name Problem SNOMED Code Status Onset Date Resolution Date Notes Provider Name and Address Organization Details Recorded Time Sensorineural hearing loss of bilateral ears 035963117 Active 2024 Dorothy arguelles [place] - [facility] 5 14:09:50 Allergic rhinitis 52528342 Active 2024 GEOVANNY SANDRA PA-C [address], [phone], [facility] - [facility] 5 14:41:42 Perennial allergic rhinitis 259792021 Active 2024 ANTONINO MUNGUIA RN [address] [place] [address], [phone], [facility] 5 09:24:44 Problem Notes None recorded. Procedures Surgical History Date Name Laterality Status Provider Name and Address Organization Details Recorded Time 09/20/19 Allergy Immunotherapy Injections completed ANTONINO MUNGUIA RN [address] [place] [address], [phone], [place] - [facility] 09/19/2024 09:46:34 09/13/19 25 Allergy Immunotherapy Injections completed SUSY LANGE [address], [place], [address], [place] - [facility] 09/12/2024 11:59:58 08/28/19 25 Allergy Immunotherapy Injections completed ANTONINO MUNGUIA RN [address], [place], [address], [place] - [facility] 08/27/2024 10:01:14 08/21/19 25 Allergy Immunotherapy Injections completed KATERINA CLAY, RMA [address], [place], [address], [place] - [facility] 08/20/2024 14:08:57 08/16/19 25 Allergy Immunotherapy Injections completed KATERINA CLAY RMA [address], [place], [address], [place] - [facility] 08/15/2024 10:24:09 08/09/19 25 Allergy Immunotherapy Injections completed ANTONINO MUNGUIA RN [address], [place], [address], [place] - [facility] 08/08/2024 10:33:31 08/01/19 25 Allergy Immunotherapy Injections completed KATERINA CLAY, RMA [address], [place], [address], [place] - [facility] 07/31/2024 09:56:00 07/26/19 25 Allergy Immunotherapy Injections completed KATERINA CLAY RMA [address], [place], [address], [place] - [facility] 07/25/2024 09:26:13 07/19/19 25 Allergy Immunotherapy Injections completed ANTONINO MUNGUIA RN [address], [place], [address], [place] - [facility] 07/18/2024 09:20:13 07/12/19 25 Allergy Immunotherapy Injections completed KATERINA CLAY RMA [address], [place], [address], [facility] - [facility] 07/11/2024 10:13:56 07/05/19 25 Allergy Immunotherapy Injections completed SUSY LANGE 100 [facility],[address], [address], [facility] - [facility] 07/04/2024 10:45:32 06/28/19 25 Allergy Immunotherapy Injections completed SUSY LANGE 100 [facility],[address], [address], [facility] - [facility] 06/27/2024 10:48:29 06/20/19 25 Allergy Immunotherapy Injections completed CHIKIS LANGE 100 [facility],[address], [address], [facility] - [facility] 06/19/2024 09:46:13 06/10/19 25 Allergy Immunotherapy Injections completed ANTONINO MUNGUIA RN 100 [facility],[address], [address], [facility] - [facility] 06/09/2024 09:40:48 05/14/19 25 Allergy Testing-Full completed KATERINA CLAY [facility] 100 [facility],[address], [address], [facility] 05/13/2024 10:00:25 05/01/19 25 Allergy Testing Modified- Quantitative Testing (MQT) Only completed KATERINA CLAY [facility] 100 [facility],[address], [address], [facility] - [facility] 2024 11:44:19 04/02/19 25 Comp Audio with Tymps - 51018 & 12762 completed Dorothy Ayala [place] - [facility] 04/02/2024 14:09:42 Imaging Results None recorded. Procedure Notes None recorded. Medical Equipment None Reported. Allergies Allergen ID Allergen Name Allergen Category Reaction Reaction Severity Criticality Documentation Date Start Date Code Code System Note Provider Name and Address Organization Details Recorded Time 497491 house dust mite environme nt Not available Not available Not available 2024 KATERINA CLAY [facility] 100 [facility], [address], [place], [address], [facility] - [facility] 09:07:28 Medications Name Sig Start Date Stop [...] LastModified Time Tobacco Smoking Status Former Smoker [facility] 100 [facility] 100, [place], [address], [place] - [facility] 2024 09:11:27 When Did You Quit Smoking? 6-10yearssin celastcigare tte Information not available 2024 How Much Tobacco Do You Smoke? 1 PPW Information not available 2024 How Many Years Have You Smoked Tobacco? 10 Information not available 2024 Sex: Unknown Functional Status None recorded. Mental Status None recorded. Family History Nothing Reported. Medical History Condition Response Nasal or Sinus Problems Y Rhinitis N Food Allergy N Hearing Loss Y Tonsil Infections N High Cholesterol Y Liver Disease N Eczema Y Other Skin Condition N Nasal polyps N COPD Y Gynecological HistoryNo gynecological history recorded. Obstetrics History GPAL:G 0 P 0 0 0 0 Past Encounters Encounter ID Performer Location Encounter Start Date Encounter Closed Date Diagnosis/Indication Diagnosis SNOMED-CT Code Diagnosis ICD10 Code Diagnosis IMO Codes Diagnosis Note [id number] GEOVANNY SANDRA PA-C [facility] [address] [address] 04/02/2024 13:27:20 04/02/2024 14:37:49 Sensorineural hearing loss of bilateral ears 783190847 H90.3 Audiologic al evaluation results: Right ear: Normal through 4 kHz sloping to a mild sensorineu ral hearing loss with excellent word recognitio n. Left ear: Essentiall y normal through 4 kHz sloping to a mild sensorineu ral hearing loss with excellent word recognitio n. Tympanomet ry: Right Ear:Type A Left Ear:Type A Allergic rhinitis 003291 04 J30.89 [id number] [facility] Allergy [address] [place] [phone] 2024 08:52:24 2024 11:25:58 Allergic rhinitis 99057528 J30.89 [id number] [facility], [facility] Allergy [address] [place] [address] 05/13/2024 09:16:22 05/13/2024 10:02:12 Allergic rhinitis 34319274 J30.9 [id number] BRYANNA KERR PA-C [facility] [address] [address] 05/16/2024 10:37:14 05/16/2024 11:04:10 Allergic rhinitis 51508574 J30.9 [id number] ANTONINO MUNGUIA RN Allergy [address] [place] [address],[address] [place] [address] 06/09/2024 09:24:19 06/09/2024 09:42:21 Perennial allergic rhinitis [id number] J30.89 [id number] FANNY BRUNNER A Allergy [address] [place] [address],[address] [place] [address] 06/19/2024 09:20:29 06/19/2024 10:02:55 Perennial allergic rhinitis [id number] J30.89 [id number] ANTONINO MUNGUIA RN Allergy [address] [place] [address],[address] [place] [address] 06/27/2024 10:16:06 06/27/2024 10:49:02 Perennial allergic rhinitis [id number] J30.89 [id number] ANTONINO MUNGUIA RN Allergy [address] [place] [address] [address] [place] [address] 07/04/2024 09:49:01 07/04/2024 10:46:28 Perennial allergic rhinitis [id number] J30.89 [id number] FANNY BRUNNER A Allergy [address] [place] [address], [address] [place] [address] 07/11/2024 09:04:26 07/11/2024 10:14:19 Perennial allergic rhinitis [id number] J30.89 [id number] KATERINA [facility], A Allergy [address] [place] [address],[address] [place] [address] 07/18/2024 09:09:31 07/18/2024 09:20:36 Perennial allergic rhinitis [id number] J30.89 [id number] FANNY BRUNNER A Allergy [address] [place] [address],[address] [place] [address] 07/25/2024 08:51:36 07/25/2024 09:26:41 Perennial allergic rhinitis 373278761 J30.89 [id number] KATERINA BARAHONA, RMA Allergy [address] [place] [address],[address] [place] [address] 07/31/2024 09:04:33 07/31/2024 09:56:34 Perennial allergic rhinitis 856095810 J30.89 [id number] ANTONINO MUNGUIA RN Allergy [address] [place] [address],[address] [place] [address] 08/08/2024 10:26:45 08/08/2024 10:33:54 Perennial allergic rhinitis 240170345 J30.89 [id number] KATERINA BARAHONA, A Allergy 100 [facility],[address] [place] [address] 08/15/2024 09:18:05 08/15/2024 10:37:34 Perennial allergic rhinitis [id number] J30.89 [id number] KATERINA BROOKLYN, A Allergy 100 [facility],[address] [place] [address] 08/20/2024 13:57:39 08/20/2024 14:09:21 Perennial allergic rhinitis [id number] J30.89 [id number] ANTONINO MUNGUIA RN Allergy [address] [place] [address], [address] [place] [address] 08/27/2024 08:41:36 08/27/2024 10:01:40 Perennial allergic rhinitis [id number] J30.89 [id number] FANNY MYESHA, [facility] Allergy 100 [facility],[address] [place] [address] 09/12/2024 11:15:11 09/12/2024 12:00:40 Perennial allergic rhinitis [id number] J30.89 [id number] ANTONINO MUNGUIA RN Allergy [address] [place] [address], [address] [place] [address] 09/19/2024 09:19:49 09/19/2024 09:48:07 Perennial allergic rhinitis 749289401 J30.89 Health Concerns Section Related Observation LastModified by Organization Detai ls LastModified Time None Recorded Concern Status LastModified by Organization Details LastModified Time None Recorded Advance Directives Directive None Recorded Payers Insurance Date Sequence Insurance Name Policy Number Policy Michael Covered Member ID Michael Member ID Guarantor Name 09/19/2024 1 [facility] NET PLAN (MEDICAID HMO) MEHREEN Mims [id number] Alicia Mims OBGyn Episode No OBEpisode recorded.
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
--- OUTSIDE RECORDS SUMMARY | 2024-11-20 08:00 | XMS_ITS | Encounter Summary ---
Author Organization [facility] Address [address] [place] [address] Care Team Providers Care Jet Worker Name Role Phone Shaheen Fletcher MD Primary Care Provider [phone] Reason for Visit * Reason Onset Date Comments faxed order 10/31/2024 [facility] are order Encounter Details Date Type Department Care Team (Late st Contact Info) Description 10/31/2024 Telephone Adult Medicine [address] [phone] Shaheen Fletcher MD [address] [place] [address] Social History Tobacco Use Types Packs/Day Years [...] care for your loved ones. For example, early childhood associate or elderly care for an older adult? [...] Kim Rendon - 10/31/2024 10:09 AM EDT [facility] order received please sign and fax to [phone] documented in this encounter Plan of Treatment Upcoming Encounters Date Type Department Care Team (Late st Contact Info) Description 01/29/2025 8:30 AM EST Office Visit Orthopedic Surgery - [place] [address] [address] Sergey Ribera DPM 175 [facility] 250 [place] [phone] 02/02/2025 9:45 AM EST Office Visit Pulmonology - [place] 175 [facility] 200 [place] [phone] Fabiola Sanches, CARTON FORMING MACHINE TENDER 230 [place] [phone] 05/27/2025 9:45 AM EDT Office Visit Adult [facility] [address] [place] [address] Shaheen Fletcher MD [address] [place] [address] documented as of this encounter Goals Goal [...] FROM THE [facility] # 6 IMPROVE RIGHT COMMISSIONING AGENT FROM 23 TO AT LEAST 30 POUNDS documented as of this encounter Visit Diagnoses Not on filedocumented in this encounter Additional Health Concerns Assessment Noted Time PHQ-9 Depression Total Score: 6 05/16/19 25 11:57 AM EDT documented as of this encounter Care Teams Jet Worker Relationship Specialty Start Date End Date Shaheen Fletcher MD [address] [place] [address] PCP - General 09/28/08 documented as of this encounter
--- NOTE | 2024-11-20 08:13 | MHC.OFFVIS ---
Intake Visit Reasons: 1 week f/u Allergies ENVIRONMENTAL Allergy (Intermediate, Uncoded 11/11/24 13:36) SNEEZING,RUNNY EYES AND NOSE HPI Comments Details: 59-year-old woman with fibromyalgia, migraine, h/o significant stress, h/o alcohol abuse, MRI brain showing central pontine myelinosis and multiple white matter hypertintensities, asthma, anxiety and depression. She was evaluated for MS in 2015 when he woke potential responses were okay and CSF did not reveal oligoclonal bands. She returned to office in 05/2024 for headaches and spacing out and forgetting while driving. Her EEG was unremarkable. Migraines were still happening, but better with topiramate 50mg twice a day. She was admitted to [facility] in 09/2024. She was at home when she got a weird sensation, like a cold and numb sensation, across her chest, and started to gradually feel weak all over, spreading from chest down to feet over hours. She needed help getting up from bed, but could not stand at all and slid to floor. She was unsure if she had headache at this time. Her MRI of brain at [facility] during this admission revealed numerous white matter signal abnormalities without enhancement. Overall pattern was similar to seen in 2016. MRI of cervical cord revealed possible C4 level lesion without enhancement and thoracic spine did not reveal any obvious abnormality. 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 Surgical History Hx of section Family History Mother Diabetes Hypertension Alzheimer disease Heart disease Father Heart disease Social History Household Members: Family Housing: Apartment Are you a primary skin care therapist to a significant other at home: No Do you presently have visiting nurse or other home services: Yes ([employer] 1 hour a day) Alcohol intake: never Patient Tobacco Use Status: Former Tobacco user Tobacco use type: Cigarette Substance Use Type: Marijuana service: No Current occupational status: disabled Cognitive needs: No Hearing needs: No Vision needs: Yes Review of Systems Const Details: Difficulty walking and tiredness. Physical Exam Neuro Other: She is alert and awake with normal spontaneity of speech fluency comprehension and affect. Gait is mildly unsteady and spastic. Results Reviewed Results Reviewed: Her vitamin B12 level was to 25 folate more than 20, metabolic profile was normal. Random glucose was 150. Cbc was okay. Hemoglobin A1c was 6.1. Lyme test was negative. TSH was 13.47. Assessment & Plan Assessment & Plan (1) Migraine: Comment: Meds tried for headaches: Duloxetine, wellbutrin, lyrica, gabapentin Code(s): G43.909 - Migraine, unspecified, not intractable, without status migrainosus Category: Medical Qualifiers: Migraine type: unspecified Status migrainosus presence: without status migrainosus Intractability: not intractable Qualified Code(s): G43.909 - Migraine, unspecified, not intractable, without status migrainosus (2) Demyelinating disease of central nervous system: Comment: MRI T spine WWO at [facility] in Sep 2024: Limited but seems OK MRI C spine WWO at [facility] in Sep 2024: Possible C4 level cord sig abn w/o enhancement MRI brain WWO at [facility] in Sep 2024: Numerous WM lesions including in rosie w/o enhancement, probably demyelinating disease EEG at off in May 2024: WNL CSF analysis at [facility] in Apr 2015: WBCs 2, RBCs 0, glu 66, pro 23, IgG ind: normal, OCBs absent. Evoked potential screen at off in 2016: [place] MRI brain WO at in Mar and Apr: Central pontine large hyperintensity, multiple bilateral FP WM lesions, not trivial, not particularly associated with ventricles. MRI brain WO at in Nov 2016: no sig difference from 2016 NCV/EMG UE 12/26/17 Mild bilateral median neuropathy across the Carpal tunnel. There is remarkable improvement compared to the study in 2016. NCV/EMG UE 04/27/15 MILD TO MODERATE BILATERAL CARPAL TUNNEL SYNDROME IN THE UPPER EXTREMTIIES. Code(s): G37.9 - Demyelinating disease of central nervous system, unspecified Category: Medical (3) Hypothyroid: Code(s): E03.9 - Hypothyroidism, unspecified Category: Medical Qualifiers: Hypothyroidism type: unspecified Qualified Code(s): E03.9 - Hypothyroidism, unspecified (4) Multiple sclerosis exacerbation: Code(s): G35 - Multiple sclerosis Category: Medical Plan Impression: 1. Probably remitting relapsing multiple sclerosis 2. Migraine without aura 3. Hypothyroidism Recommendations: 1. Repeat TSH level and she is advised to see her primary care physician from its management 2. Lumbar puncture to check CSF oligoclonal bands 3. Solu-Medrol a g a day for 3 days 4. Continue topiramate for now, which according to her has helped a lot with the headaches. 5. Reassurance and education about present situation of diagnosis of likely multiple sclerosis. We would discuss further management after lumbar puncture results. Orders: Orders CSF Cell Count w Diff Today G35 - Multiple sclerosis CSF Glucose Today G35 - Multiple sclerosis CSF Total Protein Today G35 - Multiple sclerosis Thyroid Stimulating Hormone Today E03.9 - Hypothyroidism, unspecified FL guided lumbar puncture LP Today G35.D - Multiple sclerosis, unspecified CSF Culture + Gram stain Today G35 - Multiple sclerosis Immunofixation, CSF Today G37.9 - Demyelinating disease of central nervous system, unspecified Oligoclonal Banding Today G35 - Multiple sclerosis Referrals Infusion Center Notification G35 - Multiple sclerosis Medications: New methylprednisolone sodium succ 40 mg intravenously once a day for 3 days; MS Exacerbation G35 - Multiple sclerosis, G35.D - Multiple sclerosis, unspecified, G37.9 - Demyelinating disease of central nervous system, unspecified Coding Level of Care Code Est Pt Level 5 (68737) Diagnoses Migraine without status migrainosus, not intractable, unspecified migraine type G43.909 Migraine type: unspecified Status migrainosus presence: without status migrainosus Intractability: not intractable Demyelinating disease of central nervous system G37.9 Hypothyroidism, unspecified type E03.9 Hypothyroidism type: unspecified Multiple sclerosis exacerbation G35
== END 2024-11-20 08:57 | disposition home or self-care (01) ==
LOC: HO.HSM 07:58
PROVIDERS: PCP Internal Medicine; Visit Provider Psychiatry & Neurology Neurology
DX: G37.9 Demyelinating disease of central nervous system, unspecified (principal); G43.909 Migraine, unspecified, not intractable, without status migrainosus; E03.9 Hypothyroidism, unspecified; G35.A Relapsing-remitting multiple sclerosis
CPT/HCPCS: 99215

== ENCOUNTER 2024-12-05 09:19 | Day surgery (SDC) | payer OTHER, SELFPAY ==
--- OUTSIDE RECORDS SUMMARY | 2024-11-21 10:30 | XMS_ITS | Encounter Summary ---
Author Organization [facility] Address [address] [place] [address] Care Team Providers Care Environmental Sciences Professor Name Role Phone Shaheen Fletcher MD Primary Care Provider [phone] Reason for Visit * Reason Onset Date Comments Provider Call Back 12/29/2019 Encounter Details Date Type Department Care Team Description 12/29/2019 Telephone Internal Medicine - [place] [address] [facility], [address] [place], [place] [id number] Karson Maya MD [address] [facility] [address] [place] [address] Provider Call Back Social History [...] as of this encounter Care Teams Environmental Sciences Professor Relationship Specialty Start Date End Date Shaheen Fletcher MD [address] [place] [id number] PCP - General 09/28/08 documented as of this encounter
--- OUTSIDE RECORDS SUMMARY | 2024-11-21 10:30 | XMS_ITS | Encounter Summary ---
Author Organization [facility] Address [address] [place] [address] Care Team Providers Care Childcare Teacher Name Role Phone Shaheen Fletcher MD Primary Care Provider [phone] Reason for Visit * Reason Comments E-prescribe Rx Request Encounter Details Date Type Department Care Team Description 01/05/2019 Refill Pulmonology - [place] [address] [facility] [address] [place] [address] Karson Maya MD [address] [facility] [address] [place] [phone] E-prescribe Rx Request Social History Tobacco Use [...] documented as of this encounter Care Teams Childcare Teacher Relationship Specialty Start Date End Date Shaheen Fletcher MD [address] [place] [id number] PCP - General 09/28/08 documented as of this encounter
--- OUTSIDE RECORDS SUMMARY | 2024-11-21 10:30 | XMS_ITS | Encounter Summary ---
Author Organization [facility] Address [address] [place] [address] Care Team Providers Care Welding Machine Assembler Name Role Phone Shaheen Fletcher MD Primary Care Provider [phone] Encounter Details Date Type Department Care Team Description 06/07/2015 Clinical Assistant Report Medical Records [address] [place] [address] Abstract, Provider Social History Tobacco Use Types [...] documented as of this encounter Care Teams Welding Machine Assembler Relationship Specialty Start Date End Date Shaheen Fletcher MD [address] [place] [address] PCP - General 09/28/08 documented as of this encounter
--- OUTSIDE RECORDS SUMMARY | 2024-11-21 10:30 | XMS_ITS | Encounter Summary ---
Author Organization [facility] Address [address] [place] [address] Care Team Providers Care Conditioner Tumbler Operator Name Role Phone Shaheen Fletcher MD Primary Care Provider [phone] Encounter Details Date Type Department Care Team Description 12/13/2017 Java Application Developer Report Medical Records [address] [place] [address] Juan Bond MD Social History Tobacco Use [...] documented as of this encounter Care Teams Conditioner Tumbler Operator Relationship Specialty Start Date End Date Shaheen Fletcher MD [address] [place] [address] PCP - General 09/28/08 documented as of this encounter
--- OUTSIDE RECORDS SUMMARY | 2024-11-21 10:30 | XMS_ITS | Encounter Summary ---
Author Organization [facility] Address [address] [place] [address] Care Team Providers Care Courtesy Bus Driver Name Role Phone Shaheen Fletcher MD Primary Care Provider [phone] Encounter Details Date Type Department Care Team Description 10/21/2020 Hospital Medical Records [address] [place] [id number] Ovi Mascorro MD Social History Tobacco Use Types Packs/Day [...] documented as of this encounter Care Teams Courtesy Bus Driver Relationship Specialty Start Date End Date Shaheen Fletcher MD [address] [place] [address] PCP - General 09/28/08 documented as of this encounter
--- OUTSIDE RECORDS SUMMARY | 2024-11-21 10:30 | XMS_ITS | Encounter Summary ---
Author Organization [facility] Address [address] [place] [address] Care Team Providers Care Supervisor Ski Production Name Role Phone Shaheen Fletcher MD Primary Care Provider [phone] Reason for Visit * Reason Onset Date Comments Abnormal Mammogram 07/22/2015 Encounter Details Date Type Department Care Team Description 07/22/2015 Telephone Radiology - [address] [id number] Radiology, Authorizing Abnormal Mammogram Social History Tobacco Use Types Packs/Day Years [...] encounter Miscellaneous Notes * Telephone Encounter - Lori Joyce - 07/27/2015 1:09 PM EDT Pt booked f/u mammo on 07/30/15 bw * Telephone Encounter - Lori Joyce - 07/22/2015 2:18 PM EDT Mooney to call us to tristen her dx mammo 07/22/15 bw documented in this encounter Plan of Treatment Not on file documented as of this encounter Visit Diagnoses Not on filedocumented in this encounter Additional Health Concerns Infection Onset Date Last Indicated Resolved Time COVID-19 01/05/2022 01/05/2022 documented as of this encounter Care Teams Supervisor Ski Production Relationship Specialty Start Date End Date Shaheen Fletcher MD [address] [place] [address] PCP - General 09/28/08 documented as of this encounter
--- OUTSIDE RECORDS SUMMARY | 2024-11-21 10:30 | XMS_ITS | Encounter Summary ---
Author Organization [facility] Address [address] [place] [address] Care Team Providers Care Flux Tube Attendant Name Role Phone Shaheen Fletcher MD Primary Care Provider [phone] Reason for Visit * Reason Comments E-prescribe Rx Request Encounter Details Date Type Department Care Team Description 05/15/2021 Refill Pulmonology - [place] [address] [facility] [address] [place] [address] Joshua Mckinney MD [address] [place] [address] E-prescribe Rx Request Social History [...] encounter Miscellaneous Notes * Telephone Encounter - Fatmata Trenttruong - 05/16/2021 12:42 PM EDT Patient would like script to be: E-PRESCRIBED/FAXED TO PHARMACY WHEN WAS THE PATIENT'S LAST APPOINTMENT IN ADULT MEDICINE? 02/26/2021 WHEN WAS THE LAST TIME THE PATIENT SAW THEIR PCP? Same as above Does patient have an upcoming appointment? Yes 06/21/2021 (THE MEDICATION REQUESTED IS ON THE MED LIST ABOVE) All of medication ON med list Did you check the Pharmacy information above?: YES Patient wants: 30 -day supply Is this a mail order prescription request ? NO If the refill is from a FAXED refill request what is the RX # listed on the fax? N/A Patients current insurance carrier is: Payor: [employer] FFS / Plan: [employer] App / Product Type: MEDICAID RISK documented in this encounter Plan of Treatment Not on file documented as of this encounter Visit Diagnoses Diagnosis Moderate persistent asthma without complication Unspecified asthma Stage 2 moderate COPD by GOLD classification (HCC) documented in this encounter Additional Health Concerns Infection Onset Date Last Indicated Resolved Time COVID-19 01/05/2022 01/05/2022 documented as of this encounter Care Teams Flux Tube Attendant Relationship Specialty Start Date End Date Shaheen Fletcher MD [address] [place] [address] PCP - General 09/28/08 documented as of this encounter
--- OUTSIDE RECORDS SUMMARY | 2024-11-21 10:30 | XMS_ITS | Clinical Summary ---
Author Organization 175 [facility] Address [address] [place] [address] Phone Care Team Providers Care Parking Lot Attendant Name Role Phone Shaheen Fletcher MD Primary Care Provider [phone] Allergies Active Allergy Reactions Criticality Noted Date [...] onic obstructive pulmonary disease, unspecified COPD type (CMS/[facility] V24, CMS/[facility] V28) Take 3 [...] asthma, uncomplicated,Ch ronic obstructive pulmonary disease, unspecified (CMS/[facility] V24, CMS/[facility] V28) INHALE 2 PUFFS INTO THE [...] asthma, uncomplicated,Ch ronic obstructive pulmonary disease, unspecified ([facility] V24, [facility] V28) TAKE 1 TABLET BY MOUTH EVERY [...] Date COPD (chronic obstructive pu lmonary disease) ([facility] V24, [facility] V28) 10/08/2024 Right sided weakness 10/01/2024 Weakness [...] 1:30 PM EDT Office Visit Adult Medicine [address] [phone] Shaheen Fletcher MD Weakness (Primary Dx); Urinary retention 11/04/2024 Telephone Adult Medicine [address] [phone] Shaheen Fletcher MD 10/31/2024 Telephone Adult [address] [phone] Shaheen Fletcher MD 10/30/2024 9:45 AM EDT Office Visit Orthopedic Surgery - [place] [address] [phone] Sergey Ribera DPShanell Post-operative state (Primary Dx) 10/22/2024 Telephone Adult Medicine [address] [phone] Shaheen Fletcher MD 10/10/2024 Telephone Adult Medicine [address] [phone] Felicita Eugene MA 10/08/2024 10:48 AM EDT - 10/08/2024 3:49 PM EDT Emergency [facility] Emergency [address] [place] [phone] Mild intermittent asthma, unspecified whether complicated (Primary Dx); Urinary retention; Weakness; Central pontine myelinosis (CMS/HCC V24, CMS/HCC V28); Arthritis of both hands; Depressive disorder; Anxiety Discharge Disposition: Home or Self Care 10/08/2024 Telephone Adult Medicine [address] [phone] Shaheen Fletcher MD 09/30/2024 1:27 AM EDT - 10/03/2024 6:36 PM EDT Hospital Encounter [facility] Intermediate Care Unit [address] [place] [phone] Audie Redd MD Lyle, MD Samson Leyva Nermina, MD Rasul, Yar M, MD Right sided weakness (Primary Dx); Ambulatory dysfunction; Urinary retention Discharge Disposition: [facility]sp Facility 09/17/2024 Telephone Adult Medicine [address] [phone] Shaheen Fletcher MD 09/15/2024 11:00 AM EDT Evaluation [facility] Occupational Therapy [address] [place] [phone] Melissa Richardson OT Arthritis of carpometacarpal (CMC) joints of both thumbs; Bilateral carpal tunnel syndrome; Arthritis of both hands 09/15/2024 Plan of Care Documentation [facility] Occupational [address] [phone] 09/11/2024 10:30 AM EDT Office Visit Orthopedic Surgery [facility] [address] [phone] Sergey Ribera DPM Post-operative state (Primary Dx) 08/29/2024 7:31 AM EDT Anesthesia Event [facility] Main OR [address] [place] [phone] Indio Rene MD Johnson, Lorraine, CRNA 08/29/2024 7:30 AM EDT - 08/29/2024 9:00 AM EDT Surgery [facility] Main OR [address] [place] [phone] Sergey Ribera DPShanell IMPLANT TO DIGIT OR LESSER METATARSAL [73028 (CPT )] 08/29/2024 6:08 AM EDT - 08/29/2024 10:01 AM EDT Hospital Encounter [facility] Main OR [address] [place] [address] Sergey Ribera, DPM Hallux rigidus of right foot Discharge Disposition: Home or Self Care 08/25/2024 8:00 AM EDT Consult Orthopedic Surgery - [place] [address] [facility] [address] [place] [address] Sergey Ribera, DPM Hallux rigidus [...] llergies COPD (chronic obstructive pu lmonary disease) ([facility] V24, [facility] V28) Anxiety Depression Arthritis Carpal tunnel syndrome on both sides Central pontine myelinosis ([facility] V24, [facility] V28) Family History Medical History Relation Name Comments Breast cancer Aunt 1 mat great aunt 30s 45; mate rnal Stomach cancer Aunt 2 m aunt Thyroid disease Brother 1 Hyperlipidemia Brother 2 Heart attack Father 52 Heart attack Father's side multiple uncle s and aunts Diabetes Mother htn; [place] (not fa robert); Alzheimers Hypertension Mother Diabetes [...] for your loved ones. For example, child caregiver or elderly care for an older adult? [...] AM EST Office Visit Orthopedic Surgery - [place] 250 175 [facility] 250 [place] [phone] Sergey Ribera, DPM 175 [facility] 250 [place] [phone] 02/02/2025 9:45 AM EST Office Visit Pulmonology - [place] 175 [facility] 200 [place] [phone] Fabiola Sanches, MIXER DRIVER [address] [place] [phone] 05/27/2025 9:45 AM EDT Office Visit Adult Medicine [facility] [address] [place] [address] Shaheen Fletcher MD [address] [place] [address] Health Maintenance Due Date Last Done Comments [...] FROM THE DPC # 6 IMPROVE RIGHT JOB TRAINER FROM 23 TO AT LEAST 30 POUNDS Medical Devices Implanted Type Area Animal Control Supervisor Device Identifier Shelf Expiration Date Model / Serial / Lot Toe Flex Hinge W/Grommet Sz 2 Marily Reg Stem - Snone - [id number] Implanted:Qty: 1 on 03/21/2024 by Sergey Ribera DPM at [facility] Joints Left: First Toe [employer] [id number] 05/22/2031 [id number] / NONE / [id number] Toe Flex Hinge W/Grommet Sz 2 Marily Reg Stem - Sn/A - [id number] Implanted:Qty: 1 on 08/29/2024 by Sergey Ribera DPM at [facility] Joints Right: First Toe [employer] 03/27/2032 [id number] / N/A / [id number] Procedures Procedure Name Priority Date/Time Associated Diagnosis [...] AM EDT Hallux rigidus of right foot [place] HALLUX RIGIDUS CHARY W CHEILECTOMY DEBR & [...] Hold for add-ons. 10/03/2024 8:01 AM EDT [facility] Comment:Auto resulted. Blood Venous blood specimen / Unknown Venipuncture / Unknown 10/03/2024 6:32 AM EDT 10/03/2024 6:50 AM EDT us Chinedu Torres MD LAB BLOOD ORDERABLES Final Resul t [facility] [address] [place] [address], [place] [phone] * Basic metabolic panel (10/03/2024 6:32 AM EDT) Only the most recent of2 resultswithin the time period is included. Sodium 142 133 - 145 mmol/L LAB CHEMISTRY METHOD 10/03/2024 8:00 AM [facility] Potassium 3.6 3.5 - 5.5 mmol/L LAB CHEMISTRY METHOD 10/03/2024 8:00 AM [facility] Chloride 110 96 - 110 mmol/L LAB CHEMISTRY METHOD 10/03/2024 8:00 AM [facility] CO2 25 21 - 32 mmol/L LAB CHEMISTRY METHOD 10/03/2024 8:00 AM [facility] Anion Gap 7 3 - 11 LAB CHEMISTRY METHOD 10/03/2024 8:00 AM [facility] Glucose 98 70 - 100 mg/dL LAB CHEMISTRY METHOD 10/03/2024 8:00 AM [facility] BUN 13 5 - 25 mg/dL LAB CHEMISTRY METHOD 10/03/2024 8:00 AM [facility] Creatinine 0.75 0.50 - 1.10 mg/dL LAB CHEMISTRY METHOD 10/03/2024 8:00 AM [facility] eGFR 92 >=60 mL/min/1. 73m2 LAB CHEMISTRY METHOD 10/03/2024 8:00 AM [facility] Comment:Calculation based on the Chronic Kidney Disease Epidemiology Collaboration (CKD-EPI) equation refit without adjustment for race. BUN/Creatinine Ratio 17.3 LAB CHEMISTRY METHOD 10/03/2024 8:00 AM [facility] Calcium 8.5 8.5 - 10.5 mg/dL LAB CHEMISTRY METHOD 10/03/2024 8:00 AM [facility] Blood Venous blood specimen / Unknown Venipuncture / Unknown 10/03/2024 6:32 AM EDT 10/03/2024 6:49 AM EDT us Chinedu Torres MD LAB BLOOD ORDERABLES Final Resul t [facility] ([facility] [address] [place] [address], [place] [phone] * Visual evoked potential test (10/02/2024 3:03 PM EDT) Narrative Yoselin Bateman MD - 10/02/2024 4:37 PM EDT Table formatting from the original result was not included. Images from the original result were not included. [facility] [address] [place] [address] Visual Evoked Potential Report Date of service: [...] Potential Technical Description: Scalp electrodes placed using Yeelion System. Visual acuity measured at the time [...] normal latencies and amplitudes with no significant ugcu-ep-[id number] difference Impression: Normal bilateral visual evoked potentials [...] GEMUSE QTc 503 ms GEMUSE P Wave [place] 62 degrees GEMUSE R [place] 38 degrees GEMUSE T [place] 56 degrees GEMUSE ECG Interpretation Sinus rhythm with sinus arrhythmia with short [place] Otherwise normal ECG When compared with ECG of 30-SEP-2024 02:15, No significant change was found Confirmed by MELANIA HANEY ([id number]) on 10/02/2024 7:23:01 PM GEMUSE 10/01/2024 8:11 AM EDT 10/02/2024 7:23 PM EDT us Chinedu Torres MD ECG ORDERABLES Final Result Performing Organization Address City/[facility]/ZIP Co de Phone Number GEMUSE * (ABNORMAL) Vitamin B12 and folate (10/01/2024 5:57 AM EDT) Pathologist [facility] Vitamin B-12 225(L) 250 - 900 pcg/mL LAB CHEMISTRY METHOD 10/01/2024 7:53 AM EDT [facility] Folate >20.0(H) 2.8 - 17.0 ng/ml LAB CHEMISTRY METHOD 10/01/2024 7:53 AM EDT [facility] Blood Venous blood specimen / Unknown Venipuncture / Unknown 10/01/2024 5:57 AM EDT 10/01/2024 6:12 AM EDT Josefa YEPEZ LAB BLOOD ORDERABLES Final Resu lt Performing Organization Address City/[facility]/ZIP Co de Phone Number [facility] [address] [place] [address], [place] [phone] * (ABNORMAL) Lipid panel with reflex to direct LDL (10/01/2024 5:57 AM EDT) Cholesterol 253(H) 0 - 200 mg/dL LAB CHEMISTRY METHOD 10/01/2024 7:45 AM EDT [facility] Triglycerides 135 0 - 150 mg/dL LAB CHEMISTRY METHOD 10/01/2024 7:45 AM EDT [facility] HDL 72 >=40 mg/dL LAB CHEMISTRY METHOD 10/01/2024 7:45 AM EDT [facility] LDL Calculated 154(H) 0 - 100 mg/dL LAB CHEMISTRY METHOD 10/01/2024 7:45 AM EDT [facility] Comment:Estimated LDL Calcul ated using equation: Total cholesterol - HDL cholesterol - (Triglycerides/5) VLDL Cholesterol N[place] 27 mg/dL LAB CHEMISTRY METHOD 10/01/2024 7:45 AM EDT [facility] Non HDL Chol. (LDL+VLDL) 181(H) <145 mg/dL LAB CHEMISTRY METHOD 10/01/2024 7:45 AM EDT [facility] Chol/HDL Ratio 3.5 0.0 - 4.4 LAB CHEMISTRY METHOD 10/01/2024 7:45 AM EDT [facility] Blood Venous blood specimen / Unknown Venipuncture / Unknown 10/01/2024 5:57 AM EDT 10/01/2024 6:12 AM EDT us Josefa YEPEZ LAB BLOOD ORDERABLES Final Resu lt [facility] [address] [place] [address], * (ABNORMAL) CBC auto differential (10/01/2024 5:57 AM EDT) Only the most recent of2 resultswithin the time period is included. WBC 4.6(L) 4.8 - 10.8 K/mcL LAB HEMETOLOGY METHOD 10/01/2024 6:27 AM EDT [facility] RBC 3.80 3.80 - 4.80 M/mcL LAB HEMETOLOGY METHOD 10/01/2024 6:27 AM EDT [facility] Hemoglobin 11.9 11.5 - 16.0 g/dL LAB HEMETOLOGY METHOD 10/01/2024 6:27 AM [facility] Hematocrit 36.0 35.0 - 47.0 % LAB HEMETOLOGY METHOD 10/01/2024 6:27 AM [facility] MCV 94.2 79.0 - 98.0 FL LAB HEMETOLOGY METHOD 10/01/2024 6:27 AM [facility] MCH 31.2 27.0 - 32.0 pcg LAB HEMETOLOGY METHOD 10/01/2024 6:27 AM [facility] MCHC 33.1 32.0 - 37.0 g/dL LAB HEMETOLOGY METHOD 10/01/2024 6:27 AM [facility] RDW 14.6 11.0 - 15.0 % LAB HEMETOLOGY METHOD 10/01/2024 6:27 AM [facility] Platelets 229 130 - 400 K/mcL LAB HEMETOLOGY METHOD 10/01/2024 6:27 AM [facility] MPV 10.4 7.0 - 11.0 FL LAB HEMETOLOGY METHOD 10/01/2024 6:27 AM [facility] NRBC 0.0 <1.0 % LAB HEMETOLOGY METHOD 10/01/2024 6:27 AM [facility] NRBC Absolute 0.00 <0.10 K/mcL LAB HEMETOLOGY METHOD 10/01/2024 6:27 AM [facility] Neutrophils Relative 55.4 % LAB HEMETOLOGY METHOD 10/01/2024 6:27 AM [facility] Lymphocytes Relative 33.2 % LAB HEMETOLOGY METHOD 10/01/2024 6:27 AM [facility] Monocytes Relative 7.3 % LAB HEMETOLOGY METHOD 10/01/2024 6:27 AM [facility] Eosinophils Relative 3.3 % LAB HEMETOLOGY METHOD 10/01/2024 6:27 AM EDT [facility] Basophils Relative 0.4 % LAB HEMETOLOGY METHOD 10/01/2024 6:27 AM EDT [facility] Immature Granulocytes Relative 0.4 % LAB HEMETOLOGY METHOD 10/01/2024 6:27 AM EDT [facility] Neutrophils Absolute 2.52 1.50 - 7.00 K/mcL LAB HEMETOLOGY METHOD 10/01/2024 6:27 AM EDT [facility] Lymphocytes Absolute 1.51 1.00 - 5.00 K/mcL LAB HEMETOLOGY METHOD 10/01/2024 6:27 AM EDT [facility] Monocytes Absolute 0.33 0.20 - 1.00 K/mcL LAB HEMETOLOGY METHOD 10/01/2024 6:27 AM EDT [facility] Eosinophils Absolute 0.15 0.00 - 0.50 K/mcL LAB HEMETOLOGY METHOD 10/01/2024 6:27 AM EDT [facility] Basophils Absolute 0.02 0.00 - 0.20 K/mcL LAB HEMETOLOGY METHOD 10/01/2024 6:27 AM EDT [facility] Immature Granulocytes Absolute 0.02 0.00 - 0.03 K/mcL LAB HEMETOLOGY METHOD 10/01/2024 6:27 AM EDT [facility] Blood Venous blood specimen / Unknown Venipuncture / Unknown 10/01/2024 5:57 AM EDT 10/01/2024 6:12 AM EDT us Josefa YEPEZ LAB BLOOD ORDERABLES Final Resu lt [facility] [address] [place] [address], * Hemoglobin A1c (10/01/2024 5:57 AM EDT) [facility] Hemoglobin A1C 6.1 <6.5 % LAB CHEMISTRY METHOD 10/01/2024 12:10 PM EDT [facility] Mean Bld Glu Estim. 128 mg/dL LAB CHEMISTRY METHOD 10/01/2024 12:10 PM [facility] Blood Venous blood specimen / Unknown Venipuncture / Unknown 10/01/2024 5:57 AM EDT 10/01/2024 6:12 AM EDT us Josefa EYPEZ LAB BLOOD ORDERABLES Final Resu lt [facility] [address] [place] [address], [place] [phone] * (ABNORMAL) Comprehensive metabolic panel (10/01/2024 5:57 AM EDT) Only the most recent of2 resultswithin the time period is included. [facility] Sodium 141 133 - 145 mmol/L LAB CHEMISTRY METHOD 10/01/2024 7:47 AM [facility] Potassium 3.6 3.5 - 5.5 mmol/L LAB CHEMISTRY METHOD 10/01/2024 7:47 AM [facility] Chloride 113(H) 96 - 110 mmol/L LAB CHEMISTRY METHOD 10/01/2024 7:47 AM [facility] CO2 25 21 - 32 mmol/L LAB CHEMISTRY METHOD 10/01/2024 7:47 AM [facility] Anion Gap 3 3 - 11 LAB CHEMISTRY METHOD 10/01/2024 7:47 AM [facility] Glucose 113(H) 70 - 100 mg/dL LAB CHEMISTRY METHOD 10/01/2024 7:47 AM [facility] BUN 7 5 - 25 mg/dL LAB CHEMISTRY METHOD 10/01/2024 7:47 AM [facility] Creatinine 0.74 0.50 - 1.10 mg/dL LAB CHEMISTRY METHOD 10/01/2024 7:47 AM [facility] eGFR 94 >=60 mL/min/1. 73m2 LAB CHEMISTRY METHOD 10/01/2024 7:47 AM [facility] Comment:Calculation based on the Chronic Kidney Disease Epidemiology Collaboration (CKD-EPI) equation refit without adjustment for race. BUN/Creatinine Ratio 9.5 LAB CHEMISTRY METHOD 10/01/2024 7:47 AM [facility] Calcium 8.8 8.5 - 10.5 mg/dL LAB CHEMISTRY METHOD 10/01/2024 7:47 AM [facility] AST (SGOT) 25 10 - 42 unit/L LAB CHEMISTRY METHOD 10/01/2024 7:47 AM [facility] ALT (SGPT) 28 10 - 60 unit/L LAB CHEMISTRY METHOD 10/01/2024 7:47 AM [facility] Alkaline Phosphatase 69 42 - 121 unit/L LAB CHEMISTRY METHOD 10/01/2024 7:47 AM [facility] Total Protein 6.4 6.0 - 8.0 g/dL LAB CHEMISTRY METHOD 10/01/2024 7:47 AM [facility] Albumin 3.4 3.2 - 5.0 g/dL LAB CHEMISTRY METHOD 10/01/2024 7:47 AM [facility] Total Bilirubin 0.4 0.0 - 1.4 mg/dL LAB CHEMISTRY METHOD 10/01/2024 7:47 AM [facility] Comment:Results verified by repeat testing Blood Venous blood specimen / Unknown Venipuncture / Unknown 10/01/2024 5:57 AM EDT 10/01/2024 6:12 AM EDT us Josefa YEPEZ LAB BLOOD ORDERABLES Final Resu lt [facility] [address] [place] [address], * ECG-Annotated (10/01/2024) us Provider Onbase MD [...] Limon MD on 09/30/2024 19:10:[address] [facility] MRI PROCEDURES Final Result * MR Cervical [...] Limon MD on 09/30/2024 19:08:[address] [facility] MRI PROCEDURES Final Result * XR Pelvis [...] Signed Date: 09/30/2024 08:13 ET Workstation ID: [id number] Transcribed By: Self Edit Transcribed Date: 09/30/2024 [...] Signed Date: 09/30/2024 08:13 ET Workstation ID: [id number] Transcribed By: Self Edit Transcribed Date: 09/30/2024 [...] reflex microscopic (09/30/2024 6:04 AM EDT) Specific [place] Urine 1.008 1.003 - 1.030 LAB URINALYSIS - AUTOMATED METHOD 09/30/2024 6:50 AM [facility] pH, Urine 7.0 5.0 - 8.0 pH LAB URINALYSIS - AUTOMATED METHOD 09/30/2024 6:50 AM [facility] Leukocytes, Urine Negative Negative LAB URINALYSIS - AUTOMATED METHOD 09/30/2024 6:50 AM [facility] Nitrite, Urine Negative Negative LAB URINALYSIS - AUTOMATED METHOD 09/30/2024 6:50 AM [facility] Protein, Urine Negative <=Trace mg/dL LAB URINALYSIS - AUTOMATED METHOD 09/30/2024 6:50 AM [facility] Glucose, Urine Negative Negative mg/dL LAB URINALYSIS - AUTOMATED METHOD 09/30/2024 6:50 AM [facility] Ketones, Urine Negative Negative mg/dL LAB URINALYSIS - AUTOMATED METHOD 09/30/2024 6:50 AM [facility] Urobilinogen, Urine 0.2 0.2 - 1.0 mg/dL LAB URINALYSIS - AUTOMATED METHOD 09/30/2024 6:50 AM [facility] Bilirubin, Urine Negative Negative LAB URINALYSIS - AUTOMATED METHOD 09/30/2024 6:50 AM [facility] Blood, Urine Negative Negative LAB URINALYSIS - AUTOMATED METHOD 09/30/2024 6:50 AM [facility] Urine Urine specimen obtained by clean catch procedure / Unknown Non-blood Collection / Unknown 09/30/2024 6:04 AM EDT 09/30/2024 6:43 AM EDT Audie Redd MD LAB URINE ORDERABLES Final R esult [facility] [address] [place] [address], * (ABNORMAL) Drug abuse screen 8a panel, urine (09/30/2024 6:04 AM EDT) [facility] Amphetamine Screen, Ur Positive(A ) Negative LAB CHEMISTRY METHOD 5 7:06 AM EDT [facility] Comment:Certain OTC medicati ons containing ephedrine, phenylephrine, pseudoephedrine and phenylpropanolamine can cause false positive results. Barbiturate Screen, Ur Negative Negative LAB CHEMISTRY METHOD 5 7:06 AM [facility] Benzodiazepine Screen, Ur Negative Negative LAB CHEMISTRY METHOD 5 7:06 AM [facility] Cocaine Screen, Ur Negative Negative LAB CHEMISTRY METHOD 5 7:06 AM [facility] Opiate Screen, Ur Negative Negative LAB CHEMISTRY METHOD 5 7:06 AM [facility] Cannabinoid (THC) Screen, Ur Positive(A ) Negative LAB CHEMISTRY METHOD 5 7:06 AM [facility] Comment:Specimens from patie nts taking pantoprazole sodium (Protonix) have been shown to produce false positive results. Oxycodone Screen, Ur Negative Negative LAB CHEMISTRY METHOD 5 7:06 AM T [facility] Fentanyl, Ur Negative Negative LAB CHEMISTRY METHOD 5 7:06 AM [facility] Urine Urine specimen obtained by clean catch procedure / Unknown Non-blood Collection / Unknown 09/30/2024 6:04 AM EDT 09/30/2024 6:43 AM EDT Narrative [facility] - 09/30/2024 7:06 AM EDT [...] MD LAB URINE ORDERABLES Final R esult [facility] ([facility] [address] [place] [address], [place] [phone] * XR Chest 1 View (09/30/2024 2:53 [...] Signed Date: 09/30/2024 09:03 ET Workstation ID: [id number] Transcribed By: Self Edit Transcribed Date: 09/30/2024 [...] Signed Date: 09/30/2024 09:03 ET Workstation ID: [id number] Transcribed By: Self Edit Transcribed Date: 09/30/2024 [...] I High Sensitivity (09/30/2024 2:05 AM EDT) [facility] High Sensitivity Troponin I 3 <=54 ng/L LAB CHEMISTRY METHOD 09/30/2024 2:42 AM EDT [facility] Blood Venous blood specimen / Unknown Venipuncture / Unknown 09/30/2024 2:05 AM EDT 09/30/2024 2:19 AM EDT Narrative [facility] - 09/30/2024 2:42 AM EDT High levels of biotin in samples may falsely decrease hsTroponin values. Use caution when interpreting hsTroponin results in patients taking biotin who exhibit renal impairment (eGFR <60) or in patients taking more than 20 mg/day of biotin. Audie Redd MD LAB BLOOD ORDERABLES Final R esult [facility] [address] [place] [address], * Borrelia burgdorferi antibody (09/30/2024 2:05 AM EDT) [facility] Lyme Ab Negative Negative LAB CHEMISTRY METHOD 10/01/2024 9:14 AM EDT [facility] Comment: No laboratory evidence of [...] ORDERABLES Final Resu lt Performing Organization Address City/[facility]/ZIP Co de Phone Number [facility] [address] [place] [address], [place] [phone] * APTT (09/30/2024 2:05 AM EDT) [facility] aPTT 25.2 24.1 - 39.3 sec LAB COAGULATION METHOD 09/30/2024 2:31 AM EDT [facility] Blood Venous blood specimen / Unknown Venipuncture / Unknown 09/30/2024 2:05 AM EDT 09/30/2024 2:20 AM EDT Audie Redd MD LAB BLOOD ORDERABLES Final R esult Performing Organization Address [facility]/ZIP Co de Phone Number [facility] [address] [place] [address], [place] [phone] * (ABNORMAL) Protime-INR (09/30/2024 2:05 AM EDT) [facility] Protime 10.3(L) 10.6 - 13.9 sec LAB COAGULATION METHOD 09/30/2024 2:31 AM EDT [facility] INR 0.8 LAB COAGULATION METHOD 09/30/2024 2:31 AM EDT [facility] Blood Venous blood specimen / Unknown Venipuncture / Unknown 09/30/2024 2:05 AM EDT 09/30/2024 2:20 AM EDT Audie Redd MD LAB BLOOD ORDERABLES Final R esult Performing Organization Address City/[facility]/ZIP Co de Phone Number [facility] [address] [place] [address], [place] [phone] * Triiodothyronine free (09/30/2024 2:05 AM EDT) T3, Free 296 230 - 420 pcg/dL LAB CHEMISTRY METHOD 09/30/2024 4:48 AM EDT [facility] Blood Venous blood specimen / Unknown Venipuncture / Unknown 09/30/2024 2:05 AM EDT 09/30/2024 2:19 AM EDT Audie Redd MD LAB BLOOD ORDERABLES Final R esult Performing Organization Address [facility] Co de Phone Number [facility] [address] [place] [address], [place] [phone] * (ABNORMAL) Thyroid Stimulating Hormone (TSH) (09/30/2024 2:05 AM EDT) TSH 13.47(H) 0.40 - 4.00 mcIU/mL LAB CHEMISTRY METHOD 09/30/2024 4:11 AM EDT [facility] Blood Venous blood specimen / Unknown Venipuncture / Unknown 09/30/2024 2:05 AM EDT 09/30/2024 2:19 AM EDT Audie Redd MD LAB BLOOD ORDERABLES Final R esult Performing Organization Address [facility] Co de Phone Number [facility] [address] [place] [address], [place] [phone] * T4, free (09/30/2024 2:05 AM EDT) Free T4 0.84 0.70 - 1.80 ng/dL LAB CHEMISTRY METHOD 09/30/2024 4:48 AM EDT [facility] Blood Venous blood specimen / Unknown Venipuncture / Unknown 09/30/2024 2:05 AM EDT 09/30/2024 2:19 AM EDT us Audie Redd MD LAB BLOOD ORDERABLES Final R esult Performing Organization Address City/[facility] Co de Phone Number [facility] [address] [place] [address], * Magnesium (09/30/2024 2:05 AM EDT) Pathologist [facility] Magnesium 2.1 1.9 - 2.6 mg/dL LAB CHEMISTRY METHOD 09/30/2024 2:42 AM EDT [facility] Blood Venous blood specimen / Unknown Venipuncture / Unknown 09/30/2024 2:05 AM EDT 09/30/2024 2:19 AM EDT Audie Redd MD LAB BLOOD ORDERABLES Final R esult Performing Organization Address [facility] Co de Phone Number [facility] [address] [place] [address], * Creatine kinase (09/30/2024 2:05 AM EDT) [facility] Total CK 214 22 - 269 unit/L LAB CHEMISTRY METHOD 09/30/2024 2:42 AM EDT [facility] Blood Venous blood specimen / Unknown Venipuncture / Unknown 09/30/2024 2:05 AM EDT 09/30/2024 2:19 AM EDT Audie Redd MD LAB BLOOD ORDERABLES Final R esult Performing Organization Address City/[facility]/ZIP Co de Phone Number [facility] [address] [place] [address], [place] [phone] * Ethanol (09/30/2024 2:05 AM EDT) Pathologist [facility] Department Ethanol Level <3 0 - 10 mg/dL LAB CHEMISTRY METHOD 09/30/2024 4:14 AM EDT [facility] Blood Venous blood specimen / Unknown Venipuncture / Unknown 09/30/2024 2:05 AM EDT 09/30/2024 2:19 AM EDT Audie Redd MD LAB BLOOD ORDERABLES Final R esult Performing Organization Address City/[facility]/ZIP Co de Phone Number [facility] [address] [place] [address], [place] [phone] * (ABNORMAL) Acetaminophen level (09/30/2024 2:05 AM EDT) Acetaminophen Level <2.0(L) 10.0 - 30.0 mcg/mL LAB CHEMISTRY METHOD 09/30/2024 4:27 AM EDT [facility] Blood Venous blood specimen / Unknown Venipuncture / Unknown 09/30/2024 2:05 AM EDT 09/30/2024 2:19 AM EDT Audie Redd MD LAB BLOOD ORDERABLES Final R esult Performing Organization Address [facility] Co de Phone Number [facility] [address] [place] [address], [place] [phone] * Salicylate Level (09/30/2024 2:05 AM EDT) Salicylate Level 4.8 2.0 - 29.0 mg/dL LAB CHEMISTRY METHOD 09/30/2024 3:17 AM EDT [facility] Blood Venous blood specimen / Unknown Venipuncture / Unknown 09/30/2024 2:05 AM EDT 09/30/2024 2:19 AM EDT Audie Redd MD LAB BLOOD ORDERABLES Final R esult Performing Organization Address City/[facility]/ZIP Co de Phone Number [facility] [address] [place] [address], [place] [phone] * Tissue exam (08/29/2024 7:57 AM EDT) Final Diagnosis Bone, Foot, Right, first ray: -DEGENERATIVE OSTEOARTHROPATHY, CONSISTENT WITH HALLUX RIGIDUS / EXOSTOSIS 09/02/2024 9:29 AM EDT [facility] Gross Description A. Foot, Right, first ray: Labeled foot R, right fir . Received in formalin are two irregular pink-yellow articular bone fragments, measuring 1.8 x 1.3 x 0.5 cm and 2.9 x 2.4 x 1 cm. The cartilage covered articular surfaces display pitting and eburnation. There is minimal attached soft tissue. A field representative/health education section of each is submitted in one cassette following decalcification, two pieces. Tag band 09/02/2024 9:29 AM EDT [facility] Disclaimer Unless otherwise specified, all tissue is 10% NB formalin fixed and paraffin embedded. 09/02/2024 9:29 AM T [facility] Bone Structure of right foot / Unknown 08/29/2024 7:57 AM EDT 08/29/2024 10:13 AM EDT Sergey Ribera DPM LAB PATHOLOGY ORDERABLES Final Result [facility] [address] [place] [address], * Cervical Cancer Screening: HPV (03/07/2022) Pathologist [facility] Cervical Cancer Screening: HPV Abstracted ,negative Historical Provider HEALTH MAINTENANCE Final Result * Colonoscopy (11/08/2021) [facility] Colonoscopy No interpreta tion,abstr acted Anatomical Region [...] Most Recently Relevant to Health Maintenance Insurance [facility] PL[facility] Advance Directives Documents on File Type Date Recorded Patient Payroll Accounting Manager Expl anation Advance Directives and Living Will [...] Agents on File Name Relationship Healthcare Agent [facility] p Communication Thaniachele Rosales Daughter Health Care Agent Chris Hamm Relative First Alternat e Health Care Agent Care Teams Parking Lot Attendant Relationship Specialty Start Date End Date Shaheen Fletcher MD [address] [place] [phone] PCP - General 09/28/08
--- OUTSIDE RECORDS SUMMARY | 2024-11-21 10:30 | XMS_ITS | Encounter Summary ---
Author Organization [facility] Address [address] [place] [address] Care Team Providers Care Senior Auditor Name Role Phone Shaheen Fletcher MD Primary Care Provider [phone] Encounter Details Date Type Department Care Team Description 08/30/2018 [facility] Medical Records [address] [place] [address] Abstract, Provider Social History Tobacco Use Types [...] as of this encounter Care Teams Senior Auditor Relationship Specialty Start Date End Date Shaheen Fletcher MD [address] [place] [address] PCP - General 09/28/08 documented as of this encounter
--- OUTSIDE RECORDS SUMMARY | 2024-11-21 10:30 | XMS_ITS | Encounter Summary ---
Author Organization [facility] Address [address] [place] [address] Care Team Providers Care Automation Clerk Name Role Phone Shaheen Fletcher MD Primary Care Provider [phone] Encounter Details Date Type Department Care Team Description 04/25/2018 [facility] Medical Records [address] [place] [id number] Abstract, Provider Social History Tobacco Use Types [...] documented as of this encounter Care Teams Automation Clerk Relationship Specialty Start Date End Date Shaheen Fletcher MD [address] [place] [address] PCP - General 09/28/08 documented as of this encounter
--- OUTSIDE RECORDS SUMMARY | 2024-11-21 10:30 | XMS_ITS | Encounter Summary ---
Author Organization [facility] Address [address] [place] [address] Care Team Providers Care Lime Sludge Mixer Name Role Phone Shaheen Fletcher MD Primary Care Provider [phone] Reason for Visit * Reason Onset Date Comments refill request 09/20/2020 Encounter Details Date Type Department Care Team Description 09/20/2020 Refill Pulmonology - [place] [address] [facility] [address] [place] [address] Karson Maya MD [address] [facility] [address] [place] [address] refill request Social History Tobacco [...] NO Patients current insurance carrier is: Payor: [employer] FFS / Plan: [employer] / Product Type: MEDICAID RISK documented in this encounter Plan of Treatment Not on file documented as of this encounter Visit Diagnoses Diagnosis Moderate persistent asthma without complication Unspecified asthma documented in this encounter Additional Health Concerns Infection Onset Date Last Indicated Resolved Time COVID-19 01/05/2022 01/05/2022 documented as of this encounter Care Teams Lime Sludge Mixer Relationship Specialty Start Date End Date Shaheen Fletcher MD [address] [place] [address] PCP - General 09/28/08 documented as of this encounter
--- OUTSIDE RECORDS SUMMARY | 2024-11-21 10:30 | XMS_ITS | Encounter Summary ---
Author Organization [facility] Address [address] [place] [address] Care Team Providers Care Physician [facility] Name Role Phone Shaheen Fletcher MD Primary Care Provider [phone] Reason for Visit * Reason Onset Date Comments refill request 06/03/2019 Encounter Details Date Type Department Care Team Description 06/03/2019 Refill Pulmonology - [place] [address] [facility] [address] [place] [address] Karson Maya MD [address] [facility] [address] [place] [address] refill request Social History Tobacco [...] N/A Patients current insurance carrier is: Payor: [employer] FFS / Plan: [employer] / Product Type: MEDICAID RISK documented [...] documented as of this encounter Care Teams Physician [facility] Relationship Specialty Start Date End Date Shaheen Fletcher MD [address] [place] [address] PCP - General 09/28/08 documented as of this encounter
--- OUTSIDE RECORDS SUMMARY | 2024-11-21 10:30 | XMS_ITS | Encounter Summary ---
Author Organization [facility] Address [address] [place] [address] Care Team Providers Care Analyst Name Role Phone Shaheen Fletcher MD Primary Care Provider [phone] Encounter Details Date Type Department Care Team Description 10/26/2020 Orders Only Pulmonology - [place] [address] [facility] [address] [place] [address] Fabiola Sanches APRN 175 [facility] [address] [place] [phone] Stage 2 moderate COPD by GOLD classification ([facility]) (Primary Dx); Moderate persistent asthma without complication [...] documented as of this encounter Care Teams Analyst Relationship Specialty Start Date End Date Shaheen Fletcher MD [address] [place] [address] PCP - General 09/28/08 documented as of this encounter
--- OUTSIDE RECORDS SUMMARY | 2024-11-21 10:30 | XMS_ITS | Encounter Summary ---
Author Organization [facility] Address [address] [place] [address] Care Team Providers Care Sales Systems Engineer Name Role Phone Shaheen Fletcher MD Primary Care Provider [phone] Reason for Visit * Reason Onset Date Comments Medication 10/25/2021 Encounter Details Date Type Department Care Team Description 10/25/2021 Refill Gastroenterology - [address] [place] [address] Vasile Humphrey MD [address] [place] [address] Medication Social History Tobacco Use Types [...] as of this encounter Care Teams Sales Systems Engineer Relationship Specialty Start Date End Date Shaheen Fletcher MD [address] [place] [address] PCP - General 09/28/08 documented as of this encounter
--- OUTSIDE RECORDS SUMMARY | 2024-11-21 10:30 | XMS_ITS | Encounter Summary ---
Author Organization [facility] Address [address] [place] [address] Care Team Providers Care Clinical Assoc Name Role Phone Shaheen Fletcher MD Primary Care Provider [phone] Reason for Visit * Reason Onset Date Comments refill request 09/01/2019 Encounter Details Date Type Department Care Team Description 09/01/2019 Refill Internal Medicine - [place] [address] [facility] [address] [place], [place] [phone] Karson Maya MD [address] [facility] [address] [place] [phone] refill request Social History Tobacco Use Types [...] NO Patients current insurance carrier is: Payor: [employer] FFS / Plan: [employer] / Product Type: MEDICAID RISK documented in this encounter Plan of Treatment Not on file documented as of this encounter Visit Diagnoses Not on filedocumented in this encounter Additional Health Concerns Infection Onset Date Last Indicated Resolved Time COVID-19 01/05/2022 01/05/2022 documented as of this encounter Care Teams Clinical Assoc Relationship Specialty Start Date End Date Shaheen Fletcher MD [address] [place] [address] PCP - General 09/28/08 documented as of this encounter
--- OUTSIDE RECORDS SUMMARY | 2024-11-21 10:30 | XMS_ITS | Encounter Summary ---
Author Organization [facility] Address [address] [place] [address] Care Team Providers Care Ironworker Apprentice Shop Name Role Phone Shaheen Fletcher MD Primary Care Provider [phone] Encounter Details Date Type Department Care Team Description 09/17/2019 [facility] Medical Records [address] [place] [address] Abstract, Provider Social History Tobacco Use Types [...] documented as of this encounter Care Teams Ironworker Apprentice Shop Relationship Specialty Start Date End Date Shaheen Fletcher MD [address] [place] [address] PCP - General 09/28/08 documented as of this encounter
--- OUTSIDE RECORDS SUMMARY | 2024-11-21 10:30 | XMS_ITS | Encounter Summary ---
Author Organization [facility] Address [address] [place] [address] Care Team Providers Care Print Production Associate Name Role Phone Shaheen Fletcher MD Primary Care Provider [phone] Reason for Visit * Reason Comments E-prescribe Rx Request Encounter Details Date Type Department Care Team Description 04/19/2017 Refill Adult Medicine [address] [phone] Jaci Garcia PA E-prescribe Rx Request Social [...] NO Patients current insurance carrier is: Payor: [employer] FFS / Plan: [facility] / Product Type: MEDICAID RISK documented in this encounter Plan of Treatment Not on file documented as of this encounter Visit Diagnoses Not on filedocumented in this encounter Additional Health Concerns Infection Onset Date Last Indicated Resolved Time COVID-19 01/05/2022 01/05/2022 documented as of this encounter Care Teams Print Production Associate Relationship Specialty Start Date End Date Shaheen Fletcher MD [address] [place] [address] PCP - General 09/28/08 documented as of this encounter
--- OUTSIDE RECORDS SUMMARY | 2024-11-21 10:30 | XMS_ITS | Encounter Summary ---
Author Organization [facility] Address [address] [place] [address] Care Team Providers Care Bakery Technician Name Role Phone Shaheen Fletcher MD Primary Care Provider [phone] Reason for Visit * Reason Onset Date Comments Form 10/10/2021 [facility] Encounter Details Date Type Department Care Team Description 10/10/2021 Telephone Adult Medicine [facility] [address] [place] [address] [phone] Shaheen Fletcher MD [address] [place] [address] [phone] Form ([facility]) Social History Tobacco Use Types Packs/Day Years [...] this online can the patient contact the [employer] so that we can geta paper form * Telephone Encounter - Otis Del Toro - 10/12/2021 9:20 AM EDT Patient returning call can be reached best at [phone] * Telephone Encounter - David Junior M.A. - 10/11/2021 4:05 PM EDT Unable to complete form online - call to number below - left message to contact office- Ext [phone] * Telephone Encounter - David Junior M.A. - 10/11/2021 12:50 PM EDT The patient has applied to their [employer] company for protection against the termination of [...] Name on account?: patient Address of account? [address] [place] [address] Account number? [id number] Patient requesting the form be: Completed on [...] documented as of this encounter Care Teams Bakery Technician Relationship Specialty Start Date End Date Shaheen Fletcher MD [address] [place] [address] PCP - General 09/28/08 documented as of this encounter
--- OUTSIDE RECORDS SUMMARY | 2024-11-21 10:30 | XMS_ITS | Encounter Summary ---
Author Organization [facility] Address [address] [place] [address] Care Team Providers Care Maintenance Supervisor Electrical Name Role Phone Shaheen Fletcher MD Primary Care Provider [phone] Reason for Visit * Reason Comments E-prescribe Rx Request Encounter Details Date Type Department Care Team Description 08/17/2021 Refill Pulmonology - [place] 175 [facility] [address] [place] [address] Joshua Mckinney MD [address] [place] [address] E-prescribe Rx Request Social History [...] N/A Patients current insurance carrier is: Payor: [employer] FFS / Plan: [employer] / Product Type: MEDICAID RISK documented in this encounter Plan of Treatment Not on file documented as of this encounter Visit Diagnoses Diagnosis Moderate persistent asthma without complication Unspecified asthma Stage 2 moderate COPD by GOLD classification (HCC) documented in this encounter Additional Health Concerns Infection Onset Date Last Indicated Resolved Time COVID-19 01/05/2022 01/05/2022 documented as of this encounter Care Teams Maintenance Supervisor Electrical Relationship Specialty Start Date End Date Shaheen Fletcher MD [address] [place] [address] PCP - General 09/28/08 documented as of this encounter
--- OUTSIDE RECORDS SUMMARY | 2024-11-21 10:30 | XMS_ITS | Encounter Summary ---
Author Organization [facility] Address [address] [place] [address] Care Team Providers Care Refueling Ramp Attendant Name Role Phone Shaheen Fletcher MD Primary Care Provider [phone] Encounter Details Date Type Department Care Team Description 11/01/2015 [facility] Medical Records [address] [place] [address] Abstract, Provider Social History Tobacco Use Types [...] documented as of this encounter Care Teams Refueling Ramp Attendant Relationship Specialty Start Date End Date Shaheen Fletcher MD [address] [place] [address] PCP - General 09/28/08 documented as of this encounter
--- OUTSIDE RECORDS SUMMARY | 2024-11-21 10:30 | XMS_ITS | Encounter Summary ---
Author Organization [facility] Address [address] [place] [address] Care Team Providers Care Wet Char Conveyor Tender Name Role Phone Shaheen Fletcher MD Primary Care Provider [phone] Encounter Details Date Type Department Care Team Description 01/18/2023 Tennis Desk Team Member Report Medical Records [address] [place] [address] Mauricio Juan MD Social History Tobacco Use [...] documented as of this encounter Care Teams Wet Char Conveyor Tender Relationship Specialty Start Date End Date Shaheen Fletcher MD [address] [place], [place] [phone] PCP - General 09/28/08 documented as of this encounter
--- OUTSIDE RECORDS SUMMARY | 2024-11-21 10:30 | XMS_ITS | Encounter Summary ---
Author Organization [facility] Address [address] [place] [address] Care Team Providers Care Customer Field Representative Name Role Phone Shaheen Fletcher MD Primary Care Provider Reason for Visit * Reason Comments E-prescribe Rx Request Encounter Details Date Type Department Care Team Description 10/14/2021 Refill Pulmonology - [place] 175 [facility] 200 [place] [phone] Fabiola Sanches APRN 175 [facility] 200 [place] [phone] E-prescribe Rx Request Social History Tobacco Use [...] documented as of this encounter Care Teams Customer Field Representative Relationship Specialty Start Date End Date Shaheen Fletcher MD [address] [place] [address] [phone] PCP - General 09/28/08 documented as of this encounter
--- OUTSIDE RECORDS SUMMARY | 2024-11-21 10:30 | XMS_ITS | Encounter Summary ---
Author Organization [facility] Address [address] [place] [address] Care Team Providers Care Breeding Manager Name Role Phone Shaheen Fletcher MD Primary Care Provider [phone] Encounter Details Date Type Department Care Team Description 04/14/2015 Nuclear Medicine Physician Report Medical Records [address] [place] [address] Juan Bond MD Social History Tobacco Use [...] documented as of this encounter Care Teams Breeding Manager Relationship Specialty Start Date End Date Shaheen Fletcher MD [address] [place], [place] [phone] PCP - General 09/28/08 documented as of this encounter
--- OUTSIDE RECORDS SUMMARY | 2024-11-21 10:30 | XMS_ITS | Encounter Summary ---
Author Organization [facility] Address [address] [place] [address] Care Team Providers Care Lace Cutter Name Role Phone Shaheen Fletcher MD Primary Care Provider [phone] Reason for Visit * Reason Comments E-prescribe Rx Request Encounter Details Date Type Department Care Team Description 10/01/2023 Refill Pulmonology - [place] 175 [facility] [address] [place] [address] Fabiola Sanches, ALICIA 175 [facility] [address] [place] [phone] E-prescribe Rx Request Social History Tobacco Use [...] * Telephone Encounter - Aissatou Islas - 10/01/2023 12:12 PM EDT DARRYN 07/12/23 NOV 10/02/23 documented in this encounter Plan of Treatment Not on file documented as of this encounter Visit Diagnoses Diagnosis Moderate persistent asthma without complication Unspecified asthma Stage 2 moderate COPD by GOLD classification (HCC) documented in this encounter Additional Health Concerns Infection Onset Date Last Indicated Resolved Time COVID-19 01/05/2022 01/05/2022 documented as of this encounter Care Teams Lace Cutter Relationship Specialty Start Date End Date Shaheen Fletcher MD [address] [place] [address] PCP - General 09/28/08 documented as of this encounter
--- OUTSIDE RECORDS SUMMARY | 2024-11-21 10:30 | XMS_ITS | Encounter Summary ---
Author [facility] Address [address] [place] [address] Care Team Providers Care Car Conditioner Name Role Phone Shaheen Fletcher MD Primary Care Provider [phone] Encounter Details Date Type Department Care Team Description 04/15/2015 Release of Information Medical Records [address] [place] [address] Abstract, Provider Social History Tobacco Use Types [...] documented as of this encounter Care Teams Car Conditioner Relationship Specialty Start Date End Date Shaheen Fletcher MD [address] [place] [address] PCP - General 09/28/08 documented as of this encounter
--- OUTSIDE RECORDS SUMMARY | 2024-11-21 10:30 | XMS_ITS | Encounter Summary ---
Author Organization [facility] Address [address] [place] [address] Care Team Providers Care Quad Stayer Name Role Phone Shaheen Fletcher MD Primary Care Provider [phone] Reason for Visit * Reason Onset Date Comments Faxed Refill 06/16/2019 [facility] Encounter Details Date Type Department Care Team Description 06/16/2019 Refill Pulmonology - [address] [place] [phone] Shaheen Fletcher MD [address] [place] [address] [phone] Faxed Refill ([facility] ) Social History Tobacco Use Types Packs/Day Years [...] encounter Miscellaneous Notes * Telephone Encounter - Miguelina Simon - 06/16/2019 10:34 AM EDT Patient would like script to [...] the RX # listed on the fax? [id number] Patients current insurance carrier is: Payor: [employer] FFS / Plan: [employer] / Product Type: MEDICAID RISK documented in this encounter Plan of Treatment Not on file documented as of this encounter Visit Diagnoses Not on filedocumented in this encounter Additional Health Concerns Infection Onset Date Last Indicated Resolved Time COVID-19 01/05/2022 01/05/2022 documented as of this encounter Care Teams Quad Stayer Relationship Specialty Start Date End Date Shaheen Fletcher MD [address] [place] [address] PCP - General 09/28/08 documented as of this encounter
--- OUTSIDE RECORDS SUMMARY | 2024-11-21 10:30 | XMS_ITS | Encounter Summary ---
Author Organization [facility] Address [address] [place] [address] Care Team Providers Care Clinic Coordinator Name Role Phone Shaheen Fletcher MD Primary Care Provider [phone] Reason for Visit * Reason Comments E-prescribe Rx Request Encounter Details Date Type Department Care Team Description 02/05/2019 Refill Pulmonology - [place] 175 [facility] [address] [place] [address] Karson Maya MD [address] [facility] [address] [place] [phone] E-prescribe Rx Request Social History Tobacco Use [...] documented as of this encounter Care Teams Clinic Coordinator Relationship Specialty Start Date End Date Shaheen Fletcher MD [address] [place] [address] PCP - General 09/28/08 documented as of this encounter
--- OUTSIDE RECORDS SUMMARY | 2024-11-21 10:30 | XMS_ITS | Encounter Summary ---
Author Organization [facility] Address [address] [place] [address] Care Team Providers Care Marine Firefighter Name Role Phone Shaheen Fletcher MD Primary Care Provider [phone] Reason for Visit * Reason Comments E-prescribe Rx Request Encounter Details Date Type Department Care Team Description 09/02/2023 Refill Pulmonology - [place] 175 [facility] [address] [place] [address] Fabiola Sanches, ALICIA 175 [facility] 200 [place] [phone] E-prescribe Rx Request Social History Tobacco Use [...] * Telephone Encounter - Ed Berkowitz - 09/03/2023 8:12 AM EDT Singh: 07/12/2023 Nov: 10/02/2023 documented in this encounter Plan of Treatment Not on file documented as of this encounter Visit Diagnoses Diagnosis Moderate persistent asthma without complication Unspecified asthma Stage 2 moderate COPD by GOLD classification (HCC) documented in this encounter Additional Health Concerns Infection Onset Date Last Indicated Resolved Time COVID-19 01/05/2022 01/05/2022 documented as of this encounter Care Teams Marine Firefighter Relationship Specialty Start Date End Date Shaheen Fletcher MD [address] [place] [id number] PCP - General 09/28/08 documented as of this encounter
--- OUTSIDE RECORDS SUMMARY | 2024-11-21 10:30 | XMS_ITS | Encounter Summary ---
Author Organization [facility] Address [address] [place] [address] Care Team Providers Care High School Computer Science Teacher Name Role Phone Shaheen Fletcher MD Primary Care Provider [phone] Reason for Visit * Reason Comments Encounter Details Date Type Department Care Team Description 03/12/2015 Telephone Adult Medicine [address] [id number] Jose Nath PA-C Social History Tobacco Use [...] documented as of this encounter Care Teams High School Computer Science Teacher Relationship Specialty Start Date End Date Shaheen Fletcher MD [address] [place] [address] PCP - General 09/28/08 documented as of this encounter
--- OUTSIDE RECORDS SUMMARY | 2024-11-21 10:30 | XMS_ITS | Encounter Summary ---
Author Organization [facility] Address [address] [place] [address] Care Team Providers Care Application Support Manager Name Role Phone Shaheen Fletcher MD Primary Care Provider [phone] Encounter Details Date Type Department Care Team Description 05/06/2019 Orders Only Pulmonology - [place] 175 [facility] [address] [place] [address] Karson Maya MD 175 [facility] [address] [place] [phone] Moderate persistent asthma without complication; Seasonal allergic [...] documented as of this encounter Care Teams Application Support Manager Relationship Specialty Start Date End Date Shaheen Fletcher MD [address] [place] [address] PCP - General 09/28/08 documented as of this encounter
--- OUTSIDE RECORDS SUMMARY | 2024-11-21 10:30 | XMS_ITS | Encounter Summary ---
Author Organization [facility] Address [address] [place] [address] Care Team Providers Care Hotel Front Desk Clerk Name Role Phone Shaheen Fletcher MD Primary Care Provider [phone] Encounter Details Date Type Department Care Team Description 08/01/2019 [facility] Medical Records [address] [place] [id number] Abstract, Provider Social History Tobacco Use Types [...] documented as of this encounter Care Teams Hotel Front Desk Clerk Relationship Specialty Start Date End Date Shaheen Fletcher MD [address] [place] [address] PCP - General 09/28/08 documented as of this encounter
--- OUTSIDE RECORDS SUMMARY | 2024-11-21 10:30 | XMS_ITS | Encounter Summary ---
Author Organization [facility] Address [address] [place] [address] Care Team Providers Care Engine Repairer Production Name Role Phone Shaheen Fletcher MD Primary Care Provider [phone] Encounter Details Date Type Department Care Team Description 04/01/2021 SCAN [facility] Medical [facility] [address] [phone] Sergey Ribera DPM [address] [address] Social History Tobacco Use Types Packs/Day Years [...] documented as of this encounter Care Teams Engine Repairer Production Relationship Specialty Start Date End Date Shaheen Fletcher MD [address] [place] [address] [phone] PCP - General 09/28/08 documented as of this encounter
--- OUTSIDE RECORDS SUMMARY | 2024-11-21 10:30 | XMS_ITS | Encounter Summary ---
Author Organization [facility] Address [address] [place] [address] Care Team Providers Care Nuclear Security Officer Name Role Phone Shaheen Fletcher MD Primary Care Provider [phone] Reason for Visit * Reason Comments E-prescribe Rx Request Encounter Details Date Type Department Care Team Description 12/07/2017 Refill Rheumatology - [address] [phone] Domenica Patterson DO E-prescribe Rx Request Social History Tobacco Use [...] encounter Miscellaneous Notes * Telephone Encounter - Shannon Man - 12/07/2017 10:47 AM EDT Patient would like script to be: E-PRESCRIBED/FAXED TO PHARMACY WHEN WAS THE PATIENT'S LAST APPOINTMENT IN ADULT MEDICINE? 10/26/17 WHEN WAS THE LAST TIME THE PATIENT SAW THEIR PCP? Same as above Does patient have an upcoming appointment? Yes 01/25/18 (THE MEDICATION REQUESTED IS ON THE MED [...] N/A Patients current insurance carrier is: Payor: [employer] FFS / Plan: [employer] / Product Type: MEDICAID RISK documented in this encounter Plan of Treatment Not on file documented as of this encounter Visit Diagnoses Diagnosis Fibromyalgia Mylagia and myositis, unspecified Attention deficit hyperactivity disorder (ADHD), unspecified ADHD type Depressive disorder, not elsewhere classified documented in this encounter Additional Health Concerns Infection Onset Date Last Indicated Resolved Time COVID-19 01/05/2022 01/05/2022 documented as of this encounter Care Teams Nuclear Security Officer Relationship Specialty Start Date End Date Shaheen Fletcher MD [address] [place] [address] [id number] PCP - General 09/28/08 documented as of this encounter
--- OUTSIDE RECORDS SUMMARY | 2024-11-21 10:30 | XMS_ITS | Encounter Summary ---
Author Organization [facility] Address [address] [place] [address] Care Team Providers Care School Psychologist Assistant Name Role Phone Shaheen Fletcher MD Primary Care Provider [phone] Encounter Details Date Type Department Care Team Description 06/20/2019 [facility] Medical Records [address] [place] [address] Abstract, Provider Social History Tobacco Use Types [...] documented as of this encounter Care Teams School Psychologist Assistant Relationship Specialty Start Date End Date Shaheen Fletcher MD [address] [place] [address] PCP - General 09/28/08 documented as of this encounter
--- OUTSIDE RECORDS SUMMARY | 2024-11-21 10:31 | XMS_ITS | Encounter Summary ---
Author Organization [facility] Address [address] [place] [address] Care Team Providers Care Fur Trimmer Name Role Phone Shaheen Fletcher MD Primary Care Provider [phone] Reason for Visit * Reason Onset Date Comments faxed order 10/31/2024 [facility] are order Encounter Details Date Type Department Care Team (Late st Contact Info) Description 10/31/2024 Telephone Adult Medicine [address] [phone] Shaheen Fletcher MD [address] [place] [address] Social History Tobacco Use Types Packs/Day Years [...] care for your loved ones. For example, director maternal child or elderly care for an older adult? [...] Kim Rendon - 10/31/2024 10:09 AM EDT [facility] order received please sign and fax to [phone] documented in this encounter Plan of Treatment Upcoming Encounters Date Type Department Care Team (Late st Contact Info) Description 01/29/2025 8:30 AM EST Office Visit Orthopedic Surgery - [place] [address] [address] Sergey Ribera DPM 175 [facility] 250 [place] [phone] 02/02/2025 9:45 AM EST Office Visit Pulmonology - [place] 175 [facility] 200 [place] [phone] Fabiola Sanches, AUTOMATIC FURNACE OPERATOR [address] [place] [phone] 05/27/2025 9:45 AM EDT Office Visit Adult [facility] [place] [address] [place] [address] Shaheen Fletcher MD [address] [place] [address] documented as of this encounter Goals Goal Patient Goal Type Associated Problems Recent Progress Patient-Stated? Author <enter goal here> General Yes Melissa Rihcardson OT Note: OT PATIENT GOAL HAVE LESS [...] FROM THE DPC # 6 IMPROVE RIGHT BRUSHER WARP FROM 23 TO AT LEAST 30 POUNDS documented as of this encounter Visit Diagnoses Not on filedocumented in this encounter Additional Health Concerns Assessment Noted Time PHQ-9 Depression Total Score: 6 05/16/19 25 11:57 AM EDT documented as of this encounter Care Teams Fur Trimmer Relationship Specialty Start Date End Date Shaheen Fletcher MD [address] [place] [address] PCP - General 09/28/08 documented as of this encounter
--- OUTSIDE RECORDS SUMMARY | 2024-11-21 10:31 | XMS_ITS | Encounter Summary ---
Author Organization [facility] Address [address] [place] [address] Care Team Providers Care Painter Chassis Name Role Phone Shaheen Fletcher MD Primary Care Provider [phone] Reason for Visit * Reason Onset Date Comments refill request 09/02/2020 Encounter Details Date Type Department Care Team Description 09/02/2020 Refill Pulmonology - [place] 175 [facility] [address] [place] [address] Karson Maya MD 175 [facility] [address] [place] [address] refill request Social History Tobacco [...] NO Patients current insurance carrier is: Payor: [employer] FFS / Plan: [employer] / Product Type: MEDICAID RISK documented in this encounter Plan of Treatment Not on file documented as of this encounter Visit Diagnoses Diagnosis Moderate persistent asthma without complication Unspecified asthma documented in this encounter Additional Health Concerns Infection Onset Date Last Indicated Resolved Time COVID-19 01/05/2022 01/05/2022 documented as of this encounter Care Teams Painter Chassis Relationship Specialty Start Date End Date Shaheen Fletcher MD [address] [place] [address] PCP - General 09/28/08 documented as of this encounter
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
--- OUTSIDE RECORDS SUMMARY | 2024-11-21 10:31 | XMS_ITS | Clinical Summary ---
Author Organization [facility] Address [address] [place] [address] Care Team Providers Care Production Cost Estimator Name Role Phone Shaheen Fletcher MD Primary Care Provider [phone] Allergies No known active allergies Medications Medication Sig Dispensed Refills Start Date End Date Status buPROPion (WELLBUTRIN XL) 300 MG 24 hr tablet Take 1 Tab by mouth every morning. 30 Tab 5 08/01/2019 Active amphetamine-dextroam phetamine (ADDERALL XR) 20 MG 24 hr capsule Take 20 mg by mouth daily. 0 09/12/2019 Active duloxetine (CYMBALTA) 60 MG capsule Take 60 mg by mouth 2 times daily. 0 09/07/2019 Active EPINEPHrine (EpiPen 2-Iban) 0.3 MG/0.3ML Solution Auto-injector Inject 1 Device as directed as needed (anaphylaxis). Use as directed 2 Each 3 11/30/2020 Active amphetamine-dextroam phetamine (ADDERALL) 10 MG tablet 0 11/30/2020 Active pregabalin (LYRICA) 225 MG capsuleIndications:F ibromyalgia Take 1 Capsule by mouth 2 times daily. 12 Capsule 0 11/25/2021 Active triamcinolone (KENALOG) 0.1 % cream Apply to left forearm BID x 2 weeks 30 g 0 02/23/2022 Active naproxen (NAPROSYN) 250 MG tablet TAKE 1 TABLET BY MOUTH TWICE A DAY NEEDED FOR PAIN 0 01/24/2022 Active buPROPion (WELLBUTRIN XL) 150 MG 24 hr tablet TAKE 1 TABLET BY MOUTH EVERY DAY IN THE MORNING 0 01/12/2022 Active Miconazole Nitrate 2 % Aerosol Apply 1 Applicator topically daily. 100 g 3 07/04/2022 Active mometasone (NASONEX) 50 MCG/ACT nasal sprayIndications:Mod erate persistent asthma without complication,Allergy to dog dander SPRAY 2 SPRAYS BY NASAL ROUTE DAILY 16 g 1 11/15/2022 Active triamcinolone acetonide (KENALOG-40) 40 MG/ML injection Inject 1 mL into the articular space once for 1 dose. 1 mL 0 04/12/2023 Active Diclofenac Sodium 1 % Gel Apply 4 g topically 2 times daily. 100 g 2 05/28/2023 Active lidocaine (LIDODERM) 5 % Place 1 Patch onto the skin every 24 hours for 84 days. Apply for no more than 12 hours in any 24 hour period. 28 Patch 2 05/28/2023 Active Meclizine HCl 25 MG Tab Take 1 Tablet by mouth every 8 hours as needed (dizziness/vertig o). Medication may cause drowsiness, do not drive/operate machinery while taking 45 Tablet 1 06/15/2023 Active fluticasone 50 MCG/ACT nasal spray 1 [place] by Nasal route daily. 16 g 2 06/15/2023 Active Triamcinolone Acetonide (Nasacort Allergy 24HR) 55 MCG/ACT AerosolIndications:A llergy to dog dander 2 Sprays by Nasal route daily. Intranasal: Two sprays in each nostril once daily; once symptoms controlled reduce to 1 spray in each nostril once daily. Discontinue therapy if adequate symptomatic relief is not observed within 3 weeks. 16 g 5 07/12/2023 Active azelastine (ASTELIN) 0.1 % nasal sprayIndications:Mod erate persistent asthma without complication,Allergy to dog dander 2 Sprays by Each Nare route 2 times daily. Use in each nostril as directed 24 mL 5 07/12/2023 Active fexofenadine 180 MG tabletIndications:Mo derate persistent asthma without complication,Stage 2 moderate COPD by GOLD classification (HCC) TAKE 1 TABLET BY MOUTH EVERY DAY 90 Tablet 4 10/01/2023 Active Fluticasone-Salmeter ol (Advair Diskus) 250-50 MCG/ACT AEROSOL POWDER,BREATH ACTIVATEDIndications :Moderate persistent asthma without complication Inhale 1 Puff into the lungs 2 times daily. 60 Each 10/02/2023 Active Tiotropium [place] Monohydrate (Spiriva Respimat) 1.25 MCG/ACT Aero SolnIndications:Mode rate persistent asthma without complication Inhale 2 Puffs into the lungs daily. 4 g 5 10/27/2023 Active ondansetron (ZOFRAN-ODT) 4 MG disintegrating tablet Take 1 Tablet by mouth every 8 hours as needed for Nausea for up to 7 days. 30 Tablet 0 11/06/2023 Active Ipratropium-Albutero l 0.5-2.5 (3) MG/3ML SolutionIndications: Moderate persistent asthma without complication,Stage 2 moderate COPD by GOLD classification ([facility]) INHALE 1 VIAL WITH NEBULIZER 4 TIMES DAILY NEEDED (SHORTNESS OF BREATH AND/OR WHEEZING) 360 mL 2 11/26/2023 Active Ventolin HFA 108 (90 Base) MCG/ACT Aero SolnIndications:Mode rate persistent asthma without complication,Stage 2 moderate COPD by GOLD classification ([facility]) INHALE 2 PUFFS INTO THE LUNGS EVERY 6 HOURS NEEDED FOR WHEEZING AND SHORTNESS OF BREATH 18 g 3 12/21/2023 Active Active Problems Problem Noted Date Hot flashes 03/07/2022 Last Assessment & Plan: Reviewed behavioral modifications - encouraged avoidance of triggers and exercise. Patient to return if she would like to further discuss treatment options. Atopic dermatitis 09/09/2021 Obesity (BMI 30.0-34.9) 09/09/2021 Primary osteoarthritis of both hands 02/2020 Allergy to dog dander 03/13/2018 Chronic idiopathic granulomatous disease 03/13/2018 Overview: Chest CT 2018: There is a cluster of calcifications in the central left lobe liver. This may represent calcified granulomas or calcified vascular anomaly Cannabis abuse 09/11/2017 Tobacco abuse 07/24/2017 Fibromyalgia 03/14/2016 Anxiety 10/29/2015 ADHD (attention deficit hyperactivity di sorder) 09/11/2012 Depressive disorder, not elsewhere class ified 12/02/2010 Asthma Seasonal allergies Resolved Problems Problem Noted Date Resolved Date Perennial allergic rhinitis 03/18/2020 07/2 03/2021 Conjunctivitis, allergic, bilateral 03/18/2020 09/09/2021 Post-nasal drainage 03/13/2018 09/09/2021 Immunizations Name Administration Dates Next Due COVID-19 (Moderna) 02/11/2021,07/08/2020, 021 Influenza (> 6 Months) 11/06/2023,2013,11/22/2010,11/17 Influenza (>6 Months) Split Preservative Free 03/27/2012 Influenza Flu (PT Reported) 12/10/2013 Influenza H1N1 Pandemic Flu Vaccine 03/29/2009 Influenza Vaccine-preservati ve Free-quadrivalent 4 Years 02/23/2022,03/22/2021,12/09/2018 Influenza Vaccine-quadrivale nt 4 Years Plus 10/26/2017,11/07/2016 PPD-RBMG 12/22/2011,11/22/2010 Pneumoccoccal(Adult) Polysac charide PPSV23 03/22/2021 TD (STATE SUPPLIED FOR ADULT S AND CHILDREN) 02/23/2022 Tdap 11/22/2010 Family History Medical History Relation Name Comments CA Breast Aunt 1 mat great aunt 30s Cancer of the Breast Aunt 1 mat great aunt 30s 4 5; maternal [place] Stomach Aunt 2 m aunt Thyroid Disorder Brother 1 Cholesterol Level Brother 2 [place] Father 52 [place] Father's side multiple uncle s and aunts Diabetes Mother htn; [place] (not fa robert); Alzheimers Diabetes Mother's side Thyroid Disorder Sister 1 Cholesterol Level Sister 2 Relation Name Status Comments Aunt [...] file Not on file Not on file Last Filed Vital Signs Vital Sign Reading Time Taken Comments Blood Pressure 100/58 12/11/2023 9:29 AM EDT Pulse 64 12/11/2023 9:29 AM EDT Temperature 36.6 C (97.9 F) 12/11/2023 9:29 AM EDT Respiratory Rate 12 12/11/2023 9:29 AM EDT Oxygen Saturation 97% 10/02/2023 9:56 AM EDT Inhaled Oxygen Concentration - - Weight 72.6 kg (160 lb) 12/11/2023 9:29 AM EDT Height 157.5 cm (5' 2 ) 12/11/2023 9:29 AM EDT Body Mass Index 29.26 12/11/2023 9:29 AM EDT Plan of Treatment Health Maintenance Due Date Last Done Comments SHINGLES VACCINE (1 of 2) 2016 MAMMOGRAM 05/08/2021 05/08/2020, 07/20, 07/15/2014, Additional history exists BMI CHECK/ADVISE 02/20/2024 11/19/2023, , 10/02/2023, Additional history exists DEPRESSION SCREENING/FOLLOWUP 02/20/2024, 02/23/2022, 03/22/2021, Additional history exists SOCIAL NEEDS SCREENING 02/20/2024 Covid-19 Vaccine (2022-2 4 season) 2024 02/11/2021, 07/08/2020, 06/11/2020 INFLUENZA (#1) 2024 11/06/2023, 06/2022, 03/22/2021, Additional history exists CERVICAL CANCER SCREENING 03/07/20252022, 10/18/2015, 03/27/2012, Additional history exists BASELINE HEALTH EXAM 40-64 11/05/202511/05, 11/06/2023, 03/23/2021, Additional history exists COLON CANCER SCREENING 11/08/2026 11/08/2021 CHOLESTEROL SCREENING 11/05/2028 11/06/2023 , 03/23/2021, 03/18/2020, Additional history exists PNEUMOCOCCAL VACCINE FOR HIG H RISK PATIENTS (#2) 05/01/2031 03/22/2021 DTAP/TDAP/TD (3 - Td or Tdap) 02/24/2032 02/23/2022, 11/22/2010 HEPATITIS C SCREENING Completed 12/01/2015, 015 Additional Health Concerns Infection Onset Date Last Indicated COVID-19 01/05/2022 01/05/2022 Care Teams Production Cost Estimator Relationship Specialty Start Date End Date Shaheen Fletcher MD [address] [place] [address] [id number] PCP - General 09/28/08
--- OUTSIDE RECORDS SUMMARY | 2024-11-21 10:31 | XMS_ITS | Encounter Summary ---
Author Organization [facility] Address [address] [place] [address] Care Team Providers Care Maple Products Maker Name Role Phone Shaheen Fletcher MD Primary Care Provider [phone] Reason for Visit * Reason Comments E-prescribe Rx Request Encounter Details Date Type Department Care Team Description 06/27/2023 Refill Pulmonology - [place] 175 [facility] [address] [place] [address] Fabiola Sanches, ALICIA 175 [facility] 200 [place] [phone] E-prescribe Rx Request Social History Tobacco Use [...] documented as of this encounter Care Teams Maple Products Maker Relationship Specialty Start Date End Date Shaheen Fletcher MD [address] [place] [address] PCP - General 09/28/08 documented as of this encounter
--- OUTSIDE RECORDS SUMMARY | 2024-11-21 10:31 | XMS_ITS | Encounter Summary ---
Author Organization [facility] Address [address] [place] [address] Care Team Providers Care Stationary Engineer Supervisor Name Role Phone Shaheen Fletcher MD Primary Care Provider [phone] Reason for Visit * Reason Onset Date Comments Faxed Refill 01/28/2020 Encounter Details Date Type Department Care Team Description 01/28/2020 Refill Pulmonology - [place] 175 [facility] [address] [place] [address] Karson Maya MD 175 [facility] [address] [place] [address] Faxed Refill Social History Tobacco [...] documented as of this encounter Care Teams Stationary Engineer Supervisor Relationship Specialty Start Date End Date Shaheen Fletcher MD [address] [place] [id number] PCP - General 09/28/08 documented as of this encounter
--- OUTSIDE RECORDS SUMMARY | 2024-11-21 10:31 | XMS_ITS | Encounter Summary ---
[facility] Organization [facility] Address [address] [place] [address] Care Team Providers Care Seismograph Helper Name Role Phone Shaheen Fletcher MD Primary Care Provider [phone] Encounter Details Date Type Department Care Team Description 12/14/2016 Hvac Specialist Report Medical Records [address] [place] [address] Juan Bond MD Social History Tobacco Use [...] documented as of this encounter Care Teams Seismograph Helper Relationship Specialty Start Date End Date Shaheen Fletcher MD [address] [place], [place] [phone] PCP - General 09/28/08 documented as of this encounter
--- OUTSIDE RECORDS SUMMARY | 2024-11-21 10:31 | XMS_ITS | Encounter Summary ---
Author Organization [facility] Address [address] [place] [address] Care Team Providers Care Health Services Manager Name Role Phone Shaheen Fletcher MD Primary Care Provider [phone] Reason for Visit * Reason Comments E-prescribe Rx Request Encounter Details Date Type Department Care Team Description 12/20/2023 Refill Pulmonology - [place] 175 [facility] [address] [place] [phone] Fabiola Sanches, ALICIA 175 [facility] 200 [place] [phone] E-prescribe Rx Request Social History Tobacco Use [...] * Telephone Encounter - Ed Berkowitz - 12/20/2023 8:27 AM EDT Singh: 10/02/2023 Nov: 02/01/2024 documented in this encounter Plan of Treatment Not on file documented as of this encounter Visit Diagnoses Diagnosis Moderate persistent asthma without complication Unspecified asthma Stage 2 moderate COPD by GOLD classification (HCC) documented in this encounter Additional Health Concerns Infection Onset Date Last Indicated Resolved Time COVID-19 01/05/2022 01/05/2022 documented as of this encounter Care Teams Health Services Manager Relationship Specialty Start Date End Date Shaheen Fletcher MD [address] [place] [address] PCP - General 09/28/08 documented as of this encounter
--- OUTSIDE RECORDS SUMMARY | 2024-11-21 10:31 | XMS_ITS | Encounter Summary ---
Author Organization [facility] Address [address] [place] [address] Care Team Providers Care User Experience Team Lead Name Role Phone Shaheen Fletcher MD Primary Care Provider [phone] Encounter Details Date Type Department Care Team Description 06/04/2018 Release of Information Medical Records [address] [place] [address] Abstract, Provider Social History Tobacco Use Types [...] documented as of this encounter Care Teams User Experience Team Lead Relationship Specialty Start Date End Date Shaehen Fletcher MD [address] [place] [address] PCP - General 09/28/08 documented as of this encounter
--- OUTSIDE RECORDS SUMMARY | 2024-11-21 10:31 | XMS_ITS | Encounter Summary ---
Author Organization [facility] Address [address] [place] [address] Care Team Providers Care Interceptor Operator Name Role Phone Shaheen Fletcher MD Primary Care Provider [phone] Reason for Visit * Reason Comments E-prescribe Rx Request Encounter Details Date Type Department Care Team Description 11/13/2022 Refill Pulmonology - [place] 175 [facility] [address] [place] [address] Fabiola Sanches, SURVEILLANCE OFFICER 175 [facility] 200 [place] [phone] E-prescribe Rx Request Social History Tobacco Use [...] 11/15/2022 1:01 PM EDT Received fax from [facility] pharmacy Response requested: Alternative requested. Reason for [...] documented as of this encounter Care Teams Interceptor Operator Relationship Specialty Start Date End Date Shaheen Fletcher MD [address] [place] [address] PCP - General 09/28/08 documented as of this encounter
--- OUTSIDE RECORDS SUMMARY | 2024-11-21 10:31 | XMS_ITS | Encounter Summary ---
Author Organization [facility] Address [address] [place] [address] Care Team Providers Care Welding Machine Tender Name Role Phone Shaheen Fletcher MD Primary Care Provider [phone] Encounter Details Date Type Department Care Team Description 03/05/2018 Walk In Clinic Visit Medical Records [address] [place] [address] Abstract, Provider Social History Tobacco Use Types [...] of this encounter Care Teams Welding Machine Tender Relationship Specialty Start Date End Date Shaheen Fletcher MD [address] [place] [address] PCP - General 09/28/08 documented as of this encounter
--- OUTSIDE RECORDS SUMMARY | 2024-11-21 10:31 | XMS_ITS | Encounter Summary ---
Author Organization [facility] Address [address] [place] [address] Care Team Providers Care Spiral Machine Operator Name Role Phone Shaheen Fletcher MD Primary Care Provider [phone] Encounter Details Date Type Department Care Team Description 04/05/2018 [facility] Medical Records [address] [place] [address] Abstract, Provider Social History Tobacco Use Types [...] documented as of this encounter Care Teams Spiral Machine Operator Relationship Specialty Start Date End Date Shaheen Fletcher MD [address] [place] [address] PCP - General 09/28/08 documented as of this encounter
--- OUTSIDE RECORDS SUMMARY | 2024-11-21 10:31 | XMS_ITS | Encounter Summary ---
Author Organization [facility] Address [address] [place] [address] Care Team Providers Care Application Penetration Tester Name Role Phone Shaheen Fletcher MD Primary Care Provider [phone] Encounter Details Date Type Department Care Team Description 04/06/2023 SCAN [facility] 175 [facility] [address] [place] [address] Zonia Gutierrez APRN Social History Tobacco Use Types Packs/Day Years [...] as of this encounter Care Teams Application Penetration Tester Relationship Specialty Start Date End Date Shaheen Fletcher MD [address] [place] [address] PCP - General 09/28/08 documented as of this encounter
--- OUTSIDE RECORDS SUMMARY | 2024-11-21 10:31 | XMS_ITS | Encounter Summary ---
Author Organization [facility] Address [address] [place] [address] Care Team Providers Care Animal Nutritionist Name Role Phone Shaheen Fletcher MD Primary Care Provider [phone] Encounter Details Date Type Department Care Team Description 10/10/2022 Pt. Non Urgent Medical Question Pulmonology - [place] 175 [facility] [address] [place] [address] Fabiola Sanches, ALICIA 175 [facility] 200 [place] [phone] Social History Tobacco Use Types Packs/Day Years [...] it would be possible to contact the [facility] because They are are asking [...] documented as of this encounter Care Teams Animal Nutritionist Relationship Specialty Start Date End Date Shaheen Fletcher MD [address] [place] [address] PCP - General 09/28/08 documented as of this encounter
--- OUTSIDE RECORDS SUMMARY | 2024-11-21 10:31 | XMS_ITS | Encounter Summary ---
Author Organization [facility] Address [address] [place] [address] Care Team Providers Care Cookie Breaker Name Role Phone Shaheen Fletcher MD Primary Care Provider [phone] Encounter Details Date Type Department Care Team Description 12/15/2016 Release of Information Medical Records [address] [place] [address] Abstract, Provider Social History Tobacco Use Types [...] documented as of this encounter Care Teams Cookie Breaker Relationship Specialty Start Date End Date Shaheen Fletcher MD [address] [place] [phone] PCP - General 09/28/08 documented as of this encounter
--- OUTSIDE RECORDS SUMMARY | 2024-11-21 10:31 | XMS_ITS | Encounter Summary ---
Author Organization [facility] Address [address] [place] [address] Care Team Providers Care Hybrid Corn Breeder Name Role Phone Shaheen Fletcher MD Primary Care Provider [phone] Reason for Visit * Reason Comments E-prescribe Rx Request Encounter Details Date Type Department Care Team Description 11/06/2022 Refill Pulmonology - [facility] 175 [facility] [address] [place] [address] Fabiola Sanches, ALICIA 175 [facility] 200 [place] [phone] E-prescribe Rx Request Social History Tobacco Use [...] documented as of this encounter Care Teams Hybrid Corn Breeder Relationship Specialty Start Date End Date Shaheen Fletcher MD [address] [place] [address] PCP - General 09/28/08 documented as of this encounter
--- OUTSIDE RECORDS SUMMARY | 2024-11-21 10:31 | XMS_ITS | Encounter Summary ---
Author Organization [facility] Address [address] [place] [address] Care Team Providers Care Banana Handler Name Role Phone Shaheen Fletcher MD Primary Care Provider [phone] Encounter Details Date Type Department Care Team Description 03/22/2016 Traffic Control Technician Report Medical Records [address] [place] [address] Kamaljit Mcmahon MD [address] [place] [address] Social History Tobacco Use Types Packs/Day Years [...] documented as of this encounter Care Teams Banana Handler Relationship Specialty Start Date End Date Shaheen Fletcher MD [address] [place] [address] PCP - General 09/28/08 documented as of this encounter
--- OUTSIDE RECORDS SUMMARY | 2024-11-21 10:31 | XMS_ITS | Encounter Summary ---
Author Organization [facility] Address [address] [place] [address] Care Team Providers Care Weighing Station Operator Name Role Phone Shaheen Fletcher MD Primary Care Provider [phone] Reason for Visit * Reason Onset Date Comments refill request 03/30/2020 [facility] Encounter Details Date Type Department Care Team Description 03/30/2020 Refill Allergy [place] [address] [place] [address] Yesica Gomez PA-C refill request ([facility]) Social History Tobacco Use Types Packs/Day Years [...] have Coronavirus / COVID-19? No / Unsure 03/18/2020 3:27 PM EST documented as of this encounter Plan [...] documented as of this encounter Care Teams Weighing Station Operator Relationship Specialty Start Date End Date Shaheen Fletcher MD [address] [place] [address] PCP - General 09/28/08 documented as of this encounter
--- OUTSIDE RECORDS SUMMARY | 2024-11-21 10:31 | XMS_ITS | Encounter Summary ---
Author Organization [facility] Address [address] [place] [address] Care Team Providers Care Supervisor Shipfitters Name Role Phone Shaheen Fletcher MD Primary Care Provider [phone] Reason for Visit * Reason Onset Date Comments Prior Authorization 12/13/2020 LUCHO Khan Encounter Details Date Type Department Care Team Description 12/13/2020 Telephone [facility] [address] [address] Chelsea Oswald MD Prior Authorization (LUCHO Cabrera Denied) Social History Tobacco Use Types Packs/Day Years [...] have Coronavirus / COVID-19? No / Unsure 12/06/2020 9:47 AM EDT documented as of this encounter Miscellaneous Notes * Telephone Encounter - Marry Raygoza R.N. - 12/13/2020 12:00 PM EDT Call to patient to notify of order for repeat CBC. Unable to leave detailed message. Left message on generic vm to call Dr. Oswald's office . Number left. * Telephone Encounter - Chelsea Oswald MD - 12/13/2020 11:36 AM EDT Please notify patient of this decision and ask her to come in for repeat CBC. Once resulted please appeal this decision. Patient with persistent asthma, recently inpatient for 4 days On [facility] and [facility]. * Telephone Encounter - Marry Raygoza R.N. - 12/13/2020 9:33 AM EDT PA for [place] Denied. Denial letter placed in your office for your review. documented in this encounter Plan of Treatment Not on file documented as of this encounter Visit Diagnoses Diagnosis Moderate persistent asthma without complication- Primary Unspecified asthma documented in this encounter Additional Health Concerns Infection Onset Date Last Indicated Resolved Time COVID-19 01/05/2022 01/05/2022 documented as of this encounter Care Teams Supervisor Shipfitters Relationship Specialty Start Date End Date Shaheen Fletcher MD [address] [place] [address] PCP - General 09/28/08 documented as of this encounter
--- OUTSIDE RECORDS SUMMARY | 2024-11-21 10:31 | XMS_ITS | Encounter Summary ---
Author Organization [facility] Address [address] [place] [address] Care Team Providers Care Lead Java Programmer Name Role Phone Shaheen Fletcher MD Primary Care Provider [phone] Encounter Details Date Type Department Care Team Description 07/13/2020 Telephone Pulmonology - [place] 175 [facility] [address] [place] [address] Karson Maya MD 175 [facility] [place] [address] [place] [phone] Social History Tobacco Use Types Packs/Day Years [...] documented as of this encounter Care Teams Lead Java Programmer Relationship Specialty Start Date End Date Shaheen Fletcher MD [address] [place] [address] PCP - General 09/28/08 documented as of this encounter
--- OUTSIDE RECORDS SUMMARY | 2024-11-21 10:31 | XMS_ITS | Encounter Summary ---
Author Organization [facility] Address [address] [place] [address] Care Team Providers Care Medical Sales Associate Name Role Phone Shaheen Fletcher MD Primary Care Provider [phone] Encounter Details Date Type Department Care Team Description 11/03/2015 Processing Lead Report Medical Records [address] [place] [address] Juan Bond MD Social History Tobacco Use [...] as of this encounter Care Teams Medical Sales Associate Relationship Specialty Start Date End Date Shaheen Fletcher MD [address] [place], [place] [phone] PCP - General 09/28/08 documented as of this encounter
--- OUTSIDE RECORDS SUMMARY | 2024-11-21 10:31 | XMS_ITS | Encounter Summary ---
[facility] Organization [facility] Address [address] [place] [address] Care Team Providers Care Ships Or Barges Loader Name Role Phone Shaheen Fletcher MD Primary Care Provider Encounter Details Date Type Department Care Team Description 08/29/2022 Customer Sales Representative Report Medical Records [address] [place] [address] Mauricio Juan MD Social History Tobacco Use [...] documented as of this encounter Care Teams Ships Or Barges Loader Relationship Specialty Start Date End Date Shaheen Fletcher MD [address] [place], [place] [phone] PCP - General 09/28/08 documented as of this encounter
--- OUTSIDE RECORDS SUMMARY | 2024-11-21 10:31 | XMS_ITS | Encounter Summary ---
Author [facility] Address [address] [place] [address] Care Team Providers Care Gun Welder Name Role Phone Shaheen Fletcher MD Primary Care Provider [phone] Reason for Visit * Reason Onset Date Comments er follow up 03/18/2018 Encounter Details Date Type Department Care Team Description 03/18/2018 Telephone Adult Medicine [address] [phone] Rishabh Garcia PA er follow up Social [...] [facility] patient was treated at: [facility] Date of visit: 03/05/18 Was this only [...] documented as of this encounter Care Teams Gun Welder Relationship Specialty Start Date End Date Shaheen Fletcher MD [address] [place] [address] PCP - General 09/28/08 documented as of this encounter
--- OUTSIDE RECORDS SUMMARY | 2024-11-21 10:31 | XMS_ITS | Encounter Summary ---
[facility] Address [address] [place] [address] Care Team Providers Care Log Brander Name Role Phone Shaheen Fletcher MD Primary Care Provider [phone] Encounter Details Date Type Department Care Team Description 11/06/2023 Production Control Supervisor Report Medical Records [address] [place] [address] Gurinder Marina MD Social History Tobacco Use [...] documented as of this encounter Care Teams Log Brander Relationship Specialty Start Date End Date Shaheen Fletcher MD [address] [place], [place] [phone] PCP - General 09/28/08 documented as of this encounter
--- OUTSIDE RECORDS SUMMARY | 2024-11-21 10:31 | XMS_ITS | Encounter Summary ---
Author Organization [facility] Address [address] [place] [address] Care Team Providers Care Chip Applying Machine Tender Name Role Phone Shaheen Fletcher MD Primary Care Provider [phone] Reason for Visit * Reason Onset Date Comments Testing 05/23/2018 MRi of cervical spine [id number] Encounter Details Date Type Department Care Team Description 05/23/2018 Telephone Adult Medicine [facility] [address] [place], [place] [phone] Shaheen Fletcher MD [address] [place], [place] [phone] Testing (MRi of cervical spine CPT-53952) Social History Tobacco Use Types Packs/Day Years [...] encounter Miscellaneous Notes * Telephone Encounter - Carmelina Brar - 05/23/2018 10:37 AM EDT Insurance has denied the MRi of the cervical spine CPT-60430 Based on [facility] Guidelines, we cannot approve this request. There is insufficient clinical information to approve the requested study. This information could include a clinical evaluation relevant to the requested study (with detailed neurological exam), relevant laboratory studies and/or x- rays relevant to a spine problem or to the specific spine level involved. Advanced imaging is not supported without these results and, therefore, the request is not indicated at this time. For peer to peer reconsideration please call option #4. Case # [id number] Please advise Thank you documented in this encounter Plan of Treatment Not on file documented as of this encounter Visit Diagnoses Not on filedocumented in this encounter Additional Health Concerns Infection Onset Date Last Indicated Resolved Time COVID-19 01/05/2022 01/05/2022 documented as of this encounter Care Teams Chip Applying Machine Tender Relationship Specialty Start Date End Date Shaheen Fletcher MD [address] [place] [address] PCP - General 09/28/08 documented as of this encounter
[2024-12-05] VITALS (8 sets, daily range): BP systolic 99–116; BP diastolic 46–73; PULSE 53–67; RESP 16; TEMP 36.4–37.1; O2SAT 97–100; BMI 29.1
--- NOTE | ~2024-12-05 | FL_ITS ---
EXAMINATION: XR LUMBAR PUNCTURE CLINICAL INFORMATION: G35.D - Multiple sclerosis, unspecified COMPARISON: None. TECHNIQUE: Following explaining fluoroscopy-guided lumbar puncture procedure, benefits and risk, a written consent was obtained. Patient was placed prone on fluoroscopy table and L4-5 and L3-4 disc levels are marked on the skin. The marked area was cleaned in usual sterile manner with 2% chlorhexidine solution. 1% lidocaine was injected overlying the L4-5 disc level. A 20-gauge spinal needle was inserted from the skin into the L4-5 intrathecal sac. No CSF fluid could be aspirated. Needle was then inserted at the L3-4 with successful. CSF was collected in 4 test tubes and sent to lab. Postprocedure needle was withdrawn and complete hemostasis achieved at puncture site. Simple Band-Aid applied postprocedure. Patient tolerated procedure extremely well. FINDINGS: On visualized images the vertebral heights and alignment is normal. The disc heights are maintained normal. Approximately 12 mm clear CSF fluid was collected in 4 test tubes and sent to lab as per physician's orders. FLUOROSCOPY TIME: 3 minutes 1 second DOSE AREA PRODUCT: [id number] uGy-m2 (microgray-meter squared) FL/FL guided lumbar puncture LP IMPRESSION: Successful fluoroscopy-guided lumbar puncture performed without immediate complications. Electronically signed by: Demian Pereyra MD 12/05/2024 02:16 PM EDT
[2024-12-05 10:05] LABS: MANUAL DIFF FLAG NO
[2024-12-05 10:13] LABS: INTERNATIONAL NORM RATIO 0.9 (0.9-1.1); Prothrombin Time 10.4 SEC (10.9-12.4)
[2024-12-05 10:18] LABS: Hematocrit 36.1 % (37.0-47.0); Hemoglobin 12.0 g/dl (12.0-16.0); Imm Gran Abs Auto 0.01 X10*3/uL (0.00-0.03); Imm Gran Pct Auto 0.2 % (0.0-0.4); Lymphocytes Absolute Auto 2.1 X10*3/uL (1.2-4.9); Mean Corpuscular HGB Conc 33.2 g/dl (31.0-35.0); Mean Corpuscular Hemoglobin 31.5 pg (27.0-33.0); Mean Corpuscular Volume 94.8 fL (80.0-98.0); NRBC Abs Auto 0.000 X10*3/uL (0.0-0.012); NRBC Pct Auto 0.0 /100WBC (0.0-0.2); Platelet Count 213 X10*3/uL (160-400); Red Blood Count 3.81 X10*6/uL (4.20-5.50); White Blood Count 4.8 X10*3/uL (4.8-10.8)
[2024-12-05 10:20] LABS: Anion Gap 10 (12-20); Blood Urea Nitrogen 10 mg/dL (9-16); Calcium 9.2 mg/dL (8.4-10.2); Carbon Dioxide 22 mmol/L (22-29); Chloride 113 mmol/L (96-108); Creatinine Clr Calc Pharmacy 58.1; Estimated Glomerular Filt Rate 58; Potassium 3.9 mmol/L (3.3-5.1); Sodium 141 mmol/L (135-145)
[2024-12-05 12:58] LABS: Oligoclonal Serum Yes
[2024-12-05 14:53] LABS: Red Blood Cell CSF 358 MM*3; White Blood Cell CSF 5 MM*3
[2024-12-05 14:54] LABS: Lymphocytes CSF 89 %
== END 2024-12-05 13:30 | disposition home or self-care (01) ==
LOC: HO.SSS 09:20
PROVIDERS: Radiology Diagnostic Radiology; PCP Internal Medicine; Visit Provider Psychiatry & Neurology Neurology
PROC: 009U3ZZ Drainage of Spinal Canal, Percutaneous Approach (ICD-10-PCS; CPT 62270; principal; 2024-12-05 11:00)
DX: G35.D Multiple sclerosis, unspecified (principal); G37.9 Demyelinating disease of central nervous system, unspecified; M79.7 Fibromyalgia; G43.909 Migraine, unspecified, not intractable, without status migrainosus; F32.A Depression, unspecified; F43.9 Reaction to severe stress, unspecified; J45.909 Unspecified asthma, uncomplicated; R20.0 Anesthesia of skin; Z87.891 Personal history of nicotine dependence; E03.9 Hypothyroidism, unspecified
CPT/HCPCS: 36415; 62328; 80048; 82945; 83916; 84157; 85025; 85610; 86335; 87015; 87070; 87205; 89051; J2003

== ENCOUNTER → 2024-12-05 10:42 | Outpatient (BNV) | payer OTHER, SELFPAY | PROVIDERS: PCP Internal Medicine; Visit Provider Radiology Diagnostic Radiology | DX: G35.D Multiple sclerosis, unspecified (principal) | CPT/HCPCS: 62328 ==

== ENCOUNTER 2024-12-10 07:30 | Outpatient (RCR) | payer OTHER, SELFPAY ==
[2024-12-08 07:36] VITALS: BP 97/60; PULSE 66; RESP 16; TEMP 36.2; O2SAT 97
[2024-12-08] MEDS: methylPREDNISolone Sod Succ 1,000 MG in 0.9 % Sodium Chloride 50 ML 66 MG IV (07:48)
[2024-12-08 08:50] VITALS: BP 102/69; PULSE 57
[2024-12-09 07:35] VITALS: BP 102/41; PULSE 67; RESP 16; TEMP 36.7; O2SAT 98
[2024-12-09] MEDS: methylPREDNISolone Sod Succ 1,000 MG in 0.9 % Sodium Chloride 50 ML 66 MG IV (07:42)
[2024-12-10 07:40] VITALS: BP 120/60; PULSE 72; RESP 18; TEMP 36.3; O2SAT 98
[2024-12-10] MEDS: methylPREDNISolone Sod Succ 1,000 MG in 0.9 % Sodium Chloride 50 ML 66 MG IV (07:48)
== END 2024-12-10 08:49 | disposition home or self-care (01) ==
LOC: HO.INF 07:30
PROVIDERS: Visit Provider Psychiatry & Neurology Neurology
DX: G35.D Multiple sclerosis, unspecified (principal)
CPT/HCPCS: 96365; J2919

== ENCOUNTER 2024-12-17 11:51 | Outpatient (AMB) | payer OTHER, SELFPAY ==
--- NOTE | 2024-12-17 12:01 | MHC.OFFVIS ---
Intake Visit Reasons: Result Follow Up Allergies ENVIRONMENTAL Allergy (Intermediate, Uncoded 11/11/24 13:36) SNEEZING,RUNNY EYES AND NOSE Medication List - Last Reconciled 12/17/24 by Juan Bond MD acetaminophen ER (Tylenol 8 Hour) 1,300 mg (2 x 650 mg) PO Q8H PRN 90 days albuterol sulfate 90 mcg/actuation (ProAir HFA) 2 puffs inhalation Q6H PRN arm brace (Wrist Brace) As directed Bilateral CMC custom wrist splint Dx: osteoarthritis bilateral CMCs atorvastatin (Lipitor) 40 mg PO QPM azelastine 1 spray intranasal BID bupropion HCl XL (Wellbutrin XL) 300 mg PO QAM bupropion HCl XL 150 mg PO QAM dextroamphetamine-amphetamine 10 mg 1 tab PO DAILY dextroamphetamine-amphetamine 20 mg ER (Adderall XR) 1 cap PO QAM diclofenac sodium 1% topical duloxetine 60 mg PO BID epinephrine (EpiPen) 0.3 mg IM Q4H PRN fexofenadine (Allergy Relief (fexofenadine)) 180 mg PO DAILY fluticasone propion-salmeterol 500-50 mcg/dose (Advair Diskus) 1 ea inhalation BID ipratropium-albuterol 0.5 mg-3 mg(2.5 mg base)/3 mL 3 mL inhalation Q6H ketoconazole 2% 1 appl topical BID PRN meloxicam 15 mg PO DAILY 90 days methylprednisolone sodium succ 40 mg intravenously once a day for 3 days; pregabalin 225 mg PO BID tiotropium bromide 1.25 mcg/actuation (Spiriva Respimat) 2 puffs inhalation DAILY topiramate 50 mg PO BID HPI Comments Details: 59-year-old woman with fibromyalgia, migraine, h/o significant stress, h/o alcohol abuse, MRI brain showing central pontine myelinosis and multiple white matter hypertintensities, asthma, anxiety and depression. She was evaluated for MS in 2015 when her evoked potential responses were okay and CSF did not reveal oligoclonal bands. She returned to office in 05/2024 for headaches and spacing out and forgetting while driving. Her EEG was unremarkable. Migraines were still happening, but better with topiramate 50mg twice a day. She was admitted to [facility] in 09/2024. She was at home when she got a weird sensation, like a cold and numb sensation, across her chest, and started to gradually feel weak all over, spreading from chest down to feet over hours. She needed help getting up from bed, but could not stand at all and slid to floor. She was unsure if she had headache at that time. Her MRI of brain at [facility] during this admission revealed numerous white matter signal abnormalities without enhancement. Overall pattern was similar to the seen in 2016. MRI of cervical cord revealed possible C4 level lesion without enhancement and thoracic spine did not reveal any obvious abnormality. Another lumbar puncture in November of 2024 at [facility] revealed no significant abnormality of spinal fluid an oligoclonal bands for absent. 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 Surgical History Hx of section Family History Mother Diabetes Hypertension Alzheimer disease Heart disease Father Heart disease Social History Household Members: Family Housing: Apartment Are you a primary resident care aid to a significant other at home: No Do you presently have visiting nurse or other home services: Yes ([employer] 1 hour a day) Alcohol intake: never Patient Tobacco Use Status: Former Tobacco user Tobacco use type: Cigarette Substance Use Type: Marijuana service: No Current occupational status: disabled Cognitive needs: No Hearing needs: No Vision needs: Yes Physical Exam Neuro Other: Mental Status: Alert and oriented to person, place, and time. Normal attention. Normal spontaneous speech, fluency, and comprehension. Cranial Nerves: CN II: Visual bonner full to confrontation, visual acuity intact. CN III, IV, : Pupils equal, round, reactive to light and accommodation. Extraocular movements are normal. CN V: Facial sensation is normal. CN VII: Facial movements symmetrical. CN VIII: Hearing intact to bedside conversation is normal. CN IX, X: Palate elevates symmetrically. CN XI: Shoulder shrug and head turn symmetrical. CN XII: Tongue midline without atrophy or fasciculations. Motor: Deep tendon reflexes and knees a 2 to 3+ with mild spasticity. Gait: With mildly spastic gait. Extrapyramidal: Full facial expressions and blinking. No rigidity. Movements are appropriate with no tremor or abnormality. Speech: Normal; no dysarthria or tremor. Assessment & Plan Assessment & Plan (1) Migraine: Comment: Meds tried for headaches: Duloxetine, wellbutrin, lyrica, gabapentin Code(s): G43.909 - Migraine, unspecified, not intractable, without status migrainosus Category: Medical Qualifiers: Intractability: not intractable Migraine type: unspecified Status migrainosus presence: without status migrainosus Qualified Code(s): G43.909 - Migraine, unspecified, not intractable, without status migrainosus (2) Multiple sclerosis: Comment: LP at [facility] in Nov 2024: WBCs 5, RBCs 358, Glu 67, Pro 31, OCBs absent. MRI T spine WWO at [facility] in Sep 2024: Limited but seems OK MRI C spine WWO at [facility] in Sep 2024: Possible C4 level cord sig abn w/o enhancement MRI brain WWO at [facility] in Sep 2024: Numerous WM lesions including in rosie w/o enhancement, probably demyelinating disease EEG at off in May 2024: WNL LP at [facility] in Apr 2015: WBCs 2, RBCs 0, glu 66, pro 23, IgG ind: normal, OCBs absent. Evoked potential screen at [facility] in 2016: OK MRI brain WO at [facility] in Mar and Apr: Central pontine large hyperintensity, multiple bilateral FP WM lesions, not trivial, not particularly associated with ventricles. MRI brain WO at in Nov 2016: no sig difference from 2016 NCV/EMG UE 12/26/17 Mild bilateral median neuropathy across the Carpal tunnel. There is remarkable improvement compared to the study in 2016. NCV/EMG UE 04/27/15 MILD TO MODERATE BILATERAL CARPAL TUNNEL SYNDROME IN THE UPPER EXTREMTIIES. Code(s): G35.D - Multiple sclerosis, unspecified Category: Medical Plan Impression: a: Chronic MS with an exacerbation in Sep 2024. Prior to that, she has been stable for number of years. b: Restless leg syndrome c: Neuropathic discomfort in legs d: Depression and anxiety Rec: a: Education about the issues. b: She is already taking significant dose of pregabilin, which is helping her sleep well with RLS c: Solu Medrol 1 g every month for 3 months d: I discussed possiblity of more aggressive treatment for MS but due to stable brain MRI, lack of enhancing lesion, and negative CSF studies, a more conservative approach is recommended. Otherwise, a medicine like Ocrevus might be considered. e: Topiramate 50mg bid for migraine Orders: Referrals Infusion Center Notification G35.D - Multiple sclerosis, unspecified Coding Level of Care Code Est Pt Level 5 (16822) Diagnoses Migraine without status migrainosus, not intractable, unspecified migraine type G43.909 Intractability: not intractable Migraine type: unspecified Status migrainosus presence: without status migrainosus Multiple sclerosis G35.D
--- OUTSIDE RECORDS SUMMARY | 2024-12-17 15:15 | XMS_ITS | Data Portability ---
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 Name Role Phone WALDO MUÑOZ Referring Provider [...] Dose Aware of Vial Test Aware: Notes: [email or web address] Not available 09/12/2024 12:00:08 09/19/2024 09/19/2024 Visit [...] Time Sensorineural hearing loss of bilateral ears [id number] Active 2024 Dorothy arguelles [place] - [facility] 5 14:09:50 Allergic rhinitis 55505491 Active 2024 GEOVANNY SANDRA PA-C [address], [address], [facility] - [facility] 5 14:41:42 Perennial allergic rhinitis 018471664 Active 2024 ANTONINO MUNGUIA RN [address] [place] [address], [phone], [facility] 5 09:24:44 Problem Notes None recorded. Procedures Surgical History Date Name Laterality Status Provider Name and Address Organization Details Recorded Time 09/20/19 Allergy Immunotherapy Injections completed ANTONINO MUNGUIA RN [address] [place] [address], [phone], [place] - [facility] 09/19/2024 09:46:34 09/13/19 25 Allergy Immunotherapy Injections completed SUSY LANGE [address], [place], [address], [place] - [facility] 09/12/2024 11:59:58 08/28/19 25 Allergy Immunotherapy Injections completed ANTONINO MUNGUIA RN [address], [place], [address], [place] - [facility] 08/27/2024 10:01:14 08/21/19 25 Allergy Immunotherapy Injections completed KATERINA CLAY, RMA [address], [place], [address], [place] - [facility] 08/20/2024 14:08:57 08/16/19 25 Allergy Immunotherapy Injections completed KATERINA CLAY RMA [address], [place], [address], [place] - [facility] 08/15/2024 10:24:09 08/09/19 25 Allergy Immunotherapy Injections completed ANTONINO MUNGUIA RN [address], [place], [address], [place] - [facility] 08/08/2024 10:33:31 08/01/19 25 Allergy Immunotherapy Injections completed KATERINA CLAY, RMA [address], [place], [address], [place] - [facility] 07/31/2024 09:56:00 07/26/19 25 Allergy Immunotherapy Injections completed KATERINA CLAY RMA [address], [place], [address], [place] - [facility] 07/25/2024 09:26:13 07/19/19 25 Allergy Immunotherapy Injections completed ANTONINO MUNGUIA RN [address], [place], [address], [place] - [facility] 07/18/2024 09:20:13 07/12/19 25 Allergy Immunotherapy Injections completed KATERINA CLAY RMA [address], [place], [address], [facility] - [facility] 07/11/2024 10:13:56 07/05/19 25 Allergy Immunotherapy Injections completed SUSY LANGE 100 [facility],[address], [address], [facility] - [facility] 07/04/2024 10:45:32 06/28/19 25 Allergy Immunotherapy Injections completed SUSY LANGE 100 [facility],[address], [address], [facility] - [facility] 06/27/2024 10:48:29 06/20/19 25 Allergy Immunotherapy Injections completed CHIKIS LANGE 100 [facility],[address], [address], [facility] - [facility] 06/19/2024 09:46:13 06/10/19 25 Allergy Immunotherapy Injections completed ANTONINO MUNGUIA RN 100 [facility],[address], [address], [facility] - [facility] 06/09/2024 09:40:48 05/14/19 25 Allergy Testing-Full completed KATERINA CLAY [facility] 100 [facility],[address], [address], [facility] 05/13/2024 10:00:25 05/01/19 25 Allergy Testing Modified- Quantitative Testing (MQT) Only completed KATERINA CLAY [facility] 100 [facility],[address], [address], [facility] - [facility] 2024 11:44:19 04/02/19 25 Comp Audio with Tymps - 47748 & 09398 completed Dorothy Ayala [place] - [facility] 04/02/2024 14:09:42 Imaging Results None recorded. Procedure Notes None recorded. Medical Equipment None Reported. Allergies Allergen ID Allergen Name Allergen Category Reaction Reaction Severity Criticality Documentation Date Start Date Code Code System Note Provider Name and Address Organization Details Recorded Time [id number] house dust mite environme nt Not available Not available Not available 2024 KATERINA CLAY [facility] 100 [facility], [address], [place], [address], [facility] - [facility] 09:07:28 Medications Name Sig Start [...] LastModified Time Tobacco Smoking Status Former Smoker [facility], [facility] 100 [facility] 100, [place], [address], [place] - [facility] 2024 09:11:27 When Did You [...] ICD10 Code Diagnosis IMO Codes Diagnosis Note [id number] GEOVANNY SANDRA PA-C [facility] [address] [address] 04/02/2024 13:27:20 04/02/2024 14:37:49 Sensorineural hearing loss of bilateral ears [id number] H90.3 Audiologic al evaluation results: Right ear: Normal through 4 kHz sloping to a mild sensorineu ral hearing loss with excellent word recognitio n. Left ear: Essentiall y normal through 4 kHz sloping to a mild sensorineu ral hearing loss with excellent word recognitio n. Tympanomet ry: Right Ear:Type A Left Ear:Type A Allergic rhinitis 422195 04 J30.89 [id number] [facility] Allergy [address] [place] [address] 2024 08:52:24 2024 11:25:58 Allergic rhinitis 76297931 J30.89 [id number] [facility], [facility] Allergy [address] [place] [address] 05/13/2024 09:16:22 05/13/2024 10:02:12 Allergic rhinitis 80908380 J30.9 [id number] BRYANNA KERR PA-C [facility] [address] [address] 05/16/2024 10:37:14 05/16/2024 11:04:10 Allergic rhinitis 01596365 J30.9 [id number] ANTONINO MUNGUIA RN Allergy [address] [place] [address],[address] [place] [address] 06/09/2024 09:24:19 06/09/2024 09:42:21 Perennial allergic rhinitis [id number] J30.89 [id number] FANNY BRUNNER A Allergy [address] [place] [address],[address] [place] [address] 06/19/2024 09:20:29 06/19/2024 10:02:55 Perennial allergic rhinitis [id number] J30.89 [id number] ANTONINO MUNGUIA RN Allergy [address] [place] [address],[address] [place] [address] 06/27/2024 10:16:06 06/27/2024 10:49:02 Perennial allergic rhinitis [id number] J30.89 [id number] ANTONINO MUNGUIA RN Allergy [address] [place] [address] [address] [place] [address] 07/04/2024 09:49:01 07/04/2024 10:46:28 Perennial allergic rhinitis [id number] J30.89 [id number] FANNY BRUNNER A Allergy [address] [place] [address], [address] [place] [address] 07/11/2024 09:04:26 07/11/2024 10:14:19 Perennial allergic rhinitis [id number] J30.89 12089 [facility]INA [facility], A Allergy [address] [place] [address],[address] [place] [address] 07/18/2024 09:09:31 07/18/2024 09:20:36 Perennial allergic rhinitis [id number] J30.89 [id number] FANNY BRUNNER A Allergy [address] [place] [address],[address] [place] [address] 07/25/2024 08:51:36 07/25/2024 09:26:41 Perennial allergic rhinitis [id number] J30.89 [id number] KATERINA BARAHONA, RMA Allergy [address] [place] [address],[address] [place] [address] 07/31/2024 09:04:33 07/31/2024 09:56:34 Perennial allergic rhinitis [id number] J30.89 [id number] ANTONINO MUNGUIA RN Allergy [address] [place] [address],[address] [place] [address] 08/08/2024 10:26:45 08/08/2024 10:33:54 Perennial allergic rhinitis [id number] J30.89 [id number] KATERINA BARAHONA, A Allergy 100 [facility],[address] [place] [address] 08/15/2024 09:18:05 08/15/2024 10:37:34 Perennial allergic rhinitis [id number] J30.89 [id number] KATERINA BROOKLYN, A Allergy 100 [facility],[address] [place] [address] 08/20/2024 13:57:39 08/20/2024 14:09:21 Perennial allergic rhinitis [id number] J30.89 [id number] ANTONINO MUNGUIA RN Allergy [address] [place] [address], [address] [place] [address] 08/27/2024 08:41:36 08/27/2024 10:01:40 Perennial allergic rhinitis [id number] J30.89 [id number] FANNY MYESHA, [facility] Allergy 100 [facility],[address] [place] [address] 09/12/2024 11:15:11 09/12/2024 12:00:40 Perennial allergic rhinitis [id number] J30.89 [id number] ANTONINO MUNGUIA RN Allergy [address] [place] [address], [address] [place] [address] 09/19/2024 09:19:49 09/19/2024 09:48:07 Perennial allergic rhinitis [id number] J30.89 Health Concerns Section Related Observation LastModified by Organization Detai ls LastModified Time None Recorded Concern Status LastModified by Organization Details LastModified Time None Recorded Advance Directives Directive None Recorded Payers Insurance Date Sequence Insurance Name Policy Number Policy Michael Covered Member ID Michael Member ID Guarantor Name 09/19/2024 1 [facility] - HEALTH NET PLAN (MEDICAID HMO) MEHREEN Mims [id number] Alicia Mims OBGyn Episode No OBEpisode recorded.
--- OUTSIDE RECORDS SUMMARY | 2024-12-17 15:15 | XMS_ITS | Clinical Summary ---
Author Organization [facility] Address [address] [place] [address] Phone Care Team Providers Care Controls Engineer Name Role Phone Shaheen Fletcher MD Primary Care Provider [phone] Allergies Active Allergy Reactions Criticality Noted Date Comments Dog Dander Asthma,Burning Eyes, Cough,Dry Eye,Dry Mouth,Fatigue,Headache,Hives,Inflamma tion,Itching,Other,Rash,Respiratory Issues,Skin Problems,Sneezing,Sore Throat,Stuffy Nose,Swelling,Vision Problem 09/30/2024 House Dust Mite Hives,Rash 05/16/2024 Medications amphetamine-dextr oamphetamine (ADDERALL) 10 mg tablet Take 1 tablet (10 mg total) by mouth 1 (one) time each day after lunch. TAKE AT 1400 DAILY 12/01/19 21 Active buPROPion XL (WELLBUTRIN XL) 150 mg 24 hr tablet Take 1 tablet (150 mg total) by mouth 1 (one) time each day. 01/13/20 22 Active buPROPion XL (WELLBUTRIN XL) 300 mg 24 hr tablet Take 1 tablet (300 mg total) by mouth 1 (one) time each day. 08/01/19 20 Active DULoxetine (CYMBALTA) [address] capsule Take 1 capsule (60 mg total) by mouth 2 (two) times a day. 09/07/19 20 Active meclizine (ANTIVERT) 25 mg tablet Take 1 Tablet by mouth every 8 hours as needed (dizziness/verti go). Medication may cause drowsiness, do not drive/operate machinery while taking 06/15/19 24 Active ipratropium-albut Deann (DUONEB) 0.5-2.5 mg/3 mL nebulizer solutionIndicatio ns:Moderate persistent asthma without complication,Embedded Software Test Engineer brett obstructive pulmonary disease, unspecified COPD type (CMS/HCC V24, CMS/HCC V28) Take 3 mL by nebulization 4 (four) times a day. 300 mL 3 04/29/19 25 Active azelastine (ASTELIN) 137 mcg (0.1 %) nasal sprayIndications: Allergic rhinitis due to animal (cat) (dog) hair and dander,Moderate persistent asthma, uncomplicated SPRAY 2 SPRAYS IN EACH NOSTRIL TWICE A DAY. 30 mL 5 07/22/19 25 Active Additional Information Patient taking differently:2 spray Each Nostril 2 times daily,(No instructions reported), Reported on 09/30/2024 Ventolin HFA 90 mcg/actuation inhalerIndication s:Moderate persistent asthma, uncomplicated,Chr onic obstructive pulmonary disease, unspecified (CMS/HCC V24, CMS/[facility] V28) INHALE 2 PUFFS INTO THE LUNGS EVERY 6 HOURS NEEDED FOR WHEEZING AND SHORTNESS OF BREATH 18 each 3 07/30/19 25 Active tiotropium (Spiriva Respimat) 1.25 mcg/actuation inhalation sprayIndications: Moderate persistent asthma, uncomplicated INHALE 2 PUFFS BY MOUTH INTO THE LUNGS DAILY 4 g 2 08/08/19 25 Active Additional Information Patient taking differently: 2 puff inhalation Daily, Reported on 09/30/2024 topiramate (TOPAMAX) 50 mg tablet Take 1 tablet (50 mg total) by mouth 2 (two) times a day. Active atorvastatin (LIPITOR) 40 mg tablet Take 1 tablet (40 mg total) by mouth 1 (one) time each day. 30 each 10/03/19 25 Active Advair Diskus 250-50 mcg/dose diskus inhalerIndication s:Moderate persistent asthma, uncomplicated INHALE 1 DOSE BY MOUTH TWICE DAILY. RINSE MOUTH AFTER USE 60 each 5 10/10/19 25 Active fexofenadine (JOSEE) 180 mg tabletIndications :Moderate persistent asthma, uncomplicated,Chr onic obstructive pulmonary disease, unspecified ([facility] V24, [facility] V28) TAKE 1 TABLET BY MOUTH EVERY DAY 90 tablet 4 10/17/19 25 Active amphetamine-dextr oamphetamine (AdderalL) 20 mg tablet Take 1 tablet (20 mg total) by mouth 1 (one) time each day. 20 mg plus 10 mg tablet daily=30 mg total daily Max Daily Amount: 20 mg 09/19/18 67 Active pregabalin (LYRICA) 225 mg capsule TAKE 1 CAPSULE BY MOUTH 2 TIMES A DAY. MAX DAILY AMOUNT: 450 MG 60 capsule 5 11/29/19 25 Active pregabalin (LYRICA) 225 mg capsule TAKE 1 CAPSULE BY MOUTH 2 TIMES A DAY. MAX DAILY AMOUNT: 450 MG 60 capsule 5 09/18/19 25 025 Discontin ued(Reord er) Active Problems Problem Noted Date Diagnosed Date COPD (chronic obstructive pu lmonary disease) ([facility] V24, [facility] V28) 10/08/2024 Right sided weakness [...] 09/11/2012 Depressive disorder 12/02/2010 Central pontine myelinosis ([facility] V24, [facility] V28) Encounters Date Type Department Care Team Description 12/15/2024 Telephone Adult Medicine [address] [phone] Shaheen Fletcher MD 12/12/2024 Telephone Adult Medicine [address] [phone] Shaheen Fletcher MD 11/04/2024 1:30 PM EDT Office Visit Adult [address] [phone] Shaheen Fletcher MD Weakness (Primary Dx); Urinary retention 11/04/2024 Telephone Adult [address] [phone] Shaheen Fletcher MD 10/31/2024 Telephone Adult [address] [phone] Shaheen Fletcher MD 10/30/2024 9:45 AM EDT Office Visit Orthopedic Surgery [facility] [address] [place] [phone] Sergey Ribera, DPShanell Post-operative state (Primary Dx) 10/22/2024 Telephone Adult Medicine [address] [phone] Shaheen Fletcher MD 10/10/2024 Telephone Adult Medicine [address] [phone] Felicita Eugene MA 10/08/2024 10:48 AM EDT - 10/08/2024 3:49 PM EDT Emergency [facility] Emergency [address] [place] [phone] Mild intermittent asthma, unspecified whether complicated (Primary Dx); Urinary retention; Weakness; Central pontine myelinosis (CMS/HCC V24, CMS/HCC V28); Arthritis of both hands; Depressive disorder; Anxiety Discharge Disposition: Home or Self Care 10/08/2024 Telephone Adult Medicine [address] [phone] Shaheen Fletcher MD 09/30/2024 1:27 AM EDT - 10/03/2024 6:36 PM EDT Hospital [facility] [address] [place] [phone] Audie Redd MD Lyle, MD Samson Leyva Nermina, MD Rasul, Chinedu Reece MD Right sided weakness (Primary Dx); Ambulatory dysfunction; Urinary retention Discharge Disposition: Prison Facility 09/17/2024 Telephone Adult Medicine [address] [phone] Shaheen Fletcher MD from Last 3 Months Immunizations Immunization Administration [...] History Surgery Date Site/Laterality Comments SECTION PROCEDURE: [place] DELIVERY ONLY; COMMENT: x 3 BREAST BIOPSY PROCEDURE: BX BREAST; PERC NEEDLE CORE W/IMAG GUID; COMMENT: RT SIDE CARPAL TUNNEL RELEASE Bilateral FOOT SURGERY Bilateral Medical History Medical History Date Comments Asthma DX:Asthma Seasonal allergies DX:Seasonal a llergies COPD (chronic obstructive pu lmonary disease) ([facility] V24, [facility] V28) Anxiety Depression Arthritis Carpal tunnel syndrome on both sides Central pontine myelinosis ([facility] V24, [facility] V28) Family History Medical History Relation Name Comments Breast cancer Aunt 1 mat great aunt 30s 45; mate rnal Stomach cancer Aunt 2 m aunt Thyroid disease Brother 1 Hyperlipidemia Brother 2 Heart attack Father 52 Heart attack Father's side multiple uncle s and aunts Diabetes Mother htn; [place] (not fa robert); Alzheimers Hypertension Mother Diabetes [...] for your loved ones. For example, child adolescent psychiatrist or elderly care for an older adult? [...] Care Team (Late st Contact Info) Description 12/22/2024 3:00 PM EST Office Visit Adult [address] [phone] Shaheen Fletcher MD [address] [place] [address] 01/29/2025 8:30 AM EST Office Visit Orthopedic Surgery - [place] 250 [address] [facility] 250 [place] [phone] Sergey Ribera DPM [address] [place] [phone] 02/02/2025 9:45 AM EST Office Visit Pulmonology - [place] 175 [facility] [address] [place] [phone] Fbaiola Sanches, MVA OPERATOR [address] [place] [phone] 05/27/2025 9:45 AM EDT Office Visit Adult [address] [phone] Shahene Fletcher MD [address] [place] [address] Health Maintenance Due Date Last Done Comments Hepatitis A Vaccines (1 of 2 - Risk 2-dose series) 1985 Hepatitis B Vaccines (1 of 3 - 19+ 3-dose series) 1985 Zoster Vaccines (1 of 2) 1985 RSV Immunization Adult Patients (1 - Risk 50-74 years 1-dose series) 2016 HIV Screening 01/28/2022 Lung Cancer Screening (Low [...] FROM THE DPC # 6 IMPROVE RIGHT FISHERIES MANAGER FROM 23 TO AT LEAST 30 POUNDS Medical Devices Implanted Type Area Health Care Recruiter Device Identifier Shelf Expiration Date Model / Serial / Lot Toe Flex Hinge W/Grommet Sz 2 Calixto Reg Stem - Snone - [id number] Implanted:Qty: 1 on 03/21/2024 by Sergey Ribera DPM at [facility] Left: First Toe [employer] [id number] 05/22/2031 [id number] / NONE / [id number] Toe Flex Hinge W/Grommet Sz 2 Calixto Reg Stem - Sn/A - [id number] Implanted:Qty: 1 on 08/29/2024 by Sergey Ribera DPM at [facility] Right: First Toe [employer] 03/27/2032 [id number] / N/A / [id number] Procedures Procedure Name Priority Date/Time Associated Diagnosis [...] AND DIFFERENTIAL STAT 09/30/2024 2:05 AM EDT HM HPV Routine 03/07/2022 HM COLONOSCOPY Routine 11/08/2021 SCR MAMMO BI INCL CAD Routine 05/08/2020 11:54 AM EDT Encounter for screening mammogram for malignant neoplasm of breast HEPATITIS C SCREENING Routine 12/01/2015 from Last 3 Months or Most Recently Relevant to Health Maintenance Results * XR Foot 3+ Views Right (10/30/2024 10:19 AM EDT) Anatomical Region Laterality Modality Lower Extremities, Foot [...] Hold for add-ons. 10/03/2024 8:01 AM EDT [facility] Comment:Auto resulted. Blood Venous blood specimen / Unknown Venipuncture / Unknown 10/03/2024 6:32 AM EDT 10/03/2024 6:50 AM EDT us Chinedu Torres MD LAB BLOOD ORDERABLES Final Resul t [facility] [address] [place] [address], [place] [phone] * Basic metabolic panel (10/03/2024 6:32 AM EDT) Only the most recent of2 resultswithin the time period is included. Sodium 142 133 - 145 mmol/L LAB CHEMISTRY METHOD 10/03/2024 8:00 AM [facility] Potassium 3.6 3.5 - 5.5 mmol/L LAB CHEMISTRY METHOD 10/03/2024 8:00 AM [facility] Chloride 110 96 - 110 mmol/L LAB CHEMISTRY METHOD 10/03/2024 8:00 AM [facility] CO2 25 21 - 32 mmol/L LAB CHEMISTRY METHOD 10/03/2024 8:00 AM [facility] Anion Gap 7 3 - 11 LAB CHEMISTRY METHOD 10/03/2024 8:00 AM [facility] Glucose 98 70 - 100 mg/dL LAB CHEMISTRY METHOD 10/03/2024 8:00 AM [facility] BUN 13 5 - 25 mg/dL LAB CHEMISTRY METHOD 10/03/2024 8:00 AM [facility] Creatinine 0.75 0.50 - 1.10 mg/dL LAB CHEMISTRY METHOD 10/03/2024 8:00 AM [facility] eGFR 92 >=60 mL/min/1. 73m2 LAB CHEMISTRY METHOD 10/03/2024 8:00 AM [facility] Comment:Calculation based on the Chronic Kidney Disease Epidemiology Collaboration (CKD-EPI) equation refit without adjustment for race. BUN/Creatinine Ratio 17.3 LAB CHEMISTRY METHOD 10/03/2024 8:00 AM [facility] Calcium 8.5 8.5 - 10.5 mg/dL LAB CHEMISTRY METHOD 10/03/2024 8:00 AM [facility] Blood Venous blood specimen / Unknown Venipuncture / Unknown 10/03/2024 6:32 AM EDT 10/03/2024 6:49 AM EDT Chinedu Torres MD LAB BLOOD ORDERABLES Final Resul t [facility] [address] [place] [address], * Visual evoked potential test (10/02/2024 3:03 PM EDT) Narrative Yoselin Bateman MD - 10/02/2024 4:37 PM EDT Table formatting from the original result was not included. Images from the original result were not included. [facility] [address] [place] [address] Visual Evoked Potential Report Date of service: [...] Potential Technical Description: Scalp electrodes placed using [employer] System. Visual acuity measured at the time [...] normal latencies and amplitudes with no significant [id number] difference Impression: Normal bilateral visual evoked potentials [...] GEMUSE QTc 503 ms GEMUSE P Wave Clare 62 degrees GEMUSE R Clare 38 degrees GEMUSE T Clare 56 degrees GEMUSE ECG Interpretation Sinus rhythm with sinus arrhythmia with short [place] Otherwise normal ECG When compared with ECG of 30-SEP-2024 02:15, No significant change was found Confirmed by MELANIA HANEY ([id number]) on 10/02/2024 7:23:01 PM GEMUSE 10/01/2024 8:11 AM EDT 10/02/2024 7:23 PM EDT Chinedu Torres MD ECG ORDERABLES Final Result Performing Organization Address [facility]/ZIP Co de Phone Number GEMUSE * (ABNORMAL) Vitamin B12 and folate (10/01/2024 5:57 AM EDT) Pathologist [facility] Vitamin B-12 225(L) 250 - 900 pcg/mL LAB CHEMISTRY METHOD 10/01/2024 7:53 AM EDT [facility] Folate >20.0(H) 2.8 - 17.0 ng/ml LAB CHEMISTRY METHOD 10/01/2024 7:53 AM EDT [facility] Blood Venous blood specimen / Unknown Venipuncture / Unknown 10/01/2024 5:57 AM EDT 10/01/2024 6:12 AM EDT Josefa YEPEZ LAB BLOOD ORDERABLES Final Resu lt Performing Organization Address City/[facility]/ZIP Co de Phone Number [facility] [address] [place] [address], * (ABNORMAL) Lipid panel with reflex to direct LDL (10/01/2024 5:57 AM EDT) Cholesterol 253(H) 0 - 200 mg/dL LAB CHEMISTRY METHOD 10/01/2024 7:45 AM EDT [facility] Triglycerides 135 0 - 150 mg/dL LAB CHEMISTRY METHOD 10/01/2024 7:45 AM EDT [facility] HDL 72 >=40 mg/dL LAB CHEMISTRY METHOD 10/01/2024 7:45 AM EDT [facility] LDL Calculated 154(H) 0 - 100 mg/dL LAB CHEMISTRY METHOD 10/01/2024 7:45 AM EDT [facility] Comment:Estimated LDL Calcul ated using equation: Total cholesterol - HDL cholesterol - (Triglycerides/5) VLDL Cholesterol Neno 27 mg/dL LAB CHEMISTRY METHOD 10/01/2024 7:45 AM EDT [facility] Non HDL Chol. (LDL+VLDL) 181(H) <145 mg/dL LAB CHEMISTRY METHOD [facility] Chol/HDL Ratio 3.5 0.0 - 4.4 LAB CHEMISTRY METHOD 10/01/2024 7:45 AM EDT [facility] Blood Venous blood specimen / Unknown Venipuncture / Unknown 10/01/2024 5:57 AM EDT 10/01/2024 6:12 AM EDT us Josefa YEPEZ LAB BLOOD ORDERABLES Final Resu lt [facility] [address] [place] [address], * (ABNORMAL) CBC auto differential (10/01/2024 5:57 AM EDT) Only the most recent of2 resultswithin the time period is included. WBC 4.6(L) 4.8 - 10.8 K/mcL LAB HEMETOLOGY METHOD 10/01/2024 6:27 AM EDT [facility] RBC 3.80 3.80 - 4.80 M/mcL LAB HEMETOLOGY METHOD 10/01/2024 6:27 AM EDT [facility] Hemoglobin 11.9 11.5 - 16.0 g/dL LAB HEMETOLOGY METHOD 10/01/2024 6:27 AM [facility] Hematocrit 36.0 35.0 - 47.0 % LAB HEMETOLOGY METHOD 10/01/2024 6:27 AM [facility] MCV 94.2 79.0 - 98.0 FL LAB HEMETOLOGY METHOD 10/01/2024 6:27 AM [facility] MCH 31.2 27.0 - 32.0 pcg LAB HEMETOLOGY METHOD 10/01/2024 6:27 AM [facility] MCHC 33.1 32.0 - 37.0 g/dL LAB HEMETOLOGY METHOD 10/01/2024 6:27 AM [facility] RDW 14.6 11.0 - 15.0 % LAB HEMETOLOGY METHOD 10/01/2024 6:27 AM [facility] Platelets 229 130 - 400 K/mcL LAB HEMETOLOGY METHOD 10/01/2024 6:27 AM [facility] MPV 10.4 7.0 - 11.0 FL LAB HEMETOLOGY METHOD 10/01/2024 6:27 AM [facility] NRBC 0.0 <1.0 % LAB HEMETOLOGY METHOD 10/01/2024 6:27 AM [facility] NRBC Absolute 0.00 <0.10 K/mcL LAB HEMETOLOGY METHOD 10/01/2024 6:27 AM [facility] Neutrophils Relative 55.4 % LAB HEMETOLOGY METHOD 10/01/2024 6:27 AM [facility] Lymphocytes Relative 33.2 % LAB HEMETOLOGY METHOD 10/01/2024 6:27 AM [facility] Monocytes Relative 7.3 % LAB HEMETOLOGY METHOD 10/01/2024 6:27 AM EDT [facility] Eosinophils Relative 3.3 % LAB HEMETOLOGY METHOD 10/01/2024 6:27 AM EDT [facility] Basophils Relative 0.4 % LAB HEMETOLOGY METHOD 10/01/2024 6:27 AM EDT [facility] Immature Granulocytes Relative 0.4 % LAB HEMETOLOGY METHOD 10/01/2024 6:27 AM EDT [facility] Neutrophils Absolute 2.52 1.50 - 7.00 K/mcL LAB HEMETOLOGY METHOD 10/01/2024 6:27 AM EDT [facility] Lymphocytes Absolute 1.51 1.00 - 5.00 K/mcL LAB HEMETOLOGY METHOD 10/01/2024 6:27 AM EDT [facility] Monocytes Absolute 0.33 0.20 - 1.00 K/mcL LAB HEMETOLOGY METHOD 10/01/2024 6:27 AM EDT [facility] Eosinophils Absolute 0.15 0.00 - 0.50 K/mcL LAB HEMETOLOGY METHOD 10/01/2024 6:27 AM EDT [facility] Basophils Absolute 0.02 0.00 - 0.20 K/mcL LAB HEMETOLOGY METHOD 10/01/2024 6:27 AM EDT [facility] Immature Granulocytes Absolute 0.02 0.00 - 0.03 K/mcL LAB HEMETOLOGY METHOD 10/01/2024 6:27 AM EDT [facility] Blood Venous blood specimen / Unknown Venipuncture / Unknown 10/01/2024 5:57 AM EDT 10/01/2024 6:12 AM EDT us Josefa YEPEZ LAB BLOOD ORDERABLES Final Resu lt [facility] [address] [place] [address], * Hemoglobin A1c (10/01/2024 5:57 AM EDT) Hemoglobin A1C 6.1 <6.5 % LAB CHEMISTRY METHOD 10/01/2024 12:10 PM EDT [facility] Mean Bld Glu Estim. 128 mg/dL LAB CHEMISTRY METHOD 10/01/2024 12:10 PM [facility] Blood Venous blood specimen / Unknown Venipuncture / Unknown 10/01/2024 5:57 AM EDT 10/01/2024 6:12 AM EDT Josefa YEPEZ LAB BLOOD ORDERABLES Final Resu lt [facility] [address] [place] [address], * (ABNORMAL) Comprehensive metabolic panel (10/01/2024 5:57 AM EDT) Only the most recent of2 resultswithin the time period is included. Pathologist [facility] Sodium 141 133 - 145 mmol/L LAB CHEMISTRY METHOD 10/01/2024 7:47 AM [facility] Potassium 3.6 3.5 - 5.5 mmol/L LAB CHEMISTRY METHOD 10/01/2024 7:47 AM [facility] Chloride 113(H) 96 - 110 mmol/L LAB CHEMISTRY METHOD 10/01/2024 7:47 AM [facility] CO2 25 21 - 32 mmol/L LAB CHEMISTRY METHOD 10/01/2024 7:47 AM [facility] Anion Gap 3 3 - 11 LAB CHEMISTRY METHOD 10/01/2024 7:47 AM [facility] Glucose 113(H) 70 - 100 mg/dL LAB CHEMISTRY METHOD 10/01/2024 7:47 AM [facility] BUN 7 5 - 25 mg/dL LAB CHEMISTRY METHOD 10/01/2024 7:47 AM [facility] Creatinine 0.74 0.50 - 1.10 mg/dL LAB CHEMISTRY METHOD 10/01/2024 7:47 AM [facility] eGFR 94 >=60 mL/min/1. 73m2 LAB CHEMISTRY METHOD 10/01/2024 7:47 AM [facility] Comment:Calculation based on the Chronic Kidney Disease Epidemiology Collaboration (CKD-EPI) equation refit without adjustment for race. BUN/Creatinine Ratio 9.5 LAB CHEMISTRY METHOD 10/01/2024 7:47 AM [facility] Calcium 8.8 8.5 - 10.5 mg/dL LAB CHEMISTRY METHOD 10/01/2024 7:47 AM [facility] AST (SGOT) 25 10 - 42 unit/L LAB CHEMISTRY METHOD 10/01/2024 7:47 AM [facility] ALT (SGPT) 28 10 - 60 unit/L LAB CHEMISTRY METHOD 10/01/2024 7:47 AM [facility] Alkaline Phosphatase 69 42 - 121 unit/L LAB CHEMISTRY METHOD 10/01/2024 7:47 AM [facility] Total Protein 6.4 6.0 - 8.0 g/dL LAB CHEMISTRY METHOD 10/01/2024 7:47 AM [facility] Albumin 3.4 3.2 - 5.0 g/dL LAB CHEMISTRY METHOD 10/01/2024 7:47 AM [facility] Total Bilirubin 0.4 0.0 - 1.4 mg/dL LAB CHEMISTRY METHOD 10/01/2024 7:47 AM [facility] Comment:Results verified by repeat testing Blood Venous blood specimen / Unknown Venipuncture / Unknown 10/01/2024 5:57 AM EDT 10/01/2024 6:12 AM EDT us Josefa YEPEZ LAB BLOOD ORDERABLES Final Resu lt [facility] [address] [place] [address], * ECG-Annotated (10/01/2024) us Provider Onbase ECG ORDERABLES Final Result * [...] Signed Date: 09/30/2024 08:13 ET Workstation ID: [id number] Transcribed By: Self Edit Transcribed Date: 09/30/2024 [...] Signed Date: 09/30/2024 08:13 ET Workstation ID: [id number] Transcribed By: Self Edit Transcribed Date: 09/30/2024 [...] document has been electronically signed by: Ander Hopknis MD on 09/30/2024 07:18:03 Audie Redd MD IM CT PROCEDURES Final Resu lt * Urinalysis with reflex microscopic (09/30/2024 6:04 AM EDT) Specific [place] Urine 1.008 1.003 - 1.030 LAB URINALYSIS - AUTOMATED METHOD 09/30/2024 6:50 AM [facility] pH, Urine 7.0 5.0 - 8.0 pH LAB URINALYSIS - AUTOMATED METHOD 09/30/2024 6:50 AM [facility] Leukocytes, Urine Negative Negative LAB URINALYSIS - AUTOMATED METHOD 09/30/2024 6:50 AM [facility] Nitrite, Urine Negative Negative LAB URINALYSIS - AUTOMATED METHOD 09/30/2024 6:50 AM [facility] Protein, Urine Negative <=Trace mg/dL LAB URINALYSIS - AUTOMATED METHOD 09/30/2024 6:50 AM [facility] Glucose, Urine Negative Negative mg/dL LAB URINALYSIS - AUTOMATED METHOD 09/30/2024 6:50 AM [facility] Ketones, Urine Negative Negative mg/dL LAB URINALYSIS - AUTOMATED METHOD 09/30/2024 6:50 AM [facility] Urobilinogen, Urine 0.2 0.2 - 1.0 mg/dL LAB URINALYSIS - AUTOMATED METHOD 09/30/2024 6:50 AM [facility] Bilirubin, Urine Negative Negative LAB URINALYSIS - AUTOMATED METHOD 09/30/2024 6:50 AM [facility] Blood, Urine Negative Negative LAB URINALYSIS - AUTOMATED METHOD 09/30/2024 6:50 AM [facility] Urine Urine specimen obtained by clean catch procedure / Unknown Non-blood Collection / Unknown 09/30/2024 6:04 AM EDT 09/30/2024 6:43 AM EDT Audie Redd MD LAB URINE ORDERABLES Final R esult [facility] [address] [place] [address], * (ABNORMAL) Drug abuse screen 8a panel, urine (09/30/2024 6:04 AM EDT) Amphetamine Screen, Ur Positive(A ) Negative LAB CHEMISTRY METHOD 5 7:06 AM [facility] Comment:Certain OTC medicati ons containing ephedrine, phenylephrine, pseudoephedrine and phenylpropanolamine can cause false positive results. Barbiturate Screen, Ur Negative Negative LAB CHEMISTRY METHOD 5 7:06 AM [facility] Benzodiazepine Screen, Ur Negative Negative LAB CHEMISTRY METHOD 5 7:06 AM [facility] Cocaine Screen, Ur Negative Negative LAB CHEMISTRY METHOD 5 7:06 AM [facility] Opiate Screen, Ur Negative Negative LAB CHEMISTRY METHOD 5 7:06 AM [facility] Cannabinoid (THC) Screen, Ur Positive(A ) Negative LAB CHEMISTRY METHOD 5 7:06 AM [facility] Comment:Specimens from patie nts taking pantoprazole sodium (Protonix) have been shown to produce false positive results. Oxycodone Screen, Ur Negative Negative LAB CHEMISTRY METHOD 5 7:06 AM [facility] Fentanyl, Ur Negative Negative LAB CHEMISTRY METHOD 5 7:06 AM [facility] Urine Urine specimen obtained by clean catch procedure / Unknown Non-blood Collection / Unknown 09/30/2024 6:04 AM EDT 09/30/2024 6:43 AM EDT Narrative [facility] - 09/30/2024 7:06 AM EDT Assay [...] MD LAB URINE ORDERABLES Final R esult [facility] [address] [place] [address], [place] [phone] * XR Chest 1 View (09/30/2024 2:53 [...] Signed Date: 09/30/2024 09:03 ET Workstation ID: [id number] Transcribed By: Self Edit Transcribed Date: 09/30/2024 [...] Signed Date: 09/30/2024 09:03 ET Workstation ID: [id number] Transcribed By: Self Edit Transcribed Date: 09/30/2024 [...] I High Sensitivity (09/30/2024 2:05 AM EDT) [facility] High Sensitivity Troponin I 3 <=54 ng/L LAB CHEMISTRY METHOD 09/30/2024 2:42 AM EDT [facility] Blood Venous blood specimen / Unknown Venipuncture / Unknown 09/30/2024 2:05 AM EDT 09/30/2024 2:19 AM EDT Narrative [facility] - 09/30/2024 2:42 AM EDT High levels of biotin in samples may falsely decrease hsTroponin values. Use caution when interpreting hsTroponin results in patients taking biotin who exhibit renal impairment (eGFR <60) or in patients taking more than 20 mg/day of biotin. Audie Redd MD LAB BLOOD ORDERABLES Final R esult [facility] [address] [place] [address], * Borrelia burgdorferi antibody (09/30/2024 2:05 AM EDT) [facility] Lyme Ab Negative Negative LAB CHEMISTRY METHOD 10/01/2024 9:14 AM EDT [facility] Comment: No laboratory evidence of [...] ORDERABLES Final Resu lt Performing Organization Address City/[facility]/ZIP Co de Phone Number [facility] [address] [place] [address], [place] [phone] * APTT (09/30/2024 2:05 AM EDT) aPTT 25.2 24.1 - 39.3 sec LAB COAGULATION METHOD 09/30/2024 2:31 AM EDT [facility] Blood Venous blood specimen / Unknown Venipuncture / Unknown 09/30/2024 2:05 AM EDT 09/30/2024 2:20 AM EDT Audie Redd MD LAB BLOOD ORDERABLES Final R esult Performing Organization Address [facility] Co de Phone Number [facility] [address] [place] [address], [place] [phone] * (ABNORMAL) Protime-INR (09/30/2024 2:05 AM EDT) [facility] Protime 10.3(L) 10.6 - 13.9 sec LAB COAGULATION METHOD 09/30/2024 2:31 AM EDT [facility] INR 0.8 LAB COAGULATION METHOD 09/30/2024 2:31 AM EDT [facility] Blood Venous blood specimen / Unknown Venipuncture / Unknown 09/30/2024 2:05 AM EDT 09/30/2024 2:20 AM EDT Audie Redd MD LAB BLOOD ORDERABLES Final R esult Performing Organization Address City/[facility]/ZIP Co de Phone Number [facility] [address] [place] [address], [place] [phone] * Triiodothyronine free (09/30/2024 2:05 AM EDT) T3, Free 296 230 - 420 pcg/dL LAB CHEMISTRY METHOD 09/30/2024 4:48 AM EDT [facility] Blood Venous blood specimen / Unknown Venipuncture / Unknown 09/30/2024 2:05 AM EDT 09/30/2024 2:19 AM EDT us Audie Redd MD LAB BLOOD ORDERABLES Final R esult Performing Organization Address [facility] Co de Phone Number [facility] [address] [place] [address], [place] [phone] * (ABNORMAL) Thyroid Stimulating Hormone (TSH) (09/30/2024 2:05 AM EDT) TSH 13.47(H) 0.40 - 4.00 mcIU/mL LAB CHEMISTRY METHOD 09/30/2024 4:11 AM EDT [facility] Blood Venous blood specimen / Unknown Venipuncture / Unknown 09/30/2024 2:05 AM EDT 09/30/2024 2:19 AM EDT us Audie Redd MD LAB BLOOD ORDERABLES Final R esult Performing Organization Address [facility]/ZIP Co de Phone Number [facility] [address] [place] [address], [place] [phone] * T4, free (09/30/2024 2:05 AM EDT) Free T4 0.84 0.70 - 1.80 ng/dL LAB CHEMISTRY METHOD 09/30/2024 4:48 AM EDT [facility] Blood Venous blood specimen / Unknown Venipuncture / Unknown 09/30/2024 2:05 AM EDT 09/30/2024 2:19 AM EDT us Audie Redd MD LAB BLOOD ORDERABLES Final R esult Performing Organization Address [facility] Co de Phone Number [facility] [address] [place] [address], [place] [phone] * Magnesium (09/30/2024 2:05 AM EDT) Pathologist [facility] Magnesium 2.1 1.9 - 2.6 mg/dL LAB CHEMISTRY METHOD 09/30/2024 2:42 AM EDT [facility] Blood Venous blood specimen / Unknown Venipuncture / Unknown 09/30/2024 2:05 AM EDT 09/30/2024 2:19 AM EDT Audie Redd MD LAB BLOOD ORDERABLES Final R esult Performing Organization Address [facility] de Phone Number [facility] [address] [place] [address], [place] [phone] * Creatine kinase (09/30/2024 2:05 AM EDT) [facility] Total CK 214 22 - 269 unit/L LAB CHEMISTRY METHOD 09/30/2024 2:42 AM EDT [facility] Blood Venous blood specimen / Unknown Venipuncture / Unknown 09/30/2024 2:05 AM EDT 09/30/2024 2:19 AM EDT Audie Redd MD LAB BLOOD ORDERABLES Final R esult Performing Organization Address City/[facility]/ZIP Co de Phone Number [facility] [address] [place] [address], [place] [phone] * Ethanol (09/30/2024 2:05 AM EDT) Ethanol Level <3 0 - 10 mg/dL LAB CHEMISTRY METHOD 09/30/2024 4:14 AM EDT [facility] Blood Venous blood specimen / Unknown Venipuncture / Unknown 09/30/2024 2:05 AM EDT 09/30/2024 2:19 AM EDT Audie Redd MD LAB BLOOD ORDERABLES Final R esult Performing Organization Address [facility]/ZIP Co de Phone Number [facility] [address] [place] [address], [place] [phone] * (ABNORMAL) Acetaminophen level (09/30/2024 2:05 AM EDT) Acetaminophen Level <2.0(L) 10.0 - 30.0 mcg/mL LAB CHEMISTRY METHOD 09/30/2024 4:27 AM EDT [facility] Blood Venous blood specimen / Unknown Venipuncture / Unknown 09/30/2024 2:05 AM EDT 09/30/2024 2:19 AM EDT Audie Redd MD LAB BLOOD ORDERABLES Final R esult Performing Organization Address [facility] de Phone Number [facility] [address] [place] [address], [place] [phone] * Salicylate Level (09/30/2024 2:05 AM EDT) Salicylate Level 4.8 2.0 - 29.0 mg/dL LAB CHEMISTRY METHOD 09/30/2024 3:17 AM EDT [facility] Blood Venous blood specimen / Unknown Venipuncture / Unknown 09/30/2024 2:05 AM EDT 09/30/2024 2:19 AM EDT us Audie Redd MD LAB BLOOD ORDERABLES Final R esult Performing Organization Address [facility]/ZIP Co de Phone Number [facility] [address] [place] [address], [place] [phone] * Hm Cervical Cancer Screening: HPV (03/07/2022) Pathologist [facility] Cervical Cancer Screening: HPV Abstracted ,negative Historical Provider [facility] Final Result * Colonoscopy (11/08/2021) Pathologist [facility] Colonoscopy No interpreta tion,abstr acted Anatomical Region Laterality Modality Other Historical Provider [facility] Final Result * SCR MAMMO BI INCL [...] Resul t * Hepatitis C Screening (12/01/2015) [facility] Hepatitis C Screening Abstracted us Historical Provider HEALTH MAINTENANCE Final Result from Last 3 Months or Most Recently Relevant to Health Maintenance Insurance [facility] Advance Directives Documents on File Type Date Recorded Patient 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
--- OUTSIDE RECORDS SUMMARY | 2024-12-17 15:15 | XMS_ITS | Encounter Summary ---
Author Organization [facility] Address [address] [place] [address] Care Team Providers Care Pierce And Shave Press Operator Name Role Phone Shaheen Fletcher MD Primary Care Provider [phone] Reason for Visit * Reason Onset Date Comments faxed order 12/12/2024 [facility] order 1 [id number] Encounter Details Date Type Department Care Team (Late st Contact Info) Description 12/12/2024 Telephone Adult Medicine [address] [phone] Shaheen Fletcher MD [address] [place] [address] Social History Tobacco Use Types Packs/Day Years [...] for your loved ones. For example, child protection specialist or elderly care for an older [...] of Assessment Author No 10/08/2024 11:35 AM EDMarjorie Christiansen RN documented as of this encounter Mental Status * Because of a physical, mental, or emotional condition, do you have serious difficulty concentrating, remembering, or making decisions? (5 years old or older) Answer Entry Date Author No 10/08/2024 11:35 AM EDT Marjorie Goodson RN documented in this encounter Progress Notes * Kim Rendon - 12/12/2024 3:57 PM EDT [facility] order [id number] received please sign and fax to [phone] documented in this encounter Plan of Treatment Upcoming Encounters Date Type Department Care Team (Late st Contact Info) Description 12/22/2024 3:00 PM EST Office Visit Adult Medicine [address] [phone] Shaheen Fletcher MD [address] [place] [address] 01/29/2025 8:30 AM EST Office Visit Orthopedic Surgery - [address] [place] [phone] Sergey Ribera, DPM [address] [place] [phone] 02/02/2025 9:45 AM EST Office Visit Pulmonology - [place] [address] [facility] [address] [place] [phone] Fabiola Sanches, YARITZA [address] [place] [phone] 05/27/2025 9:45 AM EDT Office Visit Adult Medicine [address] [phone] Shaheen Fletcher MD [address] [place] [address] documented as of this encounter Goals Goal [...] FROM THE [facility] # 6 IMPROVE RIGHT RESEARCH STAFF MEMBER FROM 23 TO AT LEAST 30 POUNDS documented as of this encounter Visit Diagnoses Not on filedocumented in this encounter Additional Health Concerns Assessment Noted Time PHQ-9 Depression Total Score: 6 05/16/19 25 11:57 AM EDT documented as of this encounter Care Teams Pierce And Shave Press Operator Relationship Specialty Start Date End Date Shaheen Fletcher MD [address] [place] [address] PCP - General 09/28/08 documented as of this encounter
--- OUTSIDE RECORDS SUMMARY | 2024-12-17 15:15 | XMS_ITS | Encounter Summary ---
Author Organization [facility] Address [address] [place] [address] Care Team Providers Care Kennel Manager Name Role Phone Shaheen Fletcher MD Primary Care Provider [phone] Reason for Visit * Reason Onset Date Comments faxed order 12/15/2024 [facility] are order [id number] Encounter Details Date Type Department Care Team (Late st Contact Info) Description 12/15/2024 Telephone Adult Medicine [address] [phone] Shaheen Fletcher MD [address] [place] [address] Social History Tobacco Use Types Packs/Day Years [...] for your loved ones. For example, child welfare assistant or elderly care for an older [...] encounter Progress Notes * Kim Rendon - 12/15/2024 8:54 AM EDT [facility] order [id number] received please sign and fax to [phone] documented in this encounter Plan of Treatment Upcoming Encounters Date Type Department Care Team (Late st Contact Info) Description 12/22/2024 3:00 PM EST Office Visit Adult Medicine [address] [phone] Shaheen Fletcher MD [address] [place] [address] 01/29/2025 8:30 AM EST Office Visit Orthopedic Surgery [address] [place] [phone] Sergey Ribera, DPM [address] [place] [phone] 02/02/2025 9:45 AM EST Office Visit Pulmonology - [place] [address] [facility] [address] [place] [phone] Fabiola Sanches, YARITZA [address] [place] [phone] 05/27/2025 9:45 AM EDT Office Visit Adult Medicine [address] [phone] Shaheen Fletcher MD [address] [place] [address] documented as of this encounter Goals Goal [...] FROM THE [facility] # 6 IMPROVE RIGHT FRACTIONATION SUPERVISOR FROM 23 TO AT LEAST 30 POUNDS documented as of this encounter Visit Diagnoses Not on filedocumented in this encounter Additional Health Concerns Assessment Noted Time PHQ-9 Depression Total Score: 6 05/16/19 25 11:57 AM EDT documented as of this encounter Care Teams Kennel Manager Relationship Specialty Start Date End Date Shaheen Fletcher MD [address] [place] [phone] PCP - General 09/28/08 documented as of this encounter
== END 2024-12-17 12:35 | disposition home or self-care (01) ==
LOC: HO.HSM 11:52
PROVIDERS: Visit Provider Psychiatry & Neurology Neurology
DX: G43.909 Migraine, unspecified, not intractable, without status migrainosus (principal); G35.D Multiple sclerosis, unspecified
CPT/HCPCS: 99214

== ENCOUNTER → 2024-12-17 11:51 | Outpatient (BNVA) | payer OTHER, SELFPAY | PROVIDERS: Visit Provider Psychiatry & Neurology Neurology | DX: G43.909 Migraine, unspecified, not intractable, without status migrainosus (principal); G35.D Multiple sclerosis, unspecified | CPT/HCPCS: 99212 ==